=== PATIENT | male | born 1955 | race Caucasian/White ===

== ENCOUNTER 2017-04-19 18:30 | Emergency (ER) | payer MEDICAID, SELFPAY ==
[~2017-04-19] VITALS: Ht 182.9 cm; Wt 102.1 kg
[~2017-04-19 18:30] MED LIST: NKM
[2017-04-19] MEDS ORDERED: ACETAMINOPHEN-1 EAC1 ORAL (19:19)
[2017-04-19] MEDS ORDERED: CORTISPORIN EAR10 ML BOTH EARS (19:19)
[2017-04-19 19:27] VITALS: BP 120/80
--- NOTE | 2017-04-19 20:54 | Emergency Room Report ---
History of Present Illness General Chief Complaint: Earache Source: Patient Present Illness HPI The patient is a 61 old male presenting for ear pain which began 3 days ago. He states that he has pain to both years. Described as an 8/10 dull ache. Does not radiate. Worse with touch. He doesn't need to cleaning out ears with Q-tips. He denies any trauma to the ears. He denies change in hearing. He states that he frequently gets ear infections. He denies any other symptoms Allergies: Coded Allergies: No Known Allergies (Unverified , 04/04/13) Patient History Past Medical History: see triage record Pertinent Family History: none Reviewed Nursing Documentation: PMH: Agreed, PSxH: Agreed Nursing Documentation-PMH Hx Cardiac Problems: No Hx Cancer: No Hx Gastrointestinal Problems: No Hx Neurological Problems: Yes Hx Dizziness: Yes Review of Systems All Other Systems: negative except mentioned in HPI Physical Exam Vital Signs Date Time Temp Pulse Resp B/P (MAP) Pulse Ox O2 Delivery O2 Flow Rate FiO2 04/19/17 18:57 98.1 78 16 120/80 98 Room Air Sp02 EP Interpretation: reviewed, normal General Appearance: no apparent distress, alert, GCS 15, non-toxic Head: normocephalic, atraumatic Eyes: bilateral eye normal inspection, bilateral eye PERRL ENT: hearing grossly normal, normal pharynx, no angioedema, normal voice, uvula midline, other - Bilat EAC erythema with white DC Neck: full range of motion, supple/symm/no masses Respiratory: chest non-tender, lungs clear, normal breath sounds, speaking full sentences Musculoskeletal: back normal, gait/station normal, normal range of motion, non- tender Neurologic: alert, oriented x3, responsive, motor strength/tone normal, sensory intact, speech normal Psychiatric: judgement/insight normal, memory normal, mood/affect normal, no suicidal/homicidal ideation Skin: normal color, no rash, warm/dry, well hydrated Medical Decision Making PA Attestation Dr. Gibson is my supervising physician. Patient management was discussed with my supervising physician Diagnostic Impression: Primary Impression: Otitis externa of both ears Qualified Codes: H60.333 - Swimmer's ear, bilateral ER Course The patient is a 61 old male presenting for ear pain which began 3 days ago. Physical exam: Vitals within normal limits. No apparent distress. HEENT: Bilat ear external auditory canal is erythematous and edematous. White discharge is noted. Tympanic membrane is intact. No bulging. There is no cervical lymphadenopathy. Otherwise exam is unremarkable The patient will be discharged home with a prescription for Cortisporin and pain medication and will Fu with PMD Last Vital Signs Date Time Temp Pulse Resp B/P (MAP) Pulse Ox O2 Delivery O2 Flow Rate FiO2 04/19/17 19:27 98.1 78 16 120/80 98 Room Air Status: improved Disposition: HOME, SELF-CARE Condition: Improved Scripts Acetaminophen With Codeine (T#3) (TYLENOL #3 TAB*) Y Tab 1 TAB ORAL Q6HR Y for For Pain, #10 TAB Prov: FLORIDALMA THACKER 04/19/17 Neomycin/Polymyxin B Sulf/Hc* (CORTISPORIN EAR SOLUTION*) 10 Ml Solution 4 DROP BOTH EARS QID, #10 ML 0 Refills Prov: FLORIDALMA THACKER 04/19/17 Referrals: [facility],REFERRING (PCP) Patient Instructions: Otitis Externa, [id number], Earache Additional Instructions: I discussed my findings with the patient. All questions and concerns have been answered. Treatment and medication compliance have been addressed. I advised the patient that they need to follow up with PMD in 3-5 days. Return to ED if symptoms worsen, new symptoms arise, or if needed for any reason. Patient verbalized understanding of discharge instructions. FLORIDALMA THACKER Apr 19, 2017 20:54
== END 2017-04-19 19:30 | disposition home or self-care (01) ==
LOC: EMR 19:07
DX: H60.93 Unspecified otitis externa, bilateral (principal)
CPT/HCPCS: 99284

== ENCOUNTER 2017-08-30 14:49 | Inpatient (IN) | payer MEDICAID ==
[~2017-08-30] VITALS: Ht 180.3 cm; Wt 124.3 kg
[~2017-08-30 14:49] MED LIST changes: +ACETAMINOPHEN-1 EAC1 ORAL; +CORTISPORIN EAR10 ML BOTH EARS
[2017-08-30] MEDS ORDERED: Ipratropium 0.02% Inh Soln 2.5ml UD HHN ONE (15:15)
[2017-08-30] MEDS: Albuterol ud Inhalation HHN SCH ×3 (15:26→15:41)
--- NOTE | 2017-08-30 15:27 | Emergency Room Report ---
History of Present Illness General Chief Complaint: Dyspnea/Respdistress Source: Patient, Medical Record Present Illness HPI 61yo M complains fatigue for the past few months, sent by the clinic across the street, , for low O2 sat of 90% on room air Patient reports he's been smoking for about 30 years, and hasn't inhaler he uses occasionally, and has been feeling short of breath for the last few months. He denies any fever, hemoptysis, syncope, leg swelling, chest pain. He does report fatigue, general sensation of shortness of breath, cough with yellow sputum. He denies orthopnea, diaphoresis, rectal bleeding, melena, any pain complaints, any other complaints at all. Allergies: Coded Allergies: No Known Allergies (Unverified , 04/04/13) Patient History Past Medical History: see triage record Reviewed Nursing Documentation: PMH: Agreed; PSxH: Agreed Nursing Documentation-PMH Past Medical History: No History, Except For Hx Cardiac Problems: No Hx Cancer: No Hx Gastrointestinal Problems: No Hx Neurological Problems: Yes Hx Dizziness: Yes Review of Systems All Other Systems: negative except mentioned in HPI Physical Exam Vital Signs Date Time Temp Pulse Resp B/P (MAP) Pulse Ox O2 Delivery O2 Flow Rate FiO2 08/30/17 14:49 97.7 80 18 134/84 96 Nasal Cannula 4.0 97.7 Sp02 EP Interpretation: reviewed, abnormal - Hypoxic General Appearance: no apparent distress, alert, non-toxic Head: normocephalic Eyes: bilateral eye normal inspection, bilateral eye PERRL, bilateral eye EOMI ENT: normal ENT inspection, hearing grossly normal, normal pharynx, no angioedema, normal voice, moist mucus membranes Neck: normal inspection, full range of motion, supple, supple/symm/no masses Respiratory: chest non-tender, lungs clear - Poor air exchange, prolonged expiratory phase, but no rales, no rhonchi, no wheezing, speaking full sentences , chest symmetrical, palpation of chest normal Cardiovascular #1: normal peripheral pulses, regular rate, rhythm Cardiovascular #2: 2+ radial (R), 2+ radial (L) Gastrointestinal: normal inspection, non tender, soft, no mass, no guarding, no rebound Rectal: deferred Genitourinary: normal inspection, no CVA tenderness Musculoskeletal: back normal, gait/station normal, normal range of motion, non- tender, no calf tenderness, Amalia's Sign negative Neurologic: alert, responsive, security strategist III-XII nml as tested, motor strength/tone normal, sensory intact, speech normal Psychiatric: judgement/insight normal, memory normal, mood/affect normal, no suicidal/homicidal ideation Skin: normal color, no rash, warm/dry, normal turgor Lymphatic: no adenopathy Medical Decision Making Reaction to Intervention: Improved Diagnostic Impression: Primary Impression: Dyspnea ER Course Patient with likely undiagnosed COPD, taken off of oxygen and resting with O2 sat mid 90s on room air Patient in no extremis, no signs of PE, EKG unchanged from 2012, no chest pain ABG showed compensated respiratory acidosis and mild hypoxia Workup consistent with new onset COPD Will admit for further nebulizers and steroids, which were initiated in the ED EKG Diagnostic Results EKG Time: 15:08 EP Interpretation: t wave abnormality, no ST-T changes Rate: normal Rhythm: NSR ST Segments: no acute changes Other Impression no change when compared to 04/05/2013 ekg timed 8:42:04, had to obtain from medical records because they are not scanned into [employer] ASA given to the pt in ED: Yes Rhythm Strip Diag. Results EP Interpretation: yes Rate: 75 Rhythm: NSR, no PVC's, no ectopy Chest X-Ray Diagnostic Results Chest X-Ray Diagnostic Results : Chest X-Ray Ordered: Yes Indication: Shortness of Breath EP Interpretation: Yes PA Xray: Interpretation reviewed Interpretation: no consolidation, no effusion, no pneumothorax, no acute cardiopulmonary disease Impression: No acute disease - cardiomegaly, otherwise no consolidations/ effusions/PTX/blebs Electronically Signed by: La Nena Fowler MD Last Vital Signs Date Time Temp Pulse Resp B/P (MAP) Pulse Ox O2 Delivery O2 Flow Rate FiO2 08/30/17 14:49 97.7 80 18 134/84 96 Nasal Cannula 4.0 97.7 Status: improved Disposition: ADMITTED INPATIENT Condition: Stable Signed Out To: Dr. Calabrese agreed to admit for further nebs, oxygen, steroids LA NENA FOWLER M.D Aug 30, 2017 15:27
[2017-08-30 15:30] LABS: EOSINOPHILS % (AUTO) 2.8 % (0.0-3.0); HEMATOCRIT 45.8 % (42.0-52.0); HEMOGLOBIN 15.2 G/DL (14.2-18.0); MEAN CORPUSCULAR VOLUME 103 FL (80-99); MONOCYTES % (AUTO) 5.4 % (1.0-10.0); NEUTROPHILS % (AUTO) 55.8 % (45.0-75.0); PLATELET COUNT 300 K/UL (150-450); RED BLOOD COUNT 4.46 M/UL (4.70-6.10); RED CELL DISTRIBUTION WIDTH 15.5 % (11.6-14.8)
[2017-08-30 15:41] LABS: ANION GAP 8 mmol/L (5-15); BLOOD UREA NITROGEN 21 mg/dL (7-18); CALCIUM 9.1 MG/DL (8.5-10.1); CARBON DIOXIDE 30 MMOL/L (21-32); CHLORIDE 98 MMOL/L (98-107); CREATININE 1.6 MG/DL (0.55-1.30); POTASSIUM 4.1 MMOL/L (3.5-5.1); SODIUM 136 MMOL/L (136-145)
[2017-08-30 15:51] LABS: ALANINE AMINOTRANSFERASE 75 U/L (12-78); ALBUMIN 4.2 G/DL (3.4-5.0); ALBUMIN/GLOBULIN RATIO 0.9 (1.0-2.7); ALKALINE PHOSPHATASE 78 U/L (46-116); ASPARTATE AMINO TRANSFERASE 110 U/L (15-37); BILIRUBIN,TOTAL 0.5 MG/DL (0.2-1.0)
[2017-08-30] MEDS ORDERED: Solu-MEDROL 125mg Inj IVP ONE (16:00)
--- NOTE | 2017-08-30 16:28 | Diagnostic Imaging Report ---
Indication: Shortness of breath Technique: One view of the chest Comparison: 04/06/2013 Findings: The patient is rotated to the right. The heart is borderline enlarged. Lungs and pleural spaces are clear. Findings are unchanged allowing for differences in rotation Impression: No acute process. Upper lung cardia megaly
[2017-08-30] MEDS ORDERED: Albuterol ud Inhalation HHN ONE (16:30)
[2017-08-30 16:33] VITALS: BP 125/68
[2017-08-30 18:02] VITALS: BP 148/71
[2017-08-30] MEDS ORDERED: Acetaminophen 500mg (ES) tab ORAL PRN (18:15)
[2017-08-30 18:30] VITALS: BP 129/71
[2017-08-30] MEDS: Albuterol/Ipratropium 3ml neb HHN SCH ×2 (19:00→23:17)
[2017-08-30 20:00] VITALS: BP 141/74
[2017-08-30] MEDS: Levofloxacin 500mg tab ORAL SCH (20:13)
[2017-08-30] MEDS: Heparin 5000 units/ml inj SUBQ SCH (20:15)
[2017-08-30] MEDS: Solu-MEDROL 40mg Inj IVP SCH (22:51)
[2017-08-31] VITALS: BP 159/89
--- NOTE | 2017-08-31 02:30 | Consultation ---
DATE OF CONSULTATION: 08/30/2017 CARDIOLOGY CONSULTATION CONSULTING PHYSICIAN: Ryan Meyer M.D. REQUESTING PHYSICIAN: Tim Calabrese M.D. REASON FOR CONSULTATION: Abnormal EKG in the setting of shortness of breath. HISTORY OF PRESENT ILLNESS: This is a 61-year-old male. He has a longstanding history of COPD and is an active smoker. He was referred to the hospital for evaluation of hypoxia. He has continued to use his inhalers intermittently, which is his baseline level of use. For the last few months and more recently week, has been notable for progressive shortness of breath. He has not had any recent upper respiratory infection. He denies chest pain or leg swelling. His EKG in the emergency revealed sinus rhythm with anterior T-wave inversion. His initial troponin was 0.012. PAST MEDICAL HISTORY: COPD. MEDICATIONS: Prior to admission, reviewed and reconciled. ALLERGIES: None known. FAMILY HISTORY: Noncontributory. REVIEW OF SYSTEMS: A 10-point review of systems performed, all pertinent findings are noted above. PHYSICAL EXAMINATION: GENERAL: Moderately obese, in no acute respiratory distress, was unable to lie flat. VITAL SIGNS: Blood pressure 134/84, heart rate 80, respiratory rate 18, and afebrile. HEENT: Conjunctivae pink. Oropharynx clear. NECK: Supple with obese neck. LUNGS: A few rhonchi and fine expiratory wheezes. CARDIAC: Regular rhythm and rate. Normal S1, S2 with a fourth heart sound. ABDOMEN: Soft. EXTREMITIES: With 1+ dependent edema. LABORATORY DATA: Labs are reviewed. IMPRESSION: 1. Chronic obstructive pulmonary disease with acute exacerbation. 2. Hypoxia. 3. Abnormal EKG. 4. Possible acute myocardial ischemia. 5. Acute bronchitis. PLAN: 1. Empiric antibiotics. 2. Inhaled bronchodilators. 3. Intravenous steroids. 4. Respiratory hygiene. 5. Serial troponin levels. 6. DVT prophylaxis. 7. Venous duplex scan to assess for possible source of pulmonary emboli. 8. Replace electrolytes as needed. 9. Smoking cessation will continued to be offered to the patient who refuses at this time. 10. Oxygen supplementation and monitoring of acid-base parameters is critical during this period as well. Ryan Meyer M.D. DR: Beckie JOB#: [id number] CC:
[2017-08-31] MEDS: Albuterol/Ipratropium 3ml neb HHN SCH ×6 (03:03→23:41)
[2017-08-31 04:00] VITALS: BP 136/89
[2017-08-31] MEDS: Solu-MEDROL 40mg Inj IVP SCH ×3 (05:35→22:56)
[2017-08-31 08:00] VITALS: BP 150/67
[2017-08-31 08:50] LABS: BASOPHILS % (AUTO) 0.4 % (0.0-2.0); EOSINOPHILS % (AUTO) 0.1 % (0.0-3.0); HEMATOCRIT 47.8 % (42.0-52.0); HEMOGLOBIN 15.7 G/DL (14.2-18.0); LYMPHOCYTES % (AUTO) 16.7 % (20.0-45.0); MEAN CORPUSCULAR VOLUME 105 FL (80-99); NEUTROPHILS % (AUTO) 79.9 % (45.0-75.0); PLATELET COUNT 322 K/UL (150-450); RED BLOOD COUNT 4.53 M/UL (4.70-6.10); RED CELL DISTRIBUTION WIDTH 16.1 % (11.6-14.8); WHITE BLOOD COUNT 12.1 K/UL (4.8-10.8)
[2017-08-31 09:20] LABS: ALANINE AMINOTRANSFERASE 87 U/L (12-78); ALBUMIN 4.3 G/DL (3.4-5.0); ALBUMIN/GLOBULIN RATIO 0.8 (1.0-2.7); ALKALINE PHOSPHATASE 88 U/L (46-116); ANION GAP 6 mmol/L (5-15); ASPARTATE AMINO TRANSFERASE 112 U/L (15-37); BILIRUBIN,TOTAL 0.4 MG/DL (0.2-1.0); BLOOD UREA NITROGEN 20 mg/dL (7-18); CALCIUM 9.7 MG/DL (8.5-10.1); CARBON DIOXIDE 34 MMOL/L (21-32); CHLORIDE 98 MMOL/L (98-107); CREATININE 1.6 MG/DL (0.55-1.30); POTASSIUM 4.7 MMOL/L (3.5-5.1); SODIUM 138 MMOL/L (136-145)
[2017-08-31] MEDS: Heparin 5000 units/ml inj SUBQ SCH ×2 (09:29→20:33)
[2017-08-31 10:43] LABS: CHOLESTEROL 336 MG/DL (< 200); HDL CHOLESTEROL 61 MG/DL (40-60); TRIGLYCERIDES 89 MG/DL (30-150)
[2017-08-31 11:56] VITALS: BP 140/78
[2017-08-31 16:00] VITALS: BP 147/85
--- NOTE | 2017-08-31 17:10 | Cardiology Report ---
APPROVED REPORT EKG Measurement Heart [id number] CT 178P59 [id number] Normal sinus rhythm T wave abnormality, consider inferior ischemia T wave abnormality, consider anterolateral ischemia Abnormal ECG
--- NOTE | 2017-08-31 18:15 | History and Physical Report ---
DATE OF ADMISSION: 08/30/2017 CHIEF COMPLAINT: Shortness of breath and COPD exacerbation. HISTORY OF PRESENT ILLNESS: The patient is a 61-year-old male. He has a history of COPD. He was seen by his primary care doctor. He was noted to be significantly short of breath with diffuse wheezing. He was sent to the emergency room. He was diagnosed with COPD exacerbation. He is now admitted for further evaluation and care. PAST MEDICAL HISTORY: As above. PAST SURGICAL HISTORY: None. MEDICATIONS: Current medications include only albuterol inhaler. ALLERGIES: The patient has no known drug allergies. FAMILY HISTORY: Noncontributory. SOCIAL HISTORY: The patient has a 20 to 30-pack year history of smoking. REVIEW OF SYSTEMS: Unremarkable except for cough and shortness of breath. PHYSICAL EXAMINATION: VITAL SIGNS: Temperature 98 degrees, pulse 84, respirations 18, and blood pressure 136/89. GENERAL: The patient is well developed, no apparent distress. HEART: Regular rate and rhythm. LUNGS: Bilateral wheezes and rhonchi. ABDOMEN: Soft, nontender, and nondistended. EXTREMITIES: Without clubbing or cyanosis. LABORATORY AND DIAGNOSTIC DATA: White count 10, hemoglobin 15, and hematocrit 45. Creatinine was 1.6, sodium 136, and potassium was 4. AST was 110. Troponin 0.012. Chest x-ray showed no infiltrates. ASSESSMENT: This is a pleasant male, admitted with chronic obstructive pulmonary disease exacerbation. 1. Chronic obstructive pulmonary disease exacerbation. 2. Mild renal insufficiency. PLAN: Oral antibiotic therapy for bronchitis. Respiratory treatments and intravenous steroids. Pulmonary consultation. Tim Calabrese M.D. DR: SISI JOB#: [id number] CC:
[2017-08-31 20:00] VITALS: BP 118/59
[2017-08-31] MEDS: Levofloxacin 500mg tab ORAL SCH (20:33)
--- NOTE | 2017-08-31 22:00 | Consultation ---
DATE OF CONSULTATION: 08/31/2017 PULMONARY CONSULTATION REASON FOR CONSULTATION: COPD. HISTORY OF PRESENT ILLNESS: The patient is a 61-year-old male with history of COPD. The patient was noted to have increasing shortness of breath and wheezing. The patient was sent to the emergency room and now being admitted for chronic obstructive pulmonary disease exacerbation. The patient's care discussed and reviewed. PAST MEDICAL HISTORY: Notable for the above. MEDICATIONS: Reviewed. ALLERGIES: Reviewed. SOCIAL HISTORY: The patient has also history of smoking. REVIEW OF SYSTEMS: Otherwise negative with exception of cough, chest pain, shortness of breath. PHYSICAL EXAMINATION: GENERAL: A well-developed male, somewhat short of breath, but no acute distress. VITAL SIGNS: Reviewed and appeared to be otherwise stable. The patient is oxygenating at 93% on two liters. NECK: Supple. No accessory muscle use. LUNGS: Scattered wheezes with reduced air entry. CARDIAC: Normal S1 and S2. Regular rate and rhythm. ABDOMEN: Soft and nontender. EXTREMITIES: No edema. LABORATORY AND DIAGNOSTIC DATA: Lab data otherwise reviewed. Chest x-ray, negative. Troponin 0.012. IMPRESSION: 1. Chronic obstructive pulmonary disease with acute exacerbation. Elevated troponin of unclear significance. 2. Mild leukocytosis. 3. Evidence of acute on chronic CO2 retention suggestive of advanced lung disease. RECOMMENDATIONS: 1. Supportive care. 2. Agree with IV steroids. 3. Agree with nebulized therapy. 4. Nicotine patch. 5. Oxygen therapy. 6. Monitor clinically for improvement and proceed with discharge planning. 7. The patient likely would require combination of long acting bronchodilator, inhaled corticosteroids, and long-acting muscarinic agents, as well as Daliresp. stable on discharge. 8. We will discuss further. Marcelo Contreras M.D. DR: Vidya JOB#: [id number] CC:
[2017-09-01] VITALS: BP 136/68
--- NOTE | 2017-09-01 01:45 | Progress Note ---
DATE: 08/31/2017 CARDIOLOGY PROGRESS NOTE SUBJECTIVE: The patient notes some decrease in shortness of breath, but still congested and not at baseline. OBJECTIVE: VITAL SIGNS: Reveal blood pressure of 118/59, heart rate 84, respiratory rate 20, and oxygen saturation of 94% on two liters nasal cannula. LUNGS: Coarse breath sounds. Scattered rhonchi and expiratory wheezes. CARDIAC: Regular rhythm and rate. Normal S1, S2 with no murmur. ABDOMEN: Soft. EXTREMITIES: No edema. LABORATORY AND DIAGNOSTIC DATA: Troponin level #1 is 0.012 number #2 is 0. Chest x-ray revealed no acute process. Total cholesterol is 336. TSH is 63. BUN 20, creatinine 1.6. IMPRESSION: 1. Chronic obstructive pulmonary disease exacerbation. 2. Acute bronchitis. 3. Severe dyslipidemia. 4. Severe hypothyroidism. PLAN: 1. Respiratory therapy. 2. Bronchodilators. 3. Empiric antibiotics. 4. DVT prophylaxis. 5. Hold diuretics. 6. Add thyroid replacement and statin drug. Ryan Meyer M.D. DR: CECE JOB#: [id number] CC:
[2017-09-01] MEDS: Albuterol/Ipratropium 3ml neb HHN SCH ×6 (03:35→23:23)
[2017-09-01 04:00] VITALS: BP 157/68
[2017-09-01] MEDS: Solu-MEDROL 40mg Inj IVP SCH ×3 (05:51→20:42)
[2017-09-01 08:00] VITALS: BP 150/98
--- NOTE | 2017-09-01 08:13 | General Progress Note ---
Assessment/Plan Problem List: (1) COPD (chronic obstructive pulmonary disease) ICD Codes: J44.9 - Chronic obstructive pulmonary disease, unspecified SNOMED: 29088799 (2) COPD exacerbation ICD Codes: J44.1 - Chronic obstructive pulmonary disease with (acute) exacerbation SNOMED: 449076879 (3) Dyspnea ICD Codes: R06.00 - Dyspnea, unspecified SNOMED: 429286541 (4) Supraventricular tachycardia ICD Codes: I47.1 - Supraventricular tachycardia SNOMED: 5161753 (5) Otitis externa of both ears ICD Codes: H60.93 - Unspecified otitis externa, bilateral SNOMED: 0483910 Status: stable, progressing Assessment/Plan wean steroids resp rx atc abx po dvt/stress ulcer prophylaxis smoking cessation encouraged. Subjective ROS Limited/Unobtainable: No Constitutional: Reports: malaise, weakness HEENT: Reports: no symptoms Cardiovascular: Reports: no symptoms Respiratory: Reports: cough, shortness of breath, wheezing Gastrointestinal/Abdominal: Reports: no symptoms Genitourinary: Reports: no symptoms Neurologic/Psychiatric: Reports: no symptoms Endocrine: Reports: no symptoms Hematologic/Lymphatic: Reports: no symptoms Allergies: Coded Allergies: No Known Allergies (Unverified , 04/04/13) All Systems: reviewed and negative except above Subjective decreased wheezing and sob. cards and pulm appreciated Objective Last 24 Hour Vital Signs Date Time Temp Pulse Resp B/P (MAP) Pulse Ox O2 Delivery O2 Flow Rate FiO2 09/01/17 07:46 Nasal Cannula 2.0 28 09/01/17 07:46 95 Nasal Cannula 2.0 28 09/01/17 07:46 78 17 95 Nasal Cannula 2.0 28 09/01/17 04:00 97.0 73 20 157/68 94 Nasal Cannula 2.0 97.0 09/01/17 04:00 91 09/01/17 03:35 Nasal Cannula 2.0 28 09/01/17 03:35 Nasal Cannula 2.0 28 09/01/17 00:00 85 09/01/17 00:00 97.7 69 20 136/68 94 Nasal Cannula 2.0 97.7 08/31/17 23:51 81 20 99 Nasal Cannula 2.0 28 08/31/17 23:41 85 18 95 Nasal Cannula 2.0 28 08/31/17 20:00 88 08/31/17 20:00 97.7 84 20 118/59 94 Nasal Cannula 2.0 97.7 08/31/17 19:29 83 20 98 Nasal Cannula 2.0 28 08/31/17 19:19 80 18 93 Nasal Cannula 2.0 28 08/31/17 19:18 Nasal Cannula 2.0 28 08/31/17 19:18 93 Nasal Cannula 2.0 28 08/31/17 16:30 82 08/31/17 16:00 97.7 99 20 147/85 95 Nasal Cannula 2.0 97.7 08/31/17 15:54 80 20 Nasal Cannula 2.0 28 08/31/17 15:40 76 18 Nasal Cannula 2.0 28 08/31/17 12:00 83 08/31/17 11:58 85 20 Nasal Cannula 2.0 28 08/31/17 11:56 97.7 70 20 140/78 94 Nasal Cannula 2.0 97.7 08/31/17 11:45 82 18 95 Nasal Cannula 2.0 28 Intake and Output 08/31/17 09/01/17 19:00 07:00 Intake Total 600 ml Output Total 600 ml 1000 ml Balance 0 ml -1000 ml Intake Oral 600 ml Output Urine Total 600 ml 1000 ml # Voids 1 3 Height (Feet): 5 Height (Inches): 11.00 Weight (Pounds): 274 General Appearance: WD/WN, alert Neck: supple Cardiovascular: normal rate, regular rhythm Respiratory/Chest: expiratory wheezing Abdomen: normal bowel sounds, non tender, soft, no organomegaly Edema: no edema noted Arm (L), no edema noted Arm (R), no edema noted Leg (L), no edema noted Leg (R), no edema noted Pedal (L), no edema noted Pedal (R), no edema noted Generalized SAMREEN DENG Sep 01, 2017 08:13
[2017-09-01] MEDS: Heparin 5000 units/ml inj SUBQ SCH ×2 (08:16→20:43)
[2017-09-01 12:00] VITALS: BP 151/79
--- NOTE | 2017-09-01 12:36 | Pulmonology Progress Note ---
Assessment/Plan Assessment/Plan IMPRESSION: 1. Chronic obstructive pulmonary disease with acute exacerbation. 2. Mild leukocytosis. 3. Evidence of acute on chronic CO2 retention suggestive of advanced lung disease. PLAN continue same slow taper of steroids respiratory care ICS and LABA LAMA and daliresp with steroid taper on dc Subjective Allergies: Coded Allergies: No Known Allergies (Unverified , 04/04/13) Subjective still with some congestion Objective Last 24 Hour Vital Signs Date Time Temp Pulse Resp B/P (MAP) Pulse Ox O2 Delivery O2 Flow Rate FiO2 09/01/17 12:00 97.0 81 21 151/79 99 Nasal Cannula 2.0 97.0 09/01/17 11:27 82 20 96 Nasal Cannula 2.0 28 09/01/17 11:17 81 18 89 Room Air 21 09/01/17 08:00 97.7 83 22 150/98 96 Nasal Cannula 2.0 97.7 09/01/17 08:00 67 09/01/17 07:56 78 20 97 Nasal Cannula 2.0 28 09/01/17 07:46 Nasal Cannula 2.0 28 09/01/17 07:46 95 Nasal Cannula 2.0 28 09/01/17 07:46 78 17 95 Nasal Cannula 2.0 28 09/01/17 04:00 97.0 73 20 157/68 94 Nasal Cannula 2.0 97.0 09/01/17 04:00 91 09/01/17 03:35 Nasal Cannula 2.0 28 09/01/17 03:35 Nasal Cannula 2.0 28 09/01/17 00:00 85 09/01/17 00:00 97.7 69 20 136/68 94 Nasal Cannula 2.0 97.7 08/31/17 23:51 81 20 99 Nasal Cannula 2.0 28 08/31/17 23:41 85 18 95 Nasal Cannula 2.0 28 08/31/17 20:00 88 08/31/17 20:00 97.7 84 20 118/59 94 Nasal Cannula 2.0 97.7 08/31/17 19:29 83 20 98 Nasal Cannula 2.0 28 08/31/17 19:19 80 18 93 Nasal Cannula 2.0 28 08/31/17 19:18 Nasal Cannula 2.0 28 08/31/17 19:18 93 Nasal Cannula 2.0 28 08/31/17 16:30 82 08/31/17 16:00 97.7 99 20 147/85 95 Nasal Cannula 2.0 97.7 08/31/17 15:54 80 20 Nasal Cannula 2.0 28 08/31/17 15:40 76 18 Nasal Cannula 2.0 28 Intake and Output 08/31/17 09/01/17 19:00 07:00 Intake Total 600 ml Output Total 600 ml 1000 ml Balance 0 ml -1000 ml Intake Oral 600 ml Output Urine Total 600 ml 1000 ml # Voids 1 3 Objective GENERAL: A well-developed male, somewhat short of breath, but no acute distress. NECK: Supple. No accessory muscle use. LUNGS: Scattered wheezes with reduced air entry. some rhonchi CARDIAC: Normal S1 and S2. Regular rate and rhythm. ABDOMEN: Soft and nontender. EXTREMITIES: No edema. Microbiology Date/Time Source Procedure Growth Status 08/31/17 04:45 Sputum Gram Stain Pending Resulted 08/31/17 04:45 Sputum Sputum Culture - Preliminary NORMAL UPPER RESPIRATORY ROSEMARY AT 24 ... Resulted Current Medications Medications (Trade) Dose Ordered Sig/Ryan Route PRN Reason Start Time Stop Time Status Last Admin Dose Admin Acetaminophen (Tylenol) 500 mg Q4H PRN ORAL Mild Pain/Temp > 100.5 08/30/17 18:15 09/29/17 18:14 Albuterol/ Ipratropium (Albuterol/ Ipratropium) 3 ml Q4HRT HHN 08/30/17 19:00 09/04/17 18:59 09/01/17 11:16 Atorvastatin Calcium (Lipitor) 20 mg BEDTIME ORAL 09/01/17 21:00 10/01/17 20:59 Famotidine (Pepcid) 20 mg DAILY ORAL 08/31/17 09:00 09/30/17 08:59 09/01/17 08:15 Heparin Sodium (Porcine) (Heparin 5000 units/ml) 5,000 units EVERY 12 HOURS SUBQ 08/30/17 21:00 09/29/17 20:59 09/01/17 08:16 Levofloxacin (Levaquin) 500 mg Q24H ORAL 08/30/17 20:00 09/06/17 19:59 08/31/17 20:33 Levothyroxine Sodium (Synthroid) 100 mcg DAILY@0630 ORAL 09/01/17 06:30 10/01/17 06:29 09/01/17 05:51 Methylprednisolone Sodium Succinate (Solu-MEDROL) 40 mg EVERY 12 HOURS IVP 09/01/17 09:00 09/29/17 22:59 09/01/17 08:21 Nicotine (Nicoderm) 1 patch Q24H TDERMAL 08/31/17 15:00 09/30/17 14:59 08/31/17 15:59 Ondansetron HCl (Zofran) 4 mg Q6H PRN IVP Nausea & Vomiting 08/30/17 18:15 09/29/17 18:14 Temazepam (Restoril) 30 mg HSPRN PRN ORAL Insomnia 08/31/17 21:15 09/07/17 21:14 08/31/17 22:56 TY [facility] Sep 01, 2017 12:36
[2017-09-01 16:00] VITALS: BP 149/58
[2017-09-01 20:00] VITALS: BP 149/93
[2017-09-01] MEDS: Levofloxacin 500mg tab ORAL SCH (20:41)
[2017-09-01] MEDS: Atorvastatin 20mg tab ORAL SCH (20:41)
[2017-09-02] VITALS: BP 145/60
--- NOTE | 2017-09-02 00:30 | Progress Note ---
DATE: 09/01/2017 CARDIOLOGY PROGRESS NOTE SUBJECTIVE: The patient has less shortness of breath. Steroids are being tapered. No chest pain. Inhaled therapy has been started. OBJECTIVE: VITAL SIGNS: Blood pressure 151/79, pulse 81, respiratory rate 21 and afebrile. LUNGS: Diminished breath sounds. Few wheezes. CARDIAC: Regular rhythm and rate. Normal S1 and S2. ABDOMEN: Soft. EXTREMITIES: No edema. IMPRESSION: 1. COPD exacerbation. 2. Severe hypothyroidism. 3. Severe hyperlipidemia. 4. Labile blood pressure with episodes of hypertension. PLAN: Thyroid replacement and statin drug initiated. Steroid taper. Inhaled bronchodilators. Consider additional antihypertensives if blood pressure trend continues to be elevated. Ryan Meyer M.D. DR: MONTSERRAT JOB#: [id number] CC:
[2017-09-02] MEDS: Albuterol/Ipratropium 3ml neb HHN SCH ×6 (03:33→23:00)
[2017-09-02 04:00] VITALS: BP 156/80
[2017-09-02 08:00] VITALS: BP 150/75
[2017-09-02] MEDS: Solu-MEDROL 40mg Inj IVP SCH (08:12)
[2017-09-02] MEDS: Heparin 5000 units/ml inj SUBQ SCH ×2 (08:13→20:50)
[2017-09-02] MEDS: Breo Ellipta 200/25mcg-14 dose INH SCH (09:26)
[2017-09-02 12:00] VITALS: BP 130/75
--- NOTE | 2017-09-02 12:18 | Pulmonology Progress Note ---
Assessment/Plan Assessment/Plan IMPRESSION: 1. Chronic obstructive pulmonary disease with acute exacerbation. 2. Mild leukocytosis. 3. Evidence of acute on chronic CO2 retention suggestive of advanced lung disease. PLAN continue same respiratory care slow taper of steroids ordered respiratory care ICS and LABA LAMA and daliresp with steroid taper on dc hope to dc in am Subjective Allergies: Coded Allergies: No Known Allergies (Unverified , 04/04/13) Subjective still with some congestion but better Objective Last 24 Hour Vital Signs Date Time Temp Pulse Resp B/P (MAP) Pulse Ox O2 Delivery O2 Flow Rate FiO2 09/02/17 11:08 76 18 98 Nasal Cannula 2.0 28 09/02/17 10:58 80 18 95 Nasal Cannula 2.0 28 09/02/17 09:36 83 16 97 Nasal Cannula 2.0 28 09/02/17 09:36 83 16 97 Nasal Cannula 2.0 28 09/02/17 08:00 84 09/02/17 08:00 97.5 81 20 150/75 97 Nasal Cannula 2.0 97.5 09/02/17 07:52 80 18 98 Nasal Cannula 2.0 28 09/02/17 07:44 Nasal Cannula 2.0 28 09/02/17 07:44 97 Nasal Cannula 2.0 28 09/02/17 07:44 83 18 97 Nasal Cannula 2.0 28 09/02/17 04:00 76 09/02/17 04:00 97.2 69 20 156/80 96 Nasal Cannula 2.0 97.2 09/02/17 03:43 79 18 98 Nasal Cannula 2.0 28 09/02/17 03:33 78 18 95 Nasal Cannula 2.0 28 09/02/17 00:00 92 09/02/17 00:00 97.3 80 20 145/60 97 Nasal Cannula 2.0 97.3 09/01/17 23:23 Nasal Cannula 2.0 28 09/01/17 23:23 Nasal Cannula 2.0 28 09/01/17 20:14 82 18 98 Nasal Cannula 2.0 28 09/01/17 20:04 96 Nasal Cannula 2.0 28 09/01/17 20:04 88 18 96 Nasal Cannula 2.0 28 09/01/17 20:04 Nasal Cannula 2.0 28 09/01/17 20:00 97.2 78 20 149/93 97 Nasal Cannula 2.0 97.2 09/01/17 20:00 86 09/01/17 16:00 97.0 81 22 149/58 97 Nasal Cannula 2.0 97.0 09/01/17 16:00 83 09/01/17 15:26 81 20 97 Nasal Cannula 2.0 28 09/01/17 15:15 82 18 94 Nasal Cannula 2.0 28 Intake and Output 09/01/17 09/02/17 19:00 07:00 Intake Total 860 ml Output Total 1600 ml 1500 ml Balance -740 ml -1500 ml Intake Oral 860 ml Output Urine Total 1600 ml 1500 ml # Voids 5 Objective GENERAL: A well-developed male, somewhat short of breath, but no acute distress. NECK: Supple. No accessory muscle use. LUNGS: Scattered wheezes with reduced air entry. some rhonchi CARDIAC: Normal S1 and S2. Regular rate and rhythm. ABDOMEN: Soft and nontender. EXTREMITIES: No edema. Microbiology Date/Time Source Procedure Growth Status 08/31/17 04:45 Sputum Gram Stain - Final Complete 08/31/17 04:45 Sputum Sputum Culture - Final NORMAL UPPER RESPIRATORY ROSEMARY PRESENT Complete Current Medications Medications (Trade) Dose Ordered Sig/Ryan Route PRN Reason Start Time Stop Time Status Last Admin Dose Admin Acetaminophen (Tylenol) 500 mg Q4H PRN ORAL Mild Pain/Temp > 100.5 08/30/17 18:15 09/29/17 18:14 Albuterol/ Ipratropium (Albuterol/ Ipratropium) 3 ml Q4HRT HHN 08/30/17 19:00 09/04/17 18:59 09/02/17 10:58 Atorvastatin Calcium (Lipitor) 20 mg BEDTIME ORAL 09/01/17 21:00 10/01/17 20:59 09/01/17 20:41 Famotidine (Pepcid) 20 mg DAILY ORAL 08/31/17 09:00 09/30/17 08:59 09/02/17 08:14 Fluticasone/ Vilanterol (Breo Ellipta 200/25) 1 puffs DAILY INH 09/02/17 09:00 10/02/17 08:59 09/02/17 09:26 Heparin Sodium (Porcine) (Heparin 5000 units/ml) 5,000 units EVERY 12 HOURS SUBQ 08/30/17 21:00 09/29/17 20:59 09/02/17 08:13 Levofloxacin (Levaquin) 500 mg Q24H ORAL 08/30/17 20:00 09/06/17 19:59 09/01/17 20:41 Levothyroxine Sodium (Synthroid) 100 mcg DAILY@0630 ORAL 09/01/17 06:30 10/01/17 06:29 09/02/17 06:14 Methylprednisolone Sodium Succinate (Solu-MEDROL) 40 mg EVERY 12 HOURS IVP 09/01/17 09:00 09/29/17 22:59 09/02/17 08:12 Nicotine (Nicoderm) 1 patch Q24H TDERMAL 08/31/17 15:00 09/30/17 14:59 09/01/17 14:20 Ondansetron HCl (Zofran) 4 mg Q6H PRN IVP Nausea & Vomiting 08/30/17 18:15 09/29/17 18:14 Temazepam (Restoril) 30 mg HSPRN PRN ORAL Insomnia 08/31/17 21:15 09/07/17 21:14 08/31/17 22:56 TY COX Sep 02, 2017 12:18
--- NOTE | 2017-09-02 14:26 | General Progress Note ---
Assessment/Plan Problem List: (1) COPD (chronic obstructive pulmonary disease) ICD Codes: J44.9 - Chronic obstructive pulmonary disease, unspecified SNOMED: 42691306 (2) COPD exacerbation ICD Codes: J44.1 - Chronic obstructive pulmonary disease with (acute) exacerbation SNOMED: 483083350 (3) Dyspnea ICD Codes: R06.00 - Dyspnea, unspecified SNOMED: 796977717 (4) Supraventricular tachycardia ICD Codes: I47.1 - Supraventricular tachycardia SNOMED: 3178548 (5) Otitis externa of both ears ICD Codes: H60.93 - Unspecified otitis externa, bilateral SNOMED: 5819501 Status: stable Assessment/Plan wean steroids resp rx atc abx po dvt/stress ulcer prophylaxis smoking cessation encouraged. thyroid replacement statin therapy dc planning tomorrow if stable Subjective ROS Limited/Unobtainable: No Constitutional: Reports: malaise, weakness HEENT: Reports: no symptoms Cardiovascular: Reports: no symptoms Respiratory: Reports: shortness of breath Gastrointestinal/Abdominal: Reports: no symptoms Genitourinary: Reports: no symptoms Neurologic/Psychiatric: Reports: no symptoms Endocrine: Reports: no symptoms Hematologic/Lymphatic: Reports: no symptoms Allergies: Coded Allergies: No Known Allergies (Unverified , 04/04/13) All Systems: reviewed and negative except above Subjective decreased wheezing and sob. cards and pulm appreciated. on thyroid replacement and statin now. IV steroids weaning. Objective Last 24 Hour Vital Signs Date Time Temp Pulse Resp B/P (MAP) Pulse Ox O2 Delivery O2 Flow Rate FiO2 09/02/17 12:00 97.7 83 20 130/75 95 Nasal Cannula 2.0 97.7 09/02/17 12:00 86 09/02/17 11:08 76 18 98 Nasal Cannula 2.0 28 09/02/17 10:58 80 18 95 Nasal Cannula 2.0 28 09/02/17 09:36 83 16 97 Nasal Cannula 2.0 28 09/02/17 09:36 83 16 97 Nasal Cannula 2.0 28 09/02/17 08:00 84 09/02/17 08:00 97.5 81 20 150/75 97 Nasal Cannula 2.0 97.5 09/02/17 07:52 80 18 98 Nasal Cannula 2.0 28 09/02/17 07:44 Nasal Cannula 2.0 28 09/02/17 07:44 97 Nasal Cannula 2.0 28 09/02/17 07:44 83 18 97 Nasal Cannula 2.0 28 09/02/17 04:00 76 09/02/17 04:00 97.2 69 20 156/80 96 Nasal Cannula 2.0 97.2 09/02/17 03:43 79 18 98 Nasal Cannula 2.0 28 09/02/17 03:33 78 18 95 Nasal Cannula 2.0 28 09/02/17 00:00 92 09/02/17 00:00 97.3 80 20 145/60 97 Nasal Cannula 2.0 97.3 09/01/17 23:23 Nasal Cannula 2.0 28 09/01/17 23:23 Nasal Cannula 2.0 28 09/01/17 20:14 82 18 98 Nasal Cannula 2.0 28 09/01/17 20:04 96 Nasal Cannula 2.0 28 09/01/17 20:04 88 18 96 Nasal Cannula 2.0 28 09/01/17 20:04 Nasal Cannula 2.0 28 09/01/17 20:00 97.2 78 20 149/93 97 Nasal Cannula 2.0 97.2 09/01/17 20:00 86 09/01/17 16:00 97.0 81 22 149/58 97 Nasal Cannula 2.0 97.0 09/01/17 16:00 83 09/01/17 15:26 81 20 97 Nasal Cannula 2.0 28 09/01/17 15:15 82 18 94 Nasal Cannula 2.0 28 Intake and Output 09/01/17 09/02/17 19:00 07:00 Intake Total 860 ml Output Total 1600 ml 1500 ml Balance -740 ml -1500 ml Intake Oral 860 ml Output Urine Total 1600 ml 1500 ml # Voids 5 Height (Feet): 5 Height (Inches): 11.00 Weight (Pounds): 274 Objective General Appearance: WD/WN, alert Neck: supple Cardiovascular: normal rate, regular rhythm Respiratory/Chest: expiratory wheezing Abdomen: normal bowel sounds, non tender, soft, no organomegaly Edema: no edema noted Arm (L), no edema noted Arm (R), no edema noted Leg (L), no edema noted Leg (R), no edema noted Pedal (L), no edema noted Pedal (R), no edema noted Generalized SAMREEN DENG Sep 02, 2017 14:26
[2017-09-02 16:00] VITALS: BP 136/75
[2017-09-02 20:00] VITALS: BP 139/79
[2017-09-02] MEDS: Levofloxacin 500mg tab ORAL SCH (20:00)
[2017-09-02] MEDS: Atorvastatin 20mg tab ORAL SCH (20:45)
--- NOTE | 2017-09-02 22:30 | Progress Note ---
DATE: 09/02/2017 CARDIOLOGY PROGRESS NOTE SUBJECTIVE: The patient has less wheezing and shortness of breath. OBJECTIVE: VITAL SIGNS: Blood pressure 130/75, pulse 82, and respirations 20. Afebrile. LUNGS: Coarse breath sounds. Few wheezes. HEART: Regular rhythm and rate. Normal S1, S2. ABDOMEN: Soft. EXTREMITIES: No edema. IMPRESSION: 1. Chronic obstructive pulmonary disease exacerbation. 2. Paroxysmal bronchospasm. 3. Acute bronchitis. 4. Severe hypothyroidism. 5. Severe hyperlipidemia. 6. Chronic kidney disease. PLAN: 1. Steroid taper. 2. Recheck metabolic parameters and renal function. 3. Continue thyroid replacement therapy and statin drugs. Ryan Meyer M.D. DR: CHEMO JOB#: [id number] CC:
[2017-09-03] VITALS: BP 132/81
[2017-09-03] MEDS: Albuterol/Ipratropium 3ml neb HHN SCH ×2 (03:00→08:00)
[2017-09-03 04:00] VITALS: BP 122/69
[2017-09-03 07:55] LABS: HEMATOCRIT 46.1 % (42.0-52.0); HEMOGLOBIN 15.8 G/DL (14.2-18.0); MEAN CORPUSCULAR VOLUME 105 FL (80-99); PLATELET COUNT 279 K/UL (150-450); RED CELL DISTRIBUTION WIDTH 16.2 % (11.6-14.8); WHITE BLOOD COUNT 19.2 K/UL (4.8-10.8)
[2017-09-03 08:00] VITALS: BP 156/88
[2017-09-03 08:25] LABS: ALANINE AMINOTRANSFERASE 172 U/L (12-78); ALBUMIN 3.7 G/DL (3.4-5.0); ALBUMIN/GLOBULIN RATIO 0.8 (1.0-2.7); ALKALINE PHOSPHATASE 91 U/L (46-116); ANION GAP 4 mmol/L (5-15); ASPARTATE AMINO TRANSFERASE 121 U/L (15-37); BILIRUBIN,TOTAL 0.3 MG/DL (0.2-1.0); BLOOD UREA NITROGEN 26 mg/dL (7-18); CALCIUM 9.4 MG/DL (8.5-10.1); CARBON DIOXIDE 35 MMOL/L (21-32); CHLORIDE 98 MMOL/L (98-107); CREATININE 1.3 MG/DL (0.55-1.30); SODIUM 137 MMOL/L (136-145)
[2017-09-03] MEDS: Heparin 5000 units/ml inj SUBQ SCH (08:57)
[2017-09-03] MEDS: Breo Ellipta 200/25mcg-14 dose INH SCH (09:00)
[2017-09-03] MEDS ORDERED: Solu-MEDROL 40mg Inj IVP SCH (09:00)
[2017-09-03] MEDS ORDERED: LIPITOR20 MG ORAL (09:23)
[2017-09-03] MEDS ORDERED: LEVOTHYROXINE100 MCG ORAL (09:23)
[2017-09-03] MEDS ORDERED: BREO ELLIPTA 21 EACH INH (09:23)
--- NOTE | 2017-09-03 10:58 | Pulmonology Progress Note ---
Assessment/Plan Assessment/Plan IMPRESSION: 1. Chronic obstructive pulmonary disease with acute exacerbation. 2. Mild leukocytosis. 3. Evidence of acute on chronic CO2 retention suggestive of advanced lung disease. PLAN continue same respiratory care slow taper of steroids as able respiratory care ICS and LABA LAMA and daliresp with steroid taper on dc hope to dc today Subjective Allergies: Coded Allergies: No Known Allergies (Unverified , 04/04/13) Subjective still with mild congestion but better Objective Last 24 Hour Vital Signs Date Time Temp Pulse Resp B/P (MAP) Pulse Ox O2 Delivery O2 Flow Rate FiO2 09/03/17 10:15 Room Air 21 09/03/17 10:14 Room Air 21 09/03/17 08:08 92 18 98 Nasal Cannula 2.0 28 09/03/17 08:01 Nasal Cannula 2.0 28 09/03/17 08:01 92 Nasal Cannula 2.0 28 09/03/17 08:00 97.7 87 17 156/88 100 Room Air 97.7 09/03/17 08:00 90 22 92 Nasal Cannula 2.0 28 09/03/17 04:10 Nasal Cannula 09/03/17 04:09 Nasal Cannula 09/03/17 04:00 82 09/03/17 04:00 97.7 76 20 122/69 97 Nasal Cannula 2.0 97.7 09/03/17 00:00 96.8 61 22 132/81 95 Nasal Cannula 2.0 96.8 09/03/17 00:00 80 09/02/17 23:06 Nasal Cannula 09/02/17 23:05 Nasal Cannula 09/02/17 21:04 Nasal Cannula 09/02/17 21:03 Nasal Cannula 09/02/17 21:02 96 Nasal Cannula 2.0 28 09/02/17 21:02 Nasal Cannula 2.0 28 09/02/17 20:00 97.2 64 22 139/79 95 Nasal Cannula 2.0 97.2 09/02/17 20:00 81 09/02/17 16:00 75 09/02/17 16:00 97.5 66 21 136/75 95 Nasal Cannula 2.0 97.5 09/02/17 15:41 73 18 98 Nasal Cannula 2.0 28 09/02/17 15:32 76 18 96 Nasal Cannula 2.0 28 09/02/17 12:00 97.7 83 20 130/75 95 Nasal Cannula 2.0 97.7 09/02/17 12:00 86 09/02/17 11:08 76 18 98 Nasal Cannula 2.0 28 09/02/17 10:58 80 18 95 Nasal Cannula 2.0 28 Intake and Output 09/02/17 09/03/17 19:00 07:00 Intake Total 600 ml Output Total 600 ml Balance 0 ml Intake Oral 600 ml Output Urine Total 600 ml # Voids 2 Objective GENERAL: A well-developed male, somewhat short of breath, but no acute distress. NECK: Supple. No accessory muscle use. LUNGS: Scattered wheezes with reduced air entry. some rhonchi CARDIAC: Normal S1 and S2. Regular rate and rhythm. ABDOMEN: Soft and nontender. EXTREMITIES: No edema. Laboratory Tests 09/03/17 06:35: White Blood Count 19.2H, Red Blood Count 4.40L, Hemoglobin 15.8, Hematocrit 46.1 , Mean Corpuscular Volume 105H, Mean Corpuscular Hemoglobin 36.0H, Mean Corpuscular Hemoglobin Concent 34.4, Red Cell Distribution Width 16.2H, Platelet Count 279, Mean Platelet Volume 8.5, Neutrophils (%) (Auto) , Lymphocytes (%) (Auto) , Monocytes (%) (Auto) , Eosinophils (%) (Auto) , Basophils (%) (Auto) , Differential Total Cells Counted 100, Neutrophils % ( Manual) 64, Lymphocytes % (Manual) 28, Monocytes % (Manual) 8, Eosinophils % ( Manual) 0, Basophils % (Manual) 0, Band Neutrophils 0, Platelet Estimate Adequate, Platelet Morphology Normal, Anisocytosis 1+, Macrocytosis 1+, Sodium Level 137, Potassium Level 4.0, Chloride Level 98, Carbon Dioxide Level 35H, Anion Gap 4L, Blood Urea Nitrogen 26H, Creatinine 1.3, Estimat Glomerular Filtration Rate 56.1, Glucose Level 81, Calcium Level 9.4, Magnesium Level 2.2, Total Bilirubin 0.3, Aspartate Amino Transf (AST/SGOT) 121H, Alanine Aminotransferase (ALT/SGPT) 172H, Alkaline Phosphatase 91, Total Protein 8.3H, Albumin 3.7, Globulin 4.6, Albumin/Globulin Ratio 0.8L Current Medications Medications (Trade) Dose Ordered Sig/Ryan Route PRN Reason Start Time Stop Time Status Last Admin Dose Admin Acetaminophen (Tylenol) 500 mg Q4H PRN ORAL Mild Pain/Temp > 100.5 08/30/17 18:15 09/29/17 18:14 Albuterol/ Ipratropium (Albuterol/ Ipratropium) 3 ml Q4HRT HHN 08/30/17 19:00 09/04/17 18:59 09/03/17 08:00 Atorvastatin Calcium (Lipitor) 20 mg BEDTIME ORAL 09/01/17 21:00 10/01/17 20:59 09/02/17 20:45 Famotidine (Pepcid) 20 mg DAILY ORAL 08/31/17 09:00 09/30/17 08:59 09/03/17 08:55 Fluticasone/ Vilanterol (Breo Ellipta 200/25) 1 puffs DAILY INH 09/02/17 09:00 10/02/17 08:59 09/02/17 09:26 Heparin Sodium (Porcine) (Heparin 5000 units/ml) 5,000 units EVERY 12 HOURS SUBQ 08/30/17 21:00 09/29/17 20:59 09/03/17 08:57 Levofloxacin (Levaquin) 500 mg Q24H ORAL 08/30/17 20:00 09/06/17 19:59 09/02/17 20:00 Levothyroxine Sodium (Synthroid) 100 mcg DAILY@0630 ORAL 09/01/17 06:30 10/01/17 06:29 09/03/17 06:27 Methylprednisolone Sodium Succinate (Solu-MEDROL) 40 mg DAILY IVP 09/03/17 09:00 09/29/17 22:59 09/03/17 08:56 Nicotine (Nicoderm) 1 patch Q24H TDERMAL 08/31/17 15:00 09/30/17 14:59 09/02/17 15:05 Ondansetron HCl (Zofran) 4 mg Q6H PRN IVP Nausea & Vomiting 08/30/17 18:15 09/29/17 18:14 Temazepam (Restoril) 30 mg HSPRN PRN ORAL Insomnia 08/31/17 21:15 09/07/17 21:14 08/31/17 22:56 TY COX Sep 03, 2017 10:58
--- NOTE | 2017-09-03 22:15 | Discharge Summary ---
DATE OF ADMISSION: 08/30/2017 DATE OF DISCHARGE: 09/03/2017 ADMISSION DIAGNOSES: 1. Chronic obstructive pulmonary disease exacerbation. 2. Bronchitis. DISCHARGE DIAGNOSES: 1. Chronic obstructive pulmonary disease exacerbation. 2. Bronchitis. HOSPITAL COURSE: The patient is a pleasant 61-year-old male with a history of COPD, presents with complaints of wheezing and shortness of breath consistent with COPD exacerbation. He received intravenous steroids. He had slow improvement. Cardiology and Pulmonary consultations were obtained. The patient improved with conservative therapy with steroids and respiratory treatments. He was started on thyroid replacement therapy as well as lipid treatment. On discharge, he was stable. DISCHARGE MEDICATIONS: Please see discharge medication list for discharge medications. DIET: Cardiac diet. ACTIVITY: Ad-kiki. FOLLOWUP: The patient to follow up in in one to two weeks in the office. Tim Calabrese M.D. DR: SISI JOB#: [id number] CC:
--- NOTE | 2017-09-04 00:45 | Progress Note ---
DATE: 09/03/2017 CARDIOLOGY PROGRESS NOTE SUBJECTIVE: The patient has less congestion and shortness of breath. OBJECTIVE: VITAL SIGNS: Afebrile, oxygen saturation 92% to 98% on 2 liters nasal cannula. LUNGS: Coarse breath sounds. No wheezing. HEART: Regular rhythm and rate. Normal S1 and S2 with a fourth heart sound. ABDOMEN: Soft. EXTREMITIES: No edema. IMPRESSION: 1. Chronic obstructive pulmonary disease exacerbation, recovering. 2. Acute bronchitis, improved. 3. Paroxysmal bronchospasm, improved. 4. Acute on chronic respiratory acidosis. 5. Hyperlipidemia. 6. Hypothyroidism. PLAN: 1. Continue inhaled steroids and bronchodilators. 2. Complete oral antimicrobials. 3. Avoid secondhand smoke. 4. Thyroid replacement. 5. Anti-lipid therapy with statin drugs. 6. Antiplatelet therapy for prophylaxis against cardiovascular events. Ryan Meyer M.D. DR: Amadeo JOB#: [id number] CC:
== END 2017-09-03 11:00 | disposition home or self-care (01) | DRG 140 ==
LOC: EDBD 14:49 → EMR 15:46 → 2E 16:48 → EDBEDREQ 16:54 → 2E 18:10
DX: J44.0 Chronic obstructive pulmonary disease with (acute) lower respiratory infection (principal); I47.1 Supraventricular tachycardia; I12.9 Hypertensive chronic kidney disease with stage 1 through stage 4 chronic kidney disease, or unspecified chronic kidney disease; I51.3 Intracardiac thrombosis, not elsewhere classified; J20.9 Acute bronchitis, unspecified; J44.1 Chronic obstructive pulmonary disease with (acute) exacerbation; F17.200 Nicotine dependence, unspecified, uncomplicated; R09.02 Hypoxemia; E78.5 Hyperlipidemia, unspecified; E03.9 Hypothyroidism, unspecified; H66.93 Otitis media, unspecified, bilateral; N18.9 Chronic kidney disease, unspecified
CPT/HCPCS: 36415; 36600; 71045; 80053; 80061; 82803; 83735; 83880; 84443; 84484; 85007; 85025; 87070; 87205; 93005; 93970; 94640; 94664; 94760; 99285; J7620

== ENCOUNTER 2017-09-28 13:42 | Emergency (ER) | payer MEDICAID ==
[~2017-09-28] VITALS: Ht 154.9 cm; Wt 136.1 kg
[~2017-09-28 13:42] MED LIST changes: +BREO ELLIPTA 21 EACH INH; +LEVOTHYROXINE100 MCG ORAL; +LIPITOR20 MG ORAL
[2017-09-28 13:50] VITALS: BP 108/72
[2017-09-28] MEDS: Adenosine 6mg/2ml Inj IVP ONE ×2 (14:06→14:20)
--- NOTE | 2017-09-28 14:10 | Emergency Room Report ---
History of Present Illness General Chief Complaint: Dyspnea/Respdistress Source: Patient Present Illness HPI 61yo M p/w SOB that started suddenly this morning, it was mild, but lasted all day and was associated with palpitations. He denies chest pain, leg pain, or pain anywhere. He denies fever, chills, vomiting, syncope, hemoptysis. He denies drug use and recently quit smoking 1 month ago. He has been told he has early COPD but is not on any meds. He has had this same problem 6 months ago, treated with meds at [facility]. Allergies: Coded Allergies: No Known Allergies (Unverified , 04/04/13) Patient History Past Medical History: see triage record Reviewed Nursing Documentation: PMH: Agreed; PSxH: Agreed Nursing Documentation-PMH Hx Cardiac Problems: No Hx Cancer: No Hx Gastrointestinal Problems: Yes Hx Neurological Problems: Yes Hx Dizziness: Yes Review of Systems All Other Systems: negative except mentioned in HPI Physical Exam Vital Signs Date Time Temp Pulse Resp B/P (MAP) Pulse Ox O2 Delivery O2 Flow Rate FiO2 09/28/17 13:48 98.0 183 24 87/68 92 Room Air 98.1 Sp02 EP Interpretation: reviewed, abnormal - slightly low O2 sat and tachycardia General Appearance: no apparent distress, alert, non-toxic Head: normocephalic Eyes: bilateral eye normal inspection, bilateral eye PERRL, bilateral eye EOMI ENT: normal ENT inspection, hearing grossly normal, normal pharynx, no angioedema, normal voice, moist mucus membranes Neck: normal inspection, full range of motion, supple, supple/symm/no masses Respiratory: chest non-tender, lungs clear, normal breath sounds, chest symmetrical, palpation of chest normal Cardiovascular #1: tachycardia Cardiovascular #2: 2+ radial (R), 2+ radial (L) Gastrointestinal: normal inspection, non tender, soft, no mass, no guarding, no rebound Rectal: deferred Genitourinary: normal inspection, no CVA tenderness Musculoskeletal: back normal, gait/station normal, normal range of motion, non- tender, no calf tenderness, Amalia's Sign negative Neurologic: alert, responsive, 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 Cardioversion Cardioversion: Consent: Verbal Indication: SVT Response: Sinus Attempts: One Patient Tolerated: Well Complications: None Progress Chemical cardioversion, using 6mg of adenosine, with zoll pads in place in case of arrest, no complications, had immediate chemical cardioversion and resumption of NSR, rate in the 90s on the monitor, patient with complete resolution of SOB and palpitations symptomatology. Medical Decision Making Reaction to Intervention: Improved Diagnostic Impression: Primary Impression: Supraventricular tachycardia ER Course Patient found to have SVT, which was consistent with his clinical presentation He was given adenosine with good effect His chest x-ray and EKG are unremarkable His repeat EKG normalized to sinus rhythm only slightly tachycardic at rate of 95 He had no signs of DVT, no chest pain, and his shortness of breath as well as palpitations sensation resolved immediately after chemical cardioversion He has had a similar episode within the past year which resolved in a very similar fashion with medications at [facility] I have reviewed his lab panel, and although he has leukocytosis of 14 K, I do not suspect infectious etiology, He has a slight elevation in his creatinine, and I will recommend that he obtain follow-up with basic labs to ensure resolution of both his complete blood count and chemistry panel abnormalities, I explained this to him and he understands as well. He'll be discharged, I do not suspect this was triggered by an acute coronary syndrome, a ventricular arrhythmia, or pulmonary embolism He is to follow-up with his primary care doctor within one week, and return to the emergency department for any recurrent palpitations, shortness of breath, syncope, chest pain, any other concerning symptomatology, he understands and agrees to this. EKG Diagnostic Results EKG Time: 13:51 EP Interpretation: SVT, no st-t changes, no TWI Rate: tachycardiac Rhythm: other - svt ST Segments: no acute changes ASA given to the pt in ED: No Rhythm Strip Diag. Results Rhythm Strip Time: 14:09 Rate: 168 Rhythm: no PVC's, no ectopy, other - svt Chest X-Ray Diagnostic Results Chest X-Ray Diagnostic Results : Chest X-Ray Ordered: Yes # of Views/Limited/Complete: 1 View Indication: Shortness of Breath EP Interpretation: Yes Interpretation: no consolidation, no effusion, no pneumothorax, no acute cardiopulmonary disease Impression: No acute disease Electronically Signed by: La Nena Fowler MD Reevaluation Time: 14:25 Last Vital Signs Date Time Temp Pulse Resp B/P (MAP) Pulse Ox O2 Delivery O2 Flow Rate FiO2 09/28/17 13:48 98.0 183 24 87/68 92 Room Air 98.1 Status: improved Reevaluation Impression Repeat EKG at 14:11, NSR rate 95, no ST-T changes, no TWI Disposition: HOME, SELF-CARE Condition: Improved LA NENA FOWLER M.D September 28, 2017 14:10
[2017-09-28 14:17] LABS: BASOPHILS % (AUTO) 1.1 % (0.0-2.0); EOSINOPHILS % (AUTO) 3.2 % (0.0-3.0); HEMOGLOBIN 13.6 G/DL (14.2-18.0); LYMPHOCYTES % (AUTO) 39.1 % (20.0-45.0); MEAN CORPUSCULAR VOLUME 102 FL (80-99); MONOCYTES % (AUTO) 9.4 % (1.0-10.0); NEUTROPHILS % (AUTO) 47.3 % (45.0-75.0); PLATELET COUNT 513 K/UL (150-450); RED BLOOD COUNT 4.11 M/UL (4.70-6.10); RED CELL DISTRIBUTION WIDTH 15.6 % (11.6-14.8); WHITE BLOOD COUNT 14.1 K/UL (4.8-10.8)
[2017-09-28 14:18] VITALS: BP 124/72
[2017-09-28 14:20] LABS: ANION GAP 8 mmol/L (5-15); BLOOD UREA NITROGEN 19 mg/dL (7-18); CALCIUM 9.2 MG/DL (8.5-10.1); CARBON DIOXIDE 31 MMOL/L (21-32); CHLORIDE 102 MMOL/L (98-107); CREATININE 1.5 MG/DL (0.55-1.30); POTASSIUM 4.2 MMOL/L (3.5-5.1); SODIUM 141 MMOL/L (136-145)
[2017-09-28 14:32] LABS: ALANINE AMINOTRANSFERASE 55 U/L (12-78); ALBUMIN 3.2 G/DL (3.4-5.0); ALBUMIN/GLOBULIN RATIO 0.7 (1.0-2.7); ALKALINE PHOSPHATASE 105 U/L (46-116); ASPARTATE AMINO TRANSFERASE 44 U/L (15-37); BILIRUBIN,TOTAL 0.2 MG/DL (0.2-1.0)
--- NOTE | 2017-09-28 14:47 | Diagnostic Imaging Report ---
Indication: Dyspnea Technique: XRAY Chest 1v Comparison: 08/30/2018 Findings: Stable cardiomegaly. There is mild pulmonary vascular congestion. External pacer/defibrillator pad overlie the stomach lower central chest. There is streaky opacity at the left base thought to represent subsegmental atelectasis or scarring. There is no pneumothorax or pleural effusion. No acute osseous abnormality seen. Impression: Cardiomegaly with question of mild pulmonary vascular congestion. Heart size and mediastinal contours are stable compared to the prior exam. Streaky left basilar opacities thought to represent subsegmental atelectasis.
[2017-09-28 14:54] VITALS: BP 131/72
[2017-09-28 15:49] VITALS: BP 133/72
--- NOTE | 2017-09-29 18:14 | Cardiology Report ---
APPROVED REPORT EKG Measurement Heart [id number] CA [id number] [id number] Normal sinus rhythm Nonspecific T wave abnormality Abnormal ECG
== END 2017-09-28 15:49 | disposition home or self-care (01) ==
LOC: EMR 14:13
DX: I47.1 Supraventricular tachycardia (principal)
CPT/HCPCS: 36415; 71045; 80053; 83880; 84484; 85025; 92960; 93005; 96374; 99291; J0153

== ENCOUNTER 2017-11-26 13:32 | Inpatient (IN) | payer MEDICAID ==
[~2017-11-26] VITALS: Ht 180.3 cm; Wt 122.5 kg
[2017-11-26 13:49] VITALS: BP 132/80
[2017-11-26] MEDS ORDERED: cefTRIAXone 1 GM in NS 55 ML IVPB ONE (14:00)
--- NOTE | 2017-11-26 14:05 | Emergency Room Report ---
History of Present Illness General Chief Complaint: Skin Rash/Abscess Source: Patient Present Illness HPI Patient is a 62-year-old male who presented after increased swelling and discomfort to his left leg. Patient gradual onset of symptoms. Patient reported having recently injured the left anterior leg with a [place]. The patient states that he had been having some increased pain to the left leg. He had noticed increased swelling and blistering to the back of the leg. He stated that had previously been itchy but but is not currently itchy. The patient states the left great toe had recently become ulcerated after buying some malfitting shoes.The patient reports having some subjective chills but denies any definite fever. Allergies: Coded Allergies: No Known Allergies (Unverified , 04/04/13) Patient History Past Medical History: see triage record Reviewed Nursing Documentation: PMH: Agreed; PSxH: Agreed Nursing Documentation-PM Past Medical History: No History, Except For Hx Cardiac Problems: No Hx Cancer: No Hx Gastrointestinal Problems: Yes Hx Neurological Problems: Yes Hx Dizziness: Yes Review of Systems All Other Systems: negative except mentioned in HPI Physical Exam Vital Signs Date Time Temp Pulse Resp B/P (MAP) Pulse Ox O2 Delivery O2 Flow Rate FiO2 11/26/17 13:35 98.0 102 22 132/80 92 Room Air 98.1 Sp02 EP Interpretation: reviewed, normal General Appearance: normal inspection, well appearing, no apparent distress, alert, GCS 15 Head: atraumatic ENT: normal ENT inspection, hearing grossly normal, normal voice Neck: normal inspection, full range of motion, supple, no bony tend Respiratory: normal inspection, lungs clear, normal breath sounds, no respiratory distress, no retraction, no wheezing Cardiovascular #1: regular rate, rhythm, no edema Gastrointestinal: normal inspection, normal bowel sounds, non tender, soft, no guarding, no hernia Genitourinary: no CVA tenderness Musculoskeletal: normal inspection, back normal, normal range of motion Neurologic: normal inspection, alert, oriented x3, responsive, sexual assault response coordinator III-XII nml as tested, speech normal Psychiatric: normal inspection, judgement/insight normal, mood/affect normal Skin: normal inspection, normal color, no rash Medical Decision Making Diagnostic Impression: Primary Impression: Cellulitis Additional Impressions: CHF (congestive heart failure) COPD (chronic obstructive pulmonary disease) ER Course Patient presented for skin rash. Differential diagnosis included was not limited to cellulitis, necrotizing fasciitis, contact dermatitis, sporotrichosis among others.Because of complexity of patient's case laboratory testing and imaging studies were ordered.The patient was noted to have multiple areas of ulceration and discoloration. He was noted to have large bullous lesions to the posterior leg.The laboratory testing showed markedly elevated white blood count consistent with infection.The patient was started on IV antibiotics. Dr. Tim Calabrese was contacted for inpatient management due to covering physician. Labs Test 11/26/17 14:15 11/26/17 14:55 White Blood Count 20.5 K/UL (4.8-10.8) Red Blood Count 3.99 M/UL (4.70-6.10) Hemoglobin 13.4 G/DL (14.2-18.0) Hematocrit 40.9 % (42.0-52.0) Mean Corpuscular Volume 102 FL (80-99) Mean Corpuscular Hemoglobin 33.5 PG (27.0-31.0) Mean Corpuscular Hemoglobin Concent 32.7 G/DL (32.0-36.0) Red Cell Distribution Width 15.0 % (11.6-14.8) Platelet Count 259 K/UL (150-450) Mean Platelet Volume 10.0 FL (6.5-10.1) Neutrophils (%) (Auto) % (45.0-75.0) Lymphocytes (%) (Auto) % (20.0-45.0) Monocytes (%) (Auto) % (1.0-10.0) Eosinophils (%) (Auto) % (0.0-3.0) Basophils (%) (Auto) % (0.0-2.0) Differential Total Cells Counted 100 Neutrophils % (Manual) 76 % (45-75) Lymphocytes % (Manual) 18 % (20-45) Monocytes % (Manual) 6 % (1-10) Eosinophils % (Manual) 0 % (0-3) Basophils % (Manual) 0 % (0-2) Band Neutrophils 0 % (0-8) Platelet Estimate Adequate Platelet Morphology Normal Anisocytosis 1+ Macrocytosis 1+ Sodium Level 145 MMOL/L (136-145) Potassium Level 3.9 MMOL/L (3.5-5.1) Chloride Level 102 MMOL/L (98-107) Carbon Dioxide Level 35 MMOL/L (21-32) Anion Gap 8 mmol/L (5-15) Blood Urea Nitrogen 21 mg/dL (7-18) Creatinine 1.4 MG/DL (0.55-1.30) Estimat Glomerular Filtration Rate 51.4 mL/min (>60) Glucose Level 123 MG/DL (74-106) Lactic Acid Level 3.00 mmol/L (0.4-2.0) Calcium Level 9.6 MG/DL (8.5-10.1) Total Bilirubin 0.5 MG/DL (0.2-1.0) Aspartate Amino Transf (AST/SGOT) 173 U/L (15-37) Alanine Aminotransferase (ALT/SGPT) 154 U/L (12-78) Alkaline Phosphatase 88 U/L (46-116) Total Creatine Kinase 47 U/L (26-308) Creatine Kinase MB 1.1 NG/ML (0.0-3.6) Creatine Kinase MB Relative Index 2.3 Troponin I 0.058 ng/mL (0.000-0.056) Pro-B-Type Natriuretic Peptide 2376 pg/mL (0-125) Total Protein 8.2 G/DL (6.4-8.2) Albumin 2.9 G/DL (3.4-5.0) Globulin 5.3 g/dL Albumin/Globulin Ratio 0.5 (1.0-2.7) Urine Color [place] Urine Appearance Slightly cloudy Urine pH 6.0 (4.5-8.0) Urine Specific [place] 1.015 (1.005-1.035) Urine Protein 2+ (NEGATIVE) Urine Glucose (UA) 2+ (NEGATIVE) Urine Ketones Negative (NEGATIVE) Urine Occult Blood 1+ (NEGATIVE) Urine Nitrite Negative (NEGATIVE) Urine Bilirubin 1+ (NEGATIVE) Urine Ictotest Negative Urine Urobilinogen 4 MG/DL (0.0-1.0) Urine Leukocyte Esterase 1+ (NEGATIVE) Urine RBC 0-2 /HPF (0 - 0) Urine WBC 5-10 /HPF (0 - 0) Urine Squamous Epithelial Cells Few /LPF (NONE/OCC) Urine Bacteria Few /HPF (NONE) Urine Granular Casts 0-2 /LPF (NONE) Urine Fine Granular Casts 0-2 /LPF (NONE) EKG Diagnostic Results Rate: tachycardiac - 110 ST Segments: no acute changes Rhythm Strip Diag. Results EP Interpretation: yes Rhythm: NSR, no PVC's Last Vital Signs Date Time Temp Pulse Resp B/P (MAP) Pulse Ox O2 Delivery O2 Flow Rate FiO2 11/26/17 13:49 98.1 80 22 132/80 92 Room Air 98.1 Status: improved Disposition: ADMITTED INPATIENT Condition: Serious Ulises Farah MD Nov 26, 2017 14:05
[2017-11-26 14:35] LABS: HEMATOCRIT 40.9 % (42.0-52.0); HEMOGLOBIN 13.4 G/DL (14.2-18.0); MEAN CORPUSCULAR VOLUME 102 FL (80-99); PLATELET COUNT 259 K/UL (150-450); RED BLOOD COUNT 3.99 M/UL (4.70-6.10); WHITE BLOOD COUNT 20.5 K/UL (4.8-10.8)
[2017-11-26 15:00] LABS: ANION GAP 8 mmol/L (5-15); BLOOD UREA NITROGEN 21 mg/dL (7-18); CALCIUM 9.6 MG/DL (8.5-10.1); CARBON DIOXIDE 35 MMOL/L (21-32); CHLORIDE 102 MMOL/L (98-107); CREATININE 1.4 MG/DL (0.55-1.30); POTASSIUM 3.9 MMOL/L (3.5-5.1); SODIUM 145 MMOL/L (136-145)
[2017-11-26 15:14] LABS: ALANINE AMINOTRANSFERASE 154 U/L (12-78); ALBUMIN 2.9 G/DL (3.4-5.0); ALBUMIN/GLOBULIN RATIO 0.5 (1.0-2.7); ALKALINE PHOSPHATASE 88 U/L (46-116); ASPARTATE AMINO TRANSFERASE 173 U/L (15-37); BILIRUBIN,TOTAL 0.5 MG/DL (0.2-1.0); CKMB 1.1 NG/ML (0.0-3.6); CREATINE KINASE 47 U/L (26-308)
--- NOTE | 2017-11-26 15:19 | Diagnostic Imaging Report ---
EXAM: XR Chest, 1 View CLINICAL HISTORY: Shortness of breath. TECHNIQUE: Frontal view of the chest. COMPARISON: Chest x-ray dated 09/28/17 FINDINGS: Lungs: Increased interstitial markings. Subsegmental atelectasis in bilateral lung bases. No focal consolidation. Pleural space: Unremarkable. No pneumothorax. Heart: The heart is enlarged. Mediastinum: Unremarkable. Bones/joints: Unremarkable. IMPRESSION: 1. Increased interstitial markings. This may be related to mild pulmonary vascular congestion versus interstitial pneumonitis. 2. Subsegmental atelectasis in bilateral lung bases. 3. Cardiomegaly.
[2017-11-26 15:21] LABS: COLOR,URINE AMBER
[2017-11-26 15:22] LABS: APPEARANCE,URINE SLIGHTLY CLOUDY; BILIRUBIN, URINE 1+ (NEGATIVE); GLUCOSE, URINE (UA) 2+ (NEGATIVE); KETONES,URINE NEGATIVE (NEGATIVE); LEUKOCYTE ESTERASE ,URINE 1+ (NEGATIVE); NITRITE,URINE NEGATIVE (NEGATIVE); PROTEIN,URINE 2+ (NEGATIVE); UROBILINOGEN,URINE 4 MG/DL (0.0-1.0)
[2017-11-26] MEDS ORDERED: Vancomycin 1 GM in D5W 275 ML IVPB SCH (15:30)
[2017-11-26 16:00] VITALS: BP 152/82
[2017-11-26 18:00] VITALS: BP 154/84
[2017-11-26 20:00] VITALS: BP 148/99
[2017-11-26] MEDS ORDERED: ALLOPURINOL100 M1 ORAL (20:07)
[2017-11-26] MEDS ORDERED: PREDNISONE10 MG ORAL (20:08)
[2017-11-26] MEDS: Atorvastatin 20mg tab ORAL SCH (20:33)
[2017-11-26] MEDS: HYDROcodone/Acetamin 10/325 tab ORAL PRN (20:35)
[2017-11-26] MEDS: Heparin 5000 units/ml inj SUBQ SCH (20:36)
[2017-11-26] MEDS ORDERED: Zosyn 3.375gm/50ml Premix 50 ML IVPB SCH (22:00)
[2017-11-26] MEDS ORDERED: Zosyn 3.375gm q8h **Extended infusion IVPB SCH ×2 (22:00)
[2017-11-26] MEDS: Zosyn 3.375gm q8h **Extended infusion IVPB SCH ×2 (22:16)
[2017-11-27] VITALS: BP 156/88
[2017-11-27 04:00] VITALS: BP 143/92
[2017-11-27] MEDS: Vancomycin 1.5 GM/D5W 250ML IVPB SCH (04:16)
[2017-11-27] MEDS: Zosyn 3.375gm q8h **Extended infusion IVPB SCH ×6 (06:52→22:06)
[2017-11-27] MEDS ORDERED: VENTOLIN HFA18 GM INH (07:22)
[2017-11-27 08:00] VITALS: BP 162/84
[2017-11-27] MEDS: Allopurinol 100mg Tab ORAL SCH (09:16)
[2017-11-27] MEDS: Albuterol 90mcg Inhaler 8gm INH SCH ×4 (09:16→20:39)
[2017-11-27] MEDS: Heparin 5000 units/ml inj SUBQ SCH ×2 (09:19→20:59)
--- NOTE | 2017-11-27 11:00 | History and Physical Report ---
DATE OF ADMISSION: 11/26/2017 CHIEF COMPLAINT: Left leg cellulitis. HISTORY OF PRESENT ILLNESS: The patient is a pleasant 62-year-old male. He has a history of hypertensive heart disease, congestive heart failure, and hypothyroidism. He presented with complaints of left leg pain and swelling. According to the patient, he cut his leg while doing some yard work approximately three to four days ago and then developed some type of bug bite. The day prior to admission, he had erythema, pain, and warmth to left leg, presented to the emergency room. On evaluation there, he was noted to have cellulitis of the left leg. He had a white count of 20,000 and an elevated lactic acid level of 3. He has been started on broad-spectrum antibiotic therapy and is now admitted for further evaluation and care. PAST MEDICAL HISTORY: As above. PAST SURGICAL HISTORY: None. CURRENT MEDICATIONS: Reconciled and reviewed. ALLERGIES: None. FAMILY HISTORY: None. SOCIAL HISTORY: The patient is a smoker. No alcohol. No drugs. REVIEW OF SYSTEMS: GENERAL: Positive fevers and chills, but no night sweats. HEENT: No headaches or visual changes. CARDIOPULMONARY: No chest pain or shortness of breath. GASTROINTESTINAL: No nausea or vomiting. GENITOURINARY: No urgency or frequency. MUSCULOSKELETAL: Positive left leg pain and swelling. No evidence of seizures. PHYSICAL EXAMINATION: VITAL SIGNS: Temperature 98, pulse 86, respirations 20, and blood pressure 143/92. GENERAL: The patient is well developed, no apparent distress. HEART: Regular rate and rhythm. LUNGS: Clear. ABDOMEN: Soft, nontender, nondistended. EXTREMITIES: The left leg is red, edematous, and swollen. There is an abrasion to the left grey. There is an erythema extending from the grey to the back of the entire calf area. LABORATORY DATA: White count 20. Potassium 3.9 and creatinine 1.4. Lactic acid level was 3. Troponin 0.058. AST is 173 and ALT is 154. ASSESSMENT: This is a pleasant male admitted with complaints of cellulitis. 1. Left leg cellulitis. 2. Sepsis secondary to cellulitis. 3. Hypertension. 4. Hypothyroidism. 5. History of COPD. PLAN: Antibiotics. Follow up cultures. Continue outpatient cardiac/antihypertensive regimen. Check a duplex of the leg. Check hemoglobin A1c. iTm Calabrese M.D. DR: SHANTELL JOB#: [id number] CC:
[2017-11-27] MEDS ORDERED: NS 275ml ONE (11:46)
[2017-11-27] MEDS ORDERED: Tubing IV Secondary IV ONE (11:46)
[2017-11-27 12:00] VITALS: BP 152/87
[2017-11-27 16:00] VITALS: BP 146/64
--- NOTE | 2017-11-27 19:00 | Consultation ---
DATE OF CONSULTATION: 11/27/2017 INFECTIOUS DISEASES CONSULTATION This consult is for coverage of Dr. Frias. CONSULTING PHYSICIAN: Adam Jacobs M.D. PRIMARY ATTENDING PHYSICIAN: Tim Calabrese M.D. REASON FOR CONSULTATION: Sepsis and left leg cellulitis. HISTORY OF PRESENT ILLNESS: The patient is a 62-year-old male admitted last evening complaining of pain in the left lower extremity associated with erythema. The patient problems started couple days ago when he noticed there is some erythema around big toe. Later in 11/23/2017 developed left grey and afterwards developed pain and swelling in the heel and lower leg area. PAST MEDICAL HISTORY: Significant for COPD, hypothyroidism, gout, and obesity. MEDICATIONS: Getting allopurinol, albuterol, levothyroxine, vancomycin, Zosyn, heparin, atorvastatin, [place]. SOCIAL HISTORY: Currently smoker, have history of smoking 20 to 30 pack a year, drinks two half bottle of beers daily, . Lives with girlfriend. Occasionally use weed. REVIEW OF SYSTEMS: No fever. No chills. No change in coughing. No chest pain. No nausea. No vomiting. No diarrhea. On and off urinary problem, pain and erythema in the left leg. PHYSICAL EXAMINATION: VITAL SIGNS: Temperature 97.1, blood pressure 162/84, heart rate was 117 last night. GENERAL: No acute distress. Seems obese, has BMI of 37.7. HEENT: Head and neck, pink conjunctiva. No oral lesion. Use dentures. HEART: Normal rate. LUNGS: Clear. ABDOMEN: Obese, soft and nontender. EXTREMITIES: No edema. Have three areas of erythema in the left lower extremity that are from each other by normal skin. There is an area of erythema near right bit toe. There is erythema in calf and another in grey. LABORATORY DATA: WBC 20.5, hemoglobin 13.5, hematocrit 40.9, platelets 259. Sodium 145, potassium 3.5, chloride 102, bicarb 35, BUN 21, creatinine 1.4. Lactic acid was 3 that came to 1.5. Troponin was elevated. AST 173 and ALT 154. IMPRESSION: 1. Sepsis with lactic acidosis, tachycardia, and leukocytosis. 2. The patient seems to have acute renal failure, chronic kidney disease, cellulitis in lower extremity. 3. Chronic obstructive pulmonary disease. 4. Hypothyroidism. 5. Gout. 6. Active smoker. RECOMMENDATIONS: 1. We will continue vancomycin and Zosyn. 2. We will follow up the cultures. 3. We will ask for foot x-ray to rule out osteomyelitis of the first toe. At the end of my exam, I thank Dr. Calabrese for involving me in the care of this patient. Adam Jacobs M.D. DR: Luz JOB#: [id number] CC:
[2017-11-27 20:00] VITALS: BP 151/80
[2017-11-27] MEDS: Atorvastatin 20mg tab ORAL SCH (22:05)
[2017-11-28] VITALS: BP 147/93
[2017-11-28] MEDS: HYDROcodone/Acetamin 10/325 tab ORAL PRN (01:12)
[2017-11-28] MEDS: Albuterol 90mcg Inhaler 8gm INH SCH ×4 (01:13→12:01)
[2017-11-28 04:00] VITALS: BP 141/84
[2017-11-28] MEDS: Vancomycin 1.5 GM/D5W 250ML IVPB SCH (05:22)
[2017-11-28] MEDS: Zosyn 3.375gm q8h **Extended infusion IVPB SCH ×6 (07:19→14:00)
[2017-11-28 08:00] VITALS: BP 128/72
[2017-11-28] MEDS ORDERED: DOXYCYCLINE HY100 M2 PO (08:10)
[2017-11-28] MEDS: Allopurinol 100mg Tab ORAL SCH (08:39)
[2017-11-28] MEDS: Heparin 5000 units/ml inj SUBQ SCH (08:40)
[2017-11-28 09:12] LABS: ALANINE AMINOTRANSFERASE 155 U/L (12-78); ALBUMIN 2.9 G/DL (3.4-5.0); ALBUMIN/GLOBULIN RATIO 0.8 (1.0-2.7); ALKALINE PHOSPHATASE 84 U/L (46-116); ANION GAP 5 mmol/L (5-15); ASPARTATE AMINO TRANSFERASE 95 U/L (15-37); BILIRUBIN,TOTAL 0.6 MG/DL (0.2-1.0); BLOOD UREA NITROGEN 19 mg/dL (7-18); CALCIUM 8.7 MG/DL (8.5-10.1); CARBON DIOXIDE 29 MMOL/L (21-32); CHLORIDE 102 MMOL/L (98-107); CREATININE 1.3 MG/DL (0.55-1.30); POTASSIUM 4.5 MMOL/L (3.5-5.1); SODIUM 136 MMOL/L (136-145)
[2017-11-28 10:11] LABS: BASOPHILS % (AUTO) 0.7 % (0.0-2.0); EOSINOPHILS % (AUTO) 1.6 % (0.0-3.0); HEMATOCRIT 38.8 % (42.0-52.0); HEMOGLOBIN 12.6 G/DL (14.2-18.0); LYMPHOCYTES % (AUTO) 20.8 % (20.0-45.0); MEAN CORPUSCULAR VOLUME 102 FL (80-99); MONOCYTES % (AUTO) 8.7 % (1.0-10.0); NEUTROPHILS % (AUTO) 68.2 % (45.0-75.0); PLATELET COUNT 286 K/UL (150-450); RED BLOOD COUNT 3.82 M/UL (4.70-6.10); RED CELL DISTRIBUTION WIDTH 14.6 % (11.6-14.8); WHITE BLOOD COUNT 16.4 K/UL (4.8-10.8)
[2017-11-28 12:00] VITALS: BP 151/85
--- NOTE | 2017-11-28 12:44 | Diagnostic Imaging Report ---
Indication: Foot pain Comparison: None Findings: 3 views of the left foot were obtained. There is no soft tissue air identified. No fracture or malalignment identified. Vascular calcifications are present. There is narrowing and spur formation involving the second and third MTP joints. Vascular calcifications are present. IMPRESSION: No plain film evidence for osteomyelitis or acute fracture.
[2017-11-28] MEDS ORDERED: Vancomycin 1gm in D5W 275ml IVPB SCH (16:00)
[2017-11-28] MEDS ORDERED: Vancomycin 1.5 GM/D5W 250ML IVPB SCH (16:00)
--- NOTE | 2017-11-29 00:45 | Discharge Summary ---
DATE OF ADMISSION: 11/26/2017 DATE OF DISCHARGE: 11/28/2017 ADMISSION DIAGNOSES: Cellulitis. DISCHARGE DIAGNOSIS: Cellulitis. HOSPITAL COURSE: The patient is a pleasant male, who presented with complaints of cellulitis. He did have a high white count and elevated lactic acid level. He received intravenous antibiotics. Cellulitis had improved dramatically after just 24 hours of IV antibiotic therapy. The patient requested to be discharged home. He will be switched to oral antibiotics. He will have a follow-up later this week with his primary care doctor. He has been instructed to return for any worsening fevers, chills, erythema, or warmth in the leg. DISCHARGE MEDICATIONS: Please see discharge medication list for discharge medications. DIET: Cardiac diet. ACTIVITY: [place]. Tim Calabrese M.D. DR: ESTELITA JOB#: [id number] CC:
== END 2017-11-28 14:53 | disposition home or self-care (01) | DRG 720 ==
LOC: EMR 14:23 → EDBEDREQSVC 15:51 → EDBEDREQ 17:25 → 2E 17:52
DX: A41.9 Sepsis, unspecified organism (principal); N17.9 Acute kidney failure, unspecified; I50.9 Heart failure, unspecified; I13.0 Hypertensive heart and chronic kidney disease with heart failure and stage 1 through stage 4 chronic kidney disease, or unspecified chronic kidney disease; L03.116 Cellulitis of left lower limb; E03.9 Hypothyroidism, unspecified; J44.9 Chronic obstructive pulmonary disease, unspecified; M10.9 Gout, unspecified; E66.9 Obesity, unspecified; F17.200 Nicotine dependence, unspecified, uncomplicated; N18.9 Chronic kidney disease, unspecified; Z68.37 Body mass index [BMI] 37.0-37.9, adult
CPT/HCPCS: 36415; 71045; 80053; 80202; 81003; 82550; 82553; 83605; 83880; 84484; 85007; 85025; 87040; 87070; 87205; 93005; 94640; 99285

== ENCOUNTER 2018-01-06 01:05 | Inpatient (IN) | payer MEDICAID ==
[2018-01-06] VITALS (7 sets, daily range): BP systolic 129–163; BP diastolic 66–98
[~2018-01-06] VITALS: Ht 180.3 cm; Wt 124.7 kg
[~2018-01-06 01:05] MED LIST changes: +ALLOPURINOL100 M1 ORAL; +DOXYCYCLINE HY100 M2 PO; +PREDNISONE10 MG ORAL; +VENTOLIN HFA18 GM INH
[2018-01-06] MEDS ORDERED: Adenosine 6mg/2ml Inj IVP ONE (01:15)
[2018-01-06 01:32] LABS: BASOPHILS % (AUTO) 1.1 % (0.0-2.0); EOSINOPHILS % (AUTO) 1.4 % (0.0-3.0); HEMATOCRIT 39.7 % (42.0-52.0); LYMPHOCYTES % (AUTO) 24.7 % (20.0-45.0); MEAN CORPUSCULAR VOLUME 100 FL (80-99); MONOCYTES % (AUTO) 8.8 % (1.0-10.0); PLATELET COUNT 302 K/UL (150-450); RED BLOOD COUNT 3.96 M/UL (4.70-6.10); RED CELL DISTRIBUTION WIDTH 14.9 % (11.6-14.8); WHITE BLOOD COUNT 17.2 K/UL (4.8-10.8)
[2018-01-06 01:48] LABS: ANION GAP 8 mmol/L (5-15); BLOOD UREA NITROGEN 21 mg/dL (7-18); CALCIUM 8.6 MG/DL (8.5-10.1); CARBON DIOXIDE 27 MMOL/L (21-32); CHLORIDE 106 MMOL/L (98-107); CREATININE 1.3 MG/DL (0.55-1.30); POTASSIUM 3.9 MMOL/L (3.5-5.1); SODIUM 141 MMOL/L (136-145)
[2018-01-06 02:00] LABS: ALANINE AMINOTRANSFERASE 42 U/L (12-78); ALBUMIN 3.4 G/DL (3.4-5.0); ALBUMIN/GLOBULIN RATIO 0.8 (1.0-2.7); ALKALINE PHOSPHATASE 84 U/L (46-116); ASPARTATE AMINO TRANSFERASE 36 U/L (15-37); BILIRUBIN,TOTAL 0.2 MG/DL (0.2-1.0); CREATINE KINASE 157 U/L (26-308)
--- NOTE | 2018-01-06 04:16 | Emergency Room Report ---
History of Present Illness General Chief Complaint: Chest Pain Source: Patient Present Illness HPI Patient is a 62-year-old male who presented after increased chest discomfort. Patient reported having sudden onset of palpitations. He reports having a recent increased heartbeat for approximately 10 hours. He reports having previous somewhat symptoms in the past. He denies any fever. Patient reportedly had fallen at ice-skating rink and had injured his shoulder. He denies any other locations of pain. Patient associated shortness of breath. Allergies: Coded Allergies: No Known Allergies (Unverified , 04/04/13) Patient History Past Medical History: see triage record, arrhyth Reviewed Nursing Documentation: PMH: Agreed; PSxH: Agreed Nursing Documentation-PMH Hx Cardiac Problems: Yes Hx Hypertension: Yes Hx Asthma: Yes Hx Cancer: No Hx Gastrointestinal Problems: Yes Hx Neurological Problems: No Hx Dizziness: Yes Review of Systems All Other Systems: negative except mentioned in HPI Physical Exam Vital Signs Date Time Temp Pulse Resp B/P (MAP) Pulse Ox O2 Delivery O2 Flow Rate FiO2 01/06/18 01:11 98.0 168 22 130/99 95 Room Air 98.1 01/06/18 01:15 2.0 Sp02 EP Interpretation: reviewed, normal General Appearance: normal inspection, alert, GCS 15, Chronically Ill Head: atraumatic ENT: normal ENT inspection, hearing grossly normal, normal voice Neck: normal inspection, full range of motion, supple, no bony tend Respiratory: normal inspection, lungs clear, normal breath sounds, no respiratory distress, no retraction, no wheezing Cardiovascular #1: no edema, tachycardia Gastrointestinal: normal inspection, normal bowel sounds, non tender, soft, no guarding, no hernia Genitourinary: no CVA tenderness Musculoskeletal: normal inspection, back normal, normal range of motion Neurologic: normal inspection, alert, oriented x3, responsive, ground intelligence officer III-XII nml as tested, motor strength/tone normal, DTRs symmetric, speech normal Psychiatric: normal inspection, judgement/insight normal, mood/affect normal Skin: normal inspection, normal color, no rash Medical Decision Making Diagnostic Impression: Primary Impression: Supraventricular tachycardia Additional Impression: Leukocytosis ER Course Patient presented for palpitations. The differential diagnosis included was not limited to arrhythmia, thyroid storm, sepsis, anemia, myocardial infarction , alcohol withdrawal, stimulant abuse, caffeine overdose among others. Because of complexity of patient's case laboratory testing and imaging studies were ordered. EKG interpreted by me showed supraventricular tachycardia with a rate of 22 165 Patient started on IV adenosine. The patient suddenly converted to sinus rhythm. The patient was noted to have some improvement in his symptoms. The laboratory testing showed normal troponin with a markedly elevated BNP. Chest x -ray one view interpreted by me showed cardiomegaly with without evident infiltrate. The patient is also noted to have elevated white blood count. This may be due to recent trauma. Right shoulder x-ray 3 views interpreted by me showed normal bony alignment with degenerative changes and questionable avulsion versus arthritic change to the right ac joint. Dr. Leonard Carbajal was contacted for inpatient management due to panel physician Labs Test 01/06/18 01:20 White Blood Count 17.2 K/UL (4.8-10.8) Red Blood Count 3.96 M/UL (4.70-6.10) Hemoglobin 13.0 G/DL (14.2-18.0) Hematocrit 39.7 % (42.0-52.0) Mean Corpuscular Volume 100 FL (80-99) Mean Corpuscular Hemoglobin 32.9 PG (27.0-31.0) Mean Corpuscular Hemoglobin Concent 32.8 G/DL (32.0-36.0) Red Cell Distribution Width 14.9 % (11.6-14.8) Platelet Count 302 K/UL (150-450) Mean Platelet Volume 7.6 FL (6.5-10.1) Neutrophils (%) (Auto) 64.0 % (45.0-75.0) Lymphocytes (%) (Auto) 24.7 % (20.0-45.0) Monocytes (%) (Auto) 8.8 % (1.0-10.0) Eosinophils (%) (Auto) 1.4 % (0.0-3.0) Basophils (%) (Auto) 1.1 % (0.0-2.0) Sodium Level 141 MMOL/L (136-145) Potassium Level 3.9 MMOL/L (3.5-5.1) Chloride Level 106 MMOL/L (98-107) Carbon Dioxide Level 27 MMOL/L (21-32) Anion Gap 8 mmol/L (5-15) Blood Urea Nitrogen 21 mg/dL (7-18) Creatinine 1.3 MG/DL (0.55-1.30) Estimat Glomerular Filtration Rate 55.9 mL/min (>60) Glucose Level 158 MG/DL (74-106) Calcium Level 8.6 MG/DL (8.5-10.1) Total Bilirubin 0.2 MG/DL (0.2-1.0) Aspartate Amino Transf (AST/SGOT) 36 U/L (15-37) Alanine Aminotransferase (ALT/SGPT) 42 U/L (12-78) Alkaline Phosphatase 84 U/L (46-116) Total Creatine Kinase 157 U/L (26-308) Creatine Kinase MB 3.0 NG/ML (0.0-3.6) Creatine Kinase MB Relative Index 1.9 Troponin I 0.055 ng/mL (0.000-0.056) Pro-B-Type Natriuretic Peptide 3093 pg/mL (0-125) Total Protein 7.6 G/DL (6.4-8.2) Albumin 3.4 G/DL (3.4-5.0) Globulin 4.2 g/dL Albumin/Globulin Ratio 0.8 (1.0-2.7) EKG Diagnostic Results Rate: tachycardiac - 165 Rhythm: NSR ST Segments: no acute changes Last Vital Signs Date Time Temp Pulse Resp B/P (MAP) Pulse Ox O2 Delivery O2 Flow Rate FiO2 01/06/18 02:16 98.1 96 22 139/66 95 Nasal Cannula 2.0 98.1 Status: unchanged Disposition: ADMITTED INPATIENT Condition: Serious Referrals: [facility],REFERRING (PCP) Ulises Farah MD Jan 06, 2018 04:16
[2018-01-06] MEDS ORDERED: UNOBMED (04:20)
[2018-01-06] MEDS: Levothyroxine 25mcg tab ORAL SCH (06:35)
[2018-01-06] MEDS: Norco 5mg/325mg tab ORAL PRN ×3 (06:41→21:20)
--- NOTE | 2018-01-06 08:59 | Diagnostic Imaging Report ---
Indication: Pain in right shoulder for 3 days Technique: 3 views of the right shoulder Comparison: none Findings: Suggestion of slight widening of the right acromioclavicular joint noted. An ossific density projects superior to the acromioclavicular joint, appears well-corticated. No acute fractures. No dislocations. The joint spaces are preserved Impression: Slight widening of the acromioclavicular joint, also evident on prior chest radiographs. Probably physiologic or sequela of prior trauma. Associated ossific density is likely physiologic as a similar finding is demonstrated on the contralateral side of prior chest radiographs No definite acute abnormality
--- NOTE | 2018-01-06 09:00 | Diagnostic Imaging Report ---
Indication: Chest pain Technique: One view of the chest Comparison: 11/26/2017 Findings: Patient is rotated to the right. The lungs and pleural spaces are clear. Heart size is upper limits of normal. Impression: No acute process
[2018-01-06] MEDS: Aspirin Baby 81mg ORAL SCH (09:21)
[2018-01-06] MEDS ORDERED: Azithromycin 250mg tab ORAL SCH (13:00)
[2018-01-06] MEDS: cefTRIAXone 1 GM in D5W 55 ML IVPB SCH (13:59)
--- NOTE | 2018-01-06 15:31 | Consultation ---
History of Present Illness General Date patient seen: Jan 06, 2018 Time patient seen: 15:20 Chief Complaint: Chest Pain, shortness of breath Reason for Consultation: Shortness of breath Present Illness HPI 62 y/o male w/ hx of COPD, obesity, presented with chest pain and palpitations. Noted SVT cardioverted with adenosine. Noted with leukocytosis. Having difficulty breathing. No sick contacts. Denies fever or chills. Allergies: Coded Allergies: No Known Allergies (Unverified , 04/04/13) Medication History Scheduled Albuterol Sulfate (Ventolin Hfa), 2 PUFFS INH Q4HR, (Reported) Allopurinol* (Allopurinol*), 100 MG ORAL DAILY, (Reported) Atorvastatin Calcium* (Lipitor*), 20 MG ORAL BEDTIME Doxycycline Hyclate (Doxycycline Hyclate), 100 MG PO BID Fluticasone/Vilanterol (Breo Ellipta 200-25 Mcg INH), 1 PUFFS INH DAILY Levothyroxine Sodium* (Levothyroxine Sodium*), 100 MCG ORAL DAILY@0630 Miscellaneous Medications Unable to Obtain Medications (Unable To Obtain Meds), (Reported) Patient History Limited by: medical condition History Provided By: Patient, Medical Record Healthcare decision maker Resuscitation status Full Code Advanced Directive on File Past Medical/Surgical History Past Medical/Surgical History: (1) COPD (chronic obstructive pulmonary disease) Review of Systems Constitutional: Reports: see HPI Eye: Reports: no symptoms ENT: Reports: no symptoms Respiratory: Reports: cough, shortness of breath Cardiovascular: Reports: chest pain, palpitations Gastrointestinal: Reports: no symptoms Genitourinary: Reports: no symptoms Musculoskeletal: Reports: no symptoms Skin: Reports: no symptoms Psychiatric: Reports: no symptoms Neurological: Reports: no symptoms Endocrine: Reports: no symptoms Hematologic/Lymphatic: Reports: no symptoms All Other Systems: negative except mentioned in HPI Physical Exam General Appearance: moderate distress, morbidly obese HEENT: normocephalic, atraumatic, mucous membranes moist Neck: supple Respiratory/Chest: respiratory distress, decreased breath sounds, accessory muscle use, other - Tight air movement with expiratory wheeze Cardiovascular/Chest: normal rate Abdomen: normal bowel sounds, non tender, soft Extremities: trace edema Last 24 Hour Vital Signs Date Time Temp Pulse Resp B/P (MAP) Pulse Ox O2 Delivery O2 Flow Rate FiO2 01/06/18 12:00 95 8/17/18 12:00 97.8 97 20 134/72 (92) 94 97.8 01/06/18 08:00 98.4 98 20 129/86 (100) 94 98.4 01/06/18 08:00 92 01/06/18 05:32 Nasal Cannula 2.0 01/06/18 05:10 97.3 92 22 159/83 (108) 94 97.3 01/06/18 05:02 98.1 94 22 149/92 95 Nasal Cannula 2.0 98.1 01/06/18 04:18 98.1 94 22 149/92 95 Nasal Cannula 2.0 98.1 01/06/18 02:16 98.1 96 22 139/66 95 Nasal Cannula 2.0 98.1 01/06/18 01:26 163 01/06/18 01:15 168 22 Nasal Cannula 2.0 01/06/18 01:11 98.0 168 22 130/99 95 Room Air 98.1 Intake and Output 01/05/18 01/06/18 19:00 07:00 Intake Total 0 ml Output Total 700 ml Balance -700 ml Intake Oral 0 ml Output Urine Total 700 ml Laboratory Tests Test 01/06/18 01:20 01/06/18 07:15 White Blood Count 17.2 K/UL (4.8-10.8) H Red Blood Count 3.96 M/UL (4.70-6.10) L Hemoglobin 13.0 G/DL (14.2-18.0) L Hematocrit 39.7 % (42.0-52.0) L Mean Corpuscular Volume 100 FL (80-99) H Mean Corpuscular Hemoglobin 32.9 PG (27.0-31.0) H Mean Corpuscular Hemoglobin Concent 32.8 G/DL (32.0-36.0) Red Cell Distribution Width 14.9 % (11.6-14.8) H Platelet Count 302 K/UL (150-450) Mean Platelet Volume 7.6 FL (6.5-10.1) Neutrophils (%) (Auto) 64.0 % (45.0-75.0) Lymphocytes (%) (Auto) 24.7 % (20.0-45.0) Monocytes (%) (Auto) 8.8 % (1.0-10.0) Eosinophils (%) (Auto) 1.4 % (0.0-3.0) Basophils (%) (Auto) 1.1 % (0.0-2.0) Sodium Level 141 MMOL/L (136-145) Potassium Level 3.9 MMOL/L (3.5-5.1) Chloride Level 106 MMOL/L (98-107) Carbon Dioxide Level 27 MMOL/L (21-32) Anion Gap 8 mmol/L (5-15) Blood Urea Nitrogen 21 mg/dL (7-18) H Creatinine 1.3 MG/DL (0.55-1.30) Estimat Glomerular Filtration Rate 55.9 mL/min (>60) Glucose Level 158 MG/DL (74-106) H Calcium Level 8.6 MG/DL (8.5-10.1) Total Bilirubin 0.2 MG/DL (0.2-1.0) Aspartate Amino Transf (AST/SGOT) 36 U/L (15-37) Alanine Aminotransferase (ALT/SGPT) 42 U/L (12-78) Alkaline Phosphatase 84 U/L (46-116) Total Creatine Kinase 157 U/L (26-308) Creatine Kinase MB 3.0 NG/ML (0.0-3.6) Creatine Kinase MB Relative Index 1.9 Troponin I 0.055 ng/mL (0.000-0.056) 0.037 ng/mL (0.000-0.056) Pro-B-Type Natriuretic Peptide 3093 pg/mL (0-125) H Total Protein 7.6 G/DL (6.4-8.2) Albumin 3.4 G/DL (3.4-5.0) Globulin 4.2 g/dL Albumin/Globulin Ratio 0.8 (1.0-2.7) L Height (Feet): 5 Height (Inches): 11.00 Weight (Pounds): 275 Medications Current Medications Medications (Trade) Dose Ordered Sig/Ryan Route PRN Reason Start Time Stop Time Status Last Admin Dose Admin Acetaminophen (Tylenol) 650 mg Q4H PRN ORAL Mild Pain/Temp > 100.5 01/06/18 06:00 02/05/18 05:59 Acetaminophen/ Hydrocodone Bitart ([place] 5/325) 1 tab Q4H PRN ORAL Moderate Pain (Pain Scale 4-6) 01/06/18 06:00 01/13/18 05:59 01/06/18 11:14 Aspirin (ASA) 81 mg DAILY ORAL 01/06/18 09:00 02/05/18 08:59 01/06/18 09:21 Atorvastatin Calcium (Lipitor) 10 mg BEDTIME ORAL 01/06/18 21:00 02/05/18 20:59 Azithromycin (Zithromax) 250 mg DAILY ORAL 01/07/18 09:00 01/14/18 08:59 Ceftriaxone Sodium 1 gm/ Dextrose 55 ml @ 110 mls/hr DAILY IVPB 01/06/18 14:00 01/13/18 13:59 01/06/18 13:59 Levothyroxine Sodium (Synthroid) 25 mcg DAILY@0630 ORAL 01/06/18 06:30 02/05/18 06:29 01/06/18 06:35 Methylprednisolone Sodium Succinate (Solu-MEDROL) 60 mg EVERY 12 HOURS IVP 01/07/18 09:00 02/06/18 08:59 UNV Methylprednisolone Sodium Succinate (Solu-MEDROL) 125 mg ONCE ONCE IVP 01/06/18 15:15 01/06/18 15:16 UNV Assessment/Plan Assessment/Plan 62 y/o male w/ COPD, morbid obesity, tobacco use admitted with chest pain and SVT with what appears to be COPD exacerbation and possible pneumonia. Impression: 1. SVT 2. Chest pain 3. COPD w/ acute exacerbation 4. Possible pneumonia 5. Morbid obesity Plan: -monitor HR -2D echo -abx: ceftriaxone/azithro -f/u cultures -start steroids: solumedrol 125 mg x 1, then 60 mg IV q12 -check ABG -nebs q4 with atrovent and xopenex -monitor volumes EMMY CALVERT Jan 06, 2018 15:31
[2018-01-06] MEDS ORDERED: Levalbuterol Inh UD 1.25mg/0.5ml HHN PRN (16:00)
[2018-01-06] MEDS ORDERED: Ipratropium 0.02% Inh Soln 2.5ml UD HHN PRN (16:00)
[2018-01-06] MEDS ORDERED: Solu-MEDROL 125mg Inj IVP SCH (16:30)
--- NOTE | 2018-01-06 19:14 | Consultation ---
History of Present Illness General Date patient seen: Jan 07, 2018 Time patient seen: 19:50 Chief Complaint: Chest Pain Reason for Consultation: Shortness of breath Present Illness HPI 62 year old male came to ER with SOB and CP. HE was found to have SVT and broke with adenosine in ER> Pt HR on arrival 163 (SVT on monitor). @ 0113, 6mg of adenosine given IVP. @ 0114, pt cardioverted He has a hx of COPD, obesity. Troponin negative but BNP elevated. He also complain of right shoulder pain from falling on ice skating rink Allergies: Coded Allergies: No Known Allergies (Unverified , 04/04/13) Medication History Scheduled Albuterol Sulfate (Ventolin Hfa), 2 PUFFS INH Q4HR, (Reported) Allopurinol* (Allopurinol*), 100 MG ORAL DAILY, (Reported) Atorvastatin Calcium* (Lipitor*), 20 MG ORAL BEDTIME Doxycycline Hyclate (Doxycycline Hyclate), 100 MG PO BID Fluticasone/Vilanterol (Breo Ellipta 200-25 Mcg INH), 1 PUFFS INH DAILY Levothyroxine Sodium* (Levothyroxine Sodium*), 100 MCG ORAL DAILY@0630 Miscellaneous Medications Unable to Obtain Medications (Unable To Obtain Meds), (Reported) Patient History Healthcare decision maker Resuscitation status Full Code Advanced Directive on File Review of Systems Constitutional: Reports: no symptoms Eye: Reports: no symptoms ENT: Reports: no symptoms Respiratory: Reports: no symptoms Cardiovascular: Reports: no symptoms Gastrointestinal: Reports: no symptoms Genitourinary: Reports: no symptoms Musculoskeletal: Reports: no symptoms Skin: Reports: no symptoms Psychiatric: Reports: no symptoms Neurological: Reports: no symptoms Endocrine: Reports: no symptoms Hematologic/Lymphatic: Reports: no symptoms Physical Exam General Appearance: no apparent distress, obese Lines, tubes and drains: peripheral HEENT: normocephalic, atraumatic, anicteric, mucous membranes moist, PERRL, EOMI, pharynx normal, supple, no JVD Neck: non-tender, normal alignment, supple Respiratory/Chest: chest wall non-tender, lungs clear, no respiratory distress Cardiovascular/Chest: normal peripheral pulses, normal rate Abdomen: normal bowel sounds, non tender Extremities: normal range of motion 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 Last 24 Hour Vital Signs Date Time Temp Pulse Resp B/P (MAP) Pulse Ox O2 Delivery O2 Flow Rate FiO2 01/06/18 17:31 103 18 99 Nasal Cannula 2.0 28 01/06/18 17:20 28 01/06/18 17:20 101 18 93 Nasal Cannula 2.0 28 01/06/18 12:00 95 01/06/18 12:00 97.8 97 20 134/72 (92) 94 97.8 01/06/18 09:00 Nasal Cannula 2.0 01/06/18 08:00 98.4 98 20 129/86 (100) 94 98.4 01/06/18 08:00 92 01/06/18 05:32 Nasal Cannula 2.0 01/06/18 05:10 97.3 92 22 159/83 (108) 94 97.3 01/06/18 05:02 98.1 94 22 149/92 95 Nasal Cannula 2.0 98.1 01/06/18 04:18 98.1 94 22 149/92 95 Nasal Cannula 2.0 98.1 01/06/18 02:16 98.1 96 22 139/66 95 Nasal Cannula 2.0 98.1 01/06/18 01:26 163 01/06/18 01:15 168 22 Nasal Cannula 2.0 01/06/18 01:11 98.0 168 22 130/99 95 Room Air 98.1 Intake and Output 01/05/18 01/06/18 19:00 07:00 Intake Total 0 ml Output Total 700 ml Balance -700 ml Intake Oral 0 ml Output Urine Total 700 ml Laboratory Tests Test 01/06/18 01:20 01/06/18 07:15 01/06/18 15:23 White Blood Count 17.2 K/UL (4.8-10.8) H Red Blood Count 3.96 M/UL (4.70-6.10) L Hemoglobin 13.0 G/DL (14.2-18.0) L Hematocrit 39.7 % (42.0-52.0) L Mean Corpuscular Volume 100 FL (80-99) H Mean Corpuscular Hemoglobin 32.9 PG (27.0-31.0) H Mean Corpuscular Hemoglobin Concent 32.8 G/DL (32.0-36.0) Red Cell Distribution Width 14.9 % (11.6-14.8) H Platelet Count 302 K/UL (150-450) Mean Platelet Volume 7.6 FL (6.5-10.1) Neutrophils (%) (Auto) 64.0 % (45.0-75.0) Lymphocytes (%) (Auto) 24.7 % (20.0-45.0) Monocytes (%) (Auto) 8.8 % (1.0-10.0) Eosinophils (%) (Auto) 1.4 % (0.0-3.0) Basophils (%) (Auto) 1.1 % (0.0-2.0) Sodium Level 141 MMOL/L (136-145) Potassium Level 3.9 MMOL/L (3.5-5.1) Chloride Level 106 MMOL/L (98-107) Carbon Dioxide Level 27 MMOL/L (21-32) Anion Gap 8 mmol/L (5-15) Blood Urea Nitrogen 21 mg/dL (7-18) H Creatinine 1.3 MG/DL (0.55-1.30) Estimat Glomerular Filtration Rate 55.9 mL/min (>60) Glucose Level 158 MG/DL (74-106) H Calcium Level 8.6 MG/DL (8.5-10.1) Total Bilirubin 0.2 MG/DL (0.2-1.0) Aspartate Amino Transf (AST/SGOT) 36 U/L (15-37) Alanine Aminotransferase (ALT/SGPT) 42 U/L (12-78) Alkaline Phosphatase 84 U/L (46-116) Total Creatine Kinase 157 U/L (26-308) Creatine Kinase MB 3.0 NG/ML (0.0-3.6) Creatine Kinase MB Relative Index 1.9 Troponin I 0.055 ng/mL (0.000-0.056) 0.037 ng/mL (0.000-0.056) Pro-B-Type Natriuretic Peptide 3093 pg/mL (0-125) H Total Protein 7.6 G/DL (6.4-8.2) Albumin 3.4 G/DL (3.4-5.0) Globulin 4.2 g/dL Albumin/Globulin Ratio 0.8 (1.0-2.7) L Arterial Blood pH 7.365 (7.350-7.450) Arterial Blood Partial Pressure CO2 47.8 mmHg (35.0-45.0) H Arterial Blood Partial Pressure O2 64.2 mmHg (75.0-100.0) L Arterial Blood HCO3 26.7 mmol/L (22.0-26.0) H Arterial Blood Oxygen Saturation 91.2 % (92.0-98.0) L Arterial Blood Base Excess 0.8 Gregory Test Positive Height (Feet): 5 Height (Inches): 11.00 Weight (Pounds): 275 Medications Current Medications Medications (Trade) Dose Ordered Sig/Ryan Route PRN Reason Start Time Stop Time Status Last Admin Dose Admin Acetaminophen (Tylenol) 650 mg Q4H PRN ORAL Mild Pain/Temp > 100.5 01/06/18 06:00 02/05/18 05:59 Acetaminophen/ Hydrocodone Bitart ([place] 5/325) 1 tab Q4H PRN ORAL Moderate Pain (Pain Scale 4-6) 01/06/18 06:00 01/13/18 05:59 01/06/18 11:14 Aspirin (ASA) 81 mg DAILY ORAL 01/06/18 09:00 02/05/18 08:59 01/06/18 09:21 Atorvastatin Calcium (Lipitor) 10 mg BEDTIME ORAL 01/06/18 21:00 02/05/18 20:59 Azithromycin (Zithromax) 250 mg DAILY ORAL 01/07/18 09:00 01/14/18 08:59 Ceftriaxone Sodium 1 gm/ Dextrose 55 ml @ 110 mls/hr DAILY IVPB 01/06/18 14:00 01/13/18 13:59 01/06/18 13:59 Ipratropium [place] (Atrovent) 500 mcg Q4H PRN HHN cough/sob/wheezing 01/06/18 16:00 01/11/18 15:59 01/06/18 17:25 Levalbuterol HCl (Xopenex) 0.63 mg Q4H PRN HHN cough/sob/wheezing 01/06/18 16:00 01/11/18 15:59 01/06/18 17:25 Levothyroxine Sodium (Synthroid) 25 mcg DAILY@0630 ORAL 01/06/18 06:30 02/05/18 06:29 01/06/18 06:35 Methylprednisolone Sodium Succinate (Solu-MEDROL) 60 mg EVERY 12 HOURS IVP 01/07/18 09:00 02/06/18 08:59 Assessment/Plan Status: stable Assessment/Plan Assessment 1) JIA 2) SVT 3) Obesity 4) COPD 5) Elevated BNP Plan Trend troponin Echocardiogram Outpatient sleep study for VESTA Steroids for COPD Shoulder x ray Aspirin Atorvastatin Start losartan 50 mg for blood pressures Stress test when respiratory status stable. Ryan Brabosa M.D. Jan 06, 2018 19:14
--- NOTE | 2018-01-06 20:00 | History and Physical Report ---
DATE OF ADMISSION: 01/06/2018 REASON FOR ADMISSION: SVT. HISTORY OF PRESENT ILLNESS: Basically, the patient is morbidly obese. Complains of shortness of breath x1 day. The patient also is status post fall while roller-skating about a week ago and is complaining of right shoulder pain since then. The patient also has mostly nonproductive cough. The patient also has some wheezing and is a smoker and has a history of chronic obstructive pulmonary disease as well. The patient also had some palpitation and is admitted for SVT that improved with adenosine. The patient also has mild azotemia and leukocytosis as well to rule out sepsis as well. The patient denies chest pain and denies nausea, vomiting, or diarrhea. Denies rectal bleeding. PAST MEDICAL HISTORY: Significant for chronic obstructive pulmonary disease, morbid obesity, hyperlipidemia, hypothyroidism, and history of gout. PAST SURGICAL HISTORY: None. MEDICATIONS: Lipitor and Levoxyl. SOCIAL HISTORY: History of smoking and history of drug abuse. No history of alcohol abuse. FAMILY HISTORY: Noncontributory. REVIEW OF SYSTEMS: HEENT: Denies headaches. RESPIRATORY: Reports shortness of day for one day and wheezing for one day and cough for one day. CARDIOVASCULAR: Denies chest pain. Denies orthopnea. GASTROINTESTINAL: Denies nausea, vomiting, or diarrhea. Does have a heartburn. EXTREMITY: Does have right shoulder pain, which is chronic. PUFFER TENDER: Denies change in vision or speech pattern. Feels weak. PHYSICAL EXAMINATION: VITAL SIGNS: Temperature 98.1, pulse is 96, and blood pressure 139/76. HEENT: PERRLA. NECK: Supple. No lymphadenopathy. CHEST: Clear to auscultation. The patient does have mild wheezing. CARDIOVASCULAR: Regular rate and rhythm. No murmurs or extra sounds. GASTROINTESTINAL: Distended. Positive bowel sounds. EXTREMITIES: A 1+ edema. Reflexes are equal on both sides. Moves all four extremities. NEUROLOGIC: Generalized weakness. LABORATORY DATA: WBC of 17.3, hemoglobin 13, and platelets of 302,000. Sodium 141, potassium 3.9, BUN of 21, and creatinine of 0.3. Glucose of 158. ASSESSMENT AND PLAN: 1. Azotemia. 2. Supraventricular tachycardia. 3. Chronic obstructive pulmonary disease. 4. Leukocytosis. PLAN: I have asked Dr. Nguyen, Dr. Alexander, Dr. Martins, Dr. Jacobs, and Dr. Rasheed to see the patient for the management of above-mentioned diagnoses and treatment. Leonard Caballero M.D. DR: JOIE JOB#: [id number] CC:
[2018-01-06] MEDS: HydrALAZINE 10mg Tab ORAL PRN (21:19)
[2018-01-07] VITALS: BP 133/82
--- NOTE | 2018-01-07 00:18 | Consultation ---
History of Present Illness General Date patient seen: Jan 06, 2018 Chief Complaint: Chest Pain Reason for Consultation: Shortness of breath Present Illness HPI 62-year-old male who presented after increased chest discomfort. Patient reported having sudden onset of palpitations.the pt was anxious and slightly confused. Allergies: Coded Allergies: No Known Allergies (Unverified , 04/04/13) Medication History Scheduled Albuterol Sulfate (Ventolin Hfa), 2 PUFFS INH Q4HR, (Reported) Allopurinol* (Allopurinol*), 100 MG ORAL DAILY, (Reported) Atorvastatin Calcium* (Lipitor*), 20 MG ORAL BEDTIME Doxycycline Hyclate (Doxycycline Hyclate), 100 MG PO BID Fluticasone/Vilanterol (Breo Ellipta 200-25 Mcg INH), 1 PUFFS INH DAILY Levothyroxine Sodium* (Levothyroxine Sodium*), 100 MCG ORAL DAILY@0630 Miscellaneous Medications Unable to Obtain Medications (Unable To Obtain Meds), (Reported) Patient History Limited by: medical condition History Provided By: Patient, Medical Record, PMD Healthcare decision maker Resuscitation status Full Code Advanced Directive on File Past Medical/Surgical History Past Medical/Surgical History: (1) COPD exacerbation (2) Otitis externa of both ears (3) Left leg cellulitis (4) Leukocytosis (5) Supraventricular tachycardia (6) COPD (chronic obstructive pulmonary disease) Review of Systems Psychiatric: Reports: prior hx, anxiety, depressed feelings Physical Exam General Appearance: no apparent distress, alert Neurologic: depressed affect Last 24 Hour Vital Signs Date Time Temp Pulse Resp B/P (MAP) Pulse Ox O2 Delivery O2 Flow Rate FiO2 01/06/18 21:19 163/98 01/06/18 21:00 Nasal Cannula 2.0 01/06/18 20:26 108 20 Room Air 21 01/06/18 20:00 98 01/06/18 20:00 99.5 109 20 163/98 (119) 94 99.5 01/06/18 17:31 103 18 99 Nasal Cannula 2.0 28 01/06/18 17:20 28 01/06/18 17:20 101 18 93 Nasal Cannula 2.0 28 01/06/18 16:00 105 01/06/18 16:00 98.7 66 18 140/70 (93) 94 98.7 01/06/18 12:00 95 01/06/18 12:00 97.8 97 20 134/72 (92) 94 97.8 01/06/18 09:00 Nasal Cannula 2.0 01/06/18 08:00 98.4 98 20 129/86 (100) 94 98.4 01/06/18 08:00 92 01/06/18 05:32 Nasal Cannula 2.0 01/06/18 05:10 97.3 92 22 159/83 (108) 94 97.3 01/06/18 05:02 98.1 94 22 149/92 95 Nasal Cannula 2.0 98.1 01/06/18 04:18 98.1 94 22 149/92 95 Nasal Cannula 2.0 98.1 01/06/18 02:16 98.1 96 22 139/66 95 Nasal Cannula 2.0 98.1 01/06/18 01:26 163 01/06/18 01:15 168 22 Nasal Cannula 2.0 01/06/18 01:11 98.0 168 22 130/99 95 Room Air 98.1 Intake and Output 01/06/18 01/07/18 19:00 07:00 Intake Total 240 ml Output Total 800 ml Balance -560 ml Intake Oral 240 ml Output Urine Total 800 ml Laboratory Tests Test 01/06/18 01:20 01/06/18 07:15 01/06/18 15:23 White Blood Count 17.2 K/UL (4.8-10.8) H Red Blood Count 3.96 M/UL (4.70-6.10) L Hemoglobin 13.0 G/DL (14.2-18.0) L Hematocrit 39.7 % (42.0-52.0) L Mean Corpuscular Volume 100 FL (80-99) H Mean Corpuscular Hemoglobin 32.9 PG (27.0-31.0) H Mean Corpuscular Hemoglobin Concent 32.8 G/DL (32.0-36.0) Red Cell Distribution Width 14.9 % (11.6-14.8) H Platelet Count 302 K/UL (150-450) Mean Platelet Volume 7.6 FL (6.5-10.1) Neutrophils (%) (Auto) 64.0 % (45.0-75.0) Lymphocytes (%) (Auto) 24.7 % (20.0-45.0) Monocytes (%) (Auto) 8.8 % (1.0-10.0) Eosinophils (%) (Auto) 1.4 % (0.0-3.0) Basophils (%) (Auto) 1.1 % (0.0-2.0) Sodium Level 141 MMOL/L (136-145) Potassium Level 3.9 MMOL/L (3.5-5.1) Chloride Level 106 MMOL/L (98-107) Carbon Dioxide Level 27 MMOL/L (21-32) Anion Gap 8 mmol/L (5-15) Blood Urea Nitrogen 21 mg/dL (7-18) H Creatinine 1.3 MG/DL (0.55-1.30) Estimat Glomerular Filtration Rate 55.9 mL/min (>60) Glucose Level 158 MG/DL (74-106) H Calcium Level 8.6 MG/DL (8.5-10.1) Total Bilirubin 0.2 MG/DL (0.2-1.0) Aspartate Amino Transf (AST/SGOT) 36 U/L (15-37) Alanine Aminotransferase (ALT/SGPT) 42 U/L (12-78) Alkaline Phosphatase 84 U/L (46-116) Total Creatine Kinase 157 U/L (26-308) Creatine Kinase MB 3.0 NG/ML (0.0-3.6) Creatine Kinase MB Relative Index 1.9 Troponin I 0.055 ng/mL (0.000-0.056) 0.037 ng/mL (0.000-0.056) Pro-B-Type Natriuretic Peptide 3093 pg/mL (0-125) H Total Protein 7.6 G/DL (6.4-8.2) Albumin 3.4 G/DL (3.4-5.0) Globulin 4.2 g/dL Albumin/Globulin Ratio 0.8 (1.0-2.7) L Arterial Blood pH 7.365 (7.350-7.450) Arterial Blood Partial Pressure CO2 47.8 mmHg (35.0-45.0) H Arterial Blood Partial Pressure O2 64.2 mmHg (75.0-100.0) L Arterial Blood HCO3 26.7 mmol/L (22.0-26.0) H Arterial Blood Oxygen Saturation 91.2 % (92.0-98.0) L Arterial Blood Base Excess 0.8 Gregory Test Positive Height (Feet): 5 Height (Inches): 11.00 Weight (Pounds): 275 Medications Current Medications Medications (Trade) Dose Ordered Sig/Ryan Route PRN Reason Start Time Stop Time Status Last Admin Dose Admin Acetaminophen (Tylenol) 650 mg Q4H PRN ORAL Mild Pain/Temp > 100.5 01/06/18 06:00 02/05/18 05:59 Acetaminophen/ Hydrocodone Bitart ([place] 5/325) 1 tab Q4H PRN ORAL Moderate Pain (Pain Scale 4-6) 01/06/18 06:00 01/13/18 05:59 01/06/18 21:20 Aspirin (ASA) 81 mg DAILY ORAL 01/06/18 09:00 02/05/18 08:59 01/06/18 09:21 Atorvastatin Calcium (Lipitor) 10 mg BEDTIME ORAL 01/06/18 21:00 02/05/18 20:59 01/06/18 21:19 Azithromycin (Zithromax) 250 mg DAILY ORAL 01/07/18 09:00 01/14/18 08:59 Ceftriaxone Sodium 1 gm/ Dextrose 55 ml @ 110 mls/hr DAILY IVPB 01/06/18 14:00 01/13/18 13:59 01/06/18 13:59 Hydralazine HCl (Apresoline) 10 mg Q4H PRN ORAL SBP>150 01/06/18 21:15 02/05/18 21:14 01/06/18 21:19 Ipratropium [place] (Atrovent) 500 mcg Q4H PRN HHN cough/sob/wheezing 01/06/18 16:00 01/11/18 15:59 01/06/18 17:25 Levalbuterol HCl (Xopenex) 0.63 mg Q4H PRN HHN cough/sob/wheezing 01/06/18 16:00 01/11/18 15:59 01/06/18 17:25 Levothyroxine Sodium (Synthroid) 25 mcg DAILY@0630 ORAL 01/06/18 06:30 02/05/18 06:29 01/06/18 06:35 Methylprednisolone Sodium Succinate (Solu-MEDROL) 60 mg EVERY 12 HOURS IVP 01/07/18 09:00 02/06/18 08:59 Assessment/Plan Status: stable Assessment/Plan encephalopathy due to [facility] anxiety Mario Kirby MD Jan 07, 2018 00:18
[2018-01-07 04:00] VITALS: BP 172/96
--- NOTE | 2018-01-07 04:45 | Consultation ---
DATE OF CONSULTATION: 01/06/2018 INFECTIOUS DISEASE CONSULTATION CONSULTING PHYSICIAN: Adam Jacobs M.D. PRIMARY ATTENDING PHYSICIAN: Leonard Caballero M.D. REASON FOR CONSULTATION: Leukocytosis and tachycardia. HISTORY OF PRESENT ILLNESS: The patient is a 62-year-old white male admitted today complaining of palpitation for 10 hours. The patient had a leukocytosis of 17,000. He has history of frequent admissions to the hospital with tachycardia and cellulitis. PAST MEDICAL HISTORY: Significant for COPD, asthma, hypothyroidism, gout, and obesity. ALLERGIES: No known drug allergies. MEDICATIONS: Getting atorvastatin, aspirin, levothyroxine, Tylenol, and [place]. SOCIAL HISTORY: , has history of heavy smoking, states that he decreased smoking with one pack a week, has history of heavy drinking, decreased to one bottle a day, previously took 2-1/2 bottles a day. REVIEW OF SYSTEMS: No fever. No chills. There is runny nose, has coughing, palpitation. No chest pain. No nausea. No vomiting. No problem passing urine. PHYSICAL EXAMINATION: GENERAL APPEARANCE: She is obese, in no acute distress. VITAL SIGNS: The patient had a pulse of 168 at the time of admission, now it is 98, temperature 98.4 degrees, and blood pressure 129/86. HEAD AND NECK: No oral lesion. HEART: Normal rate. LUNGS: Few rhonchi with decreased expansion. ABDOMEN: Obese. Soft. EXTREMITY: He has no edema. SKIN: Rash, more in abdominal area. LABORATORY AND DIAGNOSTIC DATA: WBC 17.2, hemoglobin 13, hematocrit 39.7, platelets 302. Sodium 141, potassium 3.9, chloride 106, bicarbonate 27, BUN 21, and creatinine 1.3. Troponin was negative, but BNP was elevated to 3093. Chest x-ray was negative. The patient had a shoulder x-ray of right that shows widening of the acromioclavicular joint. This finding was present on previous x-ray. IMPRESSION: Leukocytosis and tachycardia, may have systemic inflammatory response or SIRS. The patient has COPD with exacerbation. We will try to rule out UTI, has hypothyroidism, gout, obesity, supraventricular tachycardia, alcohol abuse and nicotine dependence. RECOMMENDATION: We will send UA, urine culture. We will empirically start on ceftriaxone and Zithromax. At the end of my exam, I thank Dr. Caballero for involving me in the care of this patient. Adam Jacobs M.D. DR: RY JOB#: [id number] CC: JANE
[2018-01-07] MEDS: Levothyroxine 25mcg tab ORAL SCH (05:32)
[2018-01-07] MEDS: Norco 5mg/325mg tab ORAL PRN ×2 (05:33→20:58)
[2018-01-07] MEDS: HydrALAZINE 10mg Tab ORAL PRN ×2 (05:33→20:58)
[2018-01-07 08:00] VITALS: BP 146/75
[2018-01-07] MEDS: Hyzaar 12.5mg/50mg tab ORAL SCH (09:25)
[2018-01-07] MEDS: Azithromycin 250mg tab ORAL SCH (09:26)
[2018-01-07] MEDS: Solu-MEDROL 40mg Inj IVP SCH ×2 (09:26→20:59)
[2018-01-07] MEDS: Aspirin Baby 81mg ORAL SCH (09:26)
[2018-01-07] MEDS: cefTRIAXone 1 GM in D5W 55 ML IVPB SCH (09:26)
--- NOTE | 2018-01-07 11:13 | Cardiology Progress Note ---
Assessment/Plan Status: stable Assessment/Plan Assessment 1) JIA 2) SVT 3) Obesity 4) COPD 5) Elevated BNP Plan Trend troponin Echocardiogram Outpatient sleep study for VESTA Steroids for COPD Shoulder x ray Aspirin Atorvastatin Losartan 50 mg for blood pressures Stress test when respiratory status stable. Dr. Alexander to resume care tomorrow Subjective Cardiovascular: Reports: no symptoms Respiratory: Reports: no symptoms Gastrointestinal/Abdominal: Reports: no symptoms Genitourinary: Reports: no symptoms Subjective No acute events, vitals stable, WBC elevated, mild SOB CXR clear, remains in NSR Objective Last 24 Hour Vital Signs Date Time Temp Pulse Resp B/P (MAP) Pulse Ox O2 Delivery O2 Flow Rate FiO2 01/07/18 09:25 146/75 01/07/18 08:05 106 20 Room Air 21 01/07/18 05:33 172/96 01/07/18 04:00 82 01/07/18 04:00 97.4 92 18 172/96 (121) 95 97.4 01/07/18 00:00 92 01/07/18 00:00 98.1 92 18 133/82 (99) 92 98.1 01/06/18 21:19 163/98 01/06/18 21:00 Nasal Cannula 2.0 01/06/18 20:26 108 20 Room Air 21 01/06/18 20:00 98 01/06/18 20:00 99.5 109 20 163/98 (119) 94 99.5 01/06/18 17:31 103 18 99 Nasal Cannula 2.0 28 01/06/18 17:20 28 01/06/18 17:20 101 18 93 Nasal Cannula 2.0 28 01/06/18 16:00 105 01/06/18 16:00 98.7 66 18 140/70 (93) 94 98.7 01/06/18 12:00 95 01/06/18 12:00 97.8 97 20 134/72 (92) 94 97.8 General Appearance: no apparent distress, alert EENT: PERRL/EOMI, normal ENT inspection Neck: non-tender, normal alignment, supple, normal inspection, no JVD Rhythm: NSR Cardiovascular: normal peripheral pulses, normal rate, regular rhythm Respiratory/Chest: chest wall non-tender, lungs clear Abdomen: normal bowel sounds, non tender Extremities: normal range of motion, non-tender 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 Jan 07, 2018 11:13
--- NOTE | 2018-01-07 11:18 | Infectious Diseases Prog Note ---
Assessment/Plan Assessment/Plan antibiotics : ceftriaxone, azithromycin A 1. leucocytosis 2. COPD exacerbation 3. SVT P 1. continue ceftriaxone, azithromycin 2. will follow up cultures Subjective ROS Limited/Unobtainable: Yes Allergies: Coded Allergies: No Known Allergies (Unverified , 04/04/13) Objective Vital Signs Last 24 Hour Vital Signs Date Time Temp Pulse Resp B/P (MAP) Pulse Ox O2 Delivery O2 Flow Rate FiO2 01/07/18 09:25 146/75 01/07/18 08:05 106 20 Room Air 21 01/07/18 05:33 172/96 01/07/18 04:00 82 01/07/18 04:00 97.4 92 18 172/96 (121) 95 97.4 01/07/18 00:00 92 01/07/18 00:00 98.1 92 18 133/82 (99) 92 98.1 01/06/18 21:19 163/98 01/06/18 21:00 Nasal Cannula 2.0 01/06/18 20:26 108 20 Room Air 21 01/06/18 20:00 98 01/06/18 20:00 99.5 109 20 163/98 (119) 94 99.5 01/06/18 17:31 103 18 99 Nasal Cannula 2.0 28 01/06/18 17:20 28 01/06/18 17:20 101 18 93 Nasal Cannula 2.0 28 01/06/18 16:00 105 01/06/18 16:00 98.7 66 18 140/70 (93) 94 98.7 01/06/18 12:00 95 01/06/18 12:00 97.8 97 20 134/72 (92) 94 97.8 Height (Feet): 5 Height (Inches): 11.00 Weight (Pounds): 275 Respiratory/Chest: lungs clear Cardiovascular: normal rate, regular rhythm, no gallop/murmur Abdomen: soft, non tender Extremities: no edema Laboratory Tests Test 01/06/18 15:23 Arterial Blood pH 7.365 (7.350-7.450) Arterial Blood Partial Pressure CO2 47.8 mmHg (35.0-45.0) H Arterial Blood Partial Pressure O2 64.2 mmHg (75.0-100.0) L Arterial Blood HCO3 26.7 mmol/L (22.0-26.0) H Arterial Blood Oxygen Saturation 91.2 % (92.0-98.0) L Arterial Blood Base Excess 0.8 Gregory Test Positive Current Medications Medications (Trade) Dose Ordered Sig/Ryan Route PRN Reason Start Time Stop Time Status Last Admin Dose Admin Acetaminophen (Tylenol) 650 mg Q4H PRN ORAL Mild Pain/Temp > 100.5 01/06/18 06:00 02/05/18 05:59 Acetaminophen/ Hydrocodone Bitart ([place] 5/325) 1 tab Q4H PRN ORAL Moderate Pain (Pain Scale 4-6) 01/06/18 06:00 01/13/18 05:59 01/07/18 05:33 Aspirin (ASA) 81 mg DAILY ORAL 01/06/18 09:00 02/05/18 08:59 01/07/18 09:26 Atorvastatin Calcium (Lipitor) 10 mg BEDTIME ORAL 01/06/18 21:00 02/05/18 20:59 01/06/18 21:19 Azithromycin (Zithromax) 250 mg DAILY ORAL 01/07/18 09:00 01/14/18 08:59 01/07/18 09:26 Ceftriaxone Sodium 1 gm/ Dextrose 55 ml @ 110 mls/hr DAILY IVPB 01/06/18 14:00 01/13/18 13:59 01/07/18 09:26 HCTZ/Losartan Potassium (Hyzaar 50-12.5) 1 tab DAILY ORAL 01/07/18 09:00 02/06/18 08:59 01/07/18 09:25 Hydralazine HCl (Apresoline) 10 mg Q4H PRN ORAL SBP>150 01/06/18 21:15 02/05/18 21:14 01/07/18 05:33 Ipratropium [place] (Atrovent) 500 mcg Q4H PRN HHN cough/sob/wheezing 01/06/18 16:00 01/11/18 15:59 01/06/18 17:25 Levalbuterol HCl (Xopenex) 0.63 mg Q4H PRN HHN cough/sob/wheezing 01/06/18 16:00 01/11/18 15:59 01/06/18 17:25 Levothyroxine Sodium (Synthroid) 25 mcg DAILY@0630 ORAL 8/17/18 06:30 02/05/18 06:29 01/07/18 05:32 Methylprednisolone Sodium Succinate (Solu-MEDROL) 60 mg EVERY 12 HOURS IVP 01/07/18 09:00 02/06/18 08:59 01/07/18 09:26 Quetiapine Fumarate (SEROquel) 25 mg EVERY 6 HOURS PRN ORAL For Anxiety 01/07/18 00:30 02/06/18 00:29 AMEENA FAYE Jan 07, 2018 11:18
[2018-01-07 12:00] VITALS: BP 124/78
[2018-01-07 16:00] VITALS: BP 142/68
--- NOTE | 2018-01-07 17:22 | General Progress Note ---
Assessment/Plan Problem List: (1) Leukocytosis ICD Codes: D72.829 - Elevated white blood cell count, unspecified SNOMED: 902586253, 506867753 (2) COPD (chronic obstructive pulmonary disease) ICD Codes: J44.9 - Chronic obstructive pulmonary disease, unspecified SNOMED: 62453427 (3) Supraventricular tachycardia ICD Codes: I47.1 - Supraventricular tachycardia SNOMED: 5892019 Status: progressing Assessment/Plan cough improving not hypoxic reviewed chart and labs leukocytosis improving Subjective ROS Limited/Unobtainable: Yes Allergies: Coded Allergies: No Known Allergies (Unverified , 04/04/13) Objective Last 24 Hour Vital Signs Date Time Temp Pulse Resp B/P (MAP) Pulse Ox O2 Delivery O2 Flow Rate FiO2 01/07/18 12:00 89 01/07/18 12:00 97.2 82 20 124/78 (93) 95 97.2 01/07/18 09:25 146/75 01/07/18 09:00 Nasal Cannula 2.0 01/07/18 08:05 106 20 Room Air 21 01/07/18 08:00 99 01/07/18 08:00 98.2 95 18 146/75 (98) 95 98.2 01/07/18 05:33 172/96 01/07/18 04:00 82 01/07/18 04:00 97.4 92 18 172/96 (121) 95 97.4 01/07/18 00:00 92 01/07/18 00:00 98.1 92 18 133/82 (99) 92 98.1 01/06/18 21:19 163/98 01/06/18 21:00 Nasal Cannula 2.0 01/06/18 20:26 108 20 Room Air 21 01/06/18 20:00 98 01/06/18 20:00 99.5 109 20 163/98 (119) 94 99.5 01/06/18 17:31 103 18 99 Nasal Cannula 2.0 28 Intake and Output 01/06/18 01/07/18 19:00 07:00 Intake Total 240 ml 300 ml Output Total 800 ml 1475 ml Balance -560 ml -1175 ml Intake Oral 240 ml 300 ml Output Urine Total 800 ml 1475 ml Height (Feet): 5 Height (Inches): 11.00 Weight (Pounds): 275 Respiratory/Chest: lungs clear Abdomen: soft Leonard Caballero MD Jan 07, 2018 17:22
--- NOTE | 2018-01-07 18:41 | Pulmonology Progress Note ---
Assessment/Plan Assessment/Plan Impression: 1. SVT 2. Chest pain 3. COPD w/ acute exacerbation 4. Possible pneumonia 5. Morbid obesity Plan: -satble -abx: ceftriaxone/azithro transition to po upon dc -f/u cultures -start steroids: decrasee ti 60 mg upon dc -nebs q4 with atrovent and xopenex MDI upon dc -tobacco cessation -monitor volumes Subjective Constitutional: Reports: no symptoms HEENT: Repors: no symptoms Respiratory: Reports: no symptoms Cardiovascular: Reports: no symptoms Gastrointestinal/Abdominal: Reports: no symptoms Genitourinary: Reports: no symptoms Allergies: Coded Allergies: No Known Allergies (Unverified , 04/04/13) Subjective no events on o2 no pc nv or bleeding tolerating po oob no fever Objective Last 24 Hour Vital Signs Date Time Temp Pulse Resp B/P (MAP) Pulse Ox O2 Delivery O2 Flow Rate FiO2 01/07/18 16:00 97.0 80 20 142/68 (92) 95 97.0 01/07/18 16:00 86 01/07/18 12:00 89 01/07/18 12:00 97.2 82 20 124/78 (93) 95 97.2 01/07/18 09:25 146/75 01/07/18 09:00 Nasal Cannula 2.0 01/07/18 08:05 106 20 Room Air 21 01/07/18 08:00 99 01/07/18 08:00 98.2 95 18 146/75 (98) 95 98.2 01/07/18 05:33 172/96 01/07/18 04:00 82 01/07/18 04:00 97.4 92 18 172/96 (121) 95 97.4 01/07/18 00:00 92 01/07/18 00:00 98.1 92 18 133/82 (99) 92 98.1 01/06/18 21:19 163/98 01/06/18 21:00 Nasal Cannula 2.0 01/06/18 20:26 108 20 Room Air 21 01/06/18 20:00 98 01/06/18 20:00 99.5 109 20 163/98 (119) 94 99.5 Intake and Output 01/06/18 01/07/18 19:00 07:00 Intake Total 240 ml 300 ml Output Total 800 ml 1475 ml Balance -560 ml -1175 ml Intake Oral 240 ml 300 ml Output Urine Total 800 ml 1475 ml General Appearance: WD/WN Respiratory/Chest: chest wall non-tender, lungs clear, normal breath sounds Cardiovascular: normal rate, regularly irregular Abdomen: normal bowel sounds, soft, non tender, no organomegaly, non distended Extremities: no cyanosis Skin: no lesions, no ulcers Neurologic/Psychiatric: no motor/sensory deficits, abnormal gait, oriented x 3 Current Medications Medications (Trade) Dose Ordered Sig/Ryan Route PRN Reason Start Time Stop Time Status Last Admin Dose Admin Acetaminophen (Tylenol) 650 mg Q4H PRN ORAL Mild Pain/Temp > 100.5 01/06/18 06:00 02/05/18 05:59 Acetaminophen/ Hydrocodone Bitart ([place] 5/325) 1 tab Q4H PRN ORAL Moderate Pain (Pain Scale 4-6) 01/06/18 06:00 01/13/18 05:59 01/07/18 05:33 Aspirin (ASA) 81 mg DAILY ORAL 01/06/18 09:00 02/05/18 08:59 01/07/18 09:26 Atorvastatin Calcium (Lipitor) 10 mg BEDTIME ORAL 01/06/18 21:00 02/05/18 20:59 01/06/18 21:19 Azithromycin (Zithromax) 250 mg DAILY ORAL 01/07/18 09:00 01/14/18 08:59 01/07/18 09:26 Ceftriaxone Sodium 1 gm/ Dextrose 55 ml @ 110 mls/hr DAILY IVPB 01/06/18 14:00 01/13/18 13:59 01/07/18 09:26 HCTZ/Losartan Potassium (Hyzaar 50-12.5) 1 tab DAILY ORAL 01/07/18 09:00 02/06/18 08:59 01/07/18 09:25 Hydralazine HCl (Apresoline) 10 mg Q4H PRN ORAL SBP>150 01/06/18 21:15 02/05/18 21:14 01/07/18 05:33 Ipratropium [place] (Atrovent) 500 mcg Q4H PRN HHN cough/sob/wheezing 01/06/18 16:00 01/11/18 15:59 01/06/18 17:25 Levalbuterol HCl (Xopenex) 0.63 mg Q4H PRN HHN cough/sob/wheezing 01/06/18 16:00 01/11/18 15:59 01/06/18 17:25 Levothyroxine Sodium (Synthroid) 25 mcg DAILY@0630 ORAL 01/06/18 06:30 02/05/18 06:29 01/07/18 05:32 Methylprednisolone Sodium Succinate (Solu-MEDROL) 60 mg EVERY 12 HOURS IVP 01/07/18 09:00 02/06/18 08:59 01/07/18 09:26 Quetiapine Fumarate (SEROquel) 25 mg EVERY 6 HOURS PRN ORAL For Anxiety 01/07/18 00:30 02/06/18 00:29 Molly Ding DO Jan 07, 2018 18:41
[2018-01-07 20:00] VITALS: BP 152/78
[2018-01-08] VITALS: BP 154/76
[2018-01-08 04:00] VITALS: BP 150/94
[2018-01-08] MEDS: HydrALAZINE 10mg Tab ORAL PRN ×2 (05:49→20:39)
[2018-01-08] MEDS: Levothyroxine 25mcg tab ORAL SCH (05:49)
--- NOTE | 2018-01-08 07:08 | Pulmonology Progress Note ---
Assessment/Plan Assessment/Plan Impression: 1. SVT 2. Chest pain 3. COPD w/ acute exacerbation 4. Possible pneumonia 5. Morbid obesity Plan: -stable -abx: ceftriaxone/azithro transition to po upon dc -f/u cultures -start steroids: decrasee ti 60 mg upon dc -nebs q4 with atrovent and xopenex MDI upon dc -tobacco cessation -monitor volumes dc planning Subjective Constitutional: Reports: no symptoms HEENT: Repors: no symptoms Respiratory: Reports: no symptoms Cardiovascular: Reports: no symptoms Gastrointestinal/Abdominal: Reports: no symptoms Genitourinary: Reports: no symptoms Allergies: Coded Allergies: No Known Allergies (Unverified , 04/04/13) Subjective better ttoday no events off o2 no pc nv or bleeding tolerating po oob no fever Objective Last 24 Hour Vital Signs Date Time Temp Pulse Resp B/P (MAP) Pulse Ox O2 Delivery O2 Flow Rate FiO2 01/08/18 05:49 150/94 01/08/18 04:00 80 01/08/18 04:00 97.7 92 20 150/94 (112) 94 97.7 01/08/18 00:00 89 01/08/18 00:00 98.3 88 20 154/76 (102) 95 98.3 01/07/18 21:00 Nasal Cannula 2.0 01/07/18 20:58 152/78 01/07/18 20:00 104 01/07/18 20:00 97.7 104 20 152/78 (102) 96 97.7 01/07/18 16:00 97.0 80 20 142/68 (92) 95 97.0 01/07/18 16:00 86 01/07/18 12:00 89 01/07/18 12:00 97.2 82 20 124/78 (93) 95 97.2 01/07/18 09:25 146/75 01/07/18 09:00 Nasal Cannula 2.0 01/07/18 08:05 106 20 Room Air 21 01/07/18 08:00 99 01/07/18 08:00 98.2 95 18 146/75 (98) 95 98.2 Intake and Output 01/07/18 01/08/18 19:00 07:00 Intake Total 1090 ml 600 ml Output Total 1850 ml Balance -760 ml 600 ml Intake Oral 1090 ml 600 ml Output Urine Total 1850 ml # Voids 5 General Appearance: WD/WN Respiratory/Chest: lungs clear, rhonchi - scant Cardiovascular: normal rate, regular rhythm Abdomen: soft, non tender, no organomegaly Extremities: no cyanosis 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, no motor/sensory deficits, alert, oriented x 3 Current Medications Medications (Trade) Dose Ordered Sig/Ryan Route PRN Reason Start Time Stop Time Status Last Admin Dose Admin Acetaminophen (Tylenol) 650 mg Q4H PRN ORAL Mild Pain/Temp > 100.5 01/06/18 06:00 02/05/18 05:59 Acetaminophen/ Hydrocodone Bitart ([place] 5/325) 1 tab Q4H PRN ORAL Moderate Pain (Pain Scale 4-6) 01/06/18 06:00 01/13/18 05:59 01/07/18 20:58 Aspirin (ASA) 81 mg DAILY ORAL 01/06/18 09:00 02/05/18 08:59 01/07/18 09:26 Atorvastatin Calcium (Lipitor) 10 mg BEDTIME ORAL 01/06/18 21:00 02/05/18 20:59 01/07/18 20:58 Azithromycin (Zithromax) 250 mg DAILY ORAL 01/07/18 09:00 01/14/18 08:59 01/07/18 09:26 Ceftriaxone Sodium 1 gm/ Dextrose 55 ml @ 110 mls/hr DAILY IVPB 01/06/18 14:00 01/13/18 13:59 01/07/18 09:26 HCTZ/Losartan Potassium (Hyzaar 50-12.5) 1 tab DAILY ORAL 01/07/18 09:00 02/06/18 08:59 01/07/18 09:25 Hydralazine HCl (Apresoline) 10 mg Q4H PRN ORAL SBP>150 01/06/18 21:15 02/05/18 21:14 01/08/18 05:49 Ipratropium [place] (Atrovent) 500 mcg Q4H PRN HHN cough/sob/wheezing 01/06/18 16:00 01/11/18 15:59 01/06/18 17:25 Levalbuterol HCl (Xopenex) 0.63 mg Q4H PRN HHN cough/sob/wheezing 01/06/18 16:00 01/11/18 15:59 01/06/18 17:25 Levothyroxine Sodium (Synthroid) 25 mcg DAILY@0630 ORAL 01/06/18 06:30 02/05/18 06:29 01/08/18 05:49 Methylprednisolone Sodium Succinate (Solu-MEDROL) 60 mg EVERY 12 HOURS IVP 01/07/18 09:00 02/06/18 08:59 01/07/18 20:59 Quetiapine Fumarate (SEROquel) 25 mg EVERY 6 HOURS PRN ORAL For Anxiety 01/07/18 00:30 02/06/18 00:29 Molly Ding DO Jan 08, 2018 07:07
[2018-01-08 08:00] VITALS: BP 153/76
[2018-01-08] MEDS: cefTRIAXone 1 GM in D5W 55 ML IVPB SCH (08:40)
[2018-01-08] MEDS: Aspirin Baby 81mg ORAL SCH (08:40)
[2018-01-08] MEDS: Azithromycin 250mg tab ORAL SCH (08:41)
[2018-01-08] MEDS: Solu-MEDROL 40mg Inj IVP SCH ×2 (08:41→20:39)
[2018-01-08] MEDS: Hyzaar 12.5mg/50mg tab ORAL SCH (08:41)
[2018-01-08] MEDS ORDERED: Tubing IV Secondary IV ONE (09:50)
[2018-01-08] MEDS ORDERED: NS 275ml ONE (09:50)
[2018-01-08] MEDS ORDERED: D5 1/2NS 1000ml IV ONE (09:50)
--- NOTE | 2018-01-08 10:22 | Infectious Diseases Prog Note ---
Assessment/Plan Assessment/Plan A 1. leucocytosis 2. COPD exacerbation 3. SVT 4. Obesity P 1. continue ceftriaxone, azithromycin 2. will follow up cultures, CBC Subjective ROS Limited/Unobtainable: No Constitutional: Reports: no symptoms Respiratory: Reports: productive cough Cardiovascular: Reports: no symptoms Gastrointestinal/Abdominal: Reports: no symptoms Musculoskeletal: Reports: pain, other - shoulder Allergies: Coded Allergies: No Known Allergies (Unverified , 04/04/13) Objective Vital Signs Last 24 Hour Vital Signs Date Time Temp Pulse Resp B/P (MAP) Pulse Ox O2 Delivery O2 Flow Rate FiO2 01/08/18 09:00 Nasal Cannula 2.0 01/08/18 08:41 153/76 01/08/18 08:00 97.7 93 20 153/76 (101) 94 97.7 01/08/18 08:00 76 01/08/18 05:49 150/94 01/08/18 04:00 80 01/08/18 04:00 97.7 92 20 150/94 (112) 94 97.7 01/08/18 00:00 89 01/08/18 00:00 98.3 88 20 154/76 (102) 95 98.3 01/07/18 21:00 Nasal Cannula 2.0 01/07/18 20:58 152/78 01/07/18 20:00 104 01/07/18 20:00 97.7 104 20 152/78 (102) 96 97.7 01/07/18 16:00 97.0 80 20 142/68 (92) 95 97.0 01/07/18 16:00 86 01/07/18 12:00 89 01/07/18 12:00 97.2 82 20 124/78 (93) 95 97.2 Height (Feet): 5 Height (Inches): 11.00 Weight (Pounds): 275 General Appearance: no acute distress, other - obese Respiratory/Chest: lungs clear Cardiovascular: normal rate Abdomen: soft, non tender, other - obese Extremities: no edema Neurologic/Psychiatric: alert, oriented x 3, responsive Current Medications Medications (Trade) Dose Ordered Sig/Ryan Route PRN Reason Start Time Stop Time Status Last Admin Dose Admin Acetaminophen (Tylenol) 650 mg Q4H PRN ORAL Mild Pain/Temp > 100.5 01/06/18 06:00 02/05/18 05:59 Acetaminophen/ Hydrocodone Bitart ([place] 5/325) 1 tab Q4H PRN ORAL Moderate Pain (Pain Scale 4-6) 01/06/18 06:00 01/13/18 05:59 01/07/18 20:58 Aspirin (ASA) 81 mg DAILY ORAL 01/06/18 09:00 02/05/18 08:59 01/08/18 08:40 Atorvastatin Calcium (Lipitor) 10 mg BEDTIME ORAL 01/06/18 21:00 02/05/18 20:59 01/07/18 20:58 Azithromycin (Zithromax) 250 mg DAILY ORAL 01/07/18 09:00 01/14/18 08:59 01/08/18 08:41 Ceftriaxone Sodium 1 gm/ Dextrose 55 ml @ 110 mls/hr DAILY IVPB 01/06/18 14:00 01/13/18 13:59 01/08/18 08:40 HCTZ/Losartan Potassium (Hyzaar 50-12.5) 1 tab DAILY ORAL 01/07/18 09:00 02/06/18 08:59 01/08/18 08:41 Hydralazine HCl (Apresoline) 10 mg Q4H PRN ORAL SBP>150 01/06/18 21:15 02/05/18 21:14 01/08/18 05:49 Ipratropium [place] (Atrovent) 500 mcg Q4H PRN HHN cough/sob/wheezing 01/06/18 16:00 01/11/18 15:59 01/06/18 17:25 Levalbuterol HCl (Xopenex) 0.63 mg Q4H PRN HHN cough/sob/wheezing 01/06/18 16:00 01/11/18 15:59 01/06/18 17:25 Levothyroxine Sodium (Synthroid) 25 mcg DAILY@0630 ORAL 01/06/18 06:30 02/05/18 06:29 01/08/18 05:49 Methylprednisolone Sodium Succinate (Solu-MEDROL) 60 mg EVERY 12 HOURS IVP 01/07/18 09:00 02/06/18 08:59 01/08/18 08:41 Quetiapine Fumarate (SEROquel) 25 mg EVERY 6 HOURS PRN ORAL For Anxiety 8/18/18 00:30 02/06/18 00:29 Adam Jacobs MD Jan 08, 2018 10:22
[2018-01-08 12:00] VITALS: BP 146/83
--- NOTE | 2018-01-08 14:28 | Cardiac Electrophysiology PN ---
Assessment/Plan Assessment/Plan 1. SVT; Likely AVNRT Benefits from EP study and ablation if insurance approves Off antiarrhythmics for now. Echo Nl EF 2. JIA 3) Obesity 4) COPD 5) Elevated BNP Subjective Subjective No further SVT. In SR. Objective Last 24 Hour Vital Signs Date Time Temp Pulse Resp B/P (MAP) Pulse Ox O2 Delivery O2 Flow Rate FiO2 01/08/18 09:00 Nasal Cannula 2.0 01/08/18 08:41 153/76 01/08/18 08:00 97.7 93 20 153/76 (101) 94 97.7 01/08/18 08:00 76 01/08/18 05:49 150/94 01/08/18 04:00 80 01/08/18 04:00 97.7 92 20 150/94 (112) 94 97.7 01/08/18 00:00 89 01/08/18 00:00 98.3 88 20 154/76 (102) 95 98.3 01/07/18 21:00 Nasal Cannula 2.0 01/07/18 20:58 152/78 01/07/18 20:00 104 01/07/18 20:00 97.7 104 20 152/78 (102) 96 97.7 01/07/18 16:00 97.0 80 20 142/68 (92) 95 97.0 01/07/18 16:00 86 Intake and Output 01/07/18 01/08/18 19:00 07:00 Intake Total 1090 ml 600 ml Output Total 1850 ml Balance -760 ml 600 ml Intake Oral 1090 ml 600 ml Output Urine Total 1850 ml # Voids 5 Microbiology Date/Time Source Procedure Growth Status 01/06/18 23:00 Urine,Clean Catch Urine Culture - Preliminary NO GROWTH AFTER 24 HOURS Resulted Objective EENT: PERRL/EOMI, normal ENT inspection Neck: non-tender, normal alignment, supple, normal inspection, no JVD Rhythm: NSR Cardiovascular: normal peripheral pulses, normal rate, regular rhythm Respiratory/Chest: chest wall non-tender, lungs clear Abdomen: normal bowel sounds, non tender Extremities: normal range of motion, non-tender 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
--- NOTE | 2018-01-08 14:46 | General Progress Note ---
Assessment/Plan Problem List: (1) Leukocytosis ICD Codes: D72.829 - Elevated white blood cell count, unspecified SNOMED: 427714108, 211689859 (2) COPD (chronic obstructive pulmonary disease) ICD Codes: J44.9 - Chronic obstructive pulmonary disease, unspecified SNOMED: 46756320 (3) Supraventricular tachycardia ICD Codes: I47.1 - Supraventricular tachycardia SNOMED: 1324451 Status: progressing Assessment/Plan svt resolved afebrile chronic shoulder pain reviewed chart and labs Subjective ROS Limited/Unobtainable: Yes Constitutional: Reports: no symptoms Allergies: Coded Allergies: No Known Allergies (Unverified , 04/04/13) Subjective shoulder pain Objective Last 24 Hour Vital Signs Date Time Temp Pulse Resp B/P (MAP) Pulse Ox O2 Delivery O2 Flow Rate FiO2 01/08/18 09:00 Nasal Cannula 2.0 01/08/18 08:41 153/76 01/08/18 08:00 97.7 93 20 153/76 (101) 94 97.7 01/08/18 08:00 76 01/08/18 05:49 150/94 01/08/18 04:00 80 01/08/18 04:00 97.7 92 20 150/94 (112) 94 97.7 01/08/18 00:00 89 01/08/18 00:00 98.3 88 20 154/76 (102) 95 98.3 01/07/18 21:00 Nasal Cannula 2.0 01/07/18 20:58 152/78 01/07/18 20:00 104 01/07/18 20:00 97.7 104 20 152/78 (102) 96 97.7 01/07/18 16:00 97.0 80 20 142/68 (92) 95 97.0 01/07/18 16:00 86 Intake and Output 01/07/18 01/08/18 19:00 07:00 Intake Total 1090 ml 600 ml Output Total 1850 ml Balance -760 ml 600 ml Intake Oral 1090 ml 600 ml Output Urine Total 1850 ml # Voids 5 Height (Feet): 5 Height (Inches): 11.00 Weight (Pounds): 275 Respiratory/Chest: lungs clear Abdomen: soft Leonard Caballero MD Jan 08, 2018 14:46
[2018-01-08 16:00] VITALS: BP 147/70
[2018-01-08 20:00] VITALS: BP 171/79
[2018-01-08] MEDS: Norco 5mg/325mg tab ORAL PRN (20:40)
[2018-01-09] VITALS: BP 159/76
[2018-01-09 04:00] VITALS: BP 163/66
[2018-01-09] MEDS: HydrALAZINE 10mg Tab ORAL PRN (05:38)
[2018-01-09] MEDS: Levothyroxine 25mcg tab ORAL SCH (05:40)
[2018-01-09] MEDS: Norco 5mg/325mg tab ORAL PRN (05:45)
[2018-01-09 08:11] VITALS: BP 138/85
[2018-01-09] MEDS: Solu-MEDROL 40mg Inj IVP SCH (08:15)
[2018-01-09] MEDS: cefTRIAXone 1 GM in D5W 55 ML IVPB SCH (08:15)
[2018-01-09] MEDS: Hyzaar 12.5mg/50mg tab ORAL SCH (08:16)
[2018-01-09] MEDS: Aspirin Baby 81mg ORAL SCH (08:16)
[2018-01-09] MEDS: Azithromycin 250mg tab ORAL SCH (08:16)
--- NOTE | 2018-01-09 09:06 | Pulmonology Progress Note ---
Assessment/Plan Assessment/Plan 62 y/o male w/ COPD, morbid obesity, tobacco use admitted with chest pain and SVT with what appears to be COPD exacerbation and possible pneumonia. Impression: 1. SVT 2. Chest pain 3. COPD w/ acute exacerbation 4. Possible pneumonia 5. Morbid obesity Plan: -monitor HR -abx: ceftriaxone/azithro, transition to PO soon -f/u cultures -solumedrol to 60 mg IV qday -nebs q4 with atrovent and xopenex -monitor volumes Subjective Interval Events: Breathing feels improved. No chest pain. Minimal coughing. Constitutional: Reports: no symptoms HEENT: Repors: no symptoms Respiratory: Reports: shortness of breath, wheezing Cardiovascular: Reports: no symptoms Gastrointestinal/Abdominal: Reports: no symptoms Genitourinary: Reports: no symptoms Neurologic: Reports: no symptoms Allergies: Coded Allergies: No Known Allergies (Unverified , 04/04/13) Subjective Some shortness of breath but overall better Objective Last 24 Hour Vital Signs Date Time Temp Pulse Resp B/P (MAP) Pulse Ox O2 Delivery O2 Flow Rate FiO2 01/09/18 08:16 138/85 01/09/18 08:11 97.5 80 20 138/85 (102) 93 97.5 01/09/18 05:38 163/66 01/09/18 04:00 77 01/09/18 04:00 97.9 84 20 163/66 (98) 94 97.9 01/09/18 00:00 98.0 88 20 159/76 (103) 94 98.0 01/09/18 00:00 75 01/08/18 21:00 Nasal Cannula 2.0 01/08/18 20:39 171/79 01/08/18 20:00 96 01/08/18 20:00 97.3 102 20 171/79 (109) 92 97.3 01/08/18 16:00 84 01/08/18 16:00 98.3 99 20 147/70 (95) 94 98.3 01/08/18 12:00 87 01/08/18 12:00 97.2 103 20 146/83 (104) 94 97.2 Intake and Output 01/08/18 01/09/18 19:00 07:00 Intake Total 1080 ml 220 ml Output Total 1550 ml 650 ml Balance -470 ml -430 ml Intake Oral 1080 ml 220 ml Output Urine Total 1550 ml 650 ml General Appearance: WD/WN, no acute distress HEENT: normocephalic, atraumatic, anicteric Respiratory/Chest: other - Improved air movement with trace expiratory wheeze Cardiovascular: normal rate, regular rhythm Abdomen: normal bowel sounds, soft, non tender Extremities: no edema 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 Microbiology Date/Time Source Procedure Growth Status 01/06/18 23:00 Urine,Clean Catch Urine Culture - Final NO GROWTH AFTER 48 HOURS Complete Current Medications Medications (Trade) Dose Ordered Sig/Ryan Route PRN Reason Start Time Stop Time Status Last Admin Dose Admin Acetaminophen (Tylenol) 650 mg Q4H PRN ORAL Mild Pain/Temp > 100.5 01/06/18 06:00 02/05/18 05:59 Acetaminophen/ Hydrocodone Bitart ([place] 5/325) 1 tab Q4H PRN ORAL Moderate Pain (Pain Scale 4-6) 01/06/18 06:00 01/13/18 05:59 01/09/18 05:45 Aspirin (ASA) 81 mg DAILY ORAL 01/06/18 09:00 02/05/18 08:59 01/09/18 08:16 Atorvastatin Calcium (Lipitor) 10 mg BEDTIME ORAL 01/06/18 21:00 02/05/18 20:59 01/08/18 20:39 Azithromycin (Zithromax) 250 mg DAILY ORAL 01/07/18 09:00 01/14/18 08:59 01/09/18 08:16 Ceftriaxone Sodium 1 gm/ Dextrose 55 ml @ 110 mls/hr DAILY IVPB 01/06/18 14:00 01/13/18 13:59 01/09/18 08:15 HCTZ/Losartan Potassium (Hyzaar 50-12.5) 1 tab DAILY ORAL 01/07/18 09:00 02/06/18 08:59 01/09/18 08:16 Hydralazine HCl (Apresoline) 10 mg Q4H PRN ORAL SBP>150 01/06/18 21:15 02/05/18 21:14 01/09/18 05:38 Ipratropium [place] (Atrovent) 500 mcg Q4H PRN HHN cough/sob/wheezing 01/06/18 16:00 01/11/18 15:59 01/06/18 17:25 Levalbuterol HCl (Xopenex) 0.63 mg Q4H PRN HHN cough/sob/wheezing 01/06/18 16:00 01/11/18 15:59 01/06/18 17:25 Levothyroxine Sodium (Synthroid) 25 mcg DAILY@0630 ORAL 01/06/18 06:30 02/05/18 06:29 01/09/18 05:40 Methylprednisolone Sodium Succinate (Solu-MEDROL) 60 mg DAILY IVP 01/10/18 09:00 02/09/18 08:59 UNV Quetiapine Fumarate (SEROquel) 25 mg EVERY 6 HOURS PRN ORAL For Anxiety 01/07/18 00:30 02/06/18 00:29 EMMY CALVERT Jan 09, 2018 09:06
--- NOTE | 2018-01-09 09:58 | Infectious Diseases Prog Note ---
Assessment/Plan Assessment/Plan A 1. leucocytosis 2. COPD exacerbation 3. SVT 4. Obesity P 1. continue ceftriaxone, azithromycin 2. will follow up cultures, CBC Subjective ROS Limited/Unobtainable: Yes Allergies: Coded Allergies: No Known Allergies (Unverified , 04/04/13) Objective Vital Signs Last 24 Hour Vital Signs Date Time Temp Pulse Resp B/P (MAP) Pulse Ox O2 Delivery O2 Flow Rate FiO2 01/09/18 09:30 Nasal Cannula 2.0 01/09/18 08:16 138/85 01/09/18 08:11 97.5 80 20 138/85 (102) 93 97.5 01/09/18 05:38 163/66 01/09/18 04:00 77 01/09/18 04:00 97.9 84 20 163/66 (98) 94 97.9 01/09/18 00:00 98.0 88 20 159/76 (103) 94 98.0 01/09/18 00:00 75 01/08/18 21:00 Nasal Cannula 2.0 01/08/18 20:39 171/79 01/08/18 20:00 96 01/08/18 20:00 97.3 102 20 171/79 (109) 92 97.3 01/08/18 16:00 84 01/08/18 16:00 98.3 99 20 147/70 (95) 94 98.3 01/08/18 12:00 87 01/08/18 12:00 97.2 103 20 146/83 (104) 94 97.2 Height (Feet): 5 Height (Inches): 11.00 Weight (Pounds): 275 General Appearance: no acute distress HEENT: mucous membranes moist Respiratory/Chest: lungs clear Cardiovascular: normal rate Abdomen: soft, non tender Extremities: no edema Neurologic/Psychiatric: other - sleeping Microbiology Date/Time Source Procedure Growth Status 01/06/18 23:00 Urine,Clean Catch Urine Culture - Final NO GROWTH AFTER 48 HOURS Complete Current Medications Medications (Trade) Dose Ordered Sig/Ryan Route PRN Reason Start Time Stop Time Status Last Admin Dose Admin Acetaminophen (Tylenol) 650 mg Q4H PRN ORAL Mild Pain/Temp > 100.5 01/06/18 06:00 02/05/18 05:59 Acetaminophen/ Hydrocodone Bitart ([place] 5/325) 1 tab Q4H PRN ORAL Moderate Pain (Pain Scale 4-6) 01/06/18 06:00 01/13/18 05:59 01/09/18 05:45 Aspirin (ASA) 81 mg DAILY ORAL 01/06/18 09:00 02/05/18 08:59 01/09/18 08:16 Atorvastatin Calcium (Lipitor) 10 mg BEDTIME ORAL 01/06/18 21:00 02/05/18 20:59 01/08/18 20:39 Azithromycin (Zithromax) 250 mg DAILY ORAL 01/07/18 09:00 01/14/18 08:59 01/09/18 08:16 Ceftriaxone Sodium 1 gm/ Dextrose 55 ml @ 110 mls/hr DAILY IVPB 01/06/18 14:00 01/13/18 13:59 01/09/18 08:15 HCTZ/Losartan Potassium (Hyzaar 50-12.5) 1 tab DAILY ORAL 01/07/18 09:00 02/06/18 08:59 01/09/18 08:16 Hydralazine HCl (Apresoline) 10 mg Q4H PRN ORAL SBP>150 01/06/18 21:15 02/05/18 21:14 01/09/18 05:38 Ipratropium [place] (Atrovent) 500 mcg Q4H PRN HHN cough/sob/wheezing 01/06/18 16:00 01/11/18 15:59 01/06/18 17:25 Levalbuterol HCl (Xopenex) 0.63 mg Q4H PRN HHN cough/sob/wheezing 01/06/18 16:00 01/11/18 15:59 01/06/18 17:25 Levothyroxine Sodium (Synthroid) 25 mcg DAILY@0630 ORAL 01/06/18 06:30 02/05/18 06:29 01/09/18 05:40 Methylprednisolone Sodium Succinate (Solu-MEDROL) 60 mg DAILY IVP 01/10/18 09:00 02/09/18 08:59 Quetiapine Fumarate (SEROquel) 25 mg EVERY 6 HOURS PRN ORAL For Anxiety 01/07/18 00:30 02/06/18 00:29 Adam Jacobs MD Jan 09, 2018 09:58
[2018-01-09 10:17] LABS: HEMATOCRIT 42.8 % (42.0-52.0); HEMOGLOBIN 14.5 G/DL (14.2-18.0); MEAN CORPUSCULAR VOLUME 101 FL (80-99); PLATELET COUNT 371 K/UL (150-450); RED BLOOD COUNT 4.25 M/UL (4.70-6.10); RED CELL DISTRIBUTION WIDTH 15.2 % (11.6-14.8)
[2018-01-09 10:33] LABS: WHITE BLOOD COUNT 24.1 K/UL (4.8-10.8)
--- NOTE | 2018-01-09 11:27 | General Progress Note ---
Assessment/Plan Assessment/Plan encephalopathy due to [facility] [place] seroquel Subjective Date patient seen: Jan 09, 2018 Neurologic/Psychiatric: Reports: anxiety, depressed, emotional problems Allergies: Coded Allergies: No Known Allergies (Unverified , 04/04/13) Objective Last 24 Hour Vital Signs Date Time Temp Pulse Resp B/P (MAP) Pulse Ox O2 Delivery O2 Flow Rate FiO2 01/09/18 09:30 Nasal Cannula 2.0 01/09/18 08:16 138/85 01/09/18 08:11 97.5 80 20 138/85 (102) 93 97.5 01/09/18 05:38 163/66 01/09/18 04:00 77 01/09/18 04:00 97.9 84 20 163/66 (98) 94 97.9 01/09/18 00:00 98.0 88 20 159/76 (103) 94 98.0 01/09/18 00:00 75 01/08/18 21:00 Nasal Cannula 2.0 01/08/18 20:39 171/79 01/08/18 20:00 96 01/08/18 20:00 97.3 102 20 171/79 (109) 92 97.3 01/08/18 16:00 84 01/08/18 16:00 98.3 99 20 147/70 (95) 94 98.3 01/08/18 12:00 87 01/08/18 12:00 97.2 103 20 146/83 (104) 94 97.2 Intake and Output 01/08/18 01/09/18 19:00 07:00 Intake Total 1080 ml 220 ml Output Total 1550 ml 650 ml Balance -470 ml -430 ml Intake Oral 1080 ml 220 ml Output Urine Total 1550 ml 650 ml Laboratory Tests 01/09/18 09:25: White Blood Count 24.1*H, Red Blood Count 4.25L, Hemoglobin 14.5, Hematocrit 42.8, Mean Corpuscular Volume 101H, Mean Corpuscular Hemoglobin 34.2H, Mean Corpuscular Hemoglobin Concent 34.0, Red Cell Distribution Width 15.2H, Platelet Count 371, Mean Platelet Volume 8.0, Neutrophils (%) (Auto) , Lymphocytes (%) (Auto) , Monocytes (%) (Auto) , Eosinophils (%) (Auto) , Basophils (%) (Auto) , Neutrophils % (Manual) [Pending], Lymphocytes % (Manual) [Pending], Platelet Estimate [Pending], Platelet Morphology [Pending] Height (Feet): 5 Height (Inches): 11.00 Weight (Pounds): 275 General Appearance: no apparent distress, alert Mario Nguyen MD Jan 09, 2018 11:27
--- NOTE | 2018-01-09 11:45 | Cardiac Electrophysiology PN ---
Assessment/Plan Assessment/Plan 1. Recurrent SVT; Likely AVNRT awaiting transfer to [facility] for EP study and ablation if insurance approves Off antiarrhythmics for now. Echo Nl EF 2. JIA 3) Obesity 4) COPD 5) Elevated BNP DW RN and Dr Caballero Subjective Subjective Had SVT again last night, Awaiting transfer to [facility] if insurance approves. Objective Last 24 Hour Vital Signs Date Time Temp Pulse Resp B/P (MAP) Pulse Ox O2 Delivery O2 Flow Rate FiO2 01/09/18 09:30 Nasal Cannula 2.0 01/09/18 08:16 138/85 01/09/18 08:11 97.5 80 20 138/85 (102) 93 97.5 01/09/18 05:38 163/66 01/09/18 04:00 77 01/09/18 04:00 97.9 84 20 163/66 (98) 94 97.9 01/09/18 00:00 98.0 88 20 159/76 (103) 94 98.0 01/09/18 00:00 75 01/08/18 21:00 Nasal Cannula 2.0 01/08/18 20:39 171/79 01/08/18 20:00 96 01/08/18 20:00 97.3 102 20 171/79 (109) 92 97.3 01/08/18 16:00 84 01/08/18 16:00 98.3 99 20 147/70 (95) 94 98.3 01/08/18 12:00 87 01/08/18 12:00 97.2 103 20 146/83 (104) 94 97.2 Intake and Output 01/08/18 01/09/18 19:00 07:00 Intake Total 1080 ml 220 ml Output Total 1550 ml 650 ml Balance -470 ml -430 ml Intake Oral 1080 ml 220 ml Output Urine Total 1550 ml 650 ml Laboratory Tests Test 01/09/18 09:25 White Blood Count 24.1 K/UL (4.8-10.8) *H Red Blood Count 4.25 M/UL (4.70-6.10) L Hemoglobin 14.5 G/DL (14.2-18.0) Hematocrit 42.8 % (42.0-52.0) Mean Corpuscular Volume 101 FL (80-99) H Mean Corpuscular Hemoglobin 34.2 PG (27.0-31.0) H Mean Corpuscular Hemoglobin Concent 34.0 G/DL (32.0-36.0) Red Cell Distribution Width 15.2 % (11.6-14.8) H Platelet Count 371 K/UL (150-450) Mean Platelet Volume 8.0 FL (6.5-10.1) Neutrophils (%) (Auto) % (45.0-75.0) Lymphocytes (%) (Auto) % (20.0-45.0) Monocytes (%) (Auto) % (1.0-10.0) Eosinophils (%) (Auto) % (0.0-3.0) Basophils (%) (Auto) % (0.0-2.0) Differential Total Cells Counted 100 Neutrophils % (Manual) 83 % (45-75) H Lymphocytes % (Manual) 9 % (20-45) L Monocytes % (Manual) 8 % (1-10) Eosinophils % (Manual) 0 % (0-3) Basophils % (Manual) 0 % (0-2) Band Neutrophils 0 % (0-8) Platelet Estimate Adequate Platelet Morphology Normal Anisocytosis 1+ Macrocytosis 1+ Microbiology Date/Time Source Procedure Growth Status 01/06/18 23:00 Urine,Clean Catch Urine Culture - Final NO GROWTH AFTER 48 HOURS Complete Objective EENT: PERRL/EOMI, normal ENT inspection Neck: non-tender, normal alignment, supple, normal inspection, no JVD Rhythm: NSR Cardiovascular: normal peripheral pulses, normal rate, regular rhythm Respiratory/Chest: chest wall non-tender, lungs clear Abdomen: normal bowel sounds, non tender Extremities: normal range of motion, non-tender Neurologic: toxicologist II-XII grossly normal Erich Alexander MD Jan 09, 2018 11:45
[2018-01-09 12:00] VITALS: BP 144/86
[2018-01-09 14:19] LABS: HEMATOCRIT 45.7 % (42.0-52.0); HEMOGLOBIN 15.3 G/DL (14.2-18.0); MEAN CORPUSCULAR VOLUME 102 FL (80-99); PLATELET COUNT 377 K/UL (150-450); RED CELL DISTRIBUTION WIDTH 15.4 % (11.6-14.8)
[2018-01-09 14:21] LABS: WHITE BLOOD COUNT 22.3 K/UL (4.8-10.8)
[2018-01-09 14:39] LABS: ANION GAP 6 mmol/L (5-15); BLOOD UREA NITROGEN 27 mg/dL (7-18); CALCIUM 9.7 MG/DL (8.5-10.1); CARBON DIOXIDE 35 MMOL/L (21-32); CHLORIDE 101 MMOL/L (98-107); CREATININE 1.2 MG/DL (0.55-1.30); POTASSIUM 4.6 MMOL/L (3.5-5.1); SODIUM 142 MMOL/L (136-145)
[2018-01-09 14:43] LABS: ALANINE AMINOTRANSFERASE 101 U/L (12-78); ALBUMIN 3.4 G/DL (3.4-5.0); ALBUMIN/GLOBULIN RATIO 0.9 (1.0-2.7); ALKALINE PHOSPHATASE 82 U/L (46-116); ASPARTATE AMINO TRANSFERASE 94 U/L (15-37); BILIRUBIN,TOTAL 0.3 MG/DL (0.2-1.0); PHOSPHORUS 4.8 MG/DL (2.5-4.9)
[2018-01-09 16:00] VITALS: BP 140/69
[2018-01-10] MEDS ORDERED: Solu-MEDROL 125mg Inj IVP SCH (09:00)
--- NOTE | 2018-01-10 14:36 | Discharge Summary ---
Discharge Summary Discharge Summary _ DATE OF ADMISSION: 01/06/2018 DATE OF DISCHARGE: 01/09/2018. Patient signed AGAINST MEDICAL ADVICE REASON FOR ADMISSION: 63 years old male with past medical history significant for COPD , hypertension , hypothyroidism, presented with the chest discomfort. Patient reported sudden onset of palpitations. Initially he experienced the episode about 10 hours ago, while in the bed, and since that had recurrent episodes. Patient also reported previous symptoms in the past. No fever ,no chills. Patient reported mild shortness of breath. Patient reported status post fall on the ice skating ring with injury to his right shoulder. Upon evaluation patient was afebrile ,heart rate -168 respiratory rate- 22, blood pressure was stable ,pulse oximetry on 2 L of oxygen via nasal cannula was 95%. EKG revealed supraventricular tachycardia. Troponin was negative . CK stable , pro BNP 3043 . BUN 21 creatinine 1.3. l Leukocytosis with WBC 17.2, hemoglobin and hematocrit stable. Chest x-ray revealed no acute cardiopulmonary pathology. Patient admitted with diagnoses of supraventricular tachycardia, leukocytosis, COPD, azotemia. CONSULTANTS: ethernet network architect Dr. Alexander pulmonary Dr. Rasheed ID specialist Dr. Barrera psychiatrist [facility] COURSE: Patient admitted to telemetry floor. Serial troponin 2 were negative. EKG showed recurrent supraventricular tachycardia, no acute ischemic changes. Patient was ruled out for acute [place]. Echocardiogram revealed grossly preserved ejection fraction. Patient was on antiplatelet therapy with aspirin and statin. Blood pressure was managed with angiotensin receptor magan and beta magan. Construction Director recommended stress test when stable cardiovascularly. Construction Director suggested that recurrent SVT was likely atrioventricular grant reentry tachycardia and recommended transfer to another hospital for EP study and possible ablation after insurance authorization. Fairing Worker closely followed. Patient started on the IV steroids, which were gradually tapered. Patient started on empiric antibiotics. Supplemental oxygen titrated to keep pulse oximetry above 92%. Pulmonary toilet provided with Xopenex and Atrovent. Initial ABG with mild hypercapnia , no acidosis. Patient counseled on tobacco cessation. Patient declined nicotine patch. BiPAP was ordered at night and as needed. Patient was recommended outpatient sleep study. Infectious disease specialist closely followed. Urine culture was negative. Patient was on empiric antibiotic for possible pneumonia/COPD exacerbation. Leukocytosis persisted. No fever. TSH was pending . Psychiatrist closely followed. Psychiatrist diagnosed patient with encephalopathy secondary to general medical condition and anxiety disorder. Psychiatrist provided reality orientation and supportive therapy. Psychiatric medication regimen was initiated. Supportive care provided. Pain management addressed. Bowel regimen instituted. Renal parameters and electrolytes were closely monitored. Electrolytes were corrected as needed. Nephrotoxics were avoided. Prior to signing AMA, creatinine down to normal. While waiting for transfer to another hospital for EP study with ablation, patient decided to sign AMA. The risks and consequences of signing AGAINST MEDICAL ADVICE were discussed with patient in detail. Patient verbalized understanding, nevertheless signed AMA form and left. Heart rate was stable for last 24 hours. 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 I was not involved in the patient's management. Billie Tompkins NP Jan 10, 2018 14:36
--- NOTE | 2018-01-11 11:11 | Cardiology Report ---
APPROVED REPORT EXAM: Two-dimensional and M-mode echocardiogram with Doppler and color Doppler. INDICATION SHORTNESS OF BREATH M-Mode DIMENSIONS IVSd2.3 (0.7-1.1cm) LVDd4.4 (3.5-5.6cm) PWd2.0 (0.7-1.1cm) IVSs2.1 cm LVDs3.2 (2.5-4.0cm) PWs2.5 cm Normal left ventricular chamber size, systolic function and wall motion to extent visualized. Left ventricular ejection fraction estimated to be grossly normal . No evidence of left ventricular hypertrophy by 2-D. No evidence of pericardial effusion. All other cardiac chamber sizes are within normal limits. Focal aortic valve sclerosis with adequate cusp excursion. Thickened mitral valve leaflets with normal excursion. Mitral annulus and aortic root calcification. Pulmonic valve not well visualized. Normal tricuspid valve structure. IVC at size 2.0 cm with physiological collapse . A color flow and spectral Doppler study was performed and revealed: No aortic regurgitation. Trace mitral regurgitation. Normal left ventricular diastolic function . Trace tricuspid regurgitation. Tricuspid systolic velocities suggests peak right ventricular systolic pressure of 18mmHg. No Pulmonic regurgitation present.
--- NOTE | 2018-01-13 00:54 | Cardiology Report ---
APPROVED REPORT EKG Measurement Heart [id number] Sinus rhythm with premature atrial complexes T wave abnormality, consider lateral ischemia Abnormal ECG
== END 2018-01-09 19:05 | disposition left against medical advice (07) | DRG 201 ==
LOC: EMR 01:20 → EDBEDREQ 02:22 → 2E 03:09 → EDBEDREQ 03:46 → 2E 04:40
DX: I47.1 Supraventricular tachycardia (principal); G93.40 Encephalopathy, unspecified; J18.9 Pneumonia, unspecified organism; N17.9 Acute kidney failure, unspecified; J44.1 Chronic obstructive pulmonary disease with (acute) exacerbation; G47.33 Obstructive sleep apnea (adult) (pediatric); I10 Essential (primary) hypertension; E66.01 Morbid (severe) obesity due to excess calories; F41.9 Anxiety disorder, unspecified; M25.511 Pain in right shoulder; W00.0XXA Fall on same level due to ice and snow, initial encounter; Y93.21 Activity, ice skating; Y92.330 Ice skating rink (indoor) (outdoor) as the place of occurrence of the external cause; E03.9 Hypothyroidism, unspecified
CPT/HCPCS: 36415; 36600; 71045; 80053; 82550; 82553; 82803; 82962; 83735; 83880; 84100; 84484; 84550; 85007; 85025; 86140; 87086; 93005; 93306; 94640; 94664; 96374; 99285

== ENCOUNTER 2018-05-22 12:48 | Inpatient (IN) | payer MEDICAID ==
[~2018-05-22] VITALS: Ht 175.3 cm; Wt 131.7 kg
[2018-05-22] MEDS: Albuterol 90mcg Inhaler 8gm INH SCH (11:28)
[~2018-05-22 12:48] MED LIST changes: +UNOBMED
[2018-05-22] MEDS ORDERED: Morphine Sulfate 4mg/ml Inj (IV/IM USE ONLY) IM ONE (13:30)
--- NOTE | 2018-05-22 14:18 | Emergency Room Report ---
History of Present Illness General Chief Complaint: Multiple Trauma/Fall Source: Patient (Kala Prather) Present Illness HPI 62-year-old male presents to the emergency department complaining of 10 out of 10 in severity localized pain to the right lateral chest as well as the right shoulder status post mechanical fall outside on the ground while he was playing with his grandson. Patient denies midline neck or back pain he denies hitting his head or having a loss of consciousness. Patient reports pain with taking deep breaths and any type of movement. Patient states that his rib cage reports hurts more than his right shoulder. Patient has previous injuries to these locations. Denies numbness tingling or loss of sensation or gross motor movements of the extremities, incontinence of bowel or bladder. Denies CP, Palpitations, LOC, AMS, dizziness, Changes in Vision, weakness or a sudden severe headache. (Kala Prather) Allergies: Coded Allergies: No Known Allergies (Unverified , 04/04/13) Patient History Past Medical History: see triage record Past Surgical History: none Pertinent Family History: none Reviewed Nursing Documentation: PMH: Agreed; PSxH: Agreed (Kala Prather) Nursing Documentation-PMH Hx Hypertension: Yes Hx Asthma: Yes Hx Cancer: No Hx Gastrointestinal Problems: Yes Hx Dizziness: Yes (Kala Prather) Review of Systems All Other Systems: negative except mentioned in HPI (Kala Prather) Physical Exam Vital Signs Date Time Temp Pulse Resp B/P (MAP) Pulse Ox O2 Delivery O2 Flow Rate FiO2 05/22/18 12:47 98.1 76 16 171/ 97 Room Air Sp02 EP Interpretation: reviewed, normal General Appearance: alert, GCS 15, non-toxic, moderate distress Head: normocephalic, atraumatic Eyes: bilateral eye normal inspection, bilateral eye PERRL ENT: hearing grossly normal, normal voice Neck: full range of motion, no bony tend Respiratory: lungs clear, normal breath sounds, speaking full sentences, other - Chest is tender to mild palpation along the upper right lateral rib cage, no obvious flail chest. Normal lung sounds. Cardiovascular #1: regular rate, rhythm, no edema Cardiovascular #2: 2+ radial (R) Musculoskeletal: back normal, gait/station normal, normal range of motion, non- tender, tender - TTP to the anterior and caudal portion of the right shoulder, pain with attempts to ROM test. no obvious step-off or deformity, NVI. Neurologic: alert, oriented x3, responsive, motor strength/tone normal, sensory intact, speech normal, grossly normal Psychiatric: judgement/insight normal Skin: normal color, no rash, warm/dry, well hydrated Lymphatic: no adenopathy (Kala Prather) Medical Decision Making PA Attestation Dr. Quiñonez is my supervising Physician whom patient management has been discussed with. (Kala Prather) Medicare Attestation Patient seen and evaluated by myself as well I do agree with the workup and examinations patient remains in intractable pain and requires further inpatient care and consultation (Leonard Quiñonez DO) Diagnostic Impression: Primary Impression: Multiple fractures of ribs Qualified Codes: S22.41XA - Multiple fractures of ribs, right side, initial encounter for closed fracture ER Course 62-year-old male presents to the emergency department complaining of 10 out of 10 in severity localized pain to the right lateral chest as well as the right shoulder status post mechanical fall outside on the ground while he was playing with his grandson. Patient denies midline neck or back pain he denies hitting his head or having a loss of consciousness. Patient reports pain with taking deep breaths and any type of movement. Patient states that his rib cage reports hurts more than his right shoulder. Patient has previous injuries to these locations. Denies numbness tingling or loss of sensation or gross motor movements of the extremities, incontinence of bowel or bladder. Denies CP, Palpitations, LOC, AMS, dizziness, Changes in Vision, weakness or a sudden severe headache. Ddx considered but are not limited to Fracture, dislocation, contusion, Sprain/ Strain/Spasm, Rib cage contusion/ rib fx, pneumothorax just to name a few. Vital signs: are WNL, pt. is afebrile H&PE are most consistent with musculoskeletal injury will perform imaging to r/ o fractures/dislocations. ORDERS: - X-ray Right Shoulder 3 views: AC Separation. - CT Chest no contrast: "Right rib fractures to ribs 5, 6, and 7 . "Per official radiology report- Please see report for specific details. -Labs: WBC of 15.6 otherwise unremarkable. -UDS: positive for opiates ED INTERVENTIONS: - Morphine 4mg IM - Morphine IV DISPOSITION: at this time pt. will be admitted to Dr. Caballero for multiple rib fractures. Dr. Caballero agreed to admit the pt. and to continue pt. care management. Labs Test 05/22/18 15:55 05/22/18 17:00 White Blood Count 15.6 K/UL (4.8-10.8) Red Blood Count 4.44 M/UL (4.70-6.10) Hemoglobin 14.9 G/DL (14.2-18.0) Hematocrit 46.4 % (42.0-52.0) Mean Corpuscular Volume 105 FL (80-99) Mean Corpuscular Hemoglobin 33.6 PG (27.0-31.0) Mean Corpuscular Hemoglobin Concent 32.1 G/DL (32.0-36.0) Red Cell Distribution Width 13.2 % (11.6-14.8) Platelet Count 219 K/UL (150-450) Mean Platelet Volume 7.5 FL (6.5-10.1) Neutrophils (%) (Auto) 73.1 % (45.0-75.0) Lymphocytes (%) (Auto) 17.7 % (20.0-45.0) Monocytes (%) (Auto) 7.0 % (1.0-10.0) Eosinophils (%) (Auto) 0.7 % (0.0-3.0) Basophils (%) (Auto) 1.5 % (0.0-2.0) Sodium Level 137 MMOL/L (136-145) Potassium Level 5.3 MMOL/L (3.5-5.1) Chloride Level 101 MMOL/L (98-107) Carbon Dioxide Level 27 MMOL/L (21-32) Anion Gap 9 mmol/L (5-15) Blood Urea Nitrogen 17 mg/dL (7-18) Creatinine 1.1 MG/DL (0.55-1.30) Estimat Glomerular Filtration Rate > 60 mL/min (>60) Glucose Level 101 MG/DL (74-106) Calcium Level 9.4 MG/DL (8.5-10.1) Urine Color Yellow Urine Appearance Clear Urine pH 5 (4.5-8.0) Urine Specific [place] 1.025 (1.005-1.035) Urine Protein 1+ (NEGATIVE) Urine Glucose (UA) Negative (NEGATIVE) Urine Ketones Negative (NEGATIVE) Urine Blood Negative (NEGATIVE) Urine Nitrite Negative (NEGATIVE) Urine Bilirubin Negative (NEGATIVE) Urine Urobilinogen Normal MG/DL (0.0-1.0) Urine Leukocyte Esterase Negative (NEGATIVE) Urine RBC 0-2 /HPF (0 - 0) Urine WBC 0-2 /HPF (0 - 0) Urine Squamous Epithelial Cells Occasional /LPF Urine Bacteria Few /HPF (NONE) Urine Mucus Few /LPF (NONE/OCC) Urine Opiates Screen Positive (NEGATIVE) Urine Barbiturates Screen Negative (NEGATIVE) Phencyclidine (PCP) Screen Negative (NEGATIVE) Urine Amphetamines Screen Negative (NEGATIVE) Urine Benzodiazepines Screen Negative (NEGATIVE) Urine Cocaine Screen Negative (NEGATIVE) Urine Marijuana (THC) Screen Negative (NEGATIVE) (Kala Prather) EKG Diagnostic Results EP Interpretation: Dr. Quiñonez Rate: normal - 74 bpm Rhythm: NSR ST Segments: no acute changes ASA given to the pt in ED: No PA Scribe Text This Interpretation was scribed by ORLANDO Prather. (Kala Prather) Other X-Ray Diagnostic Results Other X-Ray Diagnostic Results : X-Ray ordered: Right Shoulder # of Views/Limited Vs Complete: 3 View Indication: Pain EP Interpretation: Yes PA Xray: Interpretation reviewed, by supervising MD, and agrees with findings. Interpretation: no dislocation, no soft tissue swelling, no fractures, other - AC separation noted Impression: Other - abnormal: AC separation Electronically Signed by: Kala Prather PA-C (Kala Prather) CT/MRI/US Diagnostic Results CT/MRI/US Diagnostic Results : Imaging Test Ordered: CT chest No Contrast Impression "Right rib fractures to ribs 5, 6, and 7 . "Per official radiology report- Please see report for specific details. (Kala Prather) Last Vital Signs Date Time Temp Pulse Resp B/P (MAP) Pulse Ox O2 Delivery O2 Flow Rate FiO2 05/22/18 12:47 98.1 76 16 171/ 97 Room Air (Kala Prather) Disposition: ADMITTED INPATIENT Condition: Serious Referrals: [facility],REFERRING (PCP) Kala Prather May 22, 2018 14:18 Leonard Quiñonez DO May 22, 2018 17:13
[2018-05-22 14:25] VITALS: BP 167/89
--- NOTE | 2018-05-22 14:34 | NUR ---
ED Nurse Note:pt. was BIBA from home for right upper ribs pain, s/p ground level fall today, pain meds given x-rays are done
--- NOTE | 2018-05-22 14:53 | Diagnostic Imaging Report ---
Clinical Indication: Flank and chest pain x30 minutes, status post trip and fall Technique: Spiral acquisitions obtained through the chest. No IV contrast utilized, per referring physician request. Multiplanar reconstructions generated. Total dose length product 1163.66 mGycm. CTDIvol(s) 26.76 mGy. Dose reduction achieved using automated exposure control Comparison: none Findings: There are nondisplaced fractures of the right fifth, sixth, and seventh ribs. No left rib fractures are evident. No other acute bony trauma is noted No pneumothorax is demonstrated. There are minimal posterior dependent atelectatic changes of the lungs noted. The lungs and pleural spaces are otherwise clear. No masses, effusions, infiltrates, or nodules. The heart size is normal. No pericardial effusion. There is a prominent node within the anterior pericardial fat. No mediastinal or hilar mass or adenopathy demonstrated. The included portion of the thyroid is unremarkable. No axillary or chest wall mass or adenopathy demonstrated. The included upper abdominal anatomy demonstrates enlarged peripancreatic lymph nodes, with a node or conglomerate of nodes measuring up to 5 x 1.5 cm diameter. Borderline dilated fluid-filled small bowel is seen in the left upper quadrant. Impression: Positive for fractures of the right fifth sixth and seventh ribs. No evidence of underlying pneumothorax or pulmonary contusion Dependent atelectatic changes. No acute pulmonary process otherwise Borderline dilated fluid-filled left upper quadrant small bowel loops, significance uncertain. Correlate with clinical findings Peripancreatic lymphadenopathy The CT scanner at [facility] is accredited by the [employer] and the scans are performed using protocols designed to limit radiation exposure to as low as reasonably achievable to attain images of sufficient resolution adequate for diagnostic evaluation.
--- NOTE | 2018-05-22 15:24 | Diagnostic Imaging Report ---
Indication: Right shoulder pain Technique: 3 views of the right shoulder Comparison: 01/06/2018 Findings: Well-corticated ossific density projects in or adjacent to the acromioclavicular joint. There is mild widening of the acromioclavicular joint, but chest radiograph of 01/06/2018 indicates that this is symmetrical and presumably baseline for this patient. The joint spaces are otherwise preserved. No acute fractures or dislocations. No significant interim change Impression: No acute process
[2018-05-22] MEDS ORDERED: Morphine Sulfate 10mg/ml Inj IVP ONE (15:30)
--- NOTE | 2018-05-22 15:43 | NUR ---
ED Nurse Note:pt. was transfered to monitor bed and placed on court recording monitor, he is still c/o right ribs pain
--- NOTE | 2018-05-22 15:58 | NUR ---
ED Nurse Note: Blood drawn and sent to lab.
[2018-05-22 16:17] LABS: BASOPHILS % (AUTO) 1.5 % (0.0-2.0); EOSINOPHILS % (AUTO) 0.7 % (0.0-3.0); HEMATOCRIT 46.4 % (42.0-52.0); HEMOGLOBIN 14.9 G/DL (14.2-18.0); LYMPHOCYTES % (AUTO) 17.7 % (20.0-45.0); MEAN CORPUSCULAR VOLUME 105 FL (80-99); NEUTROPHILS % (AUTO) 73.1 % (45.0-75.0); PLATELET COUNT 219 K/UL (150-450); RED BLOOD COUNT 4.44 M/UL (4.70-6.10); RED CELL DISTRIBUTION WIDTH 13.2 % (11.6-14.8); WHITE BLOOD COUNT 15.6 K/UL (4.8-10.8)
[2018-05-22 16:35] LABS: ANION GAP 9 mmol/L (5-15); BLOOD UREA NITROGEN 17 mg/dL (7-18); CALCIUM 9.4 MG/DL (8.5-10.1); CARBON DIOXIDE 27 MMOL/L (21-32); CHLORIDE 101 MMOL/L (98-107); CREATININE 1.1 MG/DL (0.55-1.30); POTASSIUM 5.3 MMOL/L (3.5-5.1); SODIUM 137 MMOL/L (136-145)
[2018-05-22 16:43] VITALS: BP 167/82
--- NOTE | 2018-05-22 17:01 | NUR ---
ED Nurse Note: Report given to Kay RN at ext [phone]. Pt to transfered to Tele per protocol.
[2018-05-22] MEDS ORDERED: HYDROmorphone 1mg/ml Carpuject IVP ONE (17:15)
[2018-05-22 17:31] LABS: APPEARANCE,URINE CLEAR; BILIRUBIN, URINE NEGATIVE (NEGATIVE); GLUCOSE, URINE (UA) NEGATIVE (NEGATIVE); KETONES,URINE NEGATIVE (NEGATIVE); LEUKOCYTE ESTERASE ,URINE NEGATIVE (NEGATIVE); NITRITE,URINE NEGATIVE (NEGATIVE); PH,URINE 5 (4.5-8.0); PROTEIN,URINE 1+ (NEGATIVE); UROBILINOGEN,URINE NORMAL MG/DL (0.0-1.0)
[2018-05-22 17:40] LABS: COLOR,URINE YELLOW
[2018-05-22 17:52] VITALS: BP 162/67
[2018-05-22 18:00] VITALS: BP 142/91
--- NOTE | 2018-05-22 18:00 | NUR ---
NURSE NOTES: I received the patient from the ER. Patient alert and oriented x4. Patient oriented to the room and the use of the call light. Bed in the lowest position and call light within reach. Patient connected to NC.
--- NOTE | 2018-05-22 19:20 | NUR ---
NURSE NOTES: Received pt. and report from JASEN Villanueva. Observe pt. resting in bed. t rail turner is placed, IV intact, asymptomatic, and patent. Bed is in the lowest position and locked. Call light within reach. No acute distress noted at this time. No admission orders yet. Will contact Dr. Caballero for admission orders.
--- NOTE | 2018-05-22 19:29 | NUR ---
HAND-OFF: Report given to JASEN Childress.
--- NOTE | 2018-05-22 19:45 | NUR ---
NURSE NOTES: Contacted Dr. Caballero for admission order. Awaiting call back.
--- NOTE | 2018-05-22 19:51 | NUR ---
NURSE NOTES: Received orders from ORLANDO Han. Will note and carry out.
[2018-05-22 20:00] VITALS: BP 169/93
--- NOTE | 2018-05-22 20:24 | NUR ---
NURSE NOTES: Received admission orders from Dr. Caballero. Will note and carry out.
[2018-05-22] MEDS: Atorvastatin 20mg tab ORAL SCH (21:24)
[2018-05-22] MEDS: HYDROmorphone 1mg/ml Carpuject IVP PRN (22:35)
[2018-05-23] VITALS: BP 161/96
[2018-05-23] MEDS: Albuterol 90mcg Inhaler 8gm INH SCH ×6 (01:18→19:56)
[2018-05-23] MEDS: HYDROmorphone 1mg/ml Carpuject IVP PRN ×4 (03:57→21:52)
[2018-05-23 04:00] VITALS: BP 147/95
--- NOTE | 2018-05-23 07:21 | NUR ---
HAND-OFF: Report given to JASEN Bob. Plan of care endorsed.
--- NOTE | 2018-05-23 07:28 | NUR ---
NURSE NOTES: Informed Dr. Caballero regarding potassium of 5.3. Dr. Caballero ordered AM labs and to inform Dr. Martins with new potassium result. Endorsed to [place] nurse.
--- NOTE | 2018-05-23 07:31 | NUR ---
NURSE NOTES: Received patient in bed awake on semi strauss position on stable condition with no SOB or distress noted. On tele monitor, A/O X 4 verbally responsive and able to make needs known. IV intact and patent. Keep patient clean and comfortable in bed, call light within patient reach, will continue to monitor accordingly.
[2018-05-23 08:00] VITALS: BP 152/79
[2018-05-23] MEDS: Allopurinol 100mg Tab ORAL SCH (08:34)
[2018-05-23] MEDS: Breo Ellipta 200/25mcg-14 dose INH SCH (09:39)
[2018-05-23 10:28] LABS: BASOPHILS % (AUTO) 1.1 % (0.0-2.0); EOSINOPHILS % (AUTO) 0.7 % (0.0-3.0); HEMOGLOBIN 14.5 G/DL (14.2-18.0); LYMPHOCYTES % (AUTO) 20.6 % (20.0-45.0); MEAN CORPUSCULAR VOLUME 105 FL (80-99); MONOCYTES % (AUTO) 12.4 % (1.0-10.0); NEUTROPHILS % (AUTO) 65.2 % (45.0-75.0); PLATELET COUNT 311 K/UL (150-450); RED BLOOD COUNT 4.31 M/UL (4.70-6.10); RED CELL DISTRIBUTION WIDTH 13.1 % (11.6-14.8); WHITE BLOOD COUNT 13.5 K/UL (4.8-10.8)
[2018-05-23 10:55] LABS: ALANINE AMINOTRANSFERASE 77 U/L (12-78); ALBUMIN 3.8 G/DL (3.4-5.0); ALBUMIN/GLOBULIN RATIO 0.9 (1.0-2.7); ALKALINE PHOSPHATASE 73 U/L (46-116); ANION GAP 8 mmol/L (5-15); ASPARTATE AMINO TRANSFERASE 57 U/L (15-37); BILIRUBIN,TOTAL 0.5 MG/DL (0.2-1.0); BLOOD UREA NITROGEN 16 mg/dL (7-18); CALCIUM 9.3 MG/DL (8.5-10.1); CARBON DIOXIDE 30 MMOL/L (21-32); CHLORIDE 99 MMOL/L (98-107); POTASSIUM 4.5 MMOL/L (3.5-5.1); SODIUM 137 MMOL/L (136-145)
--- NOTE | 2018-05-23 11:38 | Consultation ---
History of Present Illness General Date patient seen: May 23, 2018 Chief Complaint: Present Illness Allergies: Coded Allergies: No Known Allergies (Unverified , 04/04/13) Medication History Scheduled Albuterol Sulfate (Ventolin Hfa), 2 PUFFS INH Q4HR, (Reported) Allopurinol* (Allopurinol*), 100 MG ORAL DAILY, (Reported) Atorvastatin Calcium* (Lipitor*), 20 MG ORAL BEDTIME Doxycycline Hyclate (Doxycycline Hyclate), 100 MG PO BID Fluticasone/Vilanterol (Breo Ellipta 200-25 Mcg INH), 1 PUFFS INH DAILY Levothyroxine Sodium* (Levothyroxine Sodium*), 100 MCG ORAL DAILY@0630 Miscellaneous Medications Unable to Obtain Medications (Unable To Obtain Meds), (Reported) Patient History Healthcare decision maker Resuscitation status Full Code Advanced Directive on File Physical Exam Last 24 Hour Vital Signs Date Time Temp Pulse Resp B/P (MAP) Pulse Ox O2 Delivery O2 Flow Rate FiO2 05/23/18 10:08 90 05/23/18 09:39 78 20 99 Room Air 21 05/23/18 09:39 78 20 99 Room Air 21 05/23/18 09:00 Nasal Cannula 2.0 05/23/18 08:00 97.9 94 18 152/79 (103) 95 05/23/18 04:29 Room Air 21 05/23/18 04:29 Room Air 21 05/23/18 04:00 85 05/23/18 04:00 98.2 85 19 147/95 (112) 95 05/23/18 01:18 Room Air 21 05/23/18 01:18 Room Air 21 05/23/18 00:00 98.2 94 19 161/96 (117) 93 05/23/18 00:00 95 05/22/18 20:37 Nasal Cannula 2.0 05/22/18 20:00 86 05/22/18 20:00 97.8 91 19 169/93 (118) 97 05/22/18 18:00 97.0 91 20 142/91 (108) 94 05/22/18 17:52 98.1 05/22/18 17:52 98.1 84 16 162/67 98 Room Air 05/22/18 17:52 98.1 84 16 162/67 98 Room Air 05/22/18 16:43 98.1 81 16 167/82 99 Room Air 05/22/18 16:24 98.1 05/22/18 14:49 98.1 05/22/18 14:25 98.1 78 16 167/89 97 Room Air 05/22/18 14:25 76 16 Room Air 05/22/18 12:47 98.1 76 16 171/ 97 Room Air Intake and Output 05/22/18 05/23/18 18:59 06:59 Output Total 400 ml Balance -400 ml Output Urine Total 400 ml # Voids 2 Laboratory Tests Test 05/22/18 15:55 05/22/18 17:00 05/23/18 10:05 White Blood Count 15.6 K/UL (4.8-10.8) H 13.5 K/UL (4.8-10.8) H Red Blood Count 4.44 M/UL (4.70-6.10) L 4.31 M/UL (4.70-6.10) L Hemoglobin 14.9 G/DL (14.2-18.0) 14.5 G/DL (14.2-18.0) Hematocrit 46.4 % (42.0-52.0) 45.0 % (42.0-52.0) Mean Corpuscular Volume 105 FL (80-99) H 105 FL (80-99) H Mean Corpuscular Hemoglobin 33.6 PG (27.0-31.0) H 33.6 PG (27.0-31.0) H Mean Corpuscular Hemoglobin Concent 32.1 G/DL (32.0-36.0) 32.1 G/DL (32.0-36.0) Red Cell Distribution Width 13.2 % (11.6-14.8) 13.1 % (11.6-14.8) Platelet Count 219 K/UL (150-450) 311 K/UL (150-450) Mean Platelet Volume 7.5 FL (6.5-10.1) 7.6 FL (6.5-10.1) Neutrophils (%) (Auto) 73.1 % (45.0-75.0) 65.2 % (45.0-75.0) Lymphocytes (%) (Auto) 17.7 % (20.0-45.0) L 20.6 % (20.0-45.0) Monocytes (%) (Auto) 7.0 % (1.0-10.0) 12.4 % (1.0-10.0) H Eosinophils (%) (Auto) 0.7 % (0.0-3.0) 0.7 % (0.0-3.0) Basophils (%) (Auto) 1.5 % (0.0-2.0) 1.1 % (0.0-2.0) Sodium Level 137 MMOL/L (136-145) 137 MMOL/L (136-145) Potassium Level 5.3 MMOL/L (3.5-5.1) H 4.5 MMOL/L (3.5-5.1) Chloride Level 101 MMOL/L (98-107) 99 MMOL/L (98-107) Carbon Dioxide Level 27 MMOL/L (21-32) 30 MMOL/L (21-32) Anion Gap 9 mmol/L (5-15) 8 mmol/L (5-15) Blood Urea Nitrogen 17 mg/dL (7-18) 16 mg/dL (7-18) Creatinine 1.1 MG/DL (0.55-1.30) 1.0 MG/DL (0.55-1.30) Estimat Glomerular Filtration Rate > 60 mL/min (>60) > 60 mL/min (>60) Glucose Level 101 MG/DL (74-106) 118 MG/DL (74-106) H Calcium Level 9.4 MG/DL (8.5-10.1) 9.3 MG/DL (8.5-10.1) Urine Color Yellow Urine Appearance Clear Urine pH 5 (4.5-8.0) Urine Specific [place] 1.025 (1.005-1.035) Urine Protein 1+ (NEGATIVE) H Urine Glucose (UA) Negative (NEGATIVE) Urine Ketones Negative (NEGATIVE) Urine Blood Negative (NEGATIVE) Urine Nitrite Negative (NEGATIVE) Urine Bilirubin Negative (NEGATIVE) Urine Urobilinogen Normal MG/DL (0.0-1.0) Urine Leukocyte Esterase Negative (NEGATIVE) Urine RBC 0-2 /HPF (0 - 0) H Urine WBC 0-2 /HPF (0 - 0) Urine Squamous Epithelial Cells Occasional /LPF Urine Bacteria Few /HPF (NONE) Urine Mucus Few /LPF (NONE/OCC) H Urine Opiates Screen Positive (NEGATIVE) H Urine Barbiturates Screen Negative (NEGATIVE) Phencyclidine (PCP) Screen Negative (NEGATIVE) Urine Amphetamines Screen Negative (NEGATIVE) Urine Benzodiazepines Screen Negative (NEGATIVE) Urine Cocaine Screen Negative (NEGATIVE) Urine Marijuana (THC) Screen Negative (NEGATIVE) Total Bilirubin 0.5 MG/DL (0.2-1.0) Aspartate Amino Transf (AST/SGOT) 57 U/L (15-37) H Alanine Aminotransferase (ALT/SGPT) 77 U/L (12-78) Alkaline Phosphatase 73 U/L (46-116) Total Protein 8.2 G/DL (6.4-8.2) Albumin 3.8 G/DL (3.4-5.0) Globulin 4.4 g/dL Albumin/Globulin Ratio 0.9 (1.0-2.7) L Height (Feet): 5 Height (Inches): 9.00 Weight (Pounds): 213 Medications Current Medications Medications (Trade) Dose Ordered Sig/Ryan Route PRN Reason Start Time Stop Time Status Last Admin Dose Admin Acetaminophen/ Hydrocodone Bitart ([place] 10/325) 1 tab Q4H PRN ORAL moderate pain 05/22/18 19:45 05/29/18 19:44 Albuterol Sulfate (Proventil MDI) 1 puff Q4HR INH 05/22/18 21:00 06/21/18 20:59 05/23/18 09:39 Allopurinol (Zyloprim) 100 mg DAILY ORAL 05/23/18 09:00 06/22/18 08:59 05/23/18 08:34 Atorvastatin Calcium (Lipitor) 20 mg BEDTIME ORAL 05/22/18 21:00 06/21/18 20:59 05/22/18 21:24 Fluticasone/ Vilanterol (Breo Ellipta 200/25) 1 puffs DAILY INH 05/23/18 09:00 06/22/18 08:59 05/23/18 09:39 Hydromorphone HCl (Dilaudid) 1 mg Q4H PRN IVP severe pain 05/22/18 19:45 05/29/18 19:44 05/23/18 10:25 Levothyroxine Sodium (Synthroid) 100 mcg DAILY@0630 ORAL 05/23/18 06:30 06/22/18 06:29 05/23/18 06:04 Lidocaine (Lidoderm 5% PATCH) 1 patch DAILY TDERMAL 05/23/18 09:00 06/22/18 08:59 05/23/18 08:35 Ondansetron HCl (Zofran) 4 mg Q6H PRN IVP Nausea & Vomiting 05/23/18 00:45 06/22/18 00:44 05/23/18 10:21 Assessment/Plan Assessment/Plan (1) Right chest wall pain (2) Fractures of the right fifth, sixth and seventh ribs seen dictated Scot Han May 23, 2018 11:38
[2018-05-23 12:00] VITALS: BP 146/67
--- NOTE | 2018-05-23 12:45 | Consultation ---
History of Present Illness General Date patient seen: May 23, 2018 Chief Complaint: Multiple Trauma/Fall Present Illness HPI 62-year-old male s/p fall presented with 10/10 right lateral chest wall and right shoulder pain. States that he was walking, lost his footing and had a fall outside on the ground while he was playing with his grandson. Denies LOC. Severe pain on impact. Patient reports pain with taking deep breaths and any type of movement. Denies numbness tingling or loss of sensation or gross motor movements of the extremities, incontinence of bowel or bladder. Denies CP, Palpitations, LOC, AMS, dizziness, Changes in Vision, weakness or a sudden severe headache. In ED noted to have CXR with rib fx. admitted for care and management. surgery called to evaluate for trauma and assist with management. Allergies: Coded Allergies: No Known Allergies (Unverified , 04/04/13) Medication History Scheduled Albuterol Sulfate (Ventolin Hfa), 2 PUFFS INH Q4HR, (Reported) Allopurinol* (Allopurinol*), 100 MG ORAL DAILY, (Reported) Atorvastatin Calcium* (Lipitor*), 20 MG ORAL BEDTIME Doxycycline Hyclate (Doxycycline Hyclate), 100 MG PO BID Fluticasone/Vilanterol (Breo Ellipta 200-25 Mcg INH), 1 PUFFS INH DAILY Levothyroxine Sodium* (Levothyroxine Sodium*), 100 MCG ORAL DAILY@0630 Miscellaneous Medications Unable to Obtain Medications (Unable To Obtain Meds), (Reported) Patient History History Provided By: Patient, Medical Record, PMD Healthcare decision maker Resuscitation status Full Code Advanced Directive on File Past Medical/Surgical History Past Medical/Surgical History: (1) COPD (chronic obstructive pulmonary disease) (2) COPD exacerbation (3) Left leg cellulitis (4) Otitis externa of both ears (5) Supraventricular tachycardia (6) Multiple fractures of ribs Review of Systems All Other Systems: negative except mentioned in HPI Physical Exam General Appearance: no apparent distress, alert Lines, tubes and drains: peripheral HEENT: mucous membranes moist Neck: supple Respiratory/Chest: normal breath sounds, decreased breath sounds, other - tender on right with palpation; decreased range of motion on right from pain Cardiovascular/Chest: regular rhythm Abdomen: soft, no organomegaly, no mass Extremities: normal inspection Skin Exam: warm/dry Neurologic: alert, responsive Last 24 Hour Vital Signs Date Time Temp Pulse Resp B/P (MAP) Pulse Ox O2 Delivery O2 Flow Rate FiO2 05/23/18 10:55 97.9 05/23/18 10:08 90 05/23/18 09:39 78 20 99 Room Air 21 05/23/18 09:39 78 20 99 Room Air 21 05/23/18 09:00 Nasal Cannula 2.0 05/23/18 08:00 97.9 94 18 152/79 (103) 95 05/23/18 04:29 Room Air 21 05/23/18 04:29 Room Air 21 05/23/18 04:00 85 05/23/18 04:00 98.2 85 19 147/95 (112) 95 05/23/18 01:18 Room Air 05/23/18 01:18 Room Air 21 05/23/18 00:00 98.2 94 19 161/96 (117) 93 05/23/18 00:00 95 05/22/18 20:37 Nasal Cannula 2.0 05/22/18 20:00 86 05/22/18 20:00 97.8 91 19 169/93 (118) 97 05/22/18 18:00 97.0 91 20 142/91 (108) 94 05/22/18 17:52 98.1 05/22/18 17:52 98.1 84 16 162/67 98 Room Air 05/22/18 17:52 98.1 84 16 162/67 98 Room Air 05/22/18 16:43 98.1 81 16 167/82 99 Room Air 05/22/18 16:24 98.1 05/22/18 14:49 98.1 05/22/18 14:25 98.1 78 16 167/89 97 Room Air 05/22/18 14:25 76 16 Room Air 05/22/18 12:47 98.1 76 16 171/ 97 Room Air Intake and Output 05/22/18 05/23/18 18:59 06:59 Output Total 400 ml Balance -400 ml Output Urine Total 400 ml # Voids 2 Laboratory Tests Test 05/22/18 15:55 05/22/18 17:00 05/23/18 10:05 White Blood Count 15.6 K/UL (4.8-10.8) H 13.5 K/UL (4.8-10.8) H Red Blood Count 4.44 M/UL (4.70-6.10) L 4.31 M/UL (4.70-6.10) L Hemoglobin 14.9 G/DL (14.2-18.0) 14.5 G/DL (14.2-18.0) Hematocrit 46.4 % (42.0-52.0) 45.0 % (42.0-52.0) Mean Corpuscular Volume 105 FL (80-99) H 105 FL (80-99) H Mean Corpuscular Hemoglobin 33.6 PG (27.0-31.0) H 33.6 PG (27.0-31.0) H Mean Corpuscular Hemoglobin Concent 32.1 G/DL (32.0-36.0) 32.1 G/DL (32.0-36.0) Red Cell Distribution Width 13.2 % (11.6-14.8) 13.1 % (11.6-14.8) Platelet Count 219 K/UL (150-450) 311 K/UL (150-450) Mean Platelet Volume 7.5 FL (6.5-10.1) 7.6 FL (6.5-10.1) Neutrophils (%) (Auto) 73.1 % (45.0-75.0) 65.2 % (45.0-75.0) Lymphocytes (%) (Auto) 17.7 % (20.0-45.0) L 20.6 % (20.0-45.0) Monocytes (%) (Auto) 7.0 % (1.0-10.0) 12.4 % (1.0-10.0) H Eosinophils (%) (Auto) 0.7 % (0.0-3.0) 0.7 % (0.0-3.0) Basophils (%) (Auto) 1.5 % (0.0-2.0) 1.1 % (0.0-2.0) Sodium Level 137 MMOL/L (136-145) 137 MMOL/L (136-145) Potassium Level 5.3 MMOL/L (3.5-5.1) H 4.5 MMOL/L (3.5-5.1) Chloride Level 101 MMOL/L (98-107) 99 MMOL/L (98-107) Carbon Dioxide Level 27 MMOL/L (21-32) 30 MMOL/L (21-32) Anion Gap 9 mmol/L (5-15) 8 mmol/L (5-15) Blood Urea Nitrogen 17 mg/dL (7-18) 16 mg/dL (7-18) Creatinine 1.1 MG/DL (0.55-1.30) 1.0 MG/DL (0.55-1.30) Estimat Glomerular Filtration Rate > 60 mL/min (>60) > 60 mL/min (>60) Glucose Level 101 MG/DL (74-106) 118 MG/DL (74-106) H Calcium Level 9.4 MG/DL (8.5-10.1) 9.3 MG/DL (8.5-10.1) Urine Color Yellow Urine Appearance Clear Urine pH 5 (4.5-8.0) Urine Specific [place] 1.025 (1.005-1.035) Urine Protein 1+ (NEGATIVE) H Urine Glucose (UA) Negative (NEGATIVE) Urine Ketones Negative (NEGATIVE) Urine Blood Negative (NEGATIVE) Urine Nitrite Negative (NEGATIVE) Urine Bilirubin Negative (NEGATIVE) Urine Urobilinogen Normal MG/DL (0.0-1.0) Urine Leukocyte Esterase Negative (NEGATIVE) Urine RBC 0-2 /HPF (0 - 0) H Urine WBC 0-2 /HPF (0 - 0) Urine Squamous Epithelial Cells Occasional /LPF Urine Bacteria Few /HPF (NONE) Urine Mucus Few /LPF (NONE/OCC) H Urine Opiates Screen Positive (NEGATIVE) H Urine Barbiturates Screen Negative (NEGATIVE) Phencyclidine (PCP) Screen Negative (NEGATIVE) Urine Amphetamines Screen Negative (NEGATIVE) Urine Benzodiazepines Screen Negative (NEGATIVE) Urine Cocaine Screen Negative (NEGATIVE) Urine Marijuana (THC) Screen Negative (NEGATIVE) Total Bilirubin 0.5 MG/DL (0.2-1.0) Aspartate Amino Transf (AST/SGOT) 57 U/L (15-37) H Alanine Aminotransferase (ALT/SGPT) 77 U/L (12-78) Alkaline Phosphatase 73 U/L (46-116) Total Protein 8.2 G/DL (6.4-8.2) Albumin 3.8 G/DL (3.4-5.0) Globulin 4.4 g/dL Albumin/Globulin Ratio 0.9 (1.0-2.7) L Height (Feet): 5 Height (Inches): 9.00 Weight (Pounds): 213 Medications Current Medications Medications (Trade) Dose Ordered Sig/Ryan Route PRN Reason Start Time Stop Time Status Last Admin Dose Admin Acetaminophen/ Hydrocodone Bitart ([place] 10/325) 1 tab Q4H PRN ORAL moderate pain 05/22/18 19:45 05/29/18 19:44 Albuterol Sulfate (Proventil MDI) 1 puff Q4HR INH 05/22/18 21:00 06/21/18 20:59 05/23/18 09:39 Allopurinol (Zyloprim) 100 mg DAILY ORAL 05/23/18 09:00 06/22/18 08:59 05/23/18 08:34 Atorvastatin Calcium (Lipitor) 20 mg BEDTIME ORAL 05/22/18 21:00 06/21/18 20:59 05/22/18 21:24 Fluticasone/ Vilanterol (Breo Ellipta 200/25) 1 puffs DAILY INH 05/23/18 09:00 06/22/18 08:59 05/23/18 09:39 Hydromorphone HCl (Dilaudid) 1 mg Q4H PRN IVP severe pain 05/22/18 19:45 05/29/18 19:44 05/23/18 10:25 Levothyroxine Sodium (Synthroid) 100 mcg DAILY@0630 ORAL 05/23/18 06:30 06/22/18 06:29 05/23/18 06:04 Lidocaine (Lidoderm 5% PATCH) 1 patch DAILY TDERMAL 05/23/18 09:00 06/22/18 08:59 05/23/18 08:35 Ondansetron HCl (Zofran) 4 mg Q6H PRN IVP Nausea & Vomiting 05/23/18 00:45 06/22/18 00:44 05/23/18 10:21 Assessment/Plan Problem List: (1) Multiple fractures of ribs Assessment & Plan: s/p fall with multiple rib fx respiratory stable for now labs noted cxr noted -needs aggressive pulmonary toilet -needs good pain control appreciate pain management input -okay for diet -activity as tolerated -am CXR thank you . will follow with recs ICD Codes: S22.49XA - Multiple fractures of ribs, unspecified side, initial encounter for closed fracture SNOMED: 7755350 Qualifiers: Qualified Codes: S22.41XA - Multiple fractures of ribs, right side, initial encounter for closed fracture Juan Antonio Abbott May 23, 2018 12:45
[2018-05-23 16:00] VITALS: BP 139/86
--- NOTE | 2018-05-23 19:25 | NUR ---
HAND-OFF: Report given to Abelardo RN.
--- NOTE | 2018-05-23 19:30 | NUR ---
NURSE NOTES: Received report from Zak Ospina RN. Patient in bed AAO x4 with HOB elevated at semi fowlers,
--- NOTE | 2018-05-23 19:31 | NUR ---
NURSE NOTES: Cont. No complaints of acute pain at this time, kept clean, dry and comfortable in bed. Patient able to verbalize needs and wants appropriately with no difficulty. Safety precaution in place; siderails up x3, call light within reach, bed in lowest position, brakes and alarm on at all times. IV line intact and patent. Placed on continuos cardiac monitoring per protocol, no S/S of distress at this time. Needs and wants anticipated and attended, will continue plan of care and monitor for any changes noted.
[2018-05-23 20:00] VITALS: BP 141/73
--- NOTE | 2018-05-23 20:30 | Consultation ---
DATE OF CONSULTATION: 05/23/2018 PAIN MANAGEMENT CONSULTATION CONSULTING PHYSICIAN: Pattie Larson M.D. REFERRING PHYSICIAN: Leonard Caballero M.D. PHYSICIAN BUILDING COORDINATOR: Kartik Winn CHIEF COMPLAINT: Right sided chest wall pain. HISTORY OF PRESENT ILLNESS: This is a 62-year-old male, who is being seen on the telemetry floor of [facility] for initial pain management consultation. The patient reports that he has been having right chest wall-sided pain for the past day. It is sharp, stabbing, and constant pain, increased with breathing and reduced with medication, found to have fallen on his lawn fracturing his 5th, 6th, and 7th rib on the right chest wall causing significant pain with inspiration. He was started on Dilaudid 1 mg IV every four hours as needed for pain, which has helped with his pain as well as lidocaine patch. We were consulted so that the patient would have adequate pain control while here in the hospital. PAST MEDICAL HISTORY: High cholesterol, hypertension, asthma, obesity, gout, hyperthyroidism, and anxiety. SOCIAL HISTORY: He is a drinker of alcohol. ALLERGIES: No known drug allergies. MEDICATIONS: Albuterol, allopurinol, Lipitor, doxycycline, with levothyroxine. REVIEW OF SYSTEMS: Denies rash, fever, chills, sweating, dizziness, drowsiness, blurred vision, sore throat, or change in weight. No shortness of breath or chest pain. No nausea, vomiting, diarrhea, or blood in the stool or urine. No bowel or bladder incontinence. No dysuria. He is complaining of chest wall pain. PHYSICAL EXAMINATION: GENERAL: Alert, awake, and oriented x3. VITAL SIGNS: Blood pressure 150/79, heart rate 95, oxygen saturation 97%, respiratory rate 18, and temperature 97.9 degrees Fahrenheit. HEENT: PERRLA. NECK: Range of motion is full in all directions. No tenderness to paracervical muscles. No adenopathy. LUNGS: Decreased breath sounds bilaterally. HEART: S1 and S2 regular. ABDOMEN: Obese. BACK: Range of motion is decreased in flexion and extension. EXTREMITIES: Upper and lower extremity motion is decreased due to the patient's condition. No cyanosis. No clubbing. Sensory is reduced. No adenopathy. ASSESSMENT AND PLAN: This is a 62-year-old male with right-sided chest wall pain, fractures of the 5th, 6th, and 7th ribs. The patient will be continued on Dilaudid, [place], and Lidoderm patch. The patient was discussed with Dr. Larson and concurred. We will follow the patient. Thank you very much for the courtesy of this consultation. Pattie Larson M.D. [place] Winn DR: ANETTE JOB#: [id number] CC: JANE
[2018-05-23] MEDS: Atorvastatin 20mg tab ORAL SCH (21:01)
[2018-05-24] VITALS: BP 138/74
[2018-05-24] MEDS: Albuterol 90mcg Inhaler 8gm INH SCH ×7 (00:13→23:49)
--- NOTE | 2018-05-24 00:36 | NUR ---
NURSE NOTES: Called MD Federico. regarding patients complaints of SOB. HOB elevated at semifowlers, ON 2L NC and given scheduled inhalation medications. Left message, awaiting call back
--- NOTE | 2018-05-24 00:45 | History and Physical Report ---
DATE OF ADMISSION: 05/22/2018 REASON FOR ADMISSION: Multiple rib fractures, status post fall, sustained multiple rib fractures. He was admitted for pain control, initially 10/10 in severity in the chest wall. The patient denies nausea, vomiting, diarrhea. No fever, chills, or night sweats. Denies cough. . The patient denies any weakness. Denies paresthesia as well. PAST MEDICAL HISTORY: Significant for hypertension, asthma, GERD, history of dizziness, hypothyroidism, hyperlipidemia, history of gout. PAST SURGICAL HISTORY: None basically. ALLERGIES: No known allergies. MEDICATIONS: Albuterol, allopurinol, Lipitor, Levoxyl. FAMILY HISTORY: Noncontributory. SOCIAL HISTORY: No history of smoking, there is alcohol or illicit drugs. REVIEW OF SYSTEMS: HEENT: Denies headaches. RESPIRATORY: Denies shortness of breath. Denies cough. CARDIOVASCULAR: Reports chest wall pain made worse by deep inspiration and also mild right shoulder pain. GASTROINTESTINAL: Denies nausea, vomiting, diarrhea. Does have heartburn. EXTREMITIES: Denies any pain in the lower extremities. CENTRAL NERVOUS SYSTEM: Denies change in vision or speech pattern. Denies syncopal episode. PHYSICAL EXAMINATION: VITAL SIGNS: Temperature 97.9, pulse is 101, blood pressure not recorded. HEENT: PERRLA. NECK: Supple. No lymphadenopathy. CHEST: Clear to auscultation CARDIOVASCULAR: Regular rate and rhythm. No murmurs or extra sounds. GASTROINTESTINAL: Soft, nontender, nondistended. EXTREMITIES: No edema. Reflexes are equal on both sides. Moves all four extremities. NEUROLOGIC: Sensory intact to light touch. Reflexes are equal on both sides. LABORATORY DATA: WBC of 15.6, hemoglobin 14.9, and platelets of 219. Sodium 137, potassium 5.3, BUN of 17, creatinine 1.1. ASSESSMENT AND PLAN: Multiple rib fractures status post fall, admitted for pain control. I have asked Dr. Larson and Dr. Martins see the patient for the hyperkalemia as well as for pain control. Dr. Abbott was also consulted by the ER doctor for rib fractures as well. Leonard Caballero M.D. DR: Ashley JOB#: [id number] CC:
--- NOTE | 2018-05-24 00:52 | NUR ---
NURSE NOTES: Received call back from MD Federico. New orders received and carried out
[2018-05-24] MEDS ORDERED: Albuterol/Ipratropium 3ml neb HHN PRN (01:00)
[2018-05-24] MEDS: HYDROmorphone 1mg/ml Carpuject IVP PRN ×4 (03:25→20:21)
--- NOTE | 2018-05-24 03:30 | NUR ---
NURSE NOTES: Patient in bed asleep with no distress noted. Continue plan of care
[2018-05-24 04:00] VITALS: BP 129/64
[2018-05-24] MEDS: Breo Ellipta 200/25mcg-14 dose INH SCH (07:38)
--- NOTE | 2018-05-24 07:50 | NUR ---
NURSE NOTES: Report received from JASEN Zhou. Patient awake. AOx4. IN 2L NC, denies any SOB. Complains of pain on the right side. Reminder given to Patient to use the call light and get help before getting off bed. IV patent. Bed on lowest position, brakes engaged, side rails upx2. Call light at easy reach.
--- NOTE | 2018-05-24 07:52 | NUR ---
HAND-OFF: Report given to Mabel Jimenez RN. Patient in stable condition, endorsed plan of care.
[2018-05-24 08:00] VITALS: BP 131/69
[2018-05-24] MEDS: Allopurinol 100mg Tab ORAL SCH (08:14)
[2018-05-24 09:15] LABS: EOSINOPHILS % (AUTO) 0.2 % (0.0-3.0); HEMATOCRIT 42.6 % (42.0-52.0); LYMPHOCYTES % (AUTO) 30.9 % (20.0-45.0); MEAN CORPUSCULAR VOLUME 105 FL (80-99); MONOCYTES % (AUTO) 10.3 % (1.0-10.0); NEUTROPHILS % (AUTO) 57.6 % (45.0-75.0); PLATELET COUNT 274 K/UL (150-450); RED BLOOD COUNT 4.05 M/UL (4.70-6.10); RED CELL DISTRIBUTION WIDTH 13.2 % (11.6-14.8)
[2018-05-24 09:25] LABS: ANION GAP 9 mmol/L (5-15); BLOOD UREA NITROGEN 17 mg/dL (7-18); CALCIUM 9.3 MG/DL (8.5-10.1); CARBON DIOXIDE 31 MMOL/L (21-32); CHLORIDE 96 MMOL/L (98-107); CREATININE 1.1 MG/DL (0.55-1.30); POTASSIUM 4.5 MMOL/L (3.5-5.1); SODIUM 136 MMOL/L (136-145)
--- NOTE | 2018-05-24 10:16 | General Surgery Progress Note ---
General Surgery-Progress Note Subjective Additional Comments pain better controlled. no n/v/f/c. tolerating diet. on supplemental O2. pending CXR. leukocytosis Objective Last 24 Hour Vital Signs Date Time Temp Pulse Resp B/P (MAP) Pulse Ox O2 Delivery O2 Flow Rate FiO2 05/24/18 07:38 88 20 Nasal Cannula 3.0 32 05/24/18 07:25 102 24 94 Nasal Cannula 3.0 32 05/24/18 07:25 98 22 95 Nasal Cannula 3.0 32 05/24/18 04:00 107 05/24/18 04:00 98.4 98 18 129/64 (85) 96 05/24/18 03:33 103 24 93 Nasal Cannula 3.0 32 05/24/18 03:29 108 24 94 Nasal Cannula 3.0 32 05/24/18 00:15 101 24 93 Nasal Cannula 3.0 32 05/24/18 00:11 110 24 93 Nasal Cannula 3.0 32 05/24/18 00:00 97.3 71 18 138/74 (95) 99 05/24/18 00:00 120 05/23/18 21:00 Nasal Cannula 2.0 05/23/18 20:00 98.8 102 14 141/73 (95) 95 05/23/18 20:00 108 05/23/18 19:57 103 24 95 Nasal Cannula 3.0 32 05/23/18 19:54 103 24 95 Nasal Cannula 3.0 32 05/23/18 19:50 104 20 Nasal Cannula 3.0 32 05/23/18 18:23 97.9 05/23/18 17:18 101 20 95 Nasal Cannula 3.0 32 05/23/18 17:17 101 22 95 Nasal Cannula 3.0 32 05/23/18 16:00 97.9 98 20 139/86 (103) 94 05/23/18 16:00 104 05/23/18 14:34 95 20 94 Nasal Cannula 3.0 32 05/23/18 14:30 94 22 94 Nasal Cannula 3.0 32 05/23/18 12:00 98.2 96 20 146/67 (93) 99 05/23/18 12:00 101 I&O Intake and Output 05/23/18 05/24/18 19:00 07:00 Intake Total 830 ml 200 ml Output Total 650 ml 2100 ml Balance 180 ml -1900 ml Intake Oral 830 ml 200 ml Output Urine Total 650 ml 2100 ml Drains: none Cardiovascular: RSR Respiratory: clear Abdomen: soft, flat, non-tender, present bowel sounds Extremities: no tenderness, no cyanosis Laboratory Tests Test 05/24/18 07:50 White Blood Count 15.0 K/UL (4.8-10.8) H Red Blood Count 4.05 M/UL (4.70-6.10) L Hemoglobin 14.0 G/DL (14.2-18.0) L Hematocrit 42.6 % (42.0-52.0) Mean Corpuscular Volume 105 FL (80-99) H Mean Corpuscular Hemoglobin 34.6 PG (27.0-31.0) H Mean Corpuscular Hemoglobin Concent 32.9 G/DL (32.0-36.0) Red Cell Distribution Width 13.2 % (11.6-14.8) Platelet Count 274 K/UL (150-450) Mean Platelet Volume 7.9 FL (6.5-10.1) Neutrophils (%) (Auto) 57.6 % (45.0-75.0) Lymphocytes (%) (Auto) 30.9 % (20.0-45.0) Monocytes (%) (Auto) 10.3 % (1.0-10.0) H Eosinophils (%) (Auto) 0.2 % (0.0-3.0) Basophils (%) (Auto) 1.0 % (0.0-2.0) Sodium Level 136 MMOL/L (136-145) Potassium Level 4.5 MMOL/L (3.5-5.1) Chloride Level 96 MMOL/L (98-107) L Carbon Dioxide Level 31 MMOL/L (21-32) Anion Gap 9 mmol/L (5-15) Blood Urea Nitrogen 17 mg/dL (7-18) Creatinine 1.1 MG/DL (0.55-1.30) Estimat Glomerular Filtration Rate > 60 mL/min (>60) Glucose Level 132 MG/DL (74-106) H Calcium Level 9.3 MG/DL (8.5-10.1) Plan Problems: (1) Multiple fractures of ribs Assessment & Plan: s/p fall with multiple rib fx respiratory stable for now labs noted cxr noted Pending this mornings CXR leukocytosis -needs aggressive pulmonary toilet -needs good pain control appreciate pain management input -okay for diet -activity as tolerated thank you . will follow with Juan Antonio Valencia May 24, 2018 10:16
[2018-05-24 12:00] VITALS: BP 142/86
--- NOTE | 2018-05-24 13:27 | NUR ---
INSURANCE ALL CLINICALS HAVE BEEN FAXED TO: [facility] NCM: ROYCE P- [phone] F- [phone].. (.FAX REVIEW ONLY) & UNRULY PANIAGUA# [id number] NCM: ANAYA Terrazas P- [phone] F- [phone] (FX REVIEW/CLINICAL) Addendum: 05/24/18 at 1641 by RONALD BARBOSA CM REF#[id number]
--- NOTE | 2018-05-24 13:49 | NUR ---
RADIOLOGY DEPT CHEST X-RAY TAKEN BUT EQUIPMENT MALFUNCTIONED AND NOT ABLE TO SEND IMAGES. I.T. ARE WORKING ON PROBLEM AND MAY BE ABLE TO SAVE IMAGES (IF NOT CORRUPTED).DALJTI
[2018-05-24 16:00] VITALS: BP 140/79
--- NOTE | 2018-05-24 17:16 | General Progress Note ---
Assessment/Plan Problem List: (1) COPD (chronic obstructive pulmonary disease) ICD Codes: J44.9 - Chronic obstructive pulmonary disease, unspecified SNOMED: 02871808 (2) Multiple fractures of ribs ICD Codes: S22.49XA - Multiple fractures of ribs, unspecified side, initial encounter for closed fracture SNOMED: [id number] Qualifiers: Qualified Codes: S22.41XA - Multiple fractures of ribs, right side, initial encounter for closed fracture Status: progressing Assessment/Plan distended abdomin copd rib fracture consulted gi and pulmonary in pain Subjective ROS Limited/Unobtainable: Yes Allergies: Coded Allergies: No Known Allergies (Unverified , 04/04/13) Objective Last 24 Hour Vital Signs Date Time Temp Pulse Resp B/P (MAP) Pulse Ox O2 Delivery O2 Flow Rate FiO2 05/24/18 16:00 88 05/24/18 16:00 98.1 92 20 140/79 (99) 95 05/24/18 15:28 Nasal Cannula 4.0 36 05/24/18 15:28 Nasal Cannula 4.0 36 05/24/18 12:00 98.2 88 20 142/86 (104) 96 05/24/18 12:00 90 05/24/18 10:56 97 20 94 Nasal Cannula 4.0 36 05/24/18 10:56 99 22 96 Nasal Cannula 4.0 36 05/24/18 09:00 Nasal Cannula 2.0 05/24/18 08:00 93 05/24/18 08:00 98.0 96 18 131/69 (89) 94 05/24/18 07:38 88 20 Nasal Cannula 3.0 32 05/24/18 07:25 102 24 94 Nasal Cannula 3.0 32 05/24/18 07:25 98 22 95 Nasal Cannula 3.0 32 05/24/18 04:00 107 05/24/18 04:00 98.4 98 18 129/64 (85) 96 05/24/18 03:33 103 24 93 Nasal Cannula 3.0 32 05/24/18 03:29 108 24 94 Nasal Cannula 3.0 32 05/24/18 00:15 101 24 93 Nasal Cannula 3.0 32 05/24/18 00:11 110 24 93 Nasal Cannula 3.0 32 05/24/18 00:00 97.3 71 18 138/74 (95) 99 05/24/18 00:00 120 05/23/18 21:00 Nasal Cannula 2.0 05/23/18 20:00 98.8 102 14 141/73 (95) 95 05/23/18 20:00 108 05/23/18 19:57 103 24 95 Nasal Cannula 3.0 32 05/23/18 19:54 103 24 95 Nasal Cannula 3.0 32 05/23/18 19:50 104 20 Nasal Cannula 3.0 32 05/23/18 18:23 97.9 05/23/18 17:18 101 20 95 Nasal Cannula 3.0 32 05/23/18 17:17 101 22 95 Nasal Cannula 3.0 32 Intake and Output 05/23/18 05/24/18 18:59 06:59 Intake Total 830 ml 200 ml Output Total 650 ml 2100 ml Balance 180 ml -1900 ml Intake Oral 830 ml 200 ml Output Urine Total 650 ml 2100 ml Laboratory Tests 05/24/18 07:50: White Blood Count 15.0H, Red Blood Count 4.05L, Hemoglobin 14.0L, Hematocrit 42.6, Mean Corpuscular Volume 105H, Mean Corpuscular Hemoglobin 34.6H, Mean Corpuscular Hemoglobin Concent 32.9, Red Cell Distribution Width 13.2, Platelet Count 274, Mean Platelet Volume 7.9, Neutrophils (%) (Auto) 57.6, Lymphocytes (% ) (Auto) 30.9, Monocytes (%) (Auto) 10.3H, Eosinophils (%) (Auto) 0.2, Basophils (%) (Auto) 1.0, Sodium Level 136, Potassium Level 4.5, Chloride Level 96L, Carbon Dioxide Level 31, Anion Gap 9, Blood Urea Nitrogen 17, Creatinine 1.1, Estimat Glomerular Filtration Rate > 60, Glucose Level 132H, Calcium Level 9.3 Height (Feet): 5 Height (Inches): 9.00 Weight (Pounds): 213 Neck: supple Cardiovascular: normal rate Respiratory/Chest: lungs clear Leonard Caballero MD May 24, 2018 17:16
--- NOTE | 2018-05-24 19:30 | NUR ---
NURSE NOTES: Received report from Mabel Jimenez RN. Patient in bed AAO x4 with HOB elevated at semi fowlers, on NC at 2-3L and is saturating at 95-97% and in no respiratory distress noted at this time. Patient able to verbalize needs and wants appropriately with no difficulty. Safety precaution in place; side rails x2 up, call light within reach, bed in lowest position, brakes and alarm on at all times. No complaints of acute pain at this time, kept comfortable in bed. Cardiac monitoring in place per protocol. Needs and wants anticipated and attended, will continue plan of care and monitor for any changes in condition noted
--- NOTE | 2018-05-24 19:41 | General Progress Note ---
Assessment/Plan Assessment/Plan GI Consult Abdomen very distended, with recent N/V Will check stat CT Keep NPO Thank you Abran Black MD Subjective Allergies: Coded Allergies: No Known Allergies (Unverified , 04/04/13) Objective Last 24 Hour Vital Signs Date Time Temp Pulse Resp B/P (MAP) Pulse Ox O2 Delivery O2 Flow Rate FiO2 05/24/18 16:00 88 05/24/18 16:00 98.1 92 20 140/79 (99) 95 05/24/18 15:28 Nasal Cannula 4.0 36 05/24/18 15:28 Nasal Cannula 4.0 36 05/24/18 12:00 98.2 88 20 142/86 (104) 96 05/24/18 12:00 90 05/24/18 10:56 97 20 94 Nasal Cannula 4.0 36 05/24/18 10:56 99 22 96 Nasal Cannula 4.0 36 05/24/18 09:00 Nasal Cannula 2.0 05/24/18 08:00 93 05/24/18 08:00 98.0 96 18 131/69 (89) 94 05/24/18 07:38 88 20 Nasal Cannula 3.0 32 05/24/18 07:25 102 24 94 Nasal Cannula 3.0 32 05/24/18 07:25 98 22 95 Nasal Cannula 3.0 32 05/24/18 04:00 107 05/24/18 04:00 98.4 98 18 129/64 (85) 96 05/24/18 03:33 103 24 93 Nasal Cannula 3.0 32 05/24/18 03:29 108 24 94 Nasal Cannula 3.0 32 05/24/18 00:15 101 24 93 Nasal Cannula 3.0 32 05/24/18 00:11 110 24 93 Nasal Cannula 3.0 32 05/24/18 00:00 97.3 71 18 138/74 (95) 99 05/24/18 00:00 120 05/23/18 21:00 Nasal Cannula 2.0 05/23/18 20:00 98.8 102 14 141/73 (95) 95 05/23/18 20:00 108 05/23/18 19:57 103 24 95 Nasal Cannula 3.0 32 05/23/18 19:54 103 24 95 Nasal Cannula 3.0 32 05/23/18 19:50 104 20 Nasal Cannula 3.0 32 Intake and Output 05/23/18 05/24/18 19:00 07:00 Intake Total 830 ml 200 ml Output Total 650 ml 2100 ml Balance 180 ml -1900 ml Intake Oral 830 ml 200 ml Output Urine Total 650 ml 2100 ml Laboratory Tests 05/24/18 07:50: White Blood Count 15.0H, Red Blood Count 4.05L, Hemoglobin 14.0L, Hematocrit 42.6, Mean Corpuscular Volume 105H, Mean Corpuscular Hemoglobin 34.6H, Mean Corpuscular Hemoglobin Concent 32.9, Red Cell Distribution Width 13.2, Platelet Count 274, Mean Platelet Volume 7.9, Neutrophils (%) (Auto) 57.6, Lymphocytes (% ) (Auto) 30.9, Monocytes (%) (Auto) 10.3H, Eosinophils (%) (Auto) 0.2, Basophils (%) (Auto) 1.0, Sodium Level 136, Potassium Level 4.5, Chloride Level 96L, Carbon Dioxide Level 31, Anion Gap 9, Blood Urea Nitrogen 17, Creatinine 1.1, Estimat Glomerular Filtration Rate > 60, Glucose Level 132H, Calcium Level 9.3 Height (Feet): 5 Height (Inches): 9.00 Weight (Pounds): 213 Giorgi Black MD May 24, 2018 19:41
[2018-05-24 20:00] VITALS: BP 152/73
--- NOTE | 2018-05-24 20:05 | NUR ---
HAND-OFF: Report given to JASEN Zhou. Patient in stable condition.
--- NOTE | 2018-05-24 20:30 | Consultation ---
DATE OF CONSULTATION: 05/24/2018 GASTROENTEROLOGY CONSULTATION CONSULTING PHYSICIAN: Giorgi Black M.D. REFERRING PHYSICIAN: Leonard Caballero M.D. CHIEF COMPLAINT: I was asked to see this patient by Dr. Leonard Caballero for evaluation of abdominal distention. HISTORY OF PRESENT ILLNESS: The patient is a 62-year-old white man, who about three days ago sustained some rib fractures. He came to the emergency room and eventually was admitted with intractable chest pain from the rib fractures. The patient just tripped over something and did not lose consciousness. He also complains of about two months history of abdominal distention and states the distention is getting worse. He states he has been vomiting for a few days. The patient's bowel movements, however, are daily. He has had no history of endoscopy or colonoscopy in the past and has had no abdominal surgeries. PAST MEDICAL HISTORY: History of asthma, gastroesophageal reflux disease, hypothyroidism, hyperlipidemia, and history of gout. PAST SURGICAL HISTORY: None. ALLERGIES: None. MEDICATIONS: Albuterol, allopurinol, Lipitor and Levoxyl. FAMILY HISTORY: Noncontributory. SOCIAL HISTORY: The patient was a previous half pack a day smoker for about 30 years, but stopped it about four months ago. He drinks very rarely. He lives with a significant other female and has four children, two boys and two girls and a grandchild. REVIEW OF SYSTEMS: Otherwise negative. PHYSICAL EXAMINATION: GENERAL: Pleasant white man with obviously distended stomach, seen in his room in no distress. HEENT: Normocephalic and atraumatic. Sclerae anicteric. Oropharynx clear. NECK: Supple. CHEST: Clear to auscultation. CARDIOVASCULAR: Revealed regular rate. ABDOMEN: Markedly distended and markedly tympanitic. It was difficult to assess the abdomen otherwise given the size of the distention. EXTREMITIES: Revealed no edema. NEUROLOGIC: Nonfocal. LABORATORY DATA: Noted. IMAGING STUDIES: Reviewed. ASSESSMENT: This patient has a massive distention of his abdomen of unclear etiology. The patient states this is new and is also making him vomit, therefore possibility of bowel obstruction or other pathology should be considered. He has had a history of bowel movements daily. CT scan will be done tonight of his abdomen to evaluate bowel pattern. In the meantime, I will make him NPO and will start intravenous fluids. A decision on workup will then depend on the CT scan findings. RECOMMENDATIONS: Per above discussion and per orders written in the chart. Thank you for asking me to participate in the care of this patient. Giorgi Black M.D. DR: GURINDER JOB#: [id number] CC:
[2018-05-24] MEDS: Pantoprazole Inj IVP SCH (21:15)
[2018-05-24] MEDS: Atorvastatin 20mg tab ORAL SCH (21:15)
[2018-05-24] MEDS: D5 1/2NS 1,000 ML IV SCH (21:15)
[2018-05-25] VITALS: BP 146/70
[2018-05-25] MEDS: HYDROmorphone 1mg/ml Carpuject IVP PRN ×4 (01:01→14:52)
--- NOTE | 2018-05-25 01:30 | NUR ---
NURSE NOTES: Received report from Abelardo AGGARWAL. Pt resting in bed comfortably with no s/s of distress or discomfort. Bed in low and locked position, call light within reach, bedside table within reach. continue to monitor.
[2018-05-25] MEDS: D5 1/2NS 1,000 ML IV SCH ×3 (03:56→19:45)
[2018-05-25 04:00] VITALS: BP 147/72
[2018-05-25] MEDS: Albuterol 90mcg Inhaler 8gm INH SCH ×5 (04:16→23:21)
--- NOTE | 2018-05-25 07:35 | NUR ---
NURSE NOTES: Report received from JASEN Altamirano. Patient awake. Patient on 2LNC. Denies any SOB. Complaining of pain and discomfort on the bed. Noticed patient has wet bed and gown, changed with RN, Patient went back on bed. Pain med had been given at 5 by Night nurse, explained to Patient, Como can be given for brake through, Patient insisted Como won't work for him.
[2018-05-25 07:43] LABS: BASOPHILS % (AUTO) 0.8 % (0.0-2.0); EOSINOPHILS % (AUTO) 1.4 % (0.0-3.0); HEMATOCRIT 41.5 % (42.0-52.0); HEMOGLOBIN 13.5 G/DL (14.2-18.0); LYMPHOCYTES % (AUTO) 22.9 % (20.0-45.0); MEAN CORPUSCULAR VOLUME 104 FL (80-99); MONOCYTES % (AUTO) 14.6 % (1.0-10.0); NEUTROPHILS % (AUTO) 60.2 % (45.0-75.0); PLATELET COUNT 274 K/UL (150-450); RED BLOOD COUNT 3.98 M/UL (4.70-6.10); RED CELL DISTRIBUTION WIDTH 13.1 % (11.6-14.8); WHITE BLOOD COUNT 13.9 K/UL (4.8-10.8)
--- NOTE | 2018-05-25 07:45 | NUR ---
HAND-OFF: Report given to demetri AGGARWAL. Endorsed plan of care.
[2018-05-25 07:52] LABS: ALANINE AMINOTRANSFERASE 44 U/L (12-78); ALBUMIN 3.4 G/DL (3.4-5.0); ALBUMIN/GLOBULIN RATIO 0.8 (1.0-2.7); ALKALINE PHOSPHATASE 64 U/L (46-116); ANION GAP 5 mmol/L (5-15); ASPARTATE AMINO TRANSFERASE 41 U/L (15-37); BILIRUBIN,TOTAL 0.7 MG/DL (0.2-1.0); BLOOD UREA NITROGEN 13 mg/dL (7-18); CALCIUM 9.3 MG/DL (8.5-10.1); CARBON DIOXIDE 32 MMOL/L (21-32); CHLORIDE 97 MMOL/L (98-107); POTASSIUM 4.3 MMOL/L (3.5-5.1); SODIUM 134 MMOL/L (136-145)
[2018-05-25 08:00] VITALS: BP 148/75
--- NOTE | 2018-05-25 08:34 | NUR ---
NURSE NOTES: Left a message to Dr. Caballero regarding patient's WBC level. Waiting for a call back.
--- NOTE | 2018-05-25 09:13 | Consultation ---
History of Present Illness General Date patient seen: May 25, 2018 Chief Complaint: Multiple Trauma/Fall Present Illness Allergies: Coded Allergies: No Known Allergies (Unverified , 04/04/13) Medication History Scheduled Albuterol Sulfate (Ventolin Hfa), 2 PUFFS INH Q4HR, (Reported) Allopurinol* (Allopurinol*), 100 MG ORAL DAILY, (Reported) Atorvastatin Calcium* (Lipitor*), 20 MG ORAL BEDTIME Doxycycline Hyclate (Doxycycline Hyclate), 100 MG PO BID Fluticasone/Vilanterol (Breo Ellipta 200-25 Mcg INH), 1 PUFFS INH DAILY Levothyroxine Sodium* (Levothyroxine Sodium*), 100 MCG ORAL DAILY@0630 Miscellaneous Medications Unable to Obtain Medications (Unable To Obtain Meds), (Reported) Patient History Healthcare decision maker Resuscitation status Full Code Advanced Directive on File Physical Exam Last 24 Hour Vital Signs Date Time Temp Pulse Resp B/P (MAP) Pulse Ox O2 Delivery O2 Flow Rate FiO2 05/25/18 08:00 98.7 89 20 148/75 (99) 97 05/25/18 07:30 Nasal Cannula 5.0 40 05/25/18 07:30 Nasal Cannula 5.0 40 05/25/18 05:20 99.0 05/25/18 04:17 91 16 97 Nasal Cannula 5.0 40 05/25/18 04:16 91 16 97 Nasal Cannula 5.0 40 05/25/18 04:00 99.0 92 20 147/72 (97) 94 05/25/18 04:00 92 05/25/18 00:00 99.1 98 20 146/70 (95) 94 05/25/18 00:00 94 05/24/18 23:52 105 16 93 Nasal Cannula 5.0 40 05/24/18 23:50 99 16 92 Nasal Cannula 5.0 40 05/24/18 21:00 Nasal Cannula 2.0 05/24/18 20:11 92 16 95 Nasal Cannula 5.0 40 05/24/18 20:09 94 16 94 Nasal Cannula 5.0 40 05/24/18 20:00 98.2 93 20 152/73 (99) 96 05/24/18 20:00 91 05/24/18 16:00 88 05/24/18 16:00 98.1 92 20 140/79 (99) 95 05/24/18 15:28 Nasal Cannula 4.0 36 05/24/18 15:28 Nasal Cannula 4.0 36 05/24/18 12:00 98.2 88 20 142/86 (104) 96 05/24/18 12:00 90 05/24/18 10:56 97 20 94 Nasal Cannula 4.0 36 05/24/18 10:56 99 22 96 Nasal Cannula 4.0 36 Intake and Output 05/24/18 05/25/18 19:00 07:00 Intake Total 360 ml Output Total 1400 ml 900 ml Balance -1040 ml -900 ml Intake Oral 360 ml Output Urine Total 1400 ml 900 ml # Voids 3 Laboratory Tests Test 05/25/18 06:50 White Blood Count 13.9 K/UL (4.8-10.8) H Red Blood Count 3.98 M/UL (4.70-6.10) L Hemoglobin 13.5 G/DL (14.2-18.0) L Hematocrit 41.5 % (42.0-52.0) L Mean Corpuscular Volume 104 FL (80-99) H Mean Corpuscular Hemoglobin 33.9 PG (27.0-31.0) H Mean Corpuscular Hemoglobin Concent 32.5 G/DL (32.0-36.0) Red Cell Distribution Width 13.1 % (11.6-14.8) Platelet Count 274 K/UL (150-450) Mean Platelet Volume 7.0 FL (6.5-10.1) Neutrophils (%) (Auto) 60.2 % (45.0-75.0) Lymphocytes (%) (Auto) 22.9 % (20.0-45.0) Monocytes (%) (Auto) 14.6 % (1.0-10.0) H Eosinophils (%) (Auto) 1.4 % (0.0-3.0) Basophils (%) (Auto) 0.8 % (0.0-2.0) Erythrocyte Sedimentation Rate Pending Sodium Level 134 MMOL/L (136-145) L Potassium Level 4.3 MMOL/L (3.5-5.1) Chloride Level 97 MMOL/L (98-107) L Carbon Dioxide Level 32 MMOL/L (21-32) Anion Gap 5 mmol/L (5-15) Blood Urea Nitrogen 13 mg/dL (7-18) Creatinine 1.0 MG/DL (0.55-1.30) Estimat Glomerular Filtration Rate > 60 mL/min (>60) Glucose Level 108 MG/DL (74-106) H Calcium Level 9.3 MG/DL (8.5-10.1) Total Bilirubin 0.7 MG/DL (0.2-1.0) Aspartate Amino Transf (AST/SGOT) 41 U/L (15-37) H Alanine Aminotransferase (ALT/SGPT) 44 U/L (12-78) Alkaline Phosphatase 64 U/L (46-116) C-Reactive Protein, Quantitative 5.6 mg/dL (0.00-0.90) H Total Protein 7.6 G/DL (6.4-8.2) Albumin 3.4 G/DL (3.4-5.0) Globulin 4.2 g/dL Albumin/Globulin Ratio 0.8 (1.0-2.7) L Height (Feet): 5 Height (Inches): 9.00 Weight (Pounds): 213 Medications Current Medications Medications (Trade) Dose Ordered Sig/Ryan Route PRN Reason Start Time Stop Time Status Last Admin Dose Admin Acetaminophen/ Hydrocodone Bitart ([place] 10/325) 1 tab Q4H PRN ORAL moderate pain 05/22/18 19:45 05/29/18 19:44 Albuterol Sulfate (Proventil MDI) 1 puff Q4HRT INH 05/25/18 11:00 06/21/18 10:59 Albuterol/ Ipratropium (Albuterol/ Ipratropium) 3 ml Q4H PRN HHN Shortness of Breath 05/24/18 01:00 05/29/18 00:59 Allopurinol (Zyloprim) 100 mg DAILY ORAL 05/23/18 09:00 06/22/18 08:59 05/24/18 08:14 Atorvastatin Calcium (Lipitor) 20 mg BEDTIME ORAL 05/22/18 21:00 06/21/18 20:59 05/24/18 21:15 Barium Sulfate (Readi-Cat 2) 450 ml NOW PRN ORAL Radiology Procedure 05/24/18 19:45 05/26/18 19:37 Dextrose/Sodium Chloride 1,000 ml @ 125 mls/hr Q8H IV 05/24/18 19:45 06/23/18 19:44 05/25/18 03:56 Fluticasone/ Vilanterol (Breo Ellipta 200/25) 1 puffs DAILY INH 05/23/18 09:00 06/22/18 08:59 05/24/18 07:38 Hydromorphone HCl (Dilaudid) 1 mg Q4H PRN IVP severe pain 05/22/18 19:45 05/29/18 19:44 05/25/18 04:50 Levothyroxine Sodium (Synthroid) 100 mcg DAILY@0630 ORAL 05/23/18 06:30 06/22/18 06:29 05/25/18 06:35 Lidocaine (Lidoderm 5% PATCH) 1 patch DAILY TDERMAL 05/23/18 09:00 06/22/18 08:59 05/24/18 08:14 Ondansetron HCl (Zofran) 4 mg Q6H PRN IVP Nausea & Vomiting 05/23/18 00:45 06/22/18 00:44 05/23/18 10:21 Pantoprazole (Protonix) 40 mg DAILY IVP 05/24/18 19:45 06/23/18 19:44 05/24/18 21:15 Assessment/Plan Status Narrative Hematology Consultation Date patient seen: May 25, 2018 GENNY MD: Leonard Caballero Chief Complaint: Multiple Trauma/Fall RFC: Leukocytosis, macrocytosis and peripancreatic adenopathy HPI 62-year-old male s/p fall presented with 10/10 right lateral chest wall and right shoulder pain. States that he was walking, lost his footing and had a fall outside on the ground while he was playing with his grandson. Denies LOC. Severe pain on impact. Patient reports pain with taking deep breaths and any type of movement. Denies numbness tingling or loss of sensation or gross motor movements of the extremities, incontinence of bowel or bladder. Denies CP, Palpitations, LOC, AMS, dizziness, Changes in Vision, weakness or a sudden severe headache. In ED noted to have CXR with rib fx. admitted for care and management, noted on ct to have peripancreatic adeopathy and heme was consulted. Allergies: No Known Allergies (Unverified , 04/04/13) Meds Albuterol Sulfate (Ventolin Hfa), 2 PUFFS INH Q4HR, (Reported) Allopurinol* (Allopurinol*), 100 MG ORAL DAILY, (Reported) Atorvastatin Calcium* (Lipitor*), 20 MG ORAL BEDTIME Doxycycline Hyclate (Doxycycline Hyclate), 100 MG PO BID Fluticasone/Vilanterol (Breo Ellipta 200-25 Mcg INH), 1 PUFFS INH DAILY Levothyroxine Sodium* (Levothyroxine Sodium*), 100 MCG ORAL DAILY@0630 Miscellaneous Medications Unable to Obtain Medications (Unable To Obtain Meds), (Reported) History Provided By: Patient, Medical Record, PMD Healthcare decision maker Resuscitation status Full Code Advanced Directive on File Past Medical/Surgical History Past Medical/Surgical History: (1) COPD (chronic obstructive pulmonary disease) (2) COPD exacerbation (3) Left leg cellulitis (4) Otitis externa of both ears (5) Supraventricular tachycardia (6) Multiple fractures of ribs Review of Systems All Other Systems: negative except mentioned in HPI Physical Exam General Appearance: alert Lines, tubes and drains: peripheral HEENT: mmm Neck: supple Respiratory/Chest: normal breath sounds, decreased breath sounds, other - tender on right with palpation Cardiovascular/Chest: regular rhythm Abdomen: soft, no organomegaly, no mass Extremities: normal inspection Skin Exam: warm/dry Neurologic: alert, responsive Laboratory Tests Test 05/25/18 06:50 White Blood Count 13.9 K/UL (4.8-10.8) H Red Blood Count 3.98 M/UL (4.70-6.10) L Hemoglobin 13.5 G/DL (14.2-18.0) L Hematocrit 41.5 % (42.0-52.0) L Mean Corpuscular Volume 104 FL (80-99) H Mean Corpuscular Hemoglobin 33.9 PG (27.0-31.0) H Mean Corpuscular Hemoglobin Concent 32.5 G/DL (32.0-36.0) Red Cell Distribution Width 13.1 % (11.6-14.8) Platelet Count 274 K/UL (150-450) Mean Platelet Volume 7.0 FL (6.5-10.1) Neutrophils (%) (Auto) 60.2 % (45.0-75.0) Lymphocytes (%) (Auto) 22.9 % (20.0-45.0) Monocytes (%) (Auto) 14.6 % (1.0-10.0) H Eosinophils (%) (Auto) 1.4 % (0.0-3.0) Basophils (%) (Auto) 0.8 % (0.0-2.0) Erythrocyte Sedimentation Rate Pending Sodium Level 134 MMOL/L (136-145) L Potassium Level 4.3 MMOL/L (3.5-5.1) Chloride Level 97 MMOL/L (98-107) L Carbon Dioxide Level 32 MMOL/L (21-32) Anion Gap 5 mmol/L (5-15) Blood Urea Nitrogen 13 mg/dL (7-18) Creatinine 1.0 MG/DL (0.55-1.30) Estimat Glomerular Filtration Rate > 60 mL/min (>60) Glucose Level 108 MG/DL (74-106) H Calcium Level 9.3 MG/DL (8.5-10.1) Total Bilirubin 0.7 MG/DL (0.2-1.0) Aspartate Amino Transf (AST/SGOT) 41 U/L (15-37) H Alanine Aminotransferase (ALT/SGPT) 44 U/L (12-78) Alkaline Phosphatase 64 U/L (46-116) C-Reactive Protein, Quantitative 5.6 mg/dL (0.00-0.90) H Total Protein 7.6 G/DL (6.4-8.2) Albumin 3.4 G/DL (3.4-5.0) Globulin 4.2 g/dL Albumin/Globulin Ratio 0.8 (1.0-2.7) L Current Medications Medications (Trade) Dose Ordered Sig/Ryan Route PRN Reason Start Time Stop Time Status Last Admin Dose Admin Acetaminophen/ Hydrocodone Bitart ([place] 10/325) 1 tab Q4H PRN ORAL moderate pain 05/22/18 19:45 05/29/18 19:44 Albuterol Sulfate (Proventil MDI) 1 puff Q4HRT INH 05/25/18 11:00 06/21/18 10:59 Albuterol/ Ipratropium (Albuterol/ Ipratropium) 3 ml Q4H PRN HHN Shortness of Breath 05/24/18 01:00 05/29/18 00:59 Allopurinol (Zyloprim) 100 mg DAILY ORAL 05/23/18 09:00 06/22/18 08:59 05/24/18 08:14 Atorvastatin Calcium (Lipitor) 20 mg BEDTIME ORAL 05/22/18 21:00 06/21/18 20:59 05/24/18 21:15 Barium Sulfate (Readi-Cat 2) 450 ml NOW PRN ORAL Radiology Procedure 05/24/18 19:45 05/26/18 19:37 Dextrose/Sodium Chloride 1,000 ml @ 125 mls/hr Q8H IV 05/24/18 19:45 06/23/18 19:44 05/25/18 03:56 Fluticasone/ Vilanterol (Breo Ellipta 200/25) 1 puffs DAILY INH 05/23/18 09:00 06/22/18 08:59 05/24/18 07:38 Hydromorphone HCl (Dilaudid) 1 mg Q4H PRN IVP severe pain 05/22/18 19:45 05/29/18 19:44 05/25/18 04:50 Levothyroxine Sodium (Synthroid) 100 mcg DAILY@0630 ORAL 05/23/18 06:30 06/22/18 06:29 05/25/18 06:35 Lidocaine (Lidoderm 5% PATCH) 1 patch DAILY TDERMAL 05/23/18 09:00 06/22/18 08:59 05/24/18 08:14 Ondansetron HCl (Zofran) 4 mg Q6H PRN IVP Nausea & Vomiting 05/23/18 00:45 06/22/18 00:44 05/23/18 10:21 Pantoprazole (Protonix) 40 mg DAILY IVP 05/24/18 19:45 06/23/18 19:44 05/24/18 21:15 Last 24 Hour Vital Signs Date Time Temp Pulse Resp B/P (MAP) Pulse Ox O2 Delivery O2 Flow Rate FiO2 05/25/18 08:00 98.7 89 20 148/75 (99) 97 05/25/18 07:30 Nasal Cannula 5.0 40 05/25/18 07:30 Nasal Cannula 5.0 40 05/25/18 05:20 99.0 05/25/18 04:17 91 16 97 Nasal Cannula 5.0 40 05/25/18 04:16 91 16 97 Nasal Cannula 5.0 40 05/25/18 04:00 99.0 92 20 147/72 (97) 94 05/25/18 04:00 92 05/25/18 00:00 99.1 98 20 146/70 (95) 94 05/25/18 00:00 94 05/24/18 23:52 105 16 93 Nasal Cannula 5.0 40 05/24/18 23:50 99 16 92 Nasal Cannula 5.0 40 05/24/18 21:00 Nasal Cannula 2.0 05/24/18 20:11 92 16 95 Nasal Cannula 5.0 40 05/24/18 20:09 94 16 94 Nasal Cannula 5.0 40 05/24/18 20:00 98.2 93 20 152/73 (99) 96 05/24/18 20:00 91 05/24/18 16:00 88 05/24/18 16:00 98.1 92 20 140/79 (99) 95 05/24/18 15:28 Nasal Cannula 4.0 36 05/24/18 15:28 Nasal Cannula 4.0 36 05/24/18 12:00 98.2 88 20 142/86 (104) 96 05/24/18 12:00 90 05/24/18 10:56 97 20 94 Nasal Cannula 4.0 36 05/24/18 10:56 99 22 96 Nasal Cannula 4.0 36 Assessment and Recs: # Adenopathy -- with enlarged peripancreatic lymph nodes, with a node or conglomerate of nodes measuring up to 5 x 1.5 cm diameter. --> imaging has been reviewed --> tumor markers have been ordered as well --> if tumor markers normal, consider reimage in [address] abd/pelvis with iv contrast --> ct a/p for bowel pattern gas eval ordered on this admision # Leukocytosis -- general level 10-15k, potentially reactive process related --> smear has been ordered and pending --> no fevers or chills at this time, monitor --> trend as needed # Multiple fractures of ribs --> pain management --> surg recs appreciated # Nausea/vomiting -- eval with gi service as required --> ct a/p pending Greatly appreciate consultation! Brian Escalera MD May 25, 2018 09:13
[2018-05-25] MEDS: Pantoprazole Inj IVP SCH (09:18)
[2018-05-25] MEDS: Allopurinol 100mg Tab ORAL SCH (09:18)
--- NOTE | 2018-05-25 09:23 | Diagnostic Imaging Report ---
Indication: Abdominal pain Technique: Continuous helical transaxial imaging of the abdomen and pelvis was obtained from the lung bases to the pubic symphysis. No intravenous contrast was administered. Coronal 2-D reformats were also obtained. Automatic Exposure Control was utilized. Total Dose length Product (DLP): 1232.[address] Dose Index Volume (CTDIvol): 19.28 mGy Comparison: none Findings: There is posterior basilar consolidation and atelectasis right worse than left. Pneumonia is not excluded. Correlate clinically. The heart is enlarged. Mural calcium noted within the aorta. There is fusiform dilatation of the distal abdominal aorta measuring up to 2.8 cm. Appendix is normal. There is no free fluid or free air. There is no evidence of bowel obstruction. There are probable gallstones versus sludge. No nephrolithiasis or hydronephrosis seen. Diverticula demonstrated in the colon. Bilateral inguinal hernias containing fat noted. There are degenerative changes of the lumbar spine. IMPRESSION: Posterior basal atelectasis versus pneumonia right worse than left. Correlate clinically Gallbladder sludge versus stones Normal appendix Small fusiform aneurysm of the lower abdominal aorta measuring 2.8 cm. Diverticulosis of the colon. No definite diverticulitis Bilateral inguinal hernias containing fat. Degenerative changes of the spine. The CT scanner at [facility] is accredited by the [employer] and the scans are performed using dose optimization techniques as appropriate to a performed exam including Automatic Exposure control.
[2018-05-25] MEDS: Lactulose 20gm/30ml UDC ORAL PRN (10:18)
--- NOTE | 2018-05-25 10:56 | General Progress Note ---
Assessment/Plan Assessment/Plan Assessment - Central obesity - no significant abd pathology per CT Recommendations - laxative trial - clears / advance Subjective Allergies: Coded Allergies: No Known Allergies (Unverified , 04/04/13) Subjective above noted had CT - discussed with radiology - no ascites/SBO/Impaction no N/V Objective Last 24 Hour Vital Signs Date Time Temp Pulse Resp B/P (MAP) Pulse Ox O2 Delivery O2 Flow Rate FiO2 05/25/18 08:00 98.7 89 20 148/75 (99) 97 05/25/18 07:30 Nasal Cannula 5.0 40 05/25/18 07:30 Nasal Cannula 5.0 40 05/25/18 05:20 99.0 05/25/18 04:17 91 16 97 Nasal Cannula 5.0 40 05/25/18 04:16 91 16 97 Nasal Cannula 5.0 40 05/25/18 04:00 99.0 92 20 147/72 (97) 94 05/25/18 04:00 92 05/25/18 00:00 99.1 98 20 146/70 (95) 94 05/25/18 00:00 94 05/24/18 23:52 105 16 93 Nasal Cannula 5.0 40 05/24/18 23:50 99 16 92 Nasal Cannula 5.0 40 05/24/18 21:00 Nasal Cannula 2.0 05/24/18 20:11 92 16 95 Nasal Cannula 5.0 40 05/24/18 20:09 94 16 94 Nasal Cannula 5.0 40 05/24/18 20:00 98.2 93 20 152/73 (99) 96 05/24/18 20:00 91 05/24/18 16:00 88 05/24/18 16:00 98.1 92 20 140/79 (99) 95 05/24/18 15:28 Nasal Cannula 4.0 36 05/24/18 15:28 Nasal Cannula 4.0 36 05/24/18 12:00 98.2 88 20 142/86 (104) 96 05/24/18 12:00 90 05/24/18 10:56 97 20 94 Nasal Cannula 4.0 36 05/24/18 10:56 99 22 96 Nasal Cannula 4.0 36 Intake and Output 05/24/18 05/25/18 19:00 07:00 Intake Total 360 ml Output Total 1400 ml 900 ml Balance -1040 ml -900 ml Intake Oral 360 ml Output Urine Total 1400 ml 900 ml # Voids 3 Laboratory Tests 05/25/18 06:50: White Blood Count 13.9H, Red Blood Count 3.98L, Hemoglobin 13.5L, Hematocrit 41.5L, Mean Corpuscular Volume 104H, Mean Corpuscular Hemoglobin 33.9H, Mean Corpuscular Hemoglobin Concent 32.5, Red Cell Distribution Width 13.1, Platelet Count 274, Mean Platelet Volume 7.0, Neutrophils (%) (Auto) 60.2, Lymphocytes (% ) (Auto) 22.9, Monocytes (%) (Auto) 14.6H, Eosinophils (%) (Auto) 1.4, Basophils (%) (Auto) 0.8, Erythrocyte Sedimentation Rate 39H, Sodium Level 134L , Potassium Level 4.3, Chloride Level 97L, Carbon Dioxide Level 32, Anion Gap 5 , Blood Urea Nitrogen 13, Creatinine 1.0, Estimat Glomerular Filtration Rate > 60, Glucose Level 108H, Calcium Level 9.3, Total Bilirubin 0.7, Aspartate Amino Transf (AST/SGOT) 41H, Alanine Aminotransferase (ALT/SGPT) 44, Alkaline Phosphatase 64, C-Reactive Protein, Quantitative 5.6H, Total Protein 7.6, Total Protein (PEP) [Pending], Albumin 3.4, Albumin (PEP) [Pending], Globulin 4.2, Globulin (PEP) [Pending], Albumin/Globulin Ratio [Pending], Ohyao-[id number] [ Pending], Tjnio-6-Opkwuaqit [Pending], Beta Globulins [Pending], Beta Gamma Globulin [Pending], PEP Abnormal Protein Bands [Pending], Protein Electrophoresis Interpret [Pending], Carcinoembryonic Antigen [Pending], CA 19- 9 Antigen [Pending] Height (Feet): 5 Height (Inches): 9.00 Weight (Pounds): 213 Objective WD obese WM NCAT supple CTA RRR abd distended, tympanitic no edema Giorgi Black MD May 25, 2018 10:56
[2018-05-25] MEDS ORDERED: Magnesium Citrate Liq Btl ORAL SCH (11:15)
[2018-05-25 12:00] VITALS: BP 137/82
[2018-05-25] MEDS: Breo Ellipta 200/25mcg-14 dose INH SCH (12:05)
--- NOTE | 2018-05-25 13:09 | NUR ---
CASE MANAGEMENT:REVIEW 62 YR OLD MALE BIBA FROM HOME CC: TRIP AND FALL. FLANK PAIN SI: MULTIPLE RIB FRACTURE 98.0 76 16 167/89 97% ON RA WBC+15.6 K+5.3 IS: IV MORPHINE X2 IV DILAUDID X1 CT CHEST XRAY SHOULDER : TO TELEMETRY IS: IV DILAUDID Q4HRS PRN INTERQUAL CRITERIA MET 05/24/18 SI: MULTIPLE RIB FRACTURES 98.4 107 24 129/64 94% ON 3L/NC WBC+15.0 IS: IVF@125/HR IV PROTONIX QD LIDOCIANE PATCH QD BREO INH QD SYNTHROID PO QD IV DILAUDID Q4HRS PRN : TELEMETRY PLAN: PAIN MGMT 05/25/18 SI: MULTIPLE RIB FRACTURES 99.0 92 20 147/72 95% ON 5L/NC WBC+13.9 IS: START IV ROCEPHIN QD IVF@125/HR IV PROTONIX QD LIDOCIANE PATCH QD BREO INH QD SYNTHROID PO QD IV DILAUDID Q4HRS PRN : TELEMETRY PLAN: PAIN MGMT IV ANTIBIOTICS
--- NOTE | 2018-05-25 13:22 | General Surgery Progress Note ---
General Surgery-Progress Note Subjective Additional Comments no acute events. pain improving. tolerating diet Objective Last 24 Hour Vital Signs Date Time Temp Pulse Resp B/P (MAP) Pulse Ox O2 Delivery O2 Flow Rate FiO2 05/25/18 08:00 93 05/25/18 08:00 98.7 89 20 148/75 (99) 97 05/25/18 07:30 Nasal Cannula 5.0 40 05/25/18 07:30 Nasal Cannula 5.0 40 05/25/18 05:20 99.0 05/25/18 04:17 91 16 97 Nasal Cannula 5.0 40 05/25/18 04:16 91 16 97 Nasal Cannula 5.0 40 05/25/18 04:00 99.0 92 20 147/72 (97) 94 05/25/18 04:00 92 05/25/18 00:00 99.1 98 20 146/70 (95) 94 05/25/18 00:00 94 05/24/18 23:52 105 16 93 Nasal Cannula 5.0 40 05/24/18 23:50 99 16 92 Nasal Cannula 5.0 40 05/24/18 21:00 Nasal Cannula 2.0 05/24/18 20:11 92 16 95 Nasal Cannula 5.0 40 05/24/18 20:09 94 16 94 Nasal Cannula 5.0 40 05/24/18 20:00 98.2 93 20 152/73 (99) 96 05/24/18 20:00 91 05/24/18 16:00 88 05/24/18 16:00 98.1 92 20 140/79 (99) 95 05/24/18 15:28 Nasal Cannula 4.0 36 05/24/18 15:28 Nasal Cannula 4.0 36 I&O Intake and Output 05/24/18 05/25/18 19:00 07:00 Intake Total 360 ml Output Total 1400 ml 900 ml Balance -1040 ml -900 ml Intake Oral 360 ml Output Urine Total 1400 ml 900 ml # Voids 3 Drains: none Cardiovascular: RSR Respiratory: clear Abdomen: soft, flat, non-tender, present bowel sounds Extremities: no tenderness, no cyanosis Laboratory Tests Test 05/25/18 06:50 White Blood Count 13.9 K/UL (4.8-10.8) H Red Blood Count 3.98 M/UL (4.70-6.10) L Hemoglobin 13.5 G/DL (14.2-18.0) L Hematocrit 41.5 % (42.0-52.0) L Mean Corpuscular Volume 104 FL (80-99) H Mean Corpuscular Hemoglobin 33.9 PG (27.0-31.0) H Mean Corpuscular Hemoglobin Concent 32.5 G/DL (32.0-36.0) Red Cell Distribution Width 13.1 % (11.6-14.8) Platelet Count 274 K/UL (150-450) Mean Platelet Volume 7.0 FL (6.5-10.1) Neutrophils (%) (Auto) 60.2 % (45.0-75.0) Lymphocytes (%) (Auto) 22.9 % (20.0-45.0) Monocytes (%) (Auto) 14.6 % (1.0-10.0) H Eosinophils (%) (Auto) 1.4 % (0.0-3.0) Basophils (%) (Auto) 0.8 % (0.0-2.0) Erythrocyte Sedimentation Rate 39 MM/HR (0-20) H Sodium Level 134 MMOL/L (136-145) L Potassium Level 4.3 MMOL/L (3.5-5.1) Chloride Level 97 MMOL/L (98-107) L Carbon Dioxide Level 32 MMOL/L (21-32) Anion Gap 5 mmol/L (5-15) Blood Urea Nitrogen 13 mg/dL (7-18) Creatinine 1.0 MG/DL (0.55-1.30) Estimat Glomerular Filtration Rate > 60 mL/min (>60) Glucose Level 108 MG/DL (74-106) H Calcium Level 9.3 MG/DL (8.5-10.1) Total Bilirubin 0.7 MG/DL (0.2-1.0) Aspartate Amino Transf (AST/SGOT) 41 U/L (15-37) H Alanine Aminotransferase (ALT/SGPT) 44 U/L (12-78) Alkaline Phosphatase 64 U/L (46-116) C-Reactive Protein, Quantitative 5.6 mg/dL (0.00-0.90) H Total Protein 7.6 G/DL (6.4-8.2) Total Protein (PEP) Pending Albumin 3.4 G/DL (3.4-5.0) Albumin (PEP) Pending Globulin 4.2 g/dL Globulin (PEP) Pending Albumin/Globulin Ratio Pending [id number] Pending [id number] Pending Beta Globulins Pending Beta Gamma Globulin Pending PEP Abnormal Protein Bands Pending Protein Electrophoresis Interpret Pending Carcinoembryonic Antigen Pending CA 19-9 Antigen Pending Plan Problems: (1) Multiple fractures of ribs Assessment & Plan: s/p fall with multiple rib fx respiratory stable for now labs noted cxr noted leukocytosis trending down pain better controlled. -needs aggressive pulmonary toilet -pain control appreciate pain management input -okay for diet -activity as tolerated thank you . will follow with Juan Antonio Valencia May 25, 2018 13:22
--- NOTE | 2018-05-25 13:54 | NUR ---
REHAB MED PT NOTE CONSULT HUGO JORDAN COMPLETED, PATIENT WILL BENEFIT FROM SKILLED PT DURING STAY FOR RETURN TO [facility]. RECOMMEND HOME PT AT [place]. PLAN OF CARE INITIATED. FRANK SU PT DPT Addendum: 05/25/18 at 1355 by FRANK SU PT Amended: Links added.
[2018-05-25] MEDS ORDERED: Albuterol/Ipratropium 3ml neb HHN PRN (14:30)
[2018-05-25] MEDS: cefTRIAXone 1 GM in D5W 55 ML IVPB SCH (14:39)
--- NOTE | 2018-05-25 15:06 | Consultation ---
Consult Note Assessment/Plan DICT [id number] Wade Rasheed MD May 25, 2018 15:06
[2018-05-25 16:00] VITALS: BP 145/76
--- NOTE | 2018-05-25 17:03 | NUR ---
INSURANCE ALL CLINICALS HAVE BEEN FAXED TO: [facility] NCM: ROYCE P- [phone] [id number] F- [phone].. (.FAX REVIEW ONLY) & [facility]# [id number] NCM: ANAYA Terrazas P- [phone] F- [phone] (FX REVIEW/CLINICAL)
--- NOTE | 2018-05-25 19:10 | NUR ---
HAND-OFF: Report given to JASEN Zhou. Patient in stable condition.
--- NOTE | 2018-05-25 19:12 | NUR ---
NURSE NOTES: Received report from Mabel Jimenez RN. Patient in bed AAO x4 with HOB elevated at semifowlers, no complaints of acute pain at this time. Able to verbalize with no difficulty, no S/S of respiratory distress and SP02 at 94-96% in R/A. Safety precaution in place; siderails x3 up, call light within reach, bed in lowest position, brakes and alarm on at all times. Kept clean, dry, and comfortable in bed at all times. Needs and wants anticipated and attended, will continue plan of care and monitor for any changes noted
[2018-05-25 20:00] VITALS: BP 159/83
--- NOTE | 2018-05-25 20:00 | NUR ---
NURSE NOTES: 24hr Urine collection in place, will continue plan of care and monitor for any changes noted
[2018-05-25] MEDS: Atorvastatin 20mg tab ORAL SCH (20:43)
[2018-05-25] MEDS: Heparin 5000 units/ml inj SUBQ SCH (20:59)
[2018-05-26] VITALS (7 sets, daily range): BP systolic 121–137; BP diastolic 69–84
[2018-05-26] MEDS: HYDROmorphone 1mg/ml Carpuject IVP PRN ×5 (00:28→16:03)
--- NOTE | 2018-05-26 00:42 | Consultation ---
DATE OF CONSULTATION: 05/25/2018 INFECTIOUS DISEASES CONSULTATION CONSULTING PHYSICIAN: Adam Jacobs M.D. PRIMARY ATTENDING PHYSICIAN: Leonard Caballero M.D. REASON FOR CONSULTATION: Leukocytosis. HISTORY OF PRESENT ILLNESS: The patient is a 62-year-old white male admitted on 05/22/2018 after a fall. The patient denies any pass out. He was found to have multiple rib fracture in the right side including 5, 6, and 7. The patient has leukocytosis since admission and has coughing that is productive. PAST MEDICAL HISTORY: Significant for COPD, hypertension, hypothyroidism, gout, obesity. The patient has a history of supraventricular tachycardia, last visit in December of 2017. ALLERGIES: No known drug allergies. MEDICATIONS: Getting magnesium citrate, albuterol, lactulose, Protonix, , levothyroxine, Zofran, atorvastatin, hydromorphone, [place]. SOCIAL HISTORY: , has history of heavy smoking, quit 3 months ago. He has history of heavy alcohol abuse. REVIEW OF SYSTEMS: Denies any fever, have productive cough. No significant shortness of breath. No left-sided chest pain. Chest pain is in the right side. No nausea. No vomiting. He has constipation. No problem passing urine. PHYSICAL EXAMINATION: VITAL SIGNS: Temperature 98.7, pulse 89, blood pressure 148/75. GENERAL APPEARANCE: No acute distress. Obese. HEAD AND NECK: [place] conjunctiva. No oral lesion. HEART: Regular. LUNGS: Clear. ABDOMEN: Obese, soft, and nontender. EXTREMITIES: Has no edema. NEUROLOGIC: Awake, alert, oriented x3. LABORATORY AND DIAGNOSTIC DATA: WBC 13.9, hemoglobin 13.5, hematocrit 41.5, platelets 274. Sodium 134, potassium 4.3, chloride 97, bicarb 32, BUN 13, and creatinine 1, glucose 108. Urine toxicology was positive for opiates. The patient had abdomen and pelvis CT showed posterior basilar atelectasis versus pneumonia worse on the right more than left, diverticulosis, degenerative changes of the spine, bilateral inguinal hernia. IMPRESSION: Leukocytosis likely secondary to the rib fracture, cannot rule out pneumonia. The patient also have atelectasis in lung bases, has COPD, hypertension, hypothyroidism. RECOMMENDATION: We will start on ceftriaxone. we will change to p.o. antibiotic for a few days. At the end of my exam, I thank Dr. Caballero for involving me in the care of this patient. Adam Jacobs M.D. DR: Luz JOB#: [id number] CC: JANE
--- NOTE | 2018-05-26 00:42 | Consultation ---
DATE OF CONSULTATION: PULMONARY CONSULTATION CONSULTING PHYSICIAN: Wade Rasheed M.D. REFERRING PHYSICIAN: Leonard Caballero M.D. REASON FOR CONSULTATION: COPD, rib fractures, and hypoxemia. HISTORY OF PRESENT ILLNESS: The patient is an obese 62-year-old male with COPD, who was playing football with his grandson when he tripped and fell and sustained multiple rib fractures. He is complaining of right-sided chest pain and shortness of breath. No cough. No wheezing. No hemoptysis. No fevers, chills, or other complaints. He is afebrile. Vital signs have been stable and he has been requiring between 2 to 5 L of oxygen. He has not been using an incentive spirometer. He has been seen by Surgery and GI. He also had constipation and he had a CT of the abdomen and pelvis. With respect to his COPD, the patient is controlled on Breo as an outpatient and p.r.n. Ventolin is unclear if he has had a formal pulmonary evaluation. PAST MEDICAL HISTORY: 1. COPD. 2. Hypothyroidism. 3. Gout. 4. GERD. 5. SVT in the past. 6. Hypertension. 7. Hyperlipidemia. ALLERGIES: No known drug allergies. MEDICATIONS: Prior to admission, medications reviewed. Current medications reviewed. SOCIAL HISTORY: Former smoker, none current. No drug or alcohol use. FAMILY HISTORY: Noncontributory. REVIEW OF SYSTEMS: Negative other than history of present illness. PHYSICAL EXAMINATION: VITAL SIGNS: Temperature is 98.7, pulse 89, blood pressure 148/75, respiratory rate 20, and saturating 97% on 2 L. GENERAL: He is an obese male, in no acute distress. Awake, alert, and oriented x3. HEENT: Normocephalic and atraumatic. Oropharynx is clear with moist mucous membranes. NECK: Supple without lymphadenopathy or JVD. CHEST: Coarse decreased at the bases and right-sided chest wall tenderness. HEART: Regular rate and rhythm. ABDOMEN: Soft and nondistended. EXTREMITIES: No cyanosis, clubbing, or edema. ANCILLARY DATA: White count 13.9, hemoglobin 13.5, and platelet count 274,000. Sodium 134, potassium 4.3, chloride 97, bicarbonate 32, BUN 13, creatinine 1, glucose 108, and calcium 9.3. Total bilirubin 0.7, AST 41, ALT 44, and alkaline phosphatase 64. CRP 5.6. Total protein 7.6. Albumin 3.4. Positive opiate screen. UA, 1+ protein, 0 to 2 reds, and few mucus. Cultures pending. IMAGING DATA: On 05/22/2018, shoulder and chest x-ray, no acute process. On 05/22/2018, CT of the chest, rib fractures, right 5, 6 and 7. No underlying parenchymal process. Some atelectasis at the bases. Normal heart. No effusion. Prominent anterior pericardial node. No mediastinal hilar lymphadenopathy. Included upper abdominal anatomy demonstrated enlarged peripancreatic lymph nodes with a conglomerate up to 5 cm, dilated loops of bowel. On 05/24/2018, CT of abdomen and pelvis, posterior basilar atelectasis, gallbladder sludge versus , normal appendix, small fusiform aneurysm of the lower abdominal aorta 2.8 cm, diverticulosis, and bilateral inguinal hernias. ASSESSMENT: The patient is a 62-year-old male former smoker with a history of obesity, chronic obstructive pulmonary disease, gout, hypothyroidism, hypertension, and hyperlipidemia, presenting with hypoxemia in the setting of recent fall and rib fractures with bibasilar dependent atelectasis. PROBLEM LIST: 1. Right fifth, sixth and seventh fractures. 2. Mechanical fall. 3. COPD without evidence of exacerbation. 4. Atelectasis. 5. Hypoxemia secondary to combination of above. 6. Constipation. 7. Peripancreatic lymphadenopathy noted on CT of the chest. 8. Hypertension, hyperlipidemia, hypothyroidism, and gout. 9. Obesity, with possible underlying VESTA. TREATMENT PLAN: 1. Optimize pulmonary hygiene/mobilize as tolerated. 2. Titrate FiO2 to keep saturations greater than 90%. 3. P.r.n. bronchodilators. 4. Continue Breo. 5. Incentive spirometer. 6. Pain control/supportive care. 7. Bowel regimen. 8. Follow up Oncology recommendations regarding workup of peripancreatic lymph node, it seems plan is for outpatient imaging. 9. DVT prophylaxis, heparin subcutaneous. 10. Follow up an ABG to assess baseline gas exchange. 11. Follow tumor markers as ordered by Oncology. Dr. Caballero, thank you for allowing me to assist in the care of your patient. If I may be of any assistance in the future, please do not hesitate to ask. Wade Rasheed M.D. DR: LIZZETH JOB#: [id number] CC:
[2018-05-26] MEDS: D5 1/2NS 1,000 ML IV SCH ×3 (01:30→21:00)
--- NOTE | 2018-05-26 02:33 | NUR ---
NURSE NOTES: Patient in bed asleep with no S/S of distress noted. Will continue to monitor
[2018-05-26] MEDS: Albuterol 90mcg Inhaler 8gm INH SCH ×6 (02:35→23:46)
--- NOTE | 2018-05-26 07:00 | NUR ---
NURSE NOTES: [address], 600ml obtained on [id number] shift. Will endorse plan of care
--- NOTE | 2018-05-26 07:25 | NUR ---
HAND-OFF: Report given to Mabel Jimenez RN. Patient in stable condition, endorsed plan of care.
--- NOTE | 2018-05-26 07:25 | NUR ---
NURSE NOTES: Report received from JASEN Zhou. Patient awake. In 2L NC, denies SOB. "When is my pain medication due?..." Time for next pain medication updated on white board. IV running D51/2NS @125. Bed on lowest position, brakes engaged, side rails upx2. Call light within easy reach
[2018-05-26] MEDS: Breo Ellipta 200/25mcg-14 dose INH SCH (09:35)
[2018-05-26] MEDS: Allopurinol 100mg Tab ORAL SCH (09:56)
[2018-05-26] MEDS: cefTRIAXone 1 GM in D5W 55 ML IVPB SCH (09:57)
[2018-05-26] MEDS: Heparin 5000 units/ml inj SUBQ SCH ×2 (09:58→20:57)
[2018-05-26] MEDS: Pantoprazole Inj IVP SCH (10:02)
[2018-05-26] MEDS: Lactulose 20gm/30ml UDC ORAL PRN (10:58)
--- NOTE | 2018-05-26 13:49 | Infectious Diseases Prog Note ---
Assessment/Plan Assessment/Plan A; Leukocytosis Atelectasis/ ? pneumonia Multiple rib fracture Morbid obesity COPD HPN P: continue Rocephin F/U CBC Subjective ROS Limited/Unobtainable: No Constitutional: Reports: no symptoms Respiratory: Reports: no symptoms Cardiovascular: Reports: no symptoms Gastrointestinal/Abdominal: Reports: no symptoms Musculoskeletal: Reports: pain, other - in right leg Allergies: Coded Allergies: No Known Allergies (Unverified , 04/04/13) Objective Vital Signs Last 24 Hour Vital Signs Date Time Temp Pulse Resp B/P (MAP) Pulse Ox O2 Delivery O2 Flow Rate FiO2 05/26/18 10:28 98.1 05/26/18 09:33 80 22 93 Nasal Cannula 3.0 32 05/26/18 09:33 88 22 94 Nasal Cannula 4.0 36 05/26/18 08:00 91 05/26/18 08:00 98.1 83 20 134/83 (100) 95 05/26/18 04:00 86 05/26/18 04:00 98.5 87 20 130/70 (90) 91 05/26/18 02:35 Nasal Cannula 4.0 36 05/26/18 02:35 Nasal Cannula 4.0 36 05/26/18 00:00 89 05/26/18 00:00 98.3 88 18 132/71 (91) 94 05/25/18 23:21 88 22 94 Nasal Cannula 4.0 36 05/25/18 23:21 88 22 94 Nasal Cannula 4.0 36 05/25/18 21:00 Nasal Cannula 2.0 05/25/18 21:00 Nasal Cannula 2.0 05/25/18 20:36 92 20 94 Nasal Cannula 4.0 36 05/25/18 20:36 93 20 94 Nasal Cannula 4.0 36 05/25/18 20:00 90 05/25/18 20:00 98.6 91 18 159/83 (108) 96 05/25/18 16:00 91 05/25/18 16:00 98.9 91 20 145/76 (99) 94 05/25/18 15:39 92 19 95 Nasal Cannula 5.0 40 05/25/18 15:39 92 19 95 Nasal Cannula 5.0 40 05/25/18 15:22 98.9 Height (Feet): 5 Height (Inches): 9.00 Weight (Pounds): 290 General Appearance: other - obese Respiratory/Chest: lungs clear Cardiovascular: normal rate Abdomen: soft, non tender Extremities: no edema Neurologic/Psychiatric: oriented x 3, responsive Laboratory Tests Test 05/25/18 15:15 Arterial Blood pH 7.303 (7.350-7.450) Arterial Blood Partial Pressure CO2 69.8 mmHg (35.0-45.0) *H Arterial Blood Partial Pressure O2 83.0 mmHg (75.0-100.0) Arterial Blood HCO3 33.8 mmol/L (22.0-26.0) H Arterial Blood Oxygen Saturation 95.3 % (95-100) Arterial Blood Base Excess 5.0 (-2-2) H Gregory Test Positive Current Medications Medications (Trade) Dose Ordered Sig/Ryan Route PRN Reason Start Time Stop Time Status Last Admin Dose Admin Acetaminophen/ Hydrocodone Bitart ([place] 10/325) 1 tab Q4H PRN ORAL moderate pain 05/22/18 19:45 05/29/18 19:44 Albuterol Sulfate (Proventil MDI) 1 puff Q4HRT INH 05/25/18 11:00 06/21/18 10:59 05/26/18 09:35 Albuterol/ Ipratropium (Albuterol/ Ipratropium) 3 ml Q4H PRN HHN Shortness of Breath 05/24/18 01:00 05/29/18 00:59 Albuterol/ Ipratropium (Albuterol/ Ipratropium) 3 ml Q4H PRN HHN Shortness of Breath 05/25/18 14:30 05/30/18 14:29 Allopurinol (Zyloprim) 100 mg DAILY ORAL 05/23/18 09:00 06/22/18 08:59 05/26/18 09:56 Atorvastatin Calcium (Lipitor) 20 mg BEDTIME ORAL 05/22/18 21:00 06/21/18 20:59 05/25/18 20:43 Barium Sulfate (Readi-Cat 2) 450 ml NOW PRN ORAL Radiology Procedure 05/24/18 19:45 05/26/18 19:37 Ceftriaxone Sodium 1 gm/ Dextrose 55 ml @ 110 mls/hr DAILY IVPB 05/25/18 14:00 06/01/18 13:59 05/26/18 09:57 Dextrose/Sodium Chloride 1,000 ml @ 125 mls/hr Q8H IV 05/24/18 19:45 06/23/18 19:44 05/26/18 01:30 Fluticasone/ Vilanterol (Breo Ellipta 200/25) 1 puffs DAILY INH 05/23/18 09:00 06/22/18 08:59 05/26/18 09:35 Gabapentin (Neurontin) 300 mg THREE TIMES A DAY ORAL 05/26/18 10:30 06/25/18 10:29 05/26/18 11:00 Heparin Sodium (Porcine) (Heparin 5000 units/ml) 5,000 units EVERY 12 HOURS SUBQ 05/25/18 21:00 06/24/18 20:59 05/26/18 09:58 Hydromorphone HCl (Dilaudid) 1 mg Q4H PRN IVP severe pain 05/26/18 01:30 05/29/18 19:44 05/26/18 09:58 Lactulose (Cephulac) 30 gm Q4H PRN ORAL Constipation 05/25/18 10:00 06/24/18 09:59 05/26/18 10:58 Levothyroxine Sodium (Synthroid) 100 mcg DAILY@0630 ORAL 05/23/18 06:30 06/22/18 06:29 05/26/18 05:54 Lidocaine (Lidoderm 5% PATCH) 1 patch DAILY TDERMAL 05/23/18 09:00 06/22/18 08:59 05/26/18 09:57 Ondansetron HCl (Zofran) 4 mg Q6H PRN IVP Nausea & Vomiting 05/23/18 00:45 06/22/18 00:44 05/23/18 10:21 Pantoprazole (Protonix) 40 mg DAILY IVP 05/24/18 19:45 06/23/18 19:44 05/26/18 10:02 Adam Jacobs MD May 26, 2018 13:49
--- NOTE | 2018-05-26 16:26 | General Surgery Progress Note ---
General Surgery-Progress Note Subjective Symptoms: improved, tolerating diet, passing flatus, BM Additional Comments abdomen distended. pain improving. no n/v/f/c. Objective Last 24 Hour Vital Signs Date Time Temp Pulse Resp B/P (MAP) Pulse Ox O2 Delivery O2 Flow Rate FiO2 05/26/18 15:06 88 22 95 Nasal Cannula 4.0 36 05/26/18 15:06 88 22 95 Nasal Cannula 4.0 36 05/26/18 12:00 98.0 90 20 121/71 (88) 95 05/26/18 12:00 86 05/26/18 10:28 98.1 05/26/18 09:33 80 22 93 Nasal Cannula 3.0 32 05/26/18 09:33 88 22 94 Nasal Cannula 4.0 36 05/26/18 09:00 Nasal Cannula 2.0 05/26/18 08:00 91 05/26/18 08:00 98.1 83 20 134/83 (100) 95 05/26/18 04:00 86 05/26/18 04:00 98.5 87 20 130/70 (90) 91 05/26/18 02:35 Nasal Cannula 4.0 36 05/26/18 02:35 Nasal Cannula 4.0 36 05/26/18 00:00 89 05/26/18 00:00 98.3 88 18 132/71 (91) 94 05/25/18 23:21 88 22 94 Nasal Cannula 4.0 36 05/25/18 23:21 88 22 94 Nasal Cannula 4.0 36 05/25/18 21:00 Nasal Cannula 2.0 05/25/18 21:00 Nasal Cannula 2.0 05/25/18 20:36 92 20 94 Nasal Cannula 4.0 36 05/25/18 20:36 93 20 94 Nasal Cannula 4.0 36 05/25/18 20:00 90 05/25/18 20:00 98.6 91 18 159/83 (108) 96 I&O Intake and Output 05/25/18 05/26/18 19:00 07:00 Output Total 700 ml 200 ml Balance -700 ml -200 ml Output Urine Total 700 ml 200 ml Drains: none Cardiovascular: RSR Respiratory: clear Abdomen: soft, distended, non-tender, present bowel sounds Extremities: no cyanosis Plan Problems: (1) Multiple fractures of ribs Assessment & Plan: s/p fall with multiple rib fx respiratory stable for now labs noted cxr noted leukocytosis trending down pain better controlled. ileus -needs aggressive pulmonary toilet -pain control appreciate pain management input -okay for diet -bowel regimen -activity as tolerated thank you . will follow with Juan Antonio Valencia May 26, 2018 16:25
--- NOTE | 2018-05-26 18:06 | Pulmonology Progress Note ---
Assessment/Plan Problems: (1) Multiple fractures of ribs (2) COPD (chronic obstructive pulmonary disease) Assessment/Plan ASSESSMENT: The patient is a 62-year-old male former smoker with a history of obesity, chronic obstructive pulmonary disease, gout, hypothyroidism, hypertension, and hyperlipidemia, presenting with hypoxemia in the setting of recent fall and rib fractures with bibasilar dependent atelectasis. PROBLEM LIST: 1. Right fifth, sixth and seventh fractures. 2. Mechanical fall. 3. COPD without evidence of exacerbation. 4. Atelectasis. 5. Acute on chronic hypercapnic respiratory failure 6. Hypoxemia secondary to combination of above. 7. Constipation. 8. Peripancreatic lymphadenopathy noted on CT of the chest. 9. Hypertension, hyperlipidemia, hypothyroidism, and gout. 10. Obesity, with possible underlying VESTA. TREATMENT PLAN: 1. Optimize pulmonary hygiene/mobilize as tolerated. 2. Titrate FiO2 to keep saturations greater than 90%. 3. P.r.n. bronchodilators. 4. Continue Breo. 5. Incentive spirometer. 6. Pain control/supportive care. 7. Bowel regimen. 8. Follow up Oncology recommendations regarding workup of peripancreatic lymph node, it seems the plan is for outpatient imaging. 9. DVT prophylaxis, heparin subcutaneous. 10. BiPAP 12/5 qHS and PRN 11. Follow tumor markers as ordered by Oncology. Subjective Allergies: Coded Allergies: No Known Allergies (Unverified , 04/04/13) Subjective AFVSS O2 needs stable pain better less SOB no FC using IS Objective Last 24 Hour Vital Signs Date Time Temp Pulse Resp B/P (MAP) Pulse Ox O2 Delivery O2 Flow Rate FiO2 05/26/18 16:00 98.2 100 20 128/76 (93) 95 05/26/18 16:00 100 05/26/18 15:06 88 22 95 Nasal Cannula 4.0 36 05/26/18 15:06 88 22 95 Nasal Cannula 4.0 36 05/26/18 12:00 98.0 90 20 121/71 (88) 95 05/26/18 12:00 86 05/26/18 10:28 98.1 05/26/18 09:33 80 22 93 Nasal Cannula 3.0 32 05/26/18 09:33 88 22 94 Nasal Cannula 4.0 36 05/26/18 09:00 Nasal Cannula 2.0 05/26/18 08:00 91 1/4/19 08:00 98.1 83 20 134/83 (100) 95 05/26/18 04:00 86 05/26/18 04:00 98.5 87 20 130/70 (90) 91 05/26/18 02:35 Nasal Cannula 4.0 36 05/26/18 02:35 Nasal Cannula 4.0 36 05/26/18 00:00 89 05/26/18 00:00 98.3 88 18 132/71 (91) 94 05/25/18 23:21 88 22 94 Nasal Cannula 4.0 36 05/25/18 23:21 88 22 94 Nasal Cannula 4.0 36 05/25/18 21:00 Nasal Cannula 2.0 05/25/18 21:00 Nasal Cannula 2.0 05/25/18 20:36 92 20 94 Nasal Cannula 4.0 36 05/25/18 20:36 93 20 94 Nasal Cannula 4.0 36 05/25/18 20:00 90 05/25/18 20:00 98.6 91 18 159/83 (108) 96 Intake and Output 05/25/18 05/26/18 18:59 06:59 Output Total 700 ml 200 ml Balance -700 ml -200 ml Output Urine Total 700 ml 200 ml General Appearance: WD/WN, no acute distress HEENT: normocephalic, atraumatic, anicteric, mucous membranes moist Respiratory/Chest: chest wall non-tender, lungs clear, normal breath sounds, no respiratory distress, no accessory muscle use Cardiovascular: normal peripheral pulses, normal rate, regular rhythm Abdomen: normal bowel sounds, soft, non tender, no organomegaly, non distended , no mass Extremities: no cyanosis, no clubbing, no edema Laboratory Tests 05/26/18 14:00: Urine Total Volume 24 Hours [Pending], Urine Creatinine 24 Hour [Pending], Urine Total Protein Timed [Pending], Urine Protein/Creatinine Ratio [Pending], Urine Albumin (%) [Pending], Urine Pftcd-4-Epycgqxod (%) [Pending], Urine Alpha- 2-Globulins (%) [Pending], Urine Beta-Globulin (%) [Pending], Urine Gamma Globulin (%) [Pending], Urine Protein Electrophoresis Intrp [Pending] Current Medications Medications (Trade) Dose Ordered Sig/Ryan Route PRN Reason Start Time Stop Time Status Last Admin Dose Admin Acetaminophen/ Hydrocodone Bitart ([place] 10/325) 1 tab Q4H PRN ORAL moderate pain 05/22/18 19:45 05/29/18 19:44 Albuterol Sulfate (Proventil MDI) 1 puff Q4HRT INH 05/25/18 11:00 06/21/18 10:59 05/26/18 15:05 Albuterol/ Ipratropium (Albuterol/ Ipratropium) 3 ml Q4H PRN HHN Shortness of Breath 05/24/18 01:00 05/29/18 00:59 Albuterol/ Ipratropium (Albuterol/ Ipratropium) 3 ml Q4H PRN HHN Shortness of Breath 05/25/18 14:30 05/30/18 14:29 Allopurinol (Zyloprim) 100 mg DAILY ORAL 05/23/18 09:00 06/22/18 08:59 05/26/18 09:56 Atorvastatin Calcium (Lipitor) 20 mg BEDTIME ORAL 05/22/18 21:00 06/21/18 20:59 05/25/18 20:43 Barium Sulfate (Readi-Cat 2) 450 ml NOW PRN ORAL Radiology Procedure 05/24/18 19:45 05/26/18 19:37 Ceftriaxone Sodium 1 gm/ Dextrose 55 ml @ 110 mls/hr DAILY IVPB 05/25/18 14:00 06/01/18 13:59 05/26/18 09:57 Dextrose/Sodium Chloride 1,000 ml @ 125 mls/hr Q8H IV 05/24/18 19:45 06/23/18 19:44 05/26/18 16:07 Fluticasone/ Vilanterol (Breo Ellipta 200/25) 1 puffs DAILY INH 05/23/18 09:00 06/22/18 08:59 05/26/18 09:35 Gabapentin (Neurontin) 300 mg THREE TIMES A DAY ORAL 05/26/18 10:30 06/25/18 10:29 05/26/18 15:59 Heparin Sodium (Porcine) (Heparin 5000 units/ml) 5,000 units EVERY 12 HOURS SUBQ 05/25/18 21:00 06/24/18 20:59 05/26/18 09:58 Hydromorphone HCl (Dilaudid) 1 mg Q4H PRN IVP severe pain 05/26/18 01:30 05/29/18 19:44 05/26/18 16:03 Lactulose (Cephulac) 30 gm Q4H PRN ORAL Constipation 05/25/18 10:00 06/24/18 09:59 05/26/18 10:58 Levothyroxine Sodium (Synthroid) 100 mcg DAILY@0630 ORAL 05/23/18 06:30 06/22/18 06:29 05/26/18 05:54 Lidocaine (Lidoderm 5% PATCH) 1 patch DAILY TDERMAL 05/23/18 09:00 06/22/18 08:59 05/26/18 09:57 Ondansetron HCl (Zofran) 4 mg Q6H PRN IVP Nausea & Vomiting 05/23/18 00:45 06/22/18 00:44 05/23/18 10:21 Pantoprazole (Protonix) 40 mg DAILY IVP 05/24/18 19:45 06/23/18 19:44 05/26/18 10:02 Wade Rasheed MD May 26, 2018 18:06
--- NOTE | 2018-05-26 19:08 | General Progress Note ---
Assessment/Plan Assessment/Plan Assessment - Central obesity - likely component of constipation - no significant abd pathology per CT Recommendations - laxative trial - advance diet - OOB Subjective Allergies: Coded Allergies: No Known Allergies (Unverified , 04/04/13) Subjective above noted small BM no says abdomen perhaps has always been like this no N/V Objective Last 24 Hour Vital Signs Date Time Temp Pulse Resp B/P (MAP) Pulse Ox O2 Delivery O2 Flow Rate FiO2 05/26/18 16:00 98.2 100 20 128/76 (93) 95 05/26/18 16:00 100 05/26/18 15:06 88 22 95 Nasal Cannula 4.0 36 05/26/18 15:06 88 22 95 Nasal Cannula 4.0 36 05/26/18 12:00 98.0 90 20 121/71 (88) 95 05/26/18 12:00 86 05/26/18 10:28 98.1 05/26/18 09:33 80 22 93 Nasal Cannula 3.0 32 05/26/18 09:33 88 22 94 Nasal Cannula 4.0 36 05/26/18 09:00 Nasal Cannula 2.0 05/26/18 08:00 91 05/26/18 08:00 98.1 83 20 134/83 (100) 95 05/26/18 04:00 86 05/26/18 04:00 98.5 87 20 130/70 (90) 91 05/26/18 02:35 Nasal Cannula 4.0 36 05/26/18 02:35 Nasal Cannula 4.0 36 05/26/18 00:00 89 05/26/18 00:00 98.3 88 18 132/71 (91) 94 05/25/18 23:21 88 22 94 Nasal Cannula 4.0 36 05/25/18 23:21 88 22 94 Nasal Cannula 4.0 36 05/25/18 21:00 Nasal Cannula 2.0 05/25/18 21:00 Nasal Cannula 2.0 05/25/18 20:36 92 20 94 Nasal Cannula 4.0 36 05/25/18 20:36 93 20 94 Nasal Cannula 4.0 36 05/25/18 20:00 90 05/25/18 20:00 98.6 91 18 159/83 (108) 96 Intake and Output 05/25/18 05/26/18 19:00 07:00 Output Total 700 ml 200 ml Balance -700 ml -200 ml Output Urine Total 700 ml 200 ml Laboratory Tests 05/26/18 14:00: Urine Total Volume 24 Hours [Pending], Urine Creatinine 24 Hour [Pending], Urine Total Protein Timed [Pending], Urine Protein/Creatinine Ratio [Pending], Urine Albumin (%) [Pending], Urine Sgkze-9-Gfikkhcfr (%) [Pending], Urine Alpha- 2-Globulins (%) [Pending], Urine Beta-Globulin (%) [Pending], Urine Gamma Globulin (%) [Pending], Urine Protein Electrophoresis Intrp [Pending] Height (Feet): 5 Height (Inches): 9.00 Weight (Pounds): 290 Objective WD obese WM NCAT supple CTA RRR abd distended, tympanitic no edema Giorgi Black MD May 26, 2018 19:08
--- NOTE | 2018-05-26 19:35 | NUR ---
NURSE NOTES: Received patient from JASEN Jordan. Patient on bed on his right side. Denies pain at this time. Sleepy and noted fatigue. Arousable to voice. Urinal at bedside. IV site on right forearm 22G running NS at 125cc/hr. Bed brakes engaged. Call light within reach. On NC at 2L. No SOB.
--- NOTE | 2018-05-26 19:45 | NUR ---
HAND-OFF: Report given to JASEN Arreola. Plan of care endorsed.
[2018-05-26] MEDS: Miralax 17gm pkt ORAL SCH (20:57)
[2018-05-26] MEDS: Atorvastatin 20mg tab ORAL SCH (20:57)
[2018-05-26] MEDS: HYDROcodone/Acetamin 10/325 tab ORAL PRN (21:10)
--- NOTE | 2018-05-26 22:29 | General Progress Note ---
Assessment/Plan Problem List: (1) COPD (chronic obstructive pulmonary disease) ICD Codes: J44.9 - Chronic obstructive pulmonary disease, unspecified SNOMED: 51452646 (2) Multiple fractures of ribs ICD Codes: S22.49XA - Multiple fractures of ribs, unspecified side, initial encounter for closed fracture SNOMED: 9184165 Qualifiers: Qualified Codes: S22.41XA - Multiple fractures of ribs, right side, initial encounter for closed fracture Status: progressing Assessment/Plan distended abdomin copd rib fracture no wheezing r/o infection not hypoxic nebs ordered for sob Subjective ROS Limited/Unobtainable: Yes Allergies: Coded Allergies: No Known Allergies (Unverified , 04/04/13) Objective Last 24 Hour Vital Signs Date Time Temp Pulse Resp B/P (MAP) Pulse Ox O2 Delivery O2 Flow Rate FiO2 05/26/18 21:20 92 20 93 Nasal Cannula 4.0 36 05/26/18 21:18 92 20 94 Nasal Cannula 4.0 36 05/26/18 21:00 Nasal Cannula 2.0 05/26/18 20:41 96 05/26/18 20:00 99.6 96 18 133/69 (90) 99 05/26/18 16:00 98.2 100 20 128/76 (93) 95 05/26/18 16:00 100 05/26/18 15:06 88 22 95 Nasal Cannula 4.0 36 05/26/18 15:06 88 22 95 Nasal Cannula 4.0 36 05/26/18 12:00 98.0 90 20 121/71 (88) 95 05/26/18 12:00 86 05/26/18 10:28 98.1 05/26/18 09:33 80 22 93 Nasal Cannula 3.0 32 05/26/18 09:33 88 22 94 Nasal Cannula 4.0 36 05/26/18 09:00 Nasal Cannula 2.0 05/26/18 08:00 91 05/26/18 08:00 98.1 83 20 134/83 (100) 95 05/26/18 04:00 86 05/26/18 04:00 98.5 87 20 130/70 (90) 91 05/26/18 02:35 Nasal Cannula 4.0 36 05/26/18 02:35 Nasal Cannula 4.0 36 05/26/18 00:00 89 05/26/18 00:00 98.3 88 18 132/71 (91) 94 05/25/18 23:21 88 22 94 Nasal Cannula 4.0 36 05/25/18 23:21 88 22 94 Nasal Cannula 4.0 36 Intake and Output 05/25/18 05/26/18 18:59 06:59 Output Total 700 ml 200 ml Balance -700 ml -200 ml Output Urine Total 700 ml 200 ml Laboratory Tests 05/26/18 14:00: Urine Total Volume 24 Hours [Pending], Urine Creatinine 24 Hour [Pending], Urine Total Protein Timed [Pending], Urine Protein/Creatinine Ratio [Pending], Urine Albumin (%) [Pending], Urine Jmgpa-7-Ykvhpufbm (%) [Pending], Urine Alpha- 2-Globulins (%) [Pending], Urine Beta-Globulin (%) [Pending], Urine Gamma Globulin (%) [Pending], Urine Protein Electrophoresis Intrp [Pending] Height (Feet): 5 Height (Inches): 9.00 Weight (Pounds): 290 Cardiovascular: normal rate Respiratory/Chest: lungs clear Abdomen: tender Leonard Caballero MD May 26, 2018 22:29
--- NOTE | 2018-05-26 23:05 | NUR ---
NURSE NOTES: , Diamante, called at this time regarding patient's condition. Notified patient and made aware that is asking for information and is not on his contact list prior to admission. Patient agreed to give information to his . .
--- NOTE | 2018-05-27 01:17 | General Progress Note ---
Assessment/Plan Assessment/Plan Assessment and Recs: # Adenopathy -- with enlarged peripancreatic lymph nodes, with a node or conglomerate of nodes measuring up to 5 x 1.5 cm diameter. --> imaging has been reviewed --> tumor markers have been ordered as well --> if tumor markers normal, consider reimage in [address] abd/pelvis with iv contrast --> ct a/p for bowel pattern gas eval ordered on this admision # Leukocytosis -- general level 10-15k, potentially reactive process related --> smear has been ordered and pending --> no fevers or chills at this time, monitor --> trend as needed # Multiple fractures of ribs --> pain management --> surg recs appreciated # Nausea/vomiting -- eval with gi service as required --> ct a/p pending Greatly appreciate consultation! Subjective Constitutional: Denies: no symptoms, chills, diaphoresis, fever, malaise, weakness, other HEENT: Denies: no symptoms, eye pain, blurred vision, tearing, double vision, ear pain, ear discharge, nose pain, nose congestion, throat pain, throat swelling, mouth pain, mouth swelling, other Cardiovascular: Denies: no symptoms, chest pain, edema, irregular heart rate, lightheadedness, palpitations, syncope, other Respiratory: Denies: no symptoms, cough, orthopnea, shortness of breath, SOB with excertion, SOB at rest, sputum, stridor, wheezing, other Gastrointestinal/Abdominal: Denies: no symptoms, abdomen distended, abdominal pain, black stools, tarry stools, blood in stool, constipated, diarrhea, difficulty swallowing, nausea, poor appetite, poor fluid intake, rectal bleeding , vomiting, other Genitourinary: Denies: no symptoms, burning, discharge, frequency, flank pain, hematuria, incontinence, pain, urgency, other Neurologic/Psychiatric: Denies: no symptoms, anxiety, depressed, emotional problems, headache, numbness, paresthesia, pre-existing deficit, seizure, tingling, tremors, weakness, other Endocrine: Denies: no symptoms, excessive sweating, flushing, intolerance to cold, intolerance to heat, increased hunger, increased thirst, increased urine, unexplained weight gain, unexplained weight loss, other Hematologic/Lymphatic: Denies: no symptoms, anemia, easy bleeding, easy bruising, other Allergies: Coded Allergies: No Known Allergies (Unverified , 04/04/13) Subjective 05/26/18: Patient is resting in bed. Sleepy, fatigue, cbc reviewed. wbc 13.9 today Objective Last 24 Hour Vital Signs Date Time Temp Pulse Resp B/P (MAP) Pulse Ox O2 Delivery O2 Flow Rate FiO2 05/27/18 00:34 86 17 94 Facial 36 05/26/18 23:53 98.7 84 18 137/84 (101) 93 05/26/18 23:46 88 20 93 Nasal Cannula 4.0 36 05/26/18 23:44 84 20 93 Nasal Cannula 4.0 36 05/26/18 21:20 92 20 93 Nasal Cannula 4.0 36 05/26/18 21:18 92 20 94 Nasal Cannula 4.0 36 05/26/18 21:00 Nasal Cannula 2.0 05/26/18 20:41 96 05/26/18 20:00 99.6 96 18 133/69 (90) 99 05/26/18 16:00 98.2 100 20 128/76 (93) 95 05/26/18 16:00 100 05/26/18 15:06 88 22 95 Nasal Cannula 4.0 36 05/26/18 15:06 88 22 95 Nasal Cannula 4.0 36 05/26/18 12:00 98.0 90 20 121/71 (88) 95 05/26/18 12:00 86 05/26/18 10:28 98.1 05/26/18 09:33 80 22 93 Nasal Cannula 3.0 32 05/26/18 09:33 88 22 94 Nasal Cannula 4.0 36 05/26/18 09:00 Nasal Cannula 2.0 05/26/18 08:00 91 05/26/18 08:00 98.1 83 20 134/83 (100) 95 05/26/18 04:00 86 05/26/18 04:00 98.5 87 20 130/70 (90) 91 05/26/18 02:35 Nasal Cannula 4.0 36 05/26/18 02:35 Nasal Cannula 4.0 36 Intake and Output 05/26/18 05/27/18 18:59 06:59 Intake Total 600 ml Output Total 800 ml Balance -200 ml Intake Oral 600 ml Output Urine Total 800 ml # Bowel Movements 1 Laboratory Tests 05/26/18 14:00: Urine Total Volume 24 Hours [Pending], Urine Creatinine 24 Hour [Pending], Urine Total Protein Timed [Pending], Urine Protein/Creatinine Ratio [Pending], Urine Albumin (%) [Pending], Urine Weamu-0-Uizuaptyf (%) [Pending], Urine Alpha- 2-Globulins (%) [Pending], Urine Beta-Globulin (%) [Pending], Urine Gamma Globulin (%) [Pending], Urine Protein Electrophoresis Intrp [Pending] Height (Feet): 5 Height (Inches): 9.00 Weight (Pounds): 290 Objective General Appearance: alert Lines, tubes and drains: peripheral HEENT: mmm Neck: supple Respiratory/Chest: normal breath sounds, decreased breath sounds, other - tender on right with palpation Cardiovascular/Chest: regular rhythm Abdomen: soft, no organomegaly, no mass Extremities: normal inspection Skin Exam: warm/dry Neurologic: alert, responsive Brian Escalera MD May 27, 2018 01:16
--- NOTE | 2018-05-27 02:00 | NUR ---
NURSE NOTES: Bipap was on for 1 hour and patient requested to have it removed. Explained risk and benefits but refused at this time. Ronal, RT, made aware and took it off of the patient.
[2018-05-27] MEDS: Albuterol 90mcg Inhaler 8gm INH SCH ×6 (03:00→23:38)
[2018-05-27] MEDS: D5 1/2NS 1,000 ML IV SCH ×3 (03:44→19:53)
[2018-05-27 04:00] VITALS: BP 151/72
[2018-05-27] MEDS: HYDROmorphone 1mg/ml Carpuject IVP PRN ×3 (04:15→20:35)
--- NOTE | 2018-05-27 06:01 | NUR ---
NURSE NOTES: RN explained to patient regarding bipap use. At this time, patient verbalizes understanding and will try again tonight. Will let AM nurse know.
--- NOTE | 2018-05-27 07:21 | NUR ---
NURSE NOTES: RECEIVED PATIENT FROM Zak CHARLTON RN. PATIENT IS LYING IN BED, ASLEEP. HOOKED TO [employer]CTION[employer]IST. ON 2L NC. NO SIGNS OF CARDIO OR RESPI DISTRESS OF THE MOMENT. ABLE TO USE THE URINAL. IV ON R FA G22 WITH IVF RUNNING D5 1/2 NS AT 125CC/HR. BED AT LOWEST POSITION. SIDE RAILS UP. CALL LIGHT WITHIN REACH. WILL CONTINUE TO MONITOR.
--- NOTE | 2018-05-27 07:30 | NUR ---
HAND-OFF: Report given to JASEN Atkins.
[2018-05-27 07:47] LABS: BASOPHILS % (AUTO) 1.2 % (0.0-2.0); EOSINOPHILS % (AUTO) 4.4 % (0.0-3.0); HEMATOCRIT 40.3 % (42.0-52.0); HEMOGLOBIN 13.3 G/DL (14.2-18.0); MEAN CORPUSCULAR VOLUME 104 FL (80-99); MONOCYTES % (AUTO) 11.6 % (1.0-10.0); NEUTROPHILS % (AUTO) 50.8 % (45.0-75.0); PLATELET COUNT 300 K/UL (150-450); RED BLOOD COUNT 3.87 M/UL (4.70-6.10); WHITE BLOOD COUNT 10.8 K/UL (4.8-10.8)
[2018-05-27 08:00] VITALS: BP 162/90
[2018-05-27] MEDS: cefTRIAXone 1 GM in D5W 55 ML IVPB SCH (08:02)
[2018-05-27] MEDS: Pantoprazole Inj IVP SCH (08:02)
[2018-05-27] MEDS: Allopurinol 100mg Tab ORAL SCH (08:03)
[2018-05-27] MEDS: HYDROcodone/Acetamin 10/325 tab ORAL PRN (08:05)
[2018-05-27] MEDS: Heparin 5000 units/ml inj SUBQ SCH ×2 (08:06→20:35)
[2018-05-27 08:22] LABS: ALANINE AMINOTRANSFERASE 48 U/L (12-78); ALBUMIN/GLOBULIN RATIO 0.8 (1.0-2.7); ALKALINE PHOSPHATASE 58 U/L (46-116); AMYLASE 41 U/L (25-115); ANION GAP 4 mmol/L (5-15); ASPARTATE AMINO TRANSFERASE 36 U/L (15-37); BILIRUBIN,TOTAL 0.4 MG/DL (0.2-1.0); BLOOD UREA NITROGEN 10 mg/dL (7-18); CALCIUM 8.9 MG/DL (8.5-10.1); CARBON DIOXIDE 36 MMOL/L (21-32); CHLORIDE 99 MMOL/L (98-107); SODIUM 139 MMOL/L (136-145)
[2018-05-27] MEDS: Breo Ellipta 200/25mcg-14 dose INH SCH (10:13)
--- NOTE | 2018-05-27 10:51 | General Surgery Progress Note ---
General Surgery-Progress Note Subjective Additional Comments still with pain but improving. no n/v/f/c. leukocytosis resolved Objective Last 24 Hour Vital Signs Date Time Temp Pulse Resp B/P (MAP) Pulse Ox O2 Delivery O2 Flow Rate FiO2 05/27/18 09:00 Nasal Cannula 2.0 05/27/18 08:03 87 20 94 Nasal Cannula 4.0 36 05/27/18 08:03 87 20 94 Nasal Cannula 4.0 36 05/27/18 08:00 90 05/27/18 08:00 97.8 85 19 162/90 (114) 95 05/27/18 04:00 98.6 81 18 151/72 (98) 95 05/27/18 03:43 80 05/27/18 03:14 Nasal Cannula 4.0 36 05/27/18 03:13 Nasal Cannula 4.0 36 05/27/18 00:34 86 17 94 Facial 36 05/26/18 23:53 98.7 84 18 137/84 (101) 93 05/26/18 23:46 88 20 93 Nasal Cannula 4.0 36 05/26/18 23:44 84 20 93 Nasal Cannula 4.0 36 05/26/18 23:30 82 05/26/18 21:20 92 20 93 Nasal Cannula 4.0 36 05/26/18 21:18 92 20 94 Nasal Cannula 4.0 36 05/26/18 21:00 Nasal Cannula 2.0 05/26/18 20:41 96 05/26/18 20:00 99.6 96 18 133/69 (90) 99 05/26/18 16:00 98.2 100 20 128/76 (93) 95 05/26/18 16:00 100 05/26/18 15:06 88 22 95 Nasal Cannula 4.0 36 05/26/18 15:06 88 22 95 Nasal Cannula 4.0 36 05/26/18 12:00 98.0 90 20 121/71 (88) 95 05/26/18 12:00 86 I&O Intake and Output 05/26/18 05/27/18 19:00 07:00 Intake Total 600 ml 240 ml Output Total 800 ml 575 ml Balance -200 ml -335 ml Intake Oral 600 ml 240 ml Output Urine Total 800 ml 575 ml # Bowel Movements 1 Drains: none Cardiovascular: RSR Respiratory: clear Abdomen: soft, non-tender, present bowel sounds Extremities: no tenderness, no cyanosis Laboratory Tests Test 05/26/18 14:00 05/27/18 06:04 Urine Total Volume 24 Hours Pending Urine Creatinine 24 Hour Pending Urine Total Protein Timed Pending Urine Protein/Creatinine Ratio Pending Urine Albumin (%) Pending Urine Hgsln-4-Hvptefwvc (%) Pending Urine Hmosc-9-Tldjxmvmd (%) Pending Urine Beta-Globulin (%) Pending Urine Gamma Globulin (%) Pending Urine Protein Electrophoresis Intrp Pending White Blood Count 10.8 K/UL (4.8-10.8) Red Blood Count 3.87 M/UL (4.70-6.10) L Hemoglobin 13.3 G/DL (14.2-18.0) L Hematocrit 40.3 % (42.0-52.0) L Mean Corpuscular Volume 104 FL (80-99) H Mean Corpuscular Hemoglobin 34.3 PG (27.0-31.0) H Mean Corpuscular Hemoglobin Concent 33.0 G/DL (32.0-36.0) Red Cell Distribution Width 13.0 % (11.6-14.8) Platelet Count 300 K/UL (150-450) Mean Platelet Volume 7.0 FL (6.5-10.1) Neutrophils (%) (Auto) 50.8 % (45.0-75.0) Lymphocytes (%) (Auto) 32.0 % (20.0-45.0) Monocytes (%) (Auto) 11.6 % (1.0-10.0) H Eosinophils (%) (Auto) 4.4 % (0.0-3.0) H Basophils (%) (Auto) 1.2 % (0.0-2.0) Erythrocyte Sedimentation Rate 58 MM/HR (0-20) H Sodium Level 139 MMOL/L (136-145) Potassium Level 4.0 MMOL/L (3.5-5.1) Chloride Level 99 MMOL/L (98-107) Carbon Dioxide Level 36 MMOL/L (21-32) H Anion Gap 4 mmol/L (5-15) L Blood Urea Nitrogen 10 mg/dL (7-18) Creatinine 1.0 MG/DL (0.55-1.30) Estimat Glomerular Filtration Rate > 60 mL/min (>60) Glucose Level 106 MG/DL (74-106) Calcium Level 8.9 MG/DL (8.5-10.1) Total Bilirubin 0.4 MG/DL (0.2-1.0) Aspartate Amino Transf (AST/SGOT) 36 U/L (15-37) Alanine Aminotransferase (ALT/SGPT) 48 U/L (12-78) Alkaline Phosphatase 58 U/L (46-116) C-Reactive Protein, Quantitative 5.0 mg/dL (0.00-0.90) H Total Protein 7.0 G/DL (6.4-8.2) Albumin 3.0 G/DL (3.4-5.0) L Globulin 4.0 g/dL Albumin/Globulin Ratio 0.8 (1.0-2.7) L Amylase Level 41 U/L (25-115) Lipase 195 U/L (73-393) Plan Problems: (1) Multiple fractures of ribs Assessment & Plan: s/p fall with multiple rib fx respiratory stable for now labs noted cxr noted leukocytosis resolved pain better controlled. -needs aggressive pulmonary toilet -pain control appreciate pain management input -okay for diet -bowel regimen -activity as tolerated -d/c planning -incentive spirometry thank you . will follow with Juan Antonio Valencia May 27, 2018 10:51
--- NOTE | 2018-05-27 11:01 | General Progress Note ---
Assessment/Plan Assessment/Plan Assessment - Central obesity - likely component of constipation - no significant abd pathology per CT Recommendations - laxative trial - advance diet - OOB Subjective ROS Limited/Unobtainable: Yes Allergies: Coded Allergies: No Known Allergies (Unverified , 04/04/13) Objective Last 24 Hour Vital Signs Date Time Temp Pulse Resp B/P (MAP) Pulse Ox O2 Delivery O2 Flow Rate FiO2 05/27/18 09:00 Nasal Cannula 2.0 05/27/18 08:03 87 20 94 Nasal Cannula 4.0 36 05/27/18 08:03 87 20 94 Nasal Cannula 4.0 36 05/27/18 08:00 90 05/27/18 08:00 97.8 85 19 162/90 (114) 95 05/27/18 04:00 98.6 81 18 151/72 (98) 95 05/27/18 03:43 80 05/27/18 03:14 Nasal Cannula 4.0 36 05/27/18 03:13 Nasal Cannula 4.0 36 05/27/18 00:34 86 17 94 Facial 36 05/26/18 23:53 98.7 84 18 137/84 (101) 93 05/26/18 23:46 88 20 93 Nasal Cannula 4.0 36 05/26/18 23:44 84 20 93 Nasal Cannula 4.0 36 05/26/18 23:30 82 05/26/18 21:20 92 20 93 Nasal Cannula 4.0 36 05/26/18 21:18 92 20 94 Nasal Cannula 4.0 36 05/26/18 21:00 Nasal Cannula 2.0 05/26/18 20:41 96 05/26/18 20:00 99.6 96 18 133/69 (90) 99 05/26/18 16:00 98.2 100 20 128/76 (93) 95 05/26/18 16:00 100 05/26/18 15:06 88 22 95 Nasal Cannula 4.0 36 05/26/18 15:06 88 22 95 Nasal Cannula 4.0 36 05/26/18 12:00 98.0 90 20 121/71 (88) 95 05/26/18 12:00 86 Intake and Output 05/26/18 05/27/18 19:00 07:00 Intake Total 600 ml 240 ml Output Total 800 ml 575 ml Balance -200 ml -335 ml Intake Oral 600 ml 240 ml Output Urine Total 800 ml 575 ml # Bowel Movements 1 Laboratory Tests 05/26/18 14:00: Urine Total Volume 24 Hours [Pending], Urine Creatinine 24 Hour [Pending], Urine Total Protein Timed [Pending], Urine Protein/Creatinine Ratio [Pending], Urine Albumin (%) [Pending], Urine Mzpti-3-Hcmveqsuz (%) [Pending], Urine Alpha- 2-Globulins (%) [Pending], Urine Beta-Globulin (%) [Pending], Urine Gamma Globulin (%) [Pending], Urine Protein Electrophoresis Intrp [Pending] 05/27/18 06:04: White Blood Count 10.8, Red Blood Count 3.87L, Hemoglobin 13.3L, Hematocrit 40.3L, Mean Corpuscular Volume 104H, Mean Corpuscular Hemoglobin 34.3H, Mean Corpuscular Hemoglobin Concent 33.0, Red Cell Distribution Width 13.0, Platelet Count 300, Mean Platelet Volume 7.0, Neutrophils (%) (Auto) 50.8, Lymphocytes (% ) (Auto) 32.0, Monocytes (%) (Auto) 11.6H, Eosinophils (%) (Auto) 4.4H, Basophils (%) (Auto) 1.2, Erythrocyte Sedimentation Rate 58H, Sodium Level 139, Potassium Level 4.0, Chloride Level 99, Carbon Dioxide Level 36H, Anion Gap 4L, Blood Urea Nitrogen 10, Creatinine 1.0, Estimat Glomerular Filtration Rate > 60 , Glucose Level 106, Calcium Level 8.9, Total Bilirubin 0.4, Aspartate Amino Transf (AST/SGOT) 36, Alanine Aminotransferase (ALT/SGPT) 48, Alkaline Phosphatase 58, C-Reactive Protein, Quantitative 5.0H, Total Protein 7.0, Albumin 3.0L, Globulin 4.0, Albumin/Globulin Ratio 0.8L, Amylase Level 41, Lipase 195 Height (Feet): 5 Height (Inches): 9.00 Weight (Pounds): 290 General Appearance: alert EENT: normal ENT inspection Neck: supple Cardiovascular: normal rate Respiratory/Chest: decreased breath sounds Abdomen: normal bowel sounds, non tender, soft Inder Collins MD May 27, 2018 11:01
--- NOTE | 2018-05-27 11:22 | Pulmonology Progress Note ---
Assessment/Plan Problems: (1) Multiple fractures of ribs (2) COPD (chronic obstructive pulmonary disease) Assessment/Plan ASSESSMENT: The patient is a 62-year-old male former smoker with a history of obesity, chronic obstructive pulmonary disease, gout, hypothyroidism, hypertension, and hyperlipidemia, presenting with hypoxemia in the setting of recent fall and rib fractures with bibasilar dependent atelectasis. PROBLEM LIST: 1. Right fifth, sixth and seventh fractures. 2. Mechanical fall. 3. COPD without evidence of exacerbation. 4. Atelectasis. 5. Acute on chronic hypercapnic respiratory failure 6. Hypoxemia secondary to combination of above. 7. Constipation. 8. Peripancreatic lymphadenopathy noted on CT of the chest. 9. Hypertension, hyperlipidemia, hypothyroidism, and gout. 10. Obesity, with possible underlying VESTA. TREATMENT PLAN: 1. Optimize pulmonary hygiene/mobilize as tolerated. 2. Titrate FiO2 to keep saturations greater than 90%. 3. P.r.n. bronchodilators. 4. Continue Breo. 5. Incentive spirometer. 6. Pain control/supportive care. 7. Bowel regimen. 8. Follow up Oncology recommendations regarding workup of peripancreatic lymph node, it seems the plan is for outpatient imaging. 9. DVT prophylaxis, heparin subcutaneous. 10. BiPAP 12/5 qHS and PRN - ENCOURAGE COMPLIANCE 11. Needs formal PFT and PSG as an outpatient 12. Follow tumor markers as ordered by Oncology. Subjective Allergies: Coded Allergies: No Known Allergies (Unverified , 04/04/13) Subjective AFVSS O2 needs stable pain better refused IS less SOB no FC using IS Objective Last 24 Hour Vital Signs Date Time Temp Pulse Resp B/P (MAP) Pulse Ox O2 Delivery O2 Flow Rate FiO2 05/27/18 09:00 Nasal Cannula 2.0 05/27/18 08:03 87 20 94 Nasal Cannula 4.0 36 05/27/18 08:03 87 20 94 Nasal Cannula 4.0 36 05/27/18 08:00 90 05/27/18 08:00 97.8 85 19 162/90 (114) 95 05/27/18 04:00 98.6 81 18 151/72 (98) 95 05/27/18 03:43 80 05/27/18 03:14 Nasal Cannula 4.0 36 05/27/18 03:13 Nasal Cannula 4.0 36 05/27/18 00:34 86 17 94 Facial 36 05/26/18 23:53 98.7 84 18 137/84 (101) 93 05/26/18 23:46 88 20 93 Nasal Cannula 4.0 36 05/26/18 23:44 84 20 93 Nasal Cannula 4.0 36 05/26/18 23:30 82 05/26/18 21:20 92 20 93 Nasal Cannula 4.0 36 05/26/18 21:18 92 20 94 Nasal Cannula 4.0 36 05/26/18 21:00 Nasal Cannula 2.0 05/26/18 20:41 96 05/26/18 20:00 99.6 96 18 133/69 (90) 99 05/26/18 16:00 98.2 100 20 128/76 (93) 95 05/26/18 16:00 100 05/26/18 15:06 88 22 95 Nasal Cannula 4.0 36 05/26/18 15:06 88 22 95 Nasal Cannula 4.0 36 05/26/18 12:00 98.0 90 20 121/71 (88) 95 05/26/18 12:00 86 Intake and Output 05/26/18 05/27/18 19:00 07:00 Intake Total 600 ml 240 ml Output Total 800 ml 575 ml Balance -200 ml -335 ml Intake Oral 600 ml 240 ml Output Urine Total 800 ml 575 ml # Bowel Movements 1 General Appearance: other - obese male HEENT: normocephalic, atraumatic, anicteric, mucous membranes moist Respiratory/Chest: chest wall non-tender, lungs clear, normal breath sounds, no respiratory distress Cardiovascular: normal peripheral pulses, normal rate, regular rhythm Abdomen: normal bowel sounds, soft, non tender, no organomegaly, non distended , no mass Extremities: no cyanosis, no clubbing, other - 1+ ALLISON Laboratory Tests 05/26/18 14:00: Urine Total Volume 24 Hours [Pending], Urine Creatinine 24 Hour [Pending], Urine Total Protein Timed [Pending], Urine Protein/Creatinine Ratio [Pending], Urine Albumin (%) [Pending], Urine Odifu-3-Incujvwhx (%) [Pending], Urine Alpha- 2-Globulins (%) [Pending], Urine Beta-Globulin (%) [Pending], Urine Gamma Globulin (%) [Pending], Urine Protein Electrophoresis Intrp [Pending] 05/27/18 06:04: White Blood Count 10.8, Red Blood Count 3.87L, Hemoglobin 13.3L, Hematocrit 40.3L, Mean Corpuscular Volume 104H, Mean Corpuscular Hemoglobin 34.3H, Mean Corpuscular Hemoglobin Concent 33.0, Red Cell Distribution Width 13.0, Platelet Count 300, Mean Platelet Volume 7.0, Neutrophils (%) (Auto) 50.8, Lymphocytes (% ) (Auto) 32.0, Monocytes (%) (Auto) 11.6H, Eosinophils (%) (Auto) 4.4H, Basophils (%) (Auto) 1.2, Erythrocyte Sedimentation Rate 58H, Sodium Level 139, Potassium Level 4.0, Chloride Level 99, Carbon Dioxide Level 36H, Anion Gap 4L, Blood Urea Nitrogen 10, Creatinine 1.0, Estimat Glomerular Filtration Rate > 60 , Glucose Level 106, Calcium Level 8.9, Total Bilirubin 0.4, Aspartate Amino Transf (AST/SGOT) 36, Alanine Aminotransferase (ALT/SGPT) 48, Alkaline Phosphatase 58, C-Reactive Protein, Quantitative 5.0H, Total Protein 7.0, Albumin 3.0L, Globulin 4.0, Albumin/Globulin Ratio 0.8L, Amylase Level 41, Lipase 195 Current Medications Medications (Trade) Dose Ordered Sig/Ryan Route PRN Reason Start Time Stop Time Status Last Admin Dose Admin Acetaminophen/ Hydrocodone Bitart ([place] 10/325) 1 tab Q4H PRN ORAL moderate pain 05/22/18 19:45 05/29/18 19:44 05/27/18 08:05 Albuterol Sulfate (Proventil MDI) 1 puff Q4HRT INH 05/25/18 11:00 06/21/18 10:59 05/27/18 08:02 Albuterol/ Ipratropium (Albuterol/ Ipratropium) 3 ml Q4H PRN HHN Shortness of Breath 05/24/18 01:00 05/29/18 00:59 Albuterol/ Ipratropium (Albuterol/ Ipratropium) 3 ml Q4H PRN HHN Shortness of Breath 05/25/18 14:30 05/30/18 14:29 Allopurinol (Zyloprim) 100 mg DAILY ORAL 05/23/18 09:00 06/22/18 08:59 05/27/18 08:03 Atorvastatin Calcium (Lipitor) 20 mg BEDTIME ORAL 05/22/18 21:00 06/21/18 20:59 05/26/18 20:57 Ceftriaxone Sodium 1 gm/ Dextrose 55 ml @ 110 mls/hr DAILY IVPB 05/25/18 14:00 06/01/18 13:59 05/27/18 08:02 Dextrose/Sodium Chloride 1,000 ml @ 125 mls/hr Q8H IV 05/24/18 19:45 06/23/18 19:44 05/27/18 03:44 Fluticasone/ Vilanterol (Breo Ellipta 200/25) 1 puffs DAILY INH 05/23/18 09:00 06/22/18 08:59 05/27/18 10:13 Gabapentin (Neurontin) 300 mg THREE TIMES A DAY ORAL 05/26/18 10:30 06/25/18 10:29 05/27/18 08:03 Heparin Sodium (Porcine) (Heparin 5000 units/ml) 5,000 units EVERY 12 HOURS SUBQ 05/25/18 21:00 06/24/18 20:59 05/27/18 08:06 Hydromorphone HCl (Dilaudid) 1 mg Q4H PRN IVP severe pain 05/26/18 01:30 05/29/18 19:44 05/27/18 09:58 Lactulose (Cephulac) 30 gm Q4H PRN ORAL Constipation 05/25/18 10:00 06/24/18 09:59 05/26/18 10:58 Levothyroxine Sodium (Synthroid) 100 mcg DAILY@0630 ORAL 05/23/18 06:30 06/22/18 06:29 05/27/18 06:06 Lidocaine (Lidoderm 5% PATCH) 1 patch DAILY TDERMAL 05/23/18 09:00 06/22/18 08:59 05/27/18 08:06 Ondansetron HCl (Zofran) 4 mg Q6H PRN IVP Nausea & Vomiting 05/23/18 00:45 06/22/18 00:44 05/23/18 10:21 Pantoprazole (Protonix) 40 mg DAILY IVP 05/24/18 19:45 06/23/18 19:44 05/27/18 08:02 Polyethylene Glycol (Miralax) 17 gm BEDTIME ORAL 05/26/18 21:00 06/25/18 20:59 05/26/18 20:57 Wade Rasheed MD May 27, 2018 11:22
--- NOTE | 2018-05-27 11:26 | Infectious Diseases Prog Note ---
Assessment/Plan Assessment/Plan antibiotics : ceftriaxone A 1. pneumonia 2. COPD 3. right 5th and 7th rib fracture 4. hypertension 5. leucocytosis resolved P 1. continue ceftriaxone 2. will follow up cultures Subjective Constitutional: Denies: fever, chills Respiratory: Reports: shortness of breath, dry cough Gastrointestinal/Abdominal: Denies: nausea, vomiting, diarrhea Musculoskeletal: Denies: pain Allergies: Coded Allergies: No Known Allergies (Unverified , 04/04/13) Objective Vital Signs Last 24 Hour Vital Signs Date Time Temp Pulse Resp B/P (MAP) Pulse Ox O2 Delivery O2 Flow Rate FiO2 05/27/18 09:00 Nasal Cannula 2.0 05/27/18 08:03 87 20 94 Nasal Cannula 4.0 36 05/27/18 08:03 87 20 94 Nasal Cannula 4.0 36 05/27/18 08:00 90 05/27/18 08:00 97.8 85 19 162/90 (114) 95 05/27/18 04:00 98.6 81 18 151/72 (98) 95 05/27/18 03:43 80 05/27/18 03:14 Nasal Cannula 4.0 36 05/27/18 03:13 Nasal Cannula 4.0 36 05/27/18 00:34 86 17 94 Facial 36 05/26/18 23:53 98.7 84 18 137/84 (101) 93 05/26/18 23:46 88 20 93 Nasal Cannula 4.0 36 05/26/18 23:44 84 20 93 Nasal Cannula 4.0 36 05/26/18 23:30 82 05/26/18 21:20 92 20 93 Nasal Cannula 4.0 36 05/26/18 21:18 92 20 94 Nasal Cannula 4.0 36 05/26/18 21:00 Nasal Cannula 2.0 05/26/18 20:41 96 05/26/18 20:00 99.6 96 18 133/69 (90) 99 05/26/18 16:00 98.2 100 20 128/76 (93) 95 05/26/18 16:00 100 05/26/18 15:06 88 22 95 Nasal Cannula 4.0 36 05/26/18 15:06 88 22 95 Nasal Cannula 4.0 36 05/26/18 12:00 98.0 90 20 121/71 (88) 95 05/26/18 12:00 86 Height (Feet): 5 Height (Inches): 9.00 Weight (Pounds): 290 Respiratory/Chest: lungs clear Cardiovascular: normal rate, regular rhythm, no gallop/murmur Abdomen: soft, non tender Extremities: no edema Laboratory Tests Test 05/26/18 14:00 05/27/18 06:04 Urine Total Volume 24 Hours Pending Urine Creatinine 24 Hour Pending Urine Total Protein Timed Pending Urine Protein/Creatinine Ratio Pending Urine Albumin (%) Pending Urine Gqixp-7-Bkvnqqazd (%) Pending Urine Myiks-6-Tnsqdsfuo (%) Pending Urine Beta-Globulin (%) Pending Urine Gamma Globulin (%) Pending Urine Protein Electrophoresis Intrp Pending White Blood Count 10.8 K/UL (4.8-10.8) Red Blood Count 3.87 M/UL (4.70-6.10) L Hemoglobin 13.3 G/DL (14.2-18.0) L Hematocrit 40.3 % (42.0-52.0) L Mean Corpuscular Volume 104 FL (80-99) H Mean Corpuscular Hemoglobin 34.3 PG (27.0-31.0) H Mean Corpuscular Hemoglobin Concent 33.0 G/DL (32.0-36.0) Red Cell Distribution Width 13.0 % (11.6-14.8) Platelet Count 300 K/UL (150-450) Mean Platelet Volume 7.0 FL (6.5-10.1) Neutrophils (%) (Auto) 50.8 % (45.0-75.0) Lymphocytes (%) (Auto) 32.0 % (20.0-45.0) Monocytes (%) (Auto) 11.6 % (1.0-10.0) H Eosinophils (%) (Auto) 4.4 % (0.0-3.0) H Basophils (%) (Auto) 1.2 % (0.0-2.0) Erythrocyte Sedimentation Rate 58 MM/HR (0-20) H Sodium Level 139 MMOL/L (136-145) Potassium Level 4.0 MMOL/L (3.5-5.1) Chloride Level 99 MMOL/L (98-107) Carbon Dioxide Level 36 MMOL/L (21-32) H Anion Gap 4 mmol/L (5-15) L Blood Urea Nitrogen 10 mg/dL (7-18) Creatinine 1.0 MG/DL (0.55-1.30) Estimat Glomerular Filtration Rate > 60 mL/min (>60) Glucose Level 106 MG/DL (74-106) Calcium Level 8.9 MG/DL (8.5-10.1) Total Bilirubin 0.4 MG/DL (0.2-1.0) Aspartate Amino Transf (AST/SGOT) 36 U/L (15-37) Alanine Aminotransferase (ALT/SGPT) 48 U/L (12-78) Alkaline Phosphatase 58 U/L (46-116) C-Reactive Protein, Quantitative 5.0 mg/dL (0.00-0.90) H Total Protein 7.0 G/DL (6.4-8.2) Albumin 3.0 G/DL (3.4-5.0) L Globulin 4.0 g/dL Albumin/Globulin Ratio 0.8 (1.0-2.7) L Amylase Level 41 U/L (25-115) Lipase 195 U/L (73-393) Current Medications Medications (Trade) Dose Ordered Sig/Ryan Route PRN Reason Start Time Stop Time Status Last Admin Dose Admin Acetaminophen/ Hydrocodone Bitart ([place] 10/325) 1 tab Q4H PRN ORAL moderate pain 05/22/18 19:45 05/29/18 19:44 05/27/18 08:05 Albuterol Sulfate (Proventil MDI) 1 puff Q4HRT INH 05/25/18 11:00 06/21/18 10:59 05/27/18 08:02 Albuterol/ Ipratropium (Albuterol/ Ipratropium) 3 ml Q4H PRN HHN Shortness of Breath 05/24/18 01:00 05/29/18 00:59 Albuterol/ Ipratropium (Albuterol/ Ipratropium) 3 ml Q4H PRN HHN Shortness of Breath 05/25/18 14:30 05/30/18 14:29 Allopurinol (Zyloprim) 100 mg DAILY ORAL 05/23/18 09:00 06/22/18 08:59 05/27/18 08:03 Atorvastatin Calcium (Lipitor) 20 mg BEDTIME ORAL 05/22/18 21:00 06/21/18 20:59 05/26/18 20:57 Ceftriaxone Sodium 1 gm/ Dextrose 55 ml @ 110 mls/hr DAILY IVPB 05/25/18 14:00 06/01/18 13:59 05/27/18 08:02 Dextrose/Sodium Chloride 1,000 ml @ 125 mls/hr Q8H IV 05/24/18 19:45 06/23/18 19:44 05/27/18 03:44 Fluticasone/ Vilanterol (Breo Ellipta 200/25) 1 puffs DAILY INH 05/23/18 09:00 06/22/18 08:59 05/27/18 10:13 Gabapentin (Neurontin) 300 mg THREE TIMES A DAY ORAL 05/26/18 10:30 06/25/18 10:29 05/27/18 08:03 Heparin Sodium (Porcine) (Heparin 5000 units/ml) 5,000 units EVERY 12 HOURS SUBQ 05/25/18 21:00 06/24/18 20:59 05/27/18 08:06 Hydromorphone HCl (Dilaudid) 1 mg Q4H PRN IVP severe pain 05/26/18 01:30 05/29/18 19:44 05/27/18 09:58 Lactulose (Cephulac) 30 gm Q4H PRN ORAL Constipation 05/25/18 10:00 06/24/18 09:59 05/26/18 10:58 Levothyroxine Sodium (Synthroid) 100 mcg DAILY@0630 ORAL 05/23/18 06:30 06/22/18 06:29 05/27/18 06:06 Lidocaine (Lidoderm 5% PATCH) 1 patch DAILY TDERMAL 05/23/18 09:00 06/22/18 08:59 05/27/18 08:06 Ondansetron HCl (Zofran) 4 mg Q6H PRN IVP Nausea & Vomiting 05/23/18 00:45 06/22/18 00:44 05/23/18 10:21 Pantoprazole (Protonix) 40 mg DAILY IVP 05/24/18 19:45 06/23/18 19:44 05/27/18 08:02 Polyethylene Glycol (Miralax) 17 gm BEDTIME ORAL 05/26/18 21:00 06/25/18 20:59 05/26/18 20:57 Mor Frias MD May 27, 2018 11:26
[2018-05-27 12:00] VITALS: BP 153/69
--- NOTE | 2018-05-27 14:44 | NUR ---
NURSE NOTES: MD MADE AWARE OF HR. DUE MEDS GIVEN FOR PAIN. NO SIGNS OF DISTRESS. WILL CONTINUE TO MONITOR.
--- NOTE | 2018-05-27 14:48 | NUR ---
NURSE NOTES: HR CONVERTED BACK TO SINUS. MADE AWARE. WILL CONTINUE TO MONITOR.
--- NOTE | 2018-05-27 15:01 | NUR ---
NURSE NOTES: DR HARDIN CALLED AND NEW ORDERS GIVEN. NO SIGNS OF DISTRESS. WILL CONTINUE TO MONITOR.
--- NOTE | 2018-05-27 15:52 | Diagnostic Imaging Report ---
EXAM: XR Chest, 1 View CLINICAL HISTORY: F/U TECHNIQUE: Frontal view of the chest. COMPARISON: CT chest dated 05/22/18 FINDINGS: Lungs: Mild perihilar pulmonary edema versus pulmonary vascular congestion. Subsegmental atelectasis versus infiltrate at the periphery of the right lung base. Pleural space: Small right pleural effusion. Heart: Heart appears enlarged, however this may be related to magnification from portable AP film technique. Mediastinum: Unremarkable. Bones/joints: Unremarkable. Tubes, lines and devices: EKG leads overlie the thorax. IMPRESSION: 1. Mild perihilar pulmonary edema versus pulmonary vascular congestion. 2. Subsegmental atelectasis versus infiltrate at the periphery of the right lung base. 3. Small right pleural effusion. 4. Heart appears enlarged, however this may be related to magnification from portable AP film technique.
--- NOTE | 2018-05-27 15:52 | Diagnostic Imaging Report ---
EXAM: XR Abdomen, 2 Views CLINICAL HISTORY: ABD DIST TECHNIQUE: Frontal views of the abdomen/pelvis. COMPARISON: CT abdomen and pelvis dated 05/24/18 FINDINGS: Intraperitoneal space: No evidence of intraperitoneal free air. Gastrointestinal tract: Mild nonspecific gaseous distention of large and small bowel loops. No evidence of pneumatosis intestinalis. Bowel gas obscures the renal shadows. Bones/joints: Unremarkable. IMPRESSION: Mild nonspecific gaseous distention of large and small bowel loops.
[2018-05-27 16:00] VITALS: BP 135/71
--- NOTE | 2018-05-27 19:13 | NUR ---
HAND-OFF: Report given to Zak Rudolph RN.
--- NOTE | 2018-05-27 19:20 | NUR ---
NURSE NOTES: Patient received from JASEN Atkins. Patient on bed, no signs of SOB. Denies pain at this time. On O2 via NC at 2L. Bipap QHS or PRN. Will encourage patient to have it to use it longer. IV site intact and patent. No signs of distress at this time.
[2018-05-27 20:00] VITALS: BP 127/65
[2018-05-27] MEDS: Atorvastatin 20mg tab ORAL SCH (20:34)
[2018-05-27] MEDS: Miralax 17gm pkt ORAL SCH (20:34)
--- NOTE | 2018-05-27 21:31 | General Progress Note ---
Assessment/Plan Assessment/Plan Assessment and Recs: # Adenopathy -- with enlarged peripancreatic lymph nodes, with a node or conglomerate of nodes measuring up to 5 x 1.5 cm diameter. --> imaging has been reviewed --> tumor markers have been ordered as well --> if tumor markers normal, consider reimage in [address] abd/pelvis with iv contrast --> ct a/p for bowel pattern gas eval ordered on this admision # Leukocytosis -- general level 10-15k, potentially reactive process related --->15.6-->13.5-->15-->13.9-->10.8 --> smear has been ordered and pending --> no fevers or chills at this time, monitor --> trend as needed # Multiple fractures of ribs --> pain management --> surg recs appreciated # Nausea/vomiting -- eval with gi service as required --> ct a/p pending Greatly appreciate consultation! Subjective Constitutional: Denies: no symptoms, chills, diaphoresis, fever, malaise, weakness, other HEENT: Denies: no symptoms, eye pain, blurred vision, tearing, double vision, ear pain, ear discharge, nose pain, nose congestion, throat pain, throat swelling, mouth pain, mouth swelling, other Cardiovascular: Denies: no symptoms, chest pain, edema, irregular heart rate, lightheadedness, palpitations, syncope, other Respiratory: Denies: no symptoms, cough, orthopnea, shortness of breath, SOB with excertion, SOB at rest, sputum, stridor, wheezing, other Gastrointestinal/Abdominal: Denies: no symptoms, abdomen distended, abdominal pain, black stools, tarry stools, blood in stool, constipated, diarrhea, difficulty swallowing, nausea, poor appetite, poor fluid intake, rectal bleeding , vomiting, other Genitourinary: Denies: no symptoms, burning, discharge, frequency, flank pain, hematuria, incontinence, pain, urgency, other Neurologic/Psychiatric: Denies: no symptoms, anxiety, depressed, emotional problems, headache, numbness, paresthesia, pre-existing deficit, seizure, tingling, tremors, weakness, other Endocrine: Denies: no symptoms, excessive sweating, flushing, intolerance to cold, intolerance to heat, increased hunger, increased thirst, increased urine, unexplained weight gain, unexplained weight loss, other Hematologic/Lymphatic: Denies: no symptoms, anemia, easy bleeding, easy bruising, other Allergies: Coded Allergies: No Known Allergies (Unverified , 04/04/13) Subjective 05/26/18: Patient is resting in bed. Sleepy, fatigue, cbc reviewed. wbc 13.9 today 05/27: Pt is seen in the room, still has pain but improving. leukocytosis resolved , wbc 10.8 today Objective Last 24 Hour Vital Signs Date Time Temp Pulse Resp B/P (MAP) Pulse Ox O2 Delivery O2 Flow Rate FiO2 05/27/18 21:00 Nasal Cannula 2.0 05/27/18 20:00 99.2 87 20 127/65 (85) 94 05/27/18 19:45 88 05/27/18 19:36 85 18 94 05/27/18 19:31 85 18 94 Nasal Cannula 4.0 36 05/27/18 19:31 85 18 94 Nasal Cannula 4.0 36 05/27/18 17:27 87 20 96 05/27/18 16:48 98.1 05/27/18 16:00 95 05/27/18 16:00 99.1 90 20 135/71 (92) 95 05/27/18 15:19 91 18 95 Nasal Cannula 4.0 36 05/27/18 15:19 91 18 95 Nasal Cannula 4.0 36 05/27/18 13:27 89 18 96 05/27/18 12:00 75 05/27/18 12:00 98.2 75 22 153/69 (97) 94 05/27/18 11:30 89 20 95 Nasal Cannula 4.0 36 05/27/18 11:30 89 20 95 Nasal Cannula 4.0 36 05/27/18 09:00 Nasal Cannula 2.0 05/27/18 08:03 87 20 94 Nasal Cannula 4.0 36 05/27/18 08:03 87 20 94 Nasal Cannula 4.0 36 05/27/18 08:00 90 05/27/18 08:00 97.8 85 19 162/90 (114) 95 05/27/18 04:00 98.6 81 18 151/72 (98) 95 05/27/18 03:43 80 05/27/18 03:14 Nasal Cannula 4.0 36 05/27/18 03:13 Nasal Cannula 4.0 36 05/27/18 00:34 86 17 94 Facial 36 05/26/18 23:53 98.7 84 18 137/84 (101) 93 05/26/18 23:46 88 20 93 Nasal Cannula 4.0 36 05/26/18 23:44 84 20 93 Nasal Cannula 4.0 36 05/26/18 23:30 82 Intake and Output 05/26/18 05/27/18 18:59 06:59 Intake Total 600 ml 240 ml Output Total 800 ml 575 ml Balance -200 ml -335 ml Intake Oral 600 ml 240 ml Output Urine Total 800 ml 575 ml # Bowel Movements 1 Laboratory Tests 05/27/18 06:04: White Blood Count 10.8, Red Blood Count 3.87L, Hemoglobin 13.3L, Hematocrit 40.3L, Mean Corpuscular Volume 104H, Mean Corpuscular Hemoglobin 34.3H, Mean Corpuscular Hemoglobin Concent 33.0, Red Cell Distribution Width 13.0, Platelet Count 300, Mean Platelet Volume 7.0, Neutrophils (%) (Auto) 50.8, Lymphocytes (% ) (Auto) 32.0, Monocytes (%) (Auto) 11.6H, Eosinophils (%) (Auto) 4.4H, Basophils (%) (Auto) 1.2, Erythrocyte Sedimentation Rate 58H, Sodium Level 139, Potassium Level 4.0, Chloride Level 99, Carbon Dioxide Level 36H, Anion Gap 4L, Blood Urea Nitrogen 10, Creatinine 1.0, Estimat Glomerular Filtration Rate > 60 , Glucose Level 106, Calcium Level 8.9, Total Bilirubin 0.4, Aspartate Amino Transf (AST/SGOT) 36, Alanine Aminotransferase (ALT/SGPT) 48, Alkaline Phosphatase 58, C-Reactive Protein, Quantitative 5.0H, Total Protein 7.0, Albumin 3.0L, Globulin 4.0, Albumin/Globulin Ratio 0.8L, Amylase Level 41, Lipase 195 05/27/18 15:05: Troponin I 0.055 Height (Feet): 5 Height (Inches): 9.00 Weight (Pounds): 290 Objective General Appearance: alert Lines, tubes and drains: peripheral HEENT: mmm Neck: supple Respiratory/Chest: normal breath sounds, decreased breath sounds, other - tender on right with palpation Cardiovascular/Chest: regular rhythm Abdomen: soft, no organomegaly, no mass Extremities: normal inspection Skin Exam: warm/dry Neurologic: alert, responsive Brian Escalera MD May 27, 2018 21:31
--- NOTE | 2018-05-27 23:12 | General Progress Note ---
Assessment/Plan Problem List: (1) COPD (chronic obstructive pulmonary disease) ICD Codes: J44.9 - Chronic obstructive pulmonary disease, unspecified SNOMED: 82285143 (2) Multiple fractures of ribs ICD Codes: S22.49XA - Multiple fractures of ribs, unspecified side, initial encounter for closed fracture SNOMED: 8413764 Qualifiers: Qualified Codes: S22.41XA - Multiple fractures of ribs, right side, initial encounter for closed fracture Status: progressing Assessment/Plan distended abdomin copd rib fracture sob nsvt.dr boyer is made aware.asymptomatic Subjective ROS Limited/Unobtainable: Yes Allergies: Coded Allergies: No Known Allergies (Unverified , 04/04/13) Objective Last 24 Hour Vital Signs Date Time Temp Pulse Resp B/P (MAP) Pulse Ox O2 Delivery O2 Flow Rate FiO2 05/27/18 21:00 Nasal Cannula 2.0 05/27/18 20:00 99.2 87 20 127/65 (85) 94 05/27/18 19:45 88 05/27/18 19:36 85 18 94 05/27/18 19:31 85 18 94 Nasal Cannula 4.0 36 05/27/18 19:31 85 18 94 Nasal Cannula 4.0 36 05/27/18 17:27 87 20 96 05/27/18 16:48 98.1 05/27/18 16:00 95 05/27/18 16:00 99.1 90 20 135/71 (92) 95 05/27/18 15:19 91 18 95 Nasal Cannula 4.0 36 05/27/18 15:19 91 18 95 Nasal Cannula 4.0 36 05/27/18 13:27 89 18 96 05/27/18 12:00 75 05/27/18 12:00 98.2 75 22 153/69 (97) 94 05/27/18 11:30 89 20 95 Nasal Cannula 4.0 36 05/27/18 11:30 89 20 95 Nasal Cannula 4.0 36 05/27/18 09:00 Nasal Cannula 2.0 05/27/18 08:03 87 20 94 Nasal Cannula 4.0 36 05/27/18 08:03 87 20 94 Nasal Cannula 4.0 36 05/27/18 08:00 90 05/27/18 08:00 97.8 85 19 162/90 (114) 95 05/27/18 04:00 98.6 81 18 151/72 (98) 95 05/27/18 03:43 80 05/27/18 03:14 Nasal Cannula 4.0 36 05/27/18 03:13 Nasal Cannula 4.0 36 05/27/18 00:34 86 17 94 Facial 36 05/26/18 23:53 98.7 84 18 137/84 (101) 93 05/26/18 23:46 88 20 93 Nasal Cannula 4.0 36 05/26/18 23:44 84 20 93 Nasal Cannula 4.0 36 05/26/18 23:30 82 Intake and Output 05/26/18 05/27/18 18:59 06:59 Intake Total 600 ml 240 ml Output Total 800 ml 575 ml Balance -200 ml -335 ml Intake Oral 600 ml 240 ml Output Urine Total 800 ml 575 ml # Bowel Movements 1 Laboratory Tests 05/27/18 06:04: White Blood Count 10.8, Red Blood Count 3.87L, Hemoglobin 13.3L, Hematocrit 40.3L, Mean Corpuscular Volume 104H, Mean Corpuscular Hemoglobin 34.3H, Mean Corpuscular Hemoglobin Concent 33.0, Red Cell Distribution Width 13.0, Platelet Count 300, Mean Platelet Volume 7.0, Neutrophils (%) (Auto) 50.8, Lymphocytes (% ) (Auto) 32.0, Monocytes (%) (Auto) 11.6H, Eosinophils (%) (Auto) 4.4H, Basophils (%) (Auto) 1.2, Erythrocyte Sedimentation Rate 58H, Sodium Level 139, Potassium Level 4.0, Chloride Level 99, Carbon Dioxide Level 36H, Anion Gap 4L, Blood Urea Nitrogen 10, Creatinine 1.0, Estimat Glomerular Filtration Rate > 60 , Glucose Level 106, Calcium Level 8.9, Total Bilirubin 0.4, Aspartate Amino Transf (AST/SGOT) 36, Alanine Aminotransferase (ALT/SGPT) 48, Alkaline Phosphatase 58, C-Reactive Protein, Quantitative 5.0H, Total Protein 7.0, Albumin 3.0L, Globulin 4.0, Albumin/Globulin Ratio 0.8L, Amylase Level 41, Lipase 195 05/27/18 15:05: Troponin I 0.055 Height (Feet): 5 Height (Inches): 9.00 Weight (Pounds): 290 Cardiovascular: normal rate Respiratory/Chest: lungs clear Abdomen: soft Leonard Caballero MD May 27, 2018 23:12
[2018-05-28] VITALS: BP 130/58
[2018-05-28] MEDS: HYDROmorphone 1mg/ml Carpuject IVP PRN ×3 (01:04→10:58)
--- NOTE | 2018-05-28 02:30 | NUR ---
NURSE NOTES: Patient was put on bipap and only used for an hour. Patient verbalizes "I do not want them on." RT made aware.
[2018-05-28] MEDS: Albuterol 90mcg Inhaler 8gm INH SCH ×6 (03:20→22:35)
[2018-05-28] MEDS: D5 1/2NS 1,000 ML IV SCH ×3 (03:45→20:08)
[2018-05-28 04:00] VITALS: BP 136/65
--- NOTE | 2018-05-28 06:51 | General Progress Note ---
Assessment/Plan Assessment/Plan Assessment - Central obesity - likely component of constipation - no significant abd pathology per CT Recommendations - laxative trial - on diet - OOB Subjective ROS Limited/Unobtainable: Yes Allergies: Coded Allergies: No Known Allergies (Unverified , 04/04/13) Objective Last 24 Hour Vital Signs Date Time Temp Pulse Resp B/P (MAP) Pulse Ox O2 Delivery O2 Flow Rate FiO2 05/28/18 04:00 98.0 75 20 136/65 (88) 94 05/28/18 03:53 77 05/28/18 03:21 74 15 95 Facial 36 05/28/18 03:20 74 18 95 Nasal Cannula 4.0 36 05/28/18 03:20 74 18 95 Bi-pap 36 05/28/18 00:01 84 05/28/18 00:00 98.3 82 20 130/58 (82) 94 05/27/18 23:38 82 18 93 Nasal Cannula 4.0 36 05/27/18 23:38 82 18 93 Nasal Cannula 4.0 36 05/27/18 23:38 82 18 93 05/27/18 21:00 Nasal Cannula 2.0 05/27/18 20:00 99.2 87 20 127/65 (85) 94 05/27/18 19:45 88 05/27/18 19:36 85 18 94 05/27/18 19:31 85 18 94 Nasal Cannula 4.0 36 05/27/18 19:31 85 18 94 Nasal Cannula 4.0 36 05/27/18 17:27 87 20 96 05/27/18 16:48 98.1 05/27/18 16:00 95 05/27/18 16:00 99.1 90 20 135/71 (92) 95 05/27/18 15:19 91 18 95 Nasal Cannula 4.0 36 05/27/18 15:19 91 18 95 Nasal Cannula 4.0 36 05/27/18 13:27 89 18 96 05/27/18 12:00 75 05/27/18 12:00 98.2 75 22 153/69 (97) 94 05/27/18 11:30 89 20 95 Nasal Cannula 4.0 36 05/27/18 11:30 89 20 95 Nasal Cannula 4.0 36 05/27/18 09:00 Nasal Cannula 2.0 05/27/18 08:03 87 20 94 Nasal Cannula 4.0 36 05/27/18 08:03 87 20 94 Nasal Cannula 4.0 36 05/27/18 08:00 90 05/27/18 08:00 97.8 85 19 162/90 (114) 95 Intake and Output 05/27/18 05/28/18 19:00 07:00 Intake Total 2276.25 ml 375 ml Output Total 1250 ml 300 ml Balance 1026.25 ml 75 ml Intake Oral 760 ml IV Total 1516.25 ml 375 ml Output Urine Total 1250 ml 300 ml # Voids 1 Laboratory Tests 05/27/18 15:05: Troponin I 0.055 Height (Feet): 5 Height (Inches): 9.00 Weight (Pounds): 290 General Appearance: no apparent distress EENT: normal ENT inspection Neck: supple Cardiovascular: normal rate Respiratory/Chest: decreased breath sounds Abdomen: normal bowel sounds, non tender, soft Extremities: non-tender Inder Collins MD May 28, 2018 06:51
--- NOTE | 2018-05-28 07:27 | NUR ---
HAND-OFF: Report given to Fermin Sabillon RN. Endorsed plan of care.
--- NOTE | 2018-05-28 07:54 | NUR ---
NURSE NOTES: Pt in bed in low position, laying on his right side, Pt Ox4, calm and cooperative, call light at bedside, HOB in fowlers position, bed alarm on, IV running fluids with no swelling or edema present, pt turns himself, pt makes needs known, pt eating breakfast at bedside, pt on 2L NC, night nurse reported that the pt had an episode of 13min of SVT but no EKG was done, will need to get EKG if it happens again, pt denies pain, no s/s of distress or sob noted.
[2018-05-28 08:00] VITALS: BP 118/58
--- NOTE | 2018-05-28 08:03 | NUR ---
CASE MANAGEMENT:REVIEW 05/26/18 SI: MULTIPLE RIB FRACTURES ABDOMINAL DISTENTION (ILEUS) 99.6 96 18 133/69 99% ON 4L/NC IS: NEURONTIN PO TID IV DILAUDID Q4HRS PRN HEPARIN SQ Q12 IV ROCEPHIN Q24 IVF@125/HR IV PROTONIX QD ALBUTEROL HHN Q4HRS RTC BREO INH QD : TELEMETRY STATUS 05/27/18 SI: MULTIPLE RIB FRACTURES ABDOMINAL DISTENTION (ILEUS) 99.1 90 20 135/71 95% ON 4L/NC IS: NEURONTIN PO TID IV DILAUDID Q4HRS PRN HEPARIN SQ Q12 IV ROCEPHIN Q24 IVF@125/HR IV PROTONIX QD ALBUTEROL HHN Q4HRS RTC BREO INH QD : TELEMETRY STATUS PLAN: CHEST XRAY XRAY ABDOMEN 05/28/18 SI: MULTIPLE RIB FRACTURES ABDOMINAL DISTENTION (ILEUS) 98.0 75 20 136/65 95% ON 4L/NC IS: NEURONTIN PO TID IV DILAUDID Q4HRS PRN HEPARIN SQ Q12 IV ROCEPHIN Q24 IVF@125/HR IV PROTONIX QD ALBUTEROL HHN Q4HRS RTC BREO INH QD : TELEMETRY STATUS DCP: PATIENT IS FROM HOME Addendum: 05/28/18 at 0812 by BARBARA KNOWLES, PHYSICAL THERAPY INSTRUCTOR PHYSICAL THERAPY INSTRUCTOR ADDENDUM PLAN: TROPONIN LEVEL 2DECHO BIPAP QHS AND PRN
--- NOTE | 2018-05-28 08:13 | NUR ---
INSURANCE FAXED TO: [facility]: [place] P- [phone] F- [phone].. (.FAX REVIEW ONLY)
[2018-05-28] MEDS: cefTRIAXone 1 GM in D5W 55 ML IVPB SCH (08:54)
[2018-05-28] MEDS: Heparin 5000 units/ml inj SUBQ SCH ×2 (08:55→20:12)
[2018-05-28] MEDS: Allopurinol 100mg Tab ORAL SCH (08:55)
[2018-05-28] MEDS: Pantoprazole Inj IVP SCH (09:22)
[2018-05-28] MEDS: Breo Ellipta 200/25mcg-14 dose INH SCH (10:09)
[2018-05-28] MEDS ORDERED: D5 1/2NS 1000ml IV ONE (11:07)
--- NOTE | 2018-05-28 11:35 | Infectious Diseases Prog Note ---
Assessment/Plan Assessment/Plan A; Leukocytosis resolved Atelectasis/ pneumonia Multiple rib fracture Morbid obesity COPD HPN VESTA P: continue Rocephin Subjective ROS Limited/Unobtainable: No Constitutional: Reports: no symptoms Respiratory: Reports: productive cough, other - right ribs pain, on BIPAP at night Gastrointestinal/Abdominal: Reports: no symptoms Genitourinary: Reports: no symptoms Allergies: Coded Allergies: No Known Allergies (Unverified , 04/04/13) Objective Vital Signs Last 24 Hour Vital Signs Date Time Temp Pulse Resp B/P (MAP) Pulse Ox O2 Delivery O2 Flow Rate FiO2 05/28/18 10:09 76 18 95 Nasal Cannula 4.0 36 05/28/18 10:09 76 18 95 Nasal Cannula 4.0 36 05/28/18 08:10 Nasal Cannula 2.0 05/28/18 08:00 98.0 81 20 118/58 (78) 93 05/28/18 07:59 78 05/28/18 07:46 74 18 95 Nasal Cannula 4.0 36 05/28/18 07:46 78 18 95 Nasal Cannula 4.0 36 05/28/18 04:00 98.0 75 20 136/65 (88) 94 05/28/18 03:53 77 05/28/18 03:21 74 15 95 Facial 36 05/28/18 03:20 74 18 95 Nasal Cannula 4.0 36 05/28/18 03:20 74 18 95 Bi-pap 36 05/28/18 00:01 84 05/28/18 00:00 98.3 82 20 130/58 (82) 94 05/27/18 23:38 82 18 93 Nasal Cannula 4.0 36 05/27/18 23:38 82 18 93 Nasal Cannula 4.0 36 05/27/18 23:38 82 18 93 05/27/18 21:00 Nasal Cannula 2.0 05/27/18 20:00 99.2 87 20 127/65 (85) 94 05/27/18 19:45 88 05/27/18 19:36 85 18 94 05/27/18 19:31 85 18 94 Nasal Cannula 4.0 36 05/27/18 19:31 85 18 94 Nasal Cannula 4.0 36 05/27/18 17:27 87 20 96 05/27/18 16:48 98.1 05/27/18 16:00 95 1/5/19 16:00 99.1 90 20 135/71 (92) 95 05/27/18 15:19 91 18 95 Nasal Cannula 4.0 36 05/27/18 15:19 91 18 95 Nasal Cannula 4.0 36 05/27/18 13:27 89 18 96 05/27/18 12:00 75 05/27/18 12:00 98.2 75 22 153/69 (97) 94 Height (Feet): 5 Height (Inches): 9.00 Weight (Pounds): 290 General Appearance: no acute distress HEENT: mucous membranes moist Respiratory/Chest: lungs clear Cardiovascular: normal rate Abdomen: soft, non tender Extremities: no edema Neurologic/Psychiatric: alert, oriented x 3, responsive Laboratory Tests Test 05/27/18 15:05 Troponin I 0.055 ng/mL (0.000-0.056) Current Medications Medications (Trade) Dose Ordered Sig/Ryan Route PRN Reason Start Time Stop Time Status Last Admin Dose Admin Acetaminophen/ Hydrocodone Bitart ([place] 10/325) 1 tab Q4H PRN ORAL moderate pain 05/22/18 19:45 05/29/18 19:44 05/27/18 08:05 Albuterol Sulfate (Proventil MDI) 1 puff Q4HRT INH 05/25/18 11:00 06/21/18 10:59 05/28/18 10:09 Albuterol/ Ipratropium (Albuterol/ Ipratropium) 3 ml Q4H PRN HHN Shortness of Breath 05/24/18 01:00 05/29/18 00:59 Albuterol/ Ipratropium (Albuterol/ Ipratropium) 3 ml Q4H PRN HHN Shortness of Breath 05/25/18 14:30 05/30/18 14:29 Allopurinol (Zyloprim) 100 mg DAILY ORAL 05/23/18 09:00 06/22/18 08:59 05/28/18 08:55 Atorvastatin Calcium (Lipitor) 20 mg BEDTIME ORAL 05/22/18 21:00 06/21/18 20:59 05/27/18 20:34 Ceftriaxone Sodium 1 gm/ Dextrose 55 ml @ 110 mls/hr DAILY IVPB 05/25/18 14:00 06/01/18 13:59 05/28/18 08:54 Dextrose/Sodium Chloride 1,000 ml @ 125 mls/hr Q8H IV 05/24/18 19:45 06/23/18 19:44 05/28/18 05:50 Fluticasone/ Vilanterol (Breo Ellipta 200/25) 1 puffs DAILY INH 05/23/18 09:00 06/22/18 08:59 05/28/18 10:09 Gabapentin (Neurontin) 300 mg THREE TIMES A DAY ORAL 05/26/18 10:30 06/25/18 10:29 05/28/18 08:54 Heparin Sodium (Porcine) (Heparin 5000 units/ml) 5,000 units EVERY 12 HOURS SUBQ 05/25/18 21:00 06/24/18 20:59 05/28/18 08:55 Hydromorphone HCl (Dilaudid) 1 mg Q4H PRN IVP severe pain 05/26/18 01:30 05/29/18 19:44 05/28/18 10:58 Lactulose (Cephulac) 30 gm Q4H PRN ORAL Constipation 05/25/18 10:00 06/24/18 09:59 05/26/18 10:58 Levothyroxine Sodium (Synthroid) 100 mcg DAILY@0630 ORAL 05/23/18 06:30 06/22/18 06:29 05/28/18 05:47 Lidocaine (Lidoderm 5% PATCH) 1 patch DAILY TDERMAL 05/23/18 09:00 06/22/18 08:59 05/28/18 08:54 Ondansetron HCl (Zofran) 4 mg Q6H PRN IVP Nausea & Vomiting 05/23/18 00:45 06/22/18 00:44 05/23/18 10:21 Pantoprazole (Protonix) 40 mg DAILY ORAL 05/29/18 09:00 06/28/18 08:59 Polyethylene Glycol (Miralax) 17 gm BEDTIME ORAL 05/26/18 21:00 06/25/18 20:59 05/27/18 20:34 Adam Jacobs MD May 28, 2018 11:35
[2018-05-28 11:50] VITALS: BP 132/62
--- NOTE | 2018-05-28 11:59 | General Progress Note ---
Assessment/Plan Assessment/Plan (1) Right chest wall pain (2) Fractures of the right fifth, sixth and seventh ribs We will discontinue Dilaudid and [place] Start Percocet 10/325mg PO 1 tab Q4H PRN severe pain. Continue Neurontin and Lidoderm patch. D/w Dr. Larson and he concurred. Subjective Date patient seen: May 28, 2018 Time patient seen: 10:45 - am Allergies: Coded Allergies: No Known Allergies (Unverified , 04/04/13) Subjective REVIEW OF SYSTEMS: Denies rash, fever, chills, sweating, dizziness, drowsiness, blurred vision, sore throat, or change in weight. No shortness of breath or chest pain. No nausea, vomiting, diarrhea, or blood in the stool or urine. No bowel or bladder incontinence. No dysuria. He is complaining of chest wall pain. SUBJECTIVE: Patient is in bed with continued pain in his chest wall due to rib fractures. I d/w him about changing the Dilaudid and [place] to Percocet and he understands. He has used 5 doses of Dilaudid and 1 dose of [place]. Objective Last 24 Hour Vital Signs Date Time Temp Pulse Resp B/P (MAP) Pulse Ox O2 Delivery O2 Flow Rate FiO2 05/28/18 11:28 98.0 05/28/18 10:09 76 18 95 Nasal Cannula 4.0 36 05/28/18 10:09 76 18 95 Nasal Cannula 4.0 36 05/28/18 08:10 Nasal Cannula 2.0 05/28/18 08:00 98.0 81 20 118/58 (78) 93 05/28/18 07:59 78 05/28/18 07:46 74 18 95 Nasal Cannula 4.0 36 05/28/18 07:46 78 18 95 Nasal Cannula 4.0 36 05/28/18 04:00 98.0 75 20 136/65 (88) 94 05/28/18 03:53 77 05/28/18 03:21 74 15 95 Facial 36 05/28/18 03:20 74 18 95 Nasal Cannula 4.0 36 05/28/18 03:20 74 18 95 Bi-pap 36 05/28/18 00:01 84 05/28/18 00:00 98.3 82 20 130/58 (82) 94 05/27/18 23:38 82 18 93 Nasal Cannula 4.0 36 05/27/18 23:38 82 18 93 Nasal Cannula 4.0 36 05/27/18 23:38 82 18 93 05/27/18 21:00 Nasal Cannula 2.0 05/27/18 20:00 99.2 87 20 127/65 (85) 94 05/27/18 19:45 88 05/27/18 19:36 85 18 94 05/27/18 19:31 85 18 94 Nasal Cannula 4.0 36 05/27/18 19:31 85 18 94 Nasal Cannula 4.0 36 05/27/18 17:27 87 20 96 05/27/18 16:48 98.1 05/27/18 16:00 95 05/27/18 16:00 99.1 90 20 135/71 (92) 95 05/27/18 15:19 91 18 95 Nasal Cannula 4.0 36 05/27/18 15:19 91 18 95 Nasal Cannula 4.0 36 05/27/18 13:27 89 18 96 05/27/18 12:00 75 05/27/18 12:00 98.2 75 22 153/69 (97) 94 Intake and Output 05/27/18 05/28/18 19:00 07:00 Intake Total 2276.25 ml 375 ml Output Total 1250 ml 300 ml Balance 1026.25 ml 75 ml Intake Oral 760 ml IV Total 1516.25 ml 375 ml Output Urine Total 1250 ml 300 ml # Voids 1 Laboratory Tests 05/27/18 15:05: Troponin I 0.055 Height (Feet): 5 Height (Inches): 9.00 Weight (Pounds): 290 Objective GENERAL: Alert, awake, and oriented x3. LUNGS: Decreased breath sounds bilaterally. HEART: S1 and S2 regular. ABDOMEN: Obese. EXTREMITIES: No cyanosis. No clubbing. NEURO: No changes. Scot Han May 28, 2018 11:59
[2018-05-28] MEDS: Lactulose 20gm/30ml UDC ORAL PRN (12:05)
--- NOTE | 2018-05-28 12:16 | Pulmonology Progress Note ---
Assessment/Plan Problems: (1) Multiple fractures of ribs (2) COPD (chronic obstructive pulmonary disease) Assessment/Plan ASSESSMENT: The patient is a 62-year-old male former smoker with a history of obesity, chronic obstructive pulmonary disease, gout, hypothyroidism, hypertension, and hyperlipidemia, presenting with hypoxemia in the setting of recent fall and rib fractures with bibasilar dependent atelectasis. PROBLEM LIST: 1. Right fifth, sixth and seventh fractures. 2. Mechanical fall. 3. COPD without evidence of exacerbation. 4. Atelectasis. 5. Acute on chronic hypercapnic respiratory failure 6. Hypoxemia secondary to combination of above. 7. Constipation. 8. Peripancreatic lymphadenopathy noted on CT of the chest. 9. Hypertension, hyperlipidemia, hypothyroidism, and gout. 10. Obesity, with possible underlying VESTA. TREATMENT PLAN: 1. Optimize pulmonary hygiene/mobilize as tolerated. 2. Titrate FiO2 to keep saturations greater than 90%. 3. P.r.n. bronchodilators. 4. Continue Breo. 5. Incentive spirometer. 6. Pain control/supportive care. 7. Bowel regimen. 8. Follow up Oncology recommendations regarding workup of peripancreatic lymph node, it seems the plan is for outpatient imaging. 9. DVT prophylaxis, heparin subcutaneous. 10. BiPAP 12/5 qHS and PRN - ENCOURAGE COMPLIANCE 11. Needs formal PFT and PSG as an outpatient 12. Follow tumor markers as ordered by Oncology. Subjective Allergies: Coded Allergies: No Known Allergies (Unverified , 04/04/13) Subjective AFVSS O2 needs stable pain better refused BiPAP using IS less SOB no FC Objective Last 24 Hour Vital Signs Date Time Temp Pulse Resp B/P (MAP) Pulse Ox O2 Delivery O2 Flow Rate FiO2 05/28/18 11:50 97.7 77 15 132/62 (85) 94 05/28/18 11:28 98.0 05/28/18 10:09 76 18 95 Nasal Cannula 4.0 36 05/28/18 10:09 76 18 95 Nasal Cannula 4.0 36 05/28/18 08:10 Nasal Cannula 2.0 05/28/18 08:00 98.0 81 20 118/58 (78) 93 05/28/18 07:59 78 05/28/18 07:46 74 18 95 Nasal Cannula 4.0 36 05/28/18 07:46 78 18 95 Nasal Cannula 4.0 36 05/28/18 04:00 98.0 75 20 136/65 (88) 94 05/28/18 03:53 77 05/28/18 03:21 74 15 95 Facial 36 05/28/18 03:20 74 18 95 Nasal Cannula 4.0 36 05/28/18 03:20 74 18 95 Bi-pap 36 05/28/18 00:01 84 05/28/18 00:00 98.3 82 20 130/58 (82) 94 05/27/18 23:38 82 18 93 Nasal Cannula 4.0 36 05/27/18 23:38 82 18 93 Nasal Cannula 4.0 36 05/27/18 23:38 82 18 93 05/27/18 21:00 Nasal Cannula 2.0 05/27/18 20:00 99.2 87 20 127/65 (85) 94 05/27/18 19:45 88 05/27/18 19:36 85 18 94 05/27/18 19:31 85 18 94 Nasal Cannula 4.0 36 05/27/18 19:31 85 18 94 Nasal Cannula 4.0 36 05/27/18 17:27 87 20 96 05/27/18 16:48 98.1 05/27/18 16:00 95 05/27/18 16:00 99.1 90 20 135/71 (92) 95 05/27/18 15:19 91 18 95 Nasal Cannula 4.0 36 05/27/18 15:19 91 18 95 Nasal Cannula 4.0 36 05/27/18 13:27 89 18 96 Intake and Output 05/27/18 05/28/18 19:00 07:00 Intake Total 2276.25 ml 375 ml Output Total 1250 ml 300 ml Balance 1026.25 ml 75 ml Intake Oral 760 ml IV Total 1516.25 ml 375 ml Output Urine Total 1250 ml 300 ml # Voids 1 General Appearance: no acute distress, other - morbidly obese HEENT: normocephalic, atraumatic, anicteric, mucous membranes moist, other - MP 4 Respiratory/Chest: chest wall non-tender, lungs clear, normal breath sounds, no respiratory distress, no accessory muscle use Cardiovascular: normal peripheral pulses, normal rate, regular rhythm Abdomen: normal bowel sounds, soft, non tender, no organomegaly, non distended , no mass Extremities: no cyanosis, no clubbing, no edema Laboratory Tests 05/27/18 15:05: Troponin I 0.055 Current Medications Medications (Trade) Dose Ordered Sig/Ryan Route PRN Reason Start Time Stop Time Status Last Admin Dose Admin Albuterol Sulfate (Proventil MDI) 1 puff Q4HRT INH 05/25/18 11:00 06/21/18 10:59 05/28/18 10:09 Albuterol/ Ipratropium (Albuterol/ Ipratropium) 3 ml Q4H PRN HHN Shortness of Breath 05/24/18 01:00 05/29/18 00:59 Albuterol/ Ipratropium (Albuterol/ Ipratropium) 3 ml Q4H PRN HHN Shortness of Breath 05/25/18 14:30 05/30/18 14:29 Allopurinol (Zyloprim) 100 mg DAILY ORAL 05/23/18 09:00 06/22/18 08:59 05/28/18 08:55 Atorvastatin Calcium (Lipitor) 20 mg BEDTIME ORAL 05/22/18 21:00 06/21/18 20:59 05/27/18 20:34 Ceftriaxone Sodium 1 gm/ Dextrose 55 ml @ 110 mls/hr DAILY IVPB 05/25/18 14:00 06/01/18 13:59 05/28/18 08:54 Dextrose/Sodium Chloride 1,000 ml @ 125 mls/hr Q8H IV 05/24/18 19:45 06/23/18 19:44 05/28/18 05:50 Fluticasone/ Vilanterol (Breo Ellipta 200/25) 1 puffs DAILY INH 05/23/18 09:00 06/22/18 08:59 05/28/18 10:09 Gabapentin (Neurontin) 300 mg THREE TIMES A DAY ORAL 05/26/18 10:30 06/25/18 10:29 05/28/18 12:05 Heparin Sodium (Porcine) (Heparin 5000 units/ml) 5,000 units EVERY 12 HOURS SUBQ 05/25/18 21:00 06/24/18 20:59 05/28/18 08:55 Lactulose (Cephulac) 30 gm Q4H PRN ORAL Constipation 05/25/18 10:00 06/24/18 09:59 05/28/18 12:05 Levothyroxine Sodium (Synthroid) 100 mcg DAILY@0630 ORAL 05/23/18 06:30 06/22/18 06:29 05/28/18 05:47 Lidocaine (Lidoderm 5% PATCH) 1 patch DAILY TDERMAL 05/23/18 09:00 06/22/18 08:59 05/28/18 08:54 Ondansetron HCl (Zofran) 4 mg Q6H PRN IVP Nausea & Vomiting 05/23/18 00:45 06/22/18 00:44 05/23/18 10:21 Oxycodone/ Acetaminophen (Percocet 10/325) 1 tab Q4H PRN ORAL severe pain 05/28/18 12:00 06/04/18 11:59 Pantoprazole (Protonix) 40 mg DAILY ORAL 05/29/18 09:00 06/28/18 08:59 Polyethylene Glycol (Miralax) 17 gm BEDTIME ORAL 05/26/18 21:00 06/25/18 20:59 05/27/18 20:34 Wade Rasheed MD May 28, 2018 12:16
--- NOTE | 2018-05-28 15:11 | General Progress Note ---
Assessment/Plan Problem List: (1) COPD (chronic obstructive pulmonary disease) ICD Codes: J44.9 - Chronic obstructive pulmonary disease, unspecified SNOMED: 80728404 (2) Multiple fractures of ribs ICD Codes: S22.49XA - Multiple fractures of ribs, unspecified side, initial encounter for closed fracture SNOMED: 5794383 Qualifiers: Qualified Codes: S22.41XA - Multiple fractures of ribs, right side, initial encounter for closed fracture Status: progressing Assessment/Plan distended abdomin copd rib fracture sob nsvt no wheezing afebrile r/o constipation Subjective ROS Limited/Unobtainable: Yes Allergies: Coded Allergies: No Known Allergies (Unverified , 04/04/13) Objective Last 24 Hour Vital Signs Date Time Temp Pulse Resp B/P (MAP) Pulse Ox O2 Delivery O2 Flow Rate FiO2 05/28/18 11:50 97.7 77 15 132/62 (85) 94 05/28/18 11:44 75 05/28/18 11:28 98.0 05/28/18 10:09 76 18 95 Nasal Cannula 4.0 36 05/28/18 10:09 76 18 95 Nasal Cannula 4.0 36 05/28/18 08:10 Nasal Cannula 2.0 05/28/18 08:00 98.0 81 20 118/58 (78) 93 05/28/18 07:59 78 05/28/18 07:46 74 18 95 Nasal Cannula 4.0 36 05/28/18 07:46 78 18 95 Nasal Cannula 4.0 36 05/28/18 04:00 98.0 75 20 136/65 (88) 94 05/28/18 03:53 77 05/28/18 03:21 74 15 95 Facial 36 05/28/18 03:20 74 18 95 Nasal Cannula 4.0 36 05/28/18 03:20 74 18 95 Bi-pap 36 05/28/18 00:01 84 05/28/18 00:00 98.3 82 20 130/58 (82) 94 05/27/18 23:38 82 18 93 Nasal Cannula 4.0 36 05/27/18 23:38 82 18 93 Nasal Cannula 4.0 36 05/27/18 23:38 82 18 93 05/27/18 21:00 Nasal Cannula 2.0 05/27/18 20:00 99.2 87 20 127/65 (85) 94 05/27/18 19:45 88 05/27/18 19:36 85 18 94 05/27/18 19:31 85 18 94 Nasal Cannula 4.0 36 05/27/18 19:31 85 18 94 Nasal Cannula 4.0 36 05/27/18 17:27 87 20 96 05/27/18 16:48 98.1 05/27/18 16:00 95 05/27/18 16:00 99.1 90 20 135/71 (92) 95 05/27/18 15:19 91 18 95 Nasal Cannula 4.0 36 05/27/18 15:19 91 18 95 Nasal Cannula 4.0 36 Intake and Output 05/27/18 05/28/18 19:00 07:00 Intake Total 2276.25 ml 375 ml Output Total 1250 ml 300 ml Balance 1026.25 ml 75 ml Intake Oral 760 ml IV Total 1516.25 ml 375 ml Output Urine Total 1250 ml 300 ml # Voids 1 Height (Feet): 5 Height (Inches): 9.00 Weight (Pounds): 290 Neck: supple Cardiovascular: normal rate Respiratory/Chest: lungs clear Abdomen: soft Leonard Caballero MD May 28, 2018 15:11
--- NOTE | 2018-05-28 15:52 | Cardiac Electrophysiology PN ---
Subjective Subjective [id number] Objective Last 24 Hour Vital Signs Date Time Temp Pulse Resp B/P (MAP) Pulse Ox O2 Delivery O2 Flow Rate FiO2 05/28/18 14:38 74 18 95 Nasal Cannula 4.0 36 05/28/18 14:38 74 18 95 Nasal Cannula 4.0 36 05/28/18 11:50 97.7 77 15 132/62 (85) 94 05/28/18 11:44 75 05/28/18 11:28 98.0 05/28/18 10:09 76 18 95 Nasal Cannula 4.0 36 05/28/18 10:09 76 18 95 Nasal Cannula 4.0 36 05/28/18 08:10 Nasal Cannula 2.0 05/28/18 08:00 98.0 81 20 118/58 (78) 93 05/28/18 07:59 78 05/28/18 07:46 74 18 95 Nasal Cannula 4.0 36 05/28/18 07:46 78 18 95 Nasal Cannula 4.0 36 05/28/18 04:00 98.0 75 20 136/65 (88) 94 05/28/18 03:53 77 05/28/18 03:21 74 15 95 Facial 36 05/28/18 03:20 74 18 95 Nasal Cannula 4.0 36 05/28/18 03:20 74 18 95 Bi-pap 36 05/28/18 00:01 84 05/28/18 00:00 98.3 82 20 130/58 (82) 94 05/27/18 23:38 82 18 93 Nasal Cannula 4.0 36 05/27/18 23:38 82 18 93 Nasal Cannula 4.0 36 05/27/18 23:38 82 18 93 05/27/18 21:00 Nasal Cannula 2.0 05/27/18 20:00 99.2 87 20 127/65 (85) 94 05/27/18 19:45 88 05/27/18 19:36 85 18 94 05/27/18 19:31 85 18 94 Nasal Cannula 4.0 36 05/27/18 19:31 85 18 94 Nasal Cannula 4.0 36 05/27/18 17:27 87 20 96 05/27/18 16:48 98.1 05/27/18 16:00 95 05/27/18 16:00 99.1 90 20 135/71 (92) 95 Intake and Output 05/27/18 05/28/18 19:00 07:00 Intake Total 2276.25 ml 375 ml Output Total 1250 ml 300 ml Balance 1026.25 ml 75 ml Intake Oral 760 ml IV Total 1516.25 ml 375 ml Output Urine Total 1250 ml 300 ml # Voids 1 Erich Alexander MD May 28, 2018 15:52
[2018-05-28 16:00] VITALS: BP 143/73
[2018-05-28] MEDS ORDERED: Lexiscan 0.4mg/5ml syringe IV PRN (16:00)
--- NOTE | 2018-05-28 17:50 | NUR ---
NURSE NOTES: Stress test scheduled for tomorrow 05/29/2017
--- NOTE | 2018-05-28 19:11 | NUR ---
HAND-OFF: Report given to Britt Ma.
--- NOTE | 2018-05-28 19:18 | NUR ---
NURSE NOTES: Received report from JASEN Christensen. Patient is awake sitting on the edge of the bed; resting comfortably. No signs of acute distress noted; complains of pain. On 3L nasal cannula. AOx4; able to make needs known. Checked IV site, lines, and IV rate; patent and running. No erythema, bleeding, or infiltration noted. BiPAP at bedside for use as needed. Bed at lowest position, brakes on, siderails up x3. Call light within reach. Will continue to monitor.
--- NOTE | 2018-05-28 19:21 | General Surgery Progress Note ---
General Surgery-Progress Note Subjective Symptoms: improved, pain same, tolerating diet, passing flatus Additional Comments no acute events. comfortable. still with pain but stable. >2000 on incentive spirometry Objective Last 24 Hour Vital Signs Date Time Temp Pulse Resp B/P (MAP) Pulse Ox O2 Delivery O2 Flow Rate FiO2 05/28/18 16:06 97.5 05/28/18 16:00 97.5 83 23 143/73 (96) 95 05/28/18 15:37 91 05/28/18 14:38 74 18 95 Nasal Cannula 4.0 36 05/28/18 14:38 74 18 95 Nasal Cannula 4.0 36 05/28/18 11:50 97.7 77 15 132/62 (85) 94 05/28/18 11:44 75 05/28/18 11:28 98.0 05/28/18 10:09 76 18 95 Nasal Cannula 4.0 36 05/28/18 10:09 76 18 95 Nasal Cannula 4.0 36 05/28/18 08:10 Nasal Cannula 2.0 05/28/18 08:00 98.0 81 20 118/58 (78) 93 05/28/18 07:59 78 05/28/18 07:46 74 18 95 Nasal Cannula 4.0 36 05/28/18 07:46 78 18 95 Nasal Cannula 4.0 36 05/28/18 04:00 98.0 75 20 136/65 (88) 94 05/28/18 03:53 77 05/28/18 03:21 74 15 95 Facial 36 05/28/18 03:20 74 18 95 Nasal Cannula 4.0 36 05/28/18 03:20 74 18 95 Bi-pap 36 05/28/18 00:01 84 05/28/18 00:00 98.3 82 20 130/58 (82) 94 05/27/18 23:38 82 18 93 Nasal Cannula 4.0 36 05/27/18 23:38 82 18 93 Nasal Cannula 4.0 36 05/27/18 23:38 82 18 93 05/27/18 21:00 Nasal Cannula 2.0 05/27/18 20:00 99.2 87 20 127/65 (85) 94 05/27/18 19:45 88 05/27/18 19:36 85 18 94 05/27/18 19:31 85 18 94 Nasal Cannula 4.0 36 05/27/18 19:31 85 18 94 Nasal Cannula 4.0 36 I&O Intake and Output 05/27/18 05/28/18 19:00 07:00 Intake Total 2276.25 ml 375 ml Output Total 1250 ml 300 ml Balance 1026.25 ml 75 ml Intake Oral 760 ml IV Total 1516.25 ml 375 ml Output Urine Total 1250 ml 300 ml # Voids 1 Drains: none Cardiovascular: RSR Respiratory: clear Abdomen: soft, distended, present bowel sounds Extremities: no tenderness, no cyanosis Plan Problems: (1) Multiple fractures of ribs Assessment & Plan: s/p fall with multiple rib fx respiratory stable for now labs noted cxr noted leukocytosis resolved pain better controlled. -needs aggressive pulmonary toilet -pain control appreciate pain management input -okay for diet -bowel regimen -activity as tolerated -d/c planning -incentive spirometry thank you . will follow with Juan Antonio Valencia May 28, 2018 19:21
[2018-05-28 20:00] VITALS: BP 107/51
--- NOTE | 2018-05-28 20:00 | Consultation ---
DATE OF CONSULTATION: 05/28/2018 CARDIOLOGY CONSULTATION CONSULTING PHYSICIAN: Erich Alexander M.D. REFERRING PHYSICIAN: Leonard Caballero M.D. REASON FOR CONSULTATION: SVT. HISTORY OF PRESENT ILLNESS: The patient is a 62-year-old gentleman with COPD and obesity, was playing football with his grandson. He tripped and fell, sustained multiple rib fractures. The patient complains of chest pain and shortness of breath. The patient had CT of the abdomen and pelvis for constipation also. While the patient was on telemetry, had episode of sustained supraventricular tachycardia, rate of 170 beats per minute, which lasted for 15 minutes. This had sudden onset of subtle termination with small P-wave in delta and QRS complex suggestive of atrioventricular geln reentrant tachycardia. The patient is self-terminated. The patient also has history of palpitation in the past for which he was evaluated at [facility], awaiting authorization for office visit for ablation. At the time of my evaluation, the patient denies any chest pain, palpitation, or shortness of breath. REVIEW OF SYSTEMS: Review of systems was negative other than what was mentioned in the history of present illness. PAST MEDICAL HISTORY: 1. Hypertension. 2. Hyperlipidemia. 3. SVT. 4. Gastroesophageal reflux disease. 5. Hypothyroidism. 6. COPD. ALLERGIES: He has no known drug allergies. SOCIAL HISTORY: He is a former smoker. Does not smoke or drink alcohol currently. PHYSICAL EXAMINATION: VITAL SIGNS: Blood pressure is 132/62, pulse 74, respirations 18, and he is afebrile. HEAD AND NECK: Showed no JVD. LUNGS: Clear. CARDIOVASCULAR: Shows regular S1 and S2 with no gallop or murmur. ABDOMEN: Soft. EXTREMITIES: No pitting edema. LABORATORY AND DIAGNOSTIC DATA: EKG shows sinus rhythm with T-wave inversions suggestive of lateral ischemia. Labs shows hemoglobin 13.7, hematocrit of 40, and platelet count of 300. Sodium was 139, potassium 4.0, BUN of 10, creatinine of 1. Troponin is negative. Urine toxicology is positive for opiates. ASSESSMENT AND PLAN: 1. Recurrent supraventricular tachycardia. I will start the patient on Cardizem CD 240 milligram daily. The patient will need elective surgery and ablation that can be done as an outpatient at [facility] if he gets insurance approval . 2. Abnormal EKG with lateral ischemia. We will completely rule out NH protocol. Get an echocardiogram and schedule the patient for nuclear stress test. The patient's preliminary echocardiogram shows EF of 55% to 60% with no pericardial effusion. Thank you very much, Dr. Caballero, for allowing me to participate in the care of this patient. Please do not hesitate to contact me for any questions regarding my evaluation. Erich Alexander M.D. DR: Lynn JOB#: [id number] CC:
[2018-05-28] MEDS: Miralax 17gm pkt ORAL SCH (20:08)
[2018-05-28] MEDS: Atorvastatin 20mg tab ORAL SCH (20:09)
--- NOTE | 2018-05-28 22:11 | General Progress Note ---
Assessment/Plan Assessment/Plan Assessment and Recs: # Adenopathy -- with enlarged peripancreatic lymph nodes, with a node or conglomerate of nodes measuring up to 5 x 1.5 cm diameter. --> imaging has been reviewed --> tumor markers have been ordered as well --> if tumor markers normal, consider reimage in [address] abd/pelvis with iv contrast --> ct a/p for bowel pattern gas eval ordered on this admision # Leukocytosis -- general level 10-15k, potentially reactive process related --->15.6-->13.5-->15-->13.9-->10.8 --> smear has been ordered and pending --> no fevers or chills at this time, monitor --> trend as needed # Multiple fractures of ribs --> pain management --> surg recs appreciated # Nausea/vomiting -- eval with gi service as required --> ct a/p pending Greatly appreciate consultation! Subjective Constitutional: Denies: no symptoms, chills, diaphoresis, fever, malaise, weakness, other HEENT: Denies: no symptoms, eye pain, blurred vision, tearing, double vision, ear pain, ear discharge, nose pain, nose congestion, throat pain, throat swelling, mouth pain, mouth swelling, other Cardiovascular: Denies: no symptoms, chest pain, edema, irregular heart rate, lightheadedness, palpitations, syncope, other Respiratory: Denies: no symptoms, cough, orthopnea, shortness of breath, SOB with excertion, SOB at rest, sputum, stridor, wheezing, other Gastrointestinal/Abdominal: Denies: no symptoms, abdomen distended, abdominal pain, black stools, tarry stools, blood in stool, constipated, diarrhea, difficulty swallowing, nausea, poor appetite, poor fluid intake, rectal bleeding , vomiting, other Genitourinary: Denies: no symptoms, burning, discharge, frequency, flank pain, hematuria, incontinence, pain, urgency, other Neurologic/Psychiatric: Denies: no symptoms, anxiety, depressed, emotional problems, headache, numbness, paresthesia, pre-existing deficit, seizure, tingling, tremors, weakness, other Endocrine: Denies: no symptoms, excessive sweating, flushing, intolerance to cold, intolerance to heat, increased hunger, increased thirst, increased urine, unexplained weight gain, unexplained weight loss, other Hematologic/Lymphatic: Denies: no symptoms, anemia, easy bleeding, easy bruising, other Allergies: Coded Allergies: No Known Allergies (Unverified , 04/04/13) Subjective 05/26/18: Patient is resting in bed. Sleepy, fatigue, cbc reviewed. wbc 13.9 today 05/27: Pt is seen in the room, still has pain but improving. leukocytosis resolved , wbc 10.8 today 05/28/18: pt is seen in the room a,wake, sitting on the edge of the bed; resting comfortably. On 3L nasal cannula. BiPAP at bedside . Objective Last 24 Hour Vital Signs Date Time Temp Pulse Resp B/P (MAP) Pulse Ox O2 Delivery O2 Flow Rate FiO2 05/28/18 19:24 69 18 93 Nasal Cannula 4.0 36 05/28/18 19:21 69 18 93 Nasal Cannula 4.0 36 05/28/18 16:06 97.5 05/28/18 16:00 97.5 83 23 143/73 (96) 95 05/28/18 15:37 91 05/28/18 14:38 74 18 95 Nasal Cannula 4.0 36 05/28/18 14:38 74 18 95 Nasal Cannula 4.0 36 05/28/18 11:50 97.7 77 15 132/62 (85) 94 05/28/18 11:44 75 05/28/18 11:28 98.0 05/28/18 10:09 76 18 95 Nasal Cannula 4.0 36 05/28/18 10:09 76 18 95 Nasal Cannula 4.0 36 05/28/18 08:10 Nasal Cannula 2.0 05/28/18 08:00 98.0 81 20 118/58 (78) 93 05/28/18 07:59 78 05/28/18 07:46 74 18 95 Nasal Cannula 4.0 36 05/28/18 07:46 78 18 95 Nasal Cannula 4.0 36 05/28/18 04:00 98.0 75 20 136/65 (88) 94 05/28/18 03:53 77 05/28/18 03:21 74 15 95 Facial 36 05/28/18 03:20 74 18 95 Nasal Cannula 4.0 36 05/28/18 03:20 74 18 95 Bi-pap 36 05/28/18 00:01 84 05/28/18 00:00 98.3 82 20 130/58 (82) 94 05/27/18 23:38 82 18 93 Nasal Cannula 4.0 36 05/27/18 23:38 82 18 93 Nasal Cannula 4.0 36 05/27/18 23:38 82 18 93 Intake and Output 05/27/18 05/28/18 19:00 07:00 Intake Total 2276.25 ml 375 ml Output Total 1250 ml 300 ml Balance 1026.25 ml 75 ml Intake Oral 760 ml IV Total 1516.25 ml 375 ml Output Urine Total 1250 ml 300 ml # Voids 1 Height (Feet): 5 Height (Inches): 9.00 Weight (Pounds): 290 Objective General Appearance: alert Lines, tubes and drains: peripheral HEENT: mmm Neck: supple Respiratory/Chest: , decreased breath sounds, other - tender on right with palpation on Nasal canula, Bipap as needed Cardiovascular/Chest: regular rhythm Abdomen: soft, no organomegaly, no mass Extremities: normal inspection Skin Exam: warm/dry Neurologic: alert, responsive Brian Escalera MD May 28, 2018 22:11
[2018-05-29] VITALS: BP 121/51
[2018-05-29] MEDS: Albuterol 90mcg Inhaler 8gm INH SCH ×6 (03:29→23:42)
[2018-05-29] MEDS: D5 1/2NS 1,000 ML IV SCH (03:47)
[2018-05-29 04:00] VITALS: BP 131/76
--- NOTE | 2018-05-29 04:11 | NUR ---
NURSE NOTES: Patient is awake lying semi-strauss's; resting comfortably. On 3L nasal cannula. No signs of acute distress noted; complains of pain. Percocet administered as needed. Will continue to monitor.
--- NOTE | 2018-05-29 07:00 | NUR ---
NURSE NOTES: Per Renard from Cardiology department, patient may have light breakfast before stress test procedure at 1300.
--- NOTE | 2018-05-29 07:28 | NUR ---
HAND-OFF: Report given to JASEN Christensen. Patient is awake lying semi-strauss's; resting comfortably. On 3L nasal cannula. In stable condition. Endorsed to oncoming RN regarding patient's stress test procedure later today; verbalized understanding.
--- NOTE | 2018-05-29 07:30 | NUR ---
NURSE NOTES: Pt in room in bed in low position, bed alarm on, call light within reach, pt had a light breakfast as per night nurse stated that the stress test will not be done until 1300hrs, Md Alexander is to get report regarding the results, HOB elevated to semi fowlers, pt reports pain level of 4 and is calm at this time, pt is currently getting blood draw, 2 rails up, walker in room for assistive ambulation, no s/s of distress or sob reported or noticed, Pt on 3L NC and sats at 95% without NC pt sats at 88-89%. Pt still has not had a bowel movement and was given miralax and lactulose last night/ yesterday. Addendum: 05/29/18 at 0746 by MAGNO HOANG RN contacted Cardiology dept regarding hx of asthma, Renard stated that he called Md Armando and stated that it was ok to use Lexiscan. Pt denies hx of asthma and last reported wheezing 2 days ago, on auscultation of lungs they appear to be clear and no wheezing or labored breathing was reported.
--- NOTE | 2018-05-29 07:38 | General Progress Note ---
Assessment/Plan Assessment/Plan # Adenopathy -- with enlarged peripancreatic lymph nodes, with a node or conglomerate of nodes measuring up to 5 x 1.5 cm diameter. --> imaging has been reviewed --> tumor markers have been ordered as well --> if tumor markers normal, consider reimage in [address] abd/pelvis with iv contrast --> ct a/p shows no evidence of malignancy, tumor markers negative # Leukocytosis -- general level 10-15k, potentially reactive process related --->15.6-->13.5-->15-->13.9-->10.8 --> smear has been reviewed and no schistocytes are noted --> no fevers or chills at this time, monitor --> trend as needed # Multiple fractures of ribs --> pain management --> surg recs appreciated # Nausea/vomiting -- eval with gi service as required --> ct Posterior basal atelectasis versus pneumonia right worse than left Greatly appreciate consultation! Subjective Constitutional: Denies: no symptoms, chills, diaphoresis, fever, malaise, weakness, other HEENT: Denies: no symptoms, eye pain, blurred vision, tearing, double vision, ear pain, ear discharge, nose pain, nose congestion, throat pain, throat swelling, mouth pain, mouth swelling, other Cardiovascular: Denies: no symptoms, chest pain, edema, irregular heart rate, lightheadedness, palpitations, syncope, other Respiratory: Denies: no symptoms, cough, orthopnea, shortness of breath, SOB with excertion, SOB at rest, sputum, stridor, wheezing, other Genitourinary: Denies: no symptoms, burning, discharge, frequency, flank pain, hematuria, incontinence, pain, urgency, other Neurologic/Psychiatric: Denies: no symptoms, anxiety, depressed, emotional problems, headache, numbness, paresthesia, pre-existing deficit, seizure, tingling, tremors, weakness, other Allergies: Coded Allergies: No Known Allergies (Unverified , 04/04/13) Subjective 05/26/18: Patient is resting in bed. Sleepy, fatigue, cbc reviewed. wbc 13.9 today 05/27: Pt is seen in the room, still has pain but improving. leukocytosis resolved , wbc 10.8 today 05/28/18: pt is seen in the room a,wake, sitting on the edge of the bed; resting comfortably. On 3L nasal cannula. BiPAP at bedside 05/29/18: imaging reviewed, on bipap overnight, no other major events Objective Last 24 Hour Vital Signs Date Time Temp Pulse Resp B/P (MAP) Pulse Ox O2 Delivery O2 Flow Rate FiO2 05/29/18 04:00 98.0 77 20 131/76 (94) 98 05/29/18 04:00 79 05/29/18 03:31 78 20 95 Nasal Cannula 4.0 36 05/29/18 03:29 77 20 95 Nasal Cannula 4.0 36 05/29/18 00:00 78 05/29/18 00:00 98.2 83 20 121/51 (74) 94 05/28/18 22:37 78 18 94 Nasal Cannula 4.0 36 05/28/18 22:37 78 16 96 Facial 36 05/28/18 22:35 78 18 94 Nasal Cannula 4.0 36 05/28/18 21:00 Nasal Cannula 3.0 05/28/18 20:00 80 05/28/18 20:00 98.2 79 20 107/51 (69) 90 05/28/18 19:24 69 18 93 Nasal Cannula 4.0 36 05/28/18 19:21 69 18 93 Nasal Cannula 4.0 36 05/28/18 16:06 97.5 05/28/18 16:00 97.5 83 23 143/73 (96) 95 05/28/18 15:37 91 05/28/18 14:38 74 18 95 Nasal Cannula 4.0 36 05/28/18 14:38 74 18 95 Nasal Cannula 4.0 36 05/28/18 11:50 97.7 77 15 132/62 (85) 94 05/28/18 11:44 75 05/28/18 11:28 98.0 05/28/18 10:09 76 18 95 Nasal Cannula 4.0 36 05/28/18 10:09 76 18 95 Nasal Cannula 4.0 36 05/28/18 08:10 Nasal Cannula 2.0 05/28/18 08:00 98.0 81 20 118/58 (78) 93 05/28/18 07:59 78 05/28/18 07:46 74 18 95 Nasal Cannula 4.0 36 05/28/18 07:46 78 18 95 Nasal Cannula 4.0 36 Intake and Output 05/28/18 05/29/18 18:59 06:59 Intake Total 500 ml 1685 ml Output Total 400 ml Balance 100 ml 1685 ml Intake Oral 500 ml 300 ml IV Total 1385 ml Output Urine Total 400 ml # Voids 2 Height (Feet): 5 Height (Inches): 9.00 Weight (Pounds): 290 General Appearance: no apparent distress EENT: TMs normal Neck: normal alignment Cardiovascular: regular rhythm Abdomen: no mass Edema: 1+ Leg (L), 1+ Leg (R) Edema: mild edema Neurologic: alert Objective General Appearance: alert Lines, tubes and drains: peripheral HEENT: mmm Neck: supple Respiratory/Chest: , decreased breath sounds, other - tender on right with palpation on Nasal canula, Bipap as needed Cardiovascular/Chest: regular rhythm Abdomen: soft, no organomegaly, no mass Extremities: normal inspection Skin Exam: warm/dry Neurologic: alert, responsive Brian Escalera MD May 29, 2018 07:38
--- NOTE | 2018-05-29 07:55 | NUR ---
NURSE NOTES: Patient noted to have cardiac stress test. Per assessment, patient denies history of asthma and having used inhalers. Noted. Will continue to monitor patient.
[2018-05-29 08:00] VITALS: BP 131/65
--- NOTE | 2018-05-29 08:32 | NUR ---
CASE MANAGEMENT:REVIEW 05/29/18 SI: MULTIPLE RIB FRACTURES ABDOMINAL DISTENTION (ILEUS). SVT 98.0 77 18 131/76 96% ON 4L/NC TROPONIN(-) IS: START CARDIZEM 240MG PO QD NEURONTIN PO TID IV DILAUDID Q4HRS PRN HEPARIN SQ Q12 IV ROCEPHIN Q24 IVF@125/HR IV PROTONIX QD ALBUTEROL HHN Q4HRS RTC BREO INH QD : TELEMETRY STATUS DCP: PATIENT IS FROM HOME Addendum: 05/29/18 at 0838 by ELENITA MELISSAN FLAKE M[employer]ER HELPER PLAN: STRESS TEST FOR TODAY
--- NOTE | 2018-05-29 08:40 | NUR ---
INSURANCE FAXED TO: [facility]: [place] P- [phone] [id number] F- [phone].. (.FAX REVIEW ONLY)
[2018-05-29] MEDS: Allopurinol 100mg Tab ORAL SCH (08:54)
[2018-05-29] MEDS: dilTIAZem HCl CD 240mg cap ORAL SCH (08:54)
[2018-05-29] MEDS: Heparin 5000 units/ml inj SUBQ SCH ×2 (08:57→21:00)
[2018-05-29] MEDS ORDERED: D5 1/2NS 1000ml IV ONE (09:14)
[2018-05-29] MEDS: Breo Ellipta 200/25mcg-14 dose INH SCH (09:57)
[2018-05-29] MEDS: Lactulose 20gm/30ml UDC ORAL PRN ×2 (10:01→14:16)
[2018-05-29] MEDS: cefTRIAXone 1 GM in D5W 55 ML IVPB SCH (10:01)
[2018-05-29 12:00] VITALS: BP 134/71
--- NOTE | 2018-05-29 13:16 | Pulmonology Progress Note ---
Assessment/Plan Problems: (1) Multiple fractures of ribs (2) COPD (chronic obstructive pulmonary disease) Assessment/Plan ASSESSMENT: The patient is a 62-year-old male former smoker with a history of obesity, chronic obstructive pulmonary disease, gout, hypothyroidism, hypertension, and hyperlipidemia, presenting with hypoxemia in the setting of recent fall and rib fractures with bibasilar dependent atelectasis. PROBLEM LIST: 1. Right fifth, sixth and seventh fractures. 2. Mechanical fall. 3. COPD without evidence of exacerbation. 4. Atelectasis. 5. Acute on chronic hypercapnic respiratory failure 6. Hypoxemia secondary to combination of above. 7. Constipation. 8. Peripancreatic lymphadenopathy noted on CT of the chest. 9. Hypertension, hyperlipidemia, hypothyroidism, and gout. 10. Obesity, with possible underlying VESTA. TREATMENT PLAN: 1. Optimize pulmonary hygiene/mobilize as tolerated. 2. Titrate FiO2 to keep saturations greater than 90%. 3. P.r.n. bronchodilators. 4. Continue Breo. 5. Incentive spirometer. 6. Pain control/supportive care. 7. Bowel regimen. 8. Follow up Oncology recommendations regarding workup of peripancreatic lymph node, it seems the plan is for outpatient imaging. 9. DVT prophylaxis, heparin subcutaneous. 10. BiPAP 12/5 qHS and PRN - ENCOURAGE COMPLIANCE 11. Needs formal PFT and PSG as an outpatient 12. Follow tumor markers as ordered by Oncology. 13. F/U cardiology recs, NM stress test, future ablation @ [facility] Subjective Allergies: Coded Allergies: No Known Allergies (Unverified , 04/04/13) Subjective AFVSS O2 needs stable pain better states he briefly used BiPAP though not documented Seen by cards, stress test pending using IS less SOB no FC Objective Last 24 Hour Vital Signs Date Time Temp Pulse Resp B/P (MAP) Pulse Ox O2 Delivery O2 Flow Rate FiO2 05/29/18 12:00 98.1 79 20 134/71 (92) 95 05/29/18 11:38 76 05/29/18 11:11 75 18 95 Nasal Cannula 4.0 36 05/29/18 11:10 74 18 95 Nasal Cannula 4.0 36 05/29/18 10:32 98.1 05/29/18 08:54 79 131/65 05/29/18 08:00 98.1 79 20 131/65 (87) 95 05/29/18 08:00 Nasal Cannula 3.0 Nasal Cannula 3.0 05/29/18 07:57 80 18 96 Nasal Cannula 4.0 36 05/29/18 07:54 72 18 97 Nasal Cannula 4.0 36 05/29/18 07:39 83 05/29/18 04:00 98.0 77 20 131/76 (94) 98 05/29/18 04:00 79 05/29/18 03:31 78 20 95 Nasal Cannula 4.0 36 05/29/18 03:29 77 20 95 Nasal Cannula 4.0 36 05/29/18 00:00 78 05/29/18 00:00 98.2 83 20 121/51 (74) 94 05/28/18 22:37 78 18 94 Nasal Cannula 4.0 36 05/28/18 22:37 78 16 96 Facial 36 05/28/18 22:35 78 18 94 Nasal Cannula 4.0 36 05/28/18 21:00 Nasal Cannula 3.0 05/28/18 20:00 80 05/28/18 20:00 98.2 79 20 107/51 (69) 90 05/28/18 19:24 69 18 93 Nasal Cannula 4.0 36 05/28/18 19:21 69 18 93 Nasal Cannula 4.0 36 05/28/18 16:00 97.5 83 23 143/73 (96) 95 05/28/18 15:37 91 05/28/18 14:38 74 18 95 Nasal Cannula 4.0 36 05/28/18 14:38 74 18 95 Nasal Cannula 4.0 36 Intake and Output 05/28/18 05/29/18 19:00 07:00 Intake Total 625 ml 1685 ml Output Total 400 ml Balance 225 ml 1685 ml Intake Oral 500 ml 300 ml IV Total 125 ml 1385 ml Output Urine Total 400 ml # Voids 2 General Appearance: no acute distress, other - obese HEENT: normocephalic, atraumatic, anicteric, mucous membranes moist, other - MP 4 Respiratory/Chest: chest wall non-tender, lungs clear, normal breath sounds, no respiratory distress, no accessory muscle use Cardiovascular: normal peripheral pulses, normal rate, regular rhythm Abdomen: normal bowel sounds, soft, non tender, no organomegaly, non distended , no mass Extremities: no cyanosis, no clubbing, no edema Laboratory Tests 05/29/18 07:30: Troponin I 0.033 Current Medications Medications (Trade) Dose Ordered Sig/Ryan Route PRN Reason Start Time Stop Time Status Last Admin Dose Admin Albuterol Sulfate (Proventil MDI) 1 puff Q4HRT INH 05/25/18 11:00 06/21/18 10:59 05/29/18 11:10 Albuterol/ Ipratropium (Albuterol/ Ipratropium) 3 ml Q4H PRN HHN Shortness of Breath 05/25/18 14:30 05/30/18 14:29 Allopurinol (Zyloprim) 100 mg DAILY ORAL 05/23/18 09:00 06/22/18 08:59 05/29/18 08:54 Atorvastatin Calcium (Lipitor) 20 mg BEDTIME ORAL 05/22/18 21:00 06/21/18 20:59 05/28/18 20:09 Ceftriaxone Sodium 1 gm/ Dextrose 55 ml @ 110 mls/hr DAILY IVPB 05/25/18 14:00 06/01/18 13:59 05/29/18 10:01 Diltiazem HCl (Cardizem CD) 240 mg DAILY ORAL 05/29/18 09:00 06/28/18 08:59 05/29/18 08:54 Fluticasone/ Vilanterol (Breo Ellipta 200/25) 1 puffs DAILY INH 05/23/18 09:00 06/22/18 08:59 05/29/18 09:57 Gabapentin (Neurontin) 300 mg THREE TIMES A DAY ORAL 05/26/18 10:30 06/25/18 10:29 05/29/18 08:54 Heparin Sodium (Porcine) (Heparin 5000 units/ml) 5,000 units EVERY 12 HOURS SUBQ 05/25/18 21:00 06/24/18 20:59 05/29/18 08:57 Lactulose (Cephulac) 30 gm Q4H PRN ORAL Constipation 05/25/18 10:00 06/24/18 09:59 05/29/18 10:01 Levothyroxine Sodium (Synthroid) 100 mcg DAILY@0630 ORAL 05/23/18 06:30 06/22/18 06:29 05/29/18 06:11 Lidocaine (Lidoderm 5% PATCH) 1 patch DAILY TDERMAL 05/23/18 09:00 06/22/18 08:59 05/29/18 08:54 Ondansetron HCl (Zofran) 4 mg Q6H PRN IVP Nausea & Vomiting 05/23/18 00:45 06/22/18 00:44 05/23/18 10:21 Oxycodone/ Acetaminophen (Percocet 10/325) 1 tab Q4H PRN ORAL severe pain 05/28/18 12:00 06/04/18 11:59 05/29/18 10:02 Pantoprazole (Protonix) 40 mg DAILY ORAL 05/29/18 09:00 06/28/18 08:59 05/29/18 08:54 Polyethylene Glycol (Miralax) 17 gm BEDTIME ORAL 05/26/18 21:00 06/25/18 20:59 05/28/18 20:08 Regadenoson (Lexiscan) 0.4 mg ONCE PRN IV STRESS TEST 05/28/18 16:00 05/30/18 15:59 Wade Rasheed MD May 29, 2018 13:16
--- NOTE | 2018-05-29 13:21 | Infectious Diseases Prog Note ---
Assessment/Plan Assessment/Plan A; Leukocytosis resolved Atelectasis/ pneumonia Multiple rib fracture Morbid obesity COPD HPN VESTA P: continue Rocephin Subjective ROS Limited/Unobtainable: No Constitutional: Reports: no symptoms HEENT: Reports: no symptoms Respiratory: Reports: productive cough, other - decreased Cardiovascular: Reports: no symptoms Gastrointestinal/Abdominal: Reports: no symptoms Genitourinary: Reports: no symptoms Allergies: Coded Allergies: No Known Allergies (Unverified , 04/04/13) Objective Vital Signs Last 24 Hour Vital Signs Date Time Temp Pulse Resp B/P (MAP) Pulse Ox O2 Delivery O2 Flow Rate FiO2 05/29/18 12:00 98.1 79 20 134/71 (92) 95 05/29/18 11:38 76 05/29/18 11:11 75 18 95 Nasal Cannula 4.0 36 05/29/18 11:10 74 18 95 Nasal Cannula 4.0 36 05/29/18 10:32 98.1 05/29/18 08:54 79 131/65 05/29/18 08:00 98.1 79 20 131/65 (87) 95 05/29/18 08:00 Nasal Cannula 3.0 Nasal Cannula 3.0 05/29/18 07:57 80 18 96 Nasal Cannula 4.0 36 05/29/18 07:54 72 18 97 Nasal Cannula 4.0 36 05/29/18 07:39 83 05/29/18 04:00 98.0 77 20 131/76 (94) 98 05/29/18 04:00 79 05/29/18 03:31 78 20 95 Nasal Cannula 4.0 36 05/29/18 03:29 77 20 95 Nasal Cannula 4.0 36 05/29/18 00:00 78 05/29/18 00:00 98.2 83 20 121/51 (74) 94 05/28/18 22:37 78 18 94 Nasal Cannula 4.0 36 05/28/18 22:37 78 16 96 Facial 36 05/28/18 22:35 78 18 94 Nasal Cannula 4.0 36 05/28/18 21:00 Nasal Cannula 3.0 05/28/18 20:00 80 05/28/18 20:00 98.2 79 20 107/51 (69) 90 05/28/18 19:24 69 18 93 Nasal Cannula 4.0 36 05/28/18 19:21 69 18 93 Nasal Cannula 4.0 36 05/28/18 16:00 97.5 83 23 143/73 (96) 95 05/28/18 15:37 91 05/28/18 14:38 74 18 95 Nasal Cannula 4.0 36 05/28/18 14:38 74 18 95 Nasal Cannula 4.0 36 Height (Feet): 5 Height (Inches): 9.00 Weight (Pounds): 290 General Appearance: no acute distress HEENT: mucous membranes moist Respiratory/Chest: lungs clear Cardiovascular: normal rate Abdomen: soft, non tender Extremities: no edema Neurologic/Psychiatric: alert, oriented x 3, responsive Laboratory Tests Test 05/29/18 07:30 Troponin I 0.033 ng/mL (0.000-0.056) Current Medications Medications (Trade) Dose Ordered Sig/Ryan Route PRN Reason Start Time Stop Time Status Last Admin Dose Admin Albuterol Sulfate (Proventil MDI) 1 puff Q4HRT INH 05/25/18 11:00 06/21/18 10:59 05/29/18 11:10 Albuterol/ Ipratropium (Albuterol/ Ipratropium) 3 ml Q4H PRN HHN Shortness of Breath 05/25/18 14:30 05/30/18 14:29 Allopurinol (Zyloprim) 100 mg DAILY ORAL 05/23/18 09:00 06/22/18 08:59 05/29/18 08:54 Atorvastatin Calcium (Lipitor) 20 mg BEDTIME ORAL 05/22/18 21:00 06/21/18 20:59 05/28/18 20:09 Ceftriaxone Sodium 1 gm/ Dextrose 55 ml @ 110 mls/hr DAILY IVPB 05/25/18 14:00 06/01/18 13:59 05/29/18 10:01 Diltiazem HCl (Cardizem CD) 240 mg DAILY ORAL 05/29/18 09:00 06/28/18 08:59 05/29/18 08:54 Fluticasone/ Vilanterol (Breo Ellipta 200/25) 1 puffs DAILY INH 05/23/18 09:00 06/22/18 08:59 05/29/18 09:57 Gabapentin (Neurontin) 300 mg THREE TIMES A DAY ORAL 05/26/18 10:30 06/25/18 10:29 05/29/18 08:54 Heparin Sodium (Porcine) (Heparin 5000 units/ml) 5,000 units EVERY 12 HOURS SUBQ 05/25/18 21:00 06/24/18 20:59 05/29/18 08:57 Lactulose (Cephulac) 30 gm Q4H PRN ORAL Constipation 05/25/18 10:00 06/24/18 09:59 05/29/18 10:01 Levothyroxine Sodium (Synthroid) 100 mcg DAILY@0630 ORAL 05/23/18 06:30 06/22/18 06:29 05/29/18 06:11 Lidocaine (Lidoderm 5% PATCH) 1 patch DAILY TDERMAL 05/23/18 09:00 06/22/18 08:59 05/29/18 08:54 Ondansetron HCl (Zofran) 4 mg Q6H PRN IVP Nausea & Vomiting 05/23/18 00:45 06/22/18 00:44 05/23/18 10:21 Oxycodone/ Acetaminophen (Percocet 10/325) 1 tab Q4H PRN ORAL severe pain 05/28/18 12:00 06/04/18 11:59 05/29/18 10:02 Pantoprazole (Protonix) 40 mg DAILY ORAL 05/29/18 09:00 06/28/18 08:59 05/29/18 08:54 Polyethylene Glycol (Miralax) 17 gm BEDTIME ORAL 05/26/18 21:00 06/25/18 20:59 05/28/18 20:08 Regadenoson (Lexiscan) 0.4 mg ONCE PRN IV STRESS TEST 05/28/18 16:00 05/30/18 15:59 Adam Jacobs MD May 29, 2018 13:21
--- NOTE | 2018-05-29 15:11 | Cardiac Electrophysiology PN ---
Assessment/Plan Assessment/Plan 1. Recurrent supraventricular tachycardia. On Cardizem CD 240 milligram daily. The patient will need EPS and ablation as an outpatient at [facility] if he gets insurance approval 2. Abnormal EKG with lateral ischemia. Was ruled out for [place]. Echocardiogram EF 55%. Results of nuclear stress test from today is pending 3. Hypothyroidism on Synthroid DW RN Subjective Subjective Just had stress test today. No CP or SOB Objective Last 24 Hour Vital Signs Date Time Temp Pulse Resp B/P (MAP) Pulse Ox O2 Delivery O2 Flow Rate FiO2 05/29/18 14:46 98.1 05/29/18 12:00 98.1 79 20 134/71 (92) 95 05/29/18 11:38 76 05/29/18 11:11 75 18 95 Nasal Cannula 4.0 36 05/29/18 11:10 74 18 95 Nasal Cannula 4.0 36 05/29/18 08:54 79 131/65 05/29/18 08:00 98.1 79 20 131/65 (87) 95 05/29/18 08:00 Nasal Cannula 3.0 Nasal Cannula 3.0 05/29/18 07:57 80 18 96 Nasal Cannula 4.0 36 05/29/18 07:54 72 18 97 Nasal Cannula 4.0 36 05/29/18 07:39 83 05/29/18 04:00 98.0 77 20 131/76 (94) 98 05/29/18 04:00 79 05/29/18 03:31 78 20 95 Nasal Cannula 4.0 36 05/29/18 03:29 77 20 95 Nasal Cannula 4.0 36 05/29/18 00:00 78 05/29/18 00:00 98.2 83 20 121/51 (74) 94 05/28/18 22:37 78 18 94 Nasal Cannula 4.0 36 05/28/18 22:37 78 16 96 Facial 36 05/28/18 22:35 78 18 94 Nasal Cannula 4.0 36 05/28/18 21:00 Nasal Cannula 3.0 05/28/18 20:00 80 05/28/18 20:00 98.2 79 20 107/51 (69) 90 05/28/18 19:24 69 18 93 Nasal Cannula 4.0 36 05/28/18 19:21 69 18 93 Nasal Cannula 4.0 36 05/28/18 16:00 97.5 83 23 143/73 (96) 95 05/28/18 15:37 91 Intake and Output 05/28/18 05/29/18 19:00 07:00 Intake Total 625 ml 1685 ml Output Total 400 ml Balance 225 ml 1685 ml Intake Oral 500 ml 300 ml IV Total 125 ml 1385 ml Output Urine Total 400 ml # Voids 2 Laboratory Tests Test 05/29/18 07:30 Troponin I 0.033 ng/mL (0.000-0.056) Objective HEAD AND NECK: No JVD. LUNGS: Clear. CARDIOVASCULAR: Regular S1 and S2 with no gallop or murmur. ABDOMEN: Soft. EXTREMITIES: No pitting edema. Erich Alexander MD May 29, 2018 15:11
--- NOTE | 2018-05-29 15:23 | Diagnostic Imaging Report ---
Indications: Chest pain Technique: Single day single isotope protocol utilized. Initially, resting images obtained using IV administration 10.9 millicuries 99M technetium Myoview. Subsequently, patient underwent Lexiscan stress testing. See cardiology report for details. During adenosine infusion, IV administration 32.5 mCi 99 M technetium Myoview. SPECT and planar images obtained. SPECT images gated to 8 phases of the cardiac cycle were also obtained, and reformatted into cine images for evaluation of ejection fraction. Comparison: none Findings: Per cardiology report, patient experienced shortness of breath during infusion. Per cardiology report, resting EKG demonstrates normal sinus rhythm. Presence or absence of ST changes during infusion is not described on the cardiology report. Imaging demonstrates fixed apparent decreased activity in the inferior wall. No definite reversible defect demonstrated. There is minimal left ventricular dilatation. Calculated post stress ejection fraction 56% Impression: Nonischemic clinical response to pharmacologic stress, per cardiology report Nonischemic electrocardiographic response to pharmacologic stress, per cardiology report Apparent fixed decreased activity in the inferior wall. Suspect that this is artifactual due to soft tissue attenuation given patient body habitus; absence of any inferior wall hypokinesis on the gated images also makes infarct unlikely. Inferior wall infarct not completely excludable, however Negative for ischemia, at level of stress achieved Calculated post stress ejection fraction 56%
[2018-05-29 16:00] VITALS: BP 118/71
--- NOTE | 2018-05-29 17:56 | General Surgery Progress Note ---
General Surgery-Progress Note Subjective Symptoms: improved, pain same, tolerating diet, passing flatus Objective Last 24 Hour Vital Signs Date Time Temp Pulse Resp B/P (MAP) Pulse Ox O2 Delivery O2 Flow Rate FiO2 05/29/18 16:00 97.9 77 20 118/71 (87) 93 05/29/18 15:40 77 18 95 Nasal Cannula 4.0 36 05/29/18 15:37 77 18 94 Nasal Cannula 05/29/18 14:46 98.1 05/29/18 12:00 98.1 79 20 134/71 (92) 95 05/29/18 11:38 76 05/29/18 11:11 75 18 95 Nasal Cannula 4.0 36 05/29/18 11:10 74 18 95 Nasal Cannula 4.0 36 05/29/18 08:54 79 131/65 05/29/18 08:00 98.1 79 20 131/65 (87) 95 05/29/18 08:00 Nasal Cannula 3.0 Nasal Cannula 3.0 05/29/18 07:57 80 18 96 Nasal Cannula 4.0 36 05/29/18 07:54 72 18 97 Nasal Cannula 4.0 36 05/29/18 07:39 83 05/29/18 04:00 98.0 77 20 131/76 (94) 98 05/29/18 04:00 79 05/29/18 03:31 78 20 95 Nasal Cannula 4.0 36 05/29/18 03:29 77 20 95 Nasal Cannula 4.0 36 05/29/18 00:00 78 05/29/18 00:00 98.2 83 20 121/51 (74) 94 05/28/18 22:37 78 18 94 Nasal Cannula 4.0 36 05/28/18 22:37 78 16 96 Facial 36 05/28/18 22:35 78 18 94 Nasal Cannula 4.0 36 05/28/18 21:00 Nasal Cannula 3.0 05/28/18 20:00 80 05/28/18 20:00 98.2 79 20 107/51 (69) 90 05/28/18 19:24 69 18 93 Nasal Cannula 4.0 36 05/28/18 19:21 69 18 93 Nasal Cannula 4.0 36 I&O Intake and Output 05/28/18 05/29/18 19:00 07:00 Intake Total 625 ml 1685 ml Output Total 400 ml Balance 225 ml 1685 ml Intake Oral 500 ml 300 ml IV Total 125 ml 1385 ml Output Urine Total 400 ml # Voids 2 Drains: none Cardiovascular: RSR Respiratory: clear Abdomen: soft, flat, distended, non-tender, present bowel sounds Extremities: no cyanosis Laboratory Tests Test 05/29/18 07:30 Troponin I 0.033 ng/mL (0.000-0.056) Plan Problems: (1) Multiple fractures of ribs Assessment & Plan: s/p fall with multiple rib fx respiratory stable for now labs noted cxr noted leukocytosis resolved pain better controlled. -needs aggressive pulmonary toilet -pain control appreciate pain management input -okay for diet -bowel regimen -activity as tolerated -d/c planning -incentive spirometry thank you . will follow with Juan Antonio Valencia May 29, 2018 17:56
--- NOTE | 2018-05-29 19:20 | NUR ---
NURSE NOTES: Received pt. and report from JASEN Christensen. Observe pt. in bedside chair watching TV. Pt. is A/O x4, IV site intact, asymptomatic, and patent, quality assurance monitor final is in placed, bed is in the lowest position and locked, call light within reach. No acute distress noted at this time. Will continue plan of care.
--- NOTE | 2018-05-29 19:28 | NUR ---
HAND-OFF: Report given to Fior Ma.
[2018-05-29 20:00] VITALS: BP 112/43
[2018-05-29] MEDS: Miralax 17gm pkt ORAL SCH (21:00)
[2018-05-29] MEDS: Atorvastatin 20mg tab ORAL SCH (21:03)
--- NOTE | 2018-05-29 21:23 | General Progress Note ---
Assessment/Plan Problem List: (1) COPD (chronic obstructive pulmonary disease) ICD Codes: J44.9 - Chronic obstructive pulmonary disease, unspecified SNOMED: 91455151 (2) Multiple fractures of ribs ICD Codes: S22.49XA - Multiple fractures of ribs, unspecified side, initial encounter for closed fracture SNOMED: 4516339 Qualifiers: Qualified Codes: S22.41XA - Multiple fractures of ribs, right side, initial encounter for closed fracture Status: progressing Assessment/Plan distended abdomin copd rib fracture sob nsvt chronic pain reviewed chart and labs r/o constipation Subjective ROS Limited/Unobtainable: Yes Allergies: Coded Allergies: No Known Allergies (Unverified , 04/04/13) Objective Last 24 Hour Vital Signs Date Time Temp Pulse Resp B/P (MAP) Pulse Ox O2 Delivery O2 Flow Rate FiO2 05/29/18 19:57 77 18 Room Air 21 05/29/18 19:57 77 18 90 Room Air 21 05/29/18 19:57 79 18 94 Nasal Cannula 4.0 36 05/29/18 16:00 97.9 77 20 118/71 (87) 93 05/29/18 15:40 77 18 95 Nasal Cannula 4.0 36 05/29/18 15:39 74 05/29/18 15:37 77 18 94 Nasal Cannula 05/29/18 14:46 98.1 05/29/18 12:00 98.1 79 20 134/71 (92) 95 05/29/18 11:38 76 05/29/18 11:11 75 18 95 Nasal Cannula 4.0 36 05/29/18 11:10 74 18 95 Nasal Cannula 4.0 36 05/29/18 08:54 79 131/65 05/29/18 08:00 98.1 79 20 131/65 (87) 95 05/29/18 08:00 Nasal Cannula 3.0 Nasal Cannula 3.0 05/29/18 07:57 80 18 96 Nasal Cannula 4.0 36 05/29/18 07:54 72 18 97 Nasal Cannula 4.0 36 05/29/18 07:39 83 05/29/18 04:00 98.0 77 20 131/76 (94) 98 05/29/18 04:00 79 05/29/18 03:31 78 20 95 Nasal Cannula 4.0 36 05/29/18 03:29 77 20 95 Nasal Cannula 4.0 36 05/29/18 00:00 78 05/29/18 00:00 98.2 83 20 121/51 (74) 94 05/28/18 22:37 78 18 94 Nasal Cannula 4.0 36 05/28/18 22:37 78 16 96 Facial 36 05/28/18 22:35 78 18 94 Nasal Cannula 4.0 36 Intake and Output 05/28/18 05/29/18 19:00 07:00 Intake Total 625 ml 1685 ml Output Total 400 ml Balance 225 ml 1685 ml Intake Oral 500 ml 300 ml IV Total 125 ml 1385 ml Output Urine Total 400 ml # Voids 2 Laboratory Tests 05/29/18 07:30: Troponin I 0.033 Height (Feet): 5 Height (Inches): 9.00 Weight (Pounds): 290 Respiratory/Chest: lungs clear Abdomen: soft Leonard Caballero MD May 29, 2018 21:23
--- NOTE | 2018-05-29 22:17 | General Progress Note ---
Assessment/Plan Assessment/Plan Assessment - Central obesity - likely component of constipation - no significant abd pathology per CT Recommendations - laxative trial - advance diet - OOB Subjective Allergies: Coded Allergies: No Known Allergies (Unverified , 04/04/13) Subjective above noted small BM no N/V Objective Last 24 Hour Vital Signs Date Time Temp Pulse Resp B/P (MAP) Pulse Ox O2 Delivery O2 Flow Rate FiO2 05/29/18 19:57 77 18 Room Air 21 05/29/18 19:57 77 18 90 Room Air 21 05/29/18 19:57 79 18 94 Nasal Cannula 4.0 36 05/29/18 16:00 97.9 77 20 118/71 (87) 93 05/29/18 15:40 77 18 95 Nasal Cannula 4.0 36 05/29/18 15:39 74 05/29/18 15:37 77 18 94 Nasal Cannula 05/29/18 14:46 98.1 05/29/18 12:00 98.1 79 20 134/71 (92) 95 05/29/18 11:38 76 05/29/18 11:11 75 18 95 Nasal Cannula 4.0 36 05/29/18 11:10 74 18 95 Nasal Cannula 4.0 36 05/29/18 08:54 79 131/65 05/29/18 08:00 98.1 79 20 131/65 (87) 95 05/29/18 08:00 Nasal Cannula 3.0 Nasal Cannula 3.0 05/29/18 07:57 80 18 96 Nasal Cannula 4.0 36 05/29/18 07:54 72 18 97 Nasal Cannula 4.0 36 05/29/18 07:39 83 05/29/18 04:00 98.0 77 20 131/76 (94) 98 05/29/18 04:00 79 05/29/18 03:31 78 20 95 Nasal Cannula 4.0 36 05/29/18 03:29 77 20 95 Nasal Cannula 4.0 36 05/29/18 00:00 78 05/29/18 00:00 98.2 83 20 121/51 (74) 94 05/28/18 22:37 78 18 94 Nasal Cannula 4.0 36 05/28/18 22:37 78 16 96 Facial 36 05/28/18 22:35 78 18 94 Nasal Cannula 4.0 36 Intake and Output 05/28/18 05/29/18 19:00 07:00 Intake Total 625 ml 1685 ml Output Total 400 ml Balance 225 ml 1685 ml Intake Oral 500 ml 300 ml IV Total 125 ml 1385 ml Output Urine Total 400 ml # Voids 2 Laboratory Tests 05/29/18 07:30: Troponin I 0.033 Height (Feet): 5 Height (Inches): 9.00 Weight (Pounds): 290 Objective WD obese WM NCAT supple CTA RRR abd distended, tympanitic no edema Giorgi Black MD May 29, 2018 22:17
[2018-05-29] MEDS ORDERED: Sorbitol Solution UD 30ml ORAL SCH (22:30)
[2018-05-30] VITALS: BP 127/41
[2018-05-30] MEDS: Albuterol 90mcg Inhaler 8gm INH SCH ×4 (03:22→15:05)
[2018-05-30 04:00] VITALS: BP 113/57
--- NOTE | 2018-05-30 07:35 | NUR ---
NURSE NOTES: Received report from JASEN Brown. Patient is resting in bed, in stable condition. No s/sx of SOB, breathing is even and unlabored. Denies any presence of pain or discomfort at this time. Bed is in lowest position, brakes engaged. Call light is kept within easy reach. Will continue to monitor patient.
--- NOTE | 2018-05-30 07:52 | NUR ---
HAND-OFF: Report given to JASEN Santos. Pt. is in stable condition. Plan of care endorsed.
[2018-05-30 08:00] VITALS: BP 145/56
[2018-05-30] MEDS: cefTRIAXone 1 GM in D5W 55 ML IVPB SCH (08:23)
[2018-05-30] MEDS: Allopurinol 100mg Tab ORAL SCH (08:24)
[2018-05-30] MEDS: dilTIAZem HCl CD 240mg cap ORAL SCH (08:24)
[2018-05-30] MEDS: Heparin 5000 units/ml inj SUBQ SCH (08:26)
--- NOTE | 2018-05-30 08:47 | Cardiology Report ---
APPROVED REPORT EXAM: Two-dimensional and M-mode echocardiogram with Doppler and color Doppler. INDICATION SUPRAVENTRIC TACHYCARDIA M-mode measurements of left ventricle not obtainable due to cardiac position (angle) Study quality precludes accurate assessment of regional wall motion. Normal left ventricular chamber size, systolic function and wall motion to extent visualized. Left ventricular ejection fraction estimated to be grossly normal . No evidence of left ventricular hypertrophy . Trivial pericardial effusion. Mild bi-atrila enlargement . Right ventricular chamber is not well visualized . Mildly focal aortic valve sclerosis with reduced cusp excursion. Thickened mitral valve leaflets with normal excursion. Mitral annulus and aortic root calcification. Normal pulmonic valve structure. Normal tricuspid valve structure. 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 A color flow and spectral Doppler study was performed and revealed: No aortic regurgitation. Trace mitral regurgitation. Normal left ventricular diastolic function. Trace tricuspid regurgitation. Tricuspid systolic velocities suggests peak right ventricular systolic pressure of 16 mmHg. No Pulmonic regurgitation present.
[2018-05-30] MEDS: Breo Ellipta 200/25mcg-14 dose INH SCH (08:48)
--- NOTE | 2018-05-30 10:38 | NUR ---
NURSE NOTES: Patient seen and examined by Dr. Alexander. Per Dr. Alexander cleared from cardiology perspective. Noted. Will continue to monitor patient.
--- NOTE | 2018-05-30 10:48 | Cardiac Electrophysiology PN ---
Assessment/Plan Assessment/Plan 1. Recurrent supraventricular tachycardia. On Cardizem CD 240 milligram daily. The patient will need EPS and ablation as an outpatient at [facility] if he gets insurance approval 2. Abnormal EKG with lateral ischemia. Was ruled out for [place]. Echocardiogram EF 55%. Results of nuclear stress test showed no ischemia 3. Hypothyroidism on Synthroid DW RN OK to DC Subjective Subjective No SVT. No CP or SOB Objective Last 24 Hour Vital Signs Date Time Temp Pulse Resp B/P (MAP) Pulse Ox O2 Delivery O2 Flow Rate FiO2 05/30/18 09:00 Nasal Cannula 3.0 Nasal Cannula 3.0 05/30/18 08:24 74 145/56 05/30/18 08:00 74 05/30/18 08:00 98.1 74 20 145/56 (85) 96 05/30/18 07:09 78 18 96 Nasal Cannula 4.0 36 05/30/18 07:08 78 18 96 Nasal Cannula 4.0 36 05/30/18 04:00 97.9 65 21 113/57 (75) 94 05/30/18 04:00 71 05/30/18 03:22 64 16 95 Facial 36 05/30/18 03:22 74 18 95 Nasal Cannula 4.0 36 05/30/18 03:22 74 18 95 Bi-pap 36 05/30/18 00:00 98.9 80 21 127/41 (69) 95 05/30/18 00:00 80 05/29/18 23:42 74 18 96 Nasal Cannula 4.0 36 05/29/18 23:42 74 18 96 Nasal Cannula 4.0 36 05/29/18 21:00 Nasal Cannula 3.0 Nasal Cannula 3.0 05/29/18 20:00 84 05/29/18 20:00 98.2 84 20 112/43 (66) 97 05/29/18 19:57 77 18 Room Air 21 05/29/18 19:57 77 18 90 Room Air 21 05/29/18 19:57 79 18 94 Nasal Cannula 4.0 36 05/29/18 16:00 97.9 77 20 118/71 (87) 93 05/29/18 15:40 77 18 95 Nasal Cannula 4.0 36 05/29/18 15:39 74 05/29/18 15:37 77 18 94 Nasal Cannula 05/29/18 14:46 98.1 1/7/19 12:00 98.1 79 20 134/71 (92) 95 05/29/18 11:38 76 05/29/18 11:11 75 18 95 Nasal Cannula 4.0 36 05/29/18 11:10 74 18 95 Nasal Cannula 4.0 36 Intake and Output 05/29/18 05/30/18 18:59 06:59 Intake Total 1085 ml 520 ml Output Total 600 ml 500 ml Balance 485 ml 20 ml Intake Oral 960 ml 520 ml IV Total 125 ml Output Urine Total 600 ml 500 ml # Voids 4 5 # Bowel Movements 1 Objective HEAD AND NECK: No JVD. LUNGS: Clear. CARDIOVASCULAR: Regular S1 and S2 with no gallop or murmur. ABDOMEN: Soft. EXTREMITIES: No pitting edema. Erich Alexander MD May 30, 2018 10:48
[2018-05-30 12:00] VITALS: BP 105/58
--- NOTE | 2018-05-30 13:12 | General Surgery Progress Note ---
General Surgery-Progress Note Subjective Symptoms: improved, pain same, tolerating diet, passing flatus Additional Comments no acute events Objective Last 24 Hour Vital Signs Date Time Temp Pulse Resp B/P (MAP) Pulse Ox O2 Delivery O2 Flow Rate FiO2 05/30/18 12:00 68 05/30/18 12:00 98.2 63 20 105/58 (74) 98 05/30/18 11:17 68 18 96 Nasal Cannula 4.0 36 05/30/18 11:15 67 18 96 Nasal Cannula 4.0 36 05/30/18 09:00 Nasal Cannula 3.0 Nasal Cannula 3.0 05/30/18 08:24 74 145/56 05/30/18 08:00 74 05/30/18 08:00 98.1 74 20 145/56 (85) 96 05/30/18 07:09 78 18 96 Nasal Cannula 4.0 36 05/30/18 07:08 78 18 96 Nasal Cannula 4.0 36 05/30/18 04:00 97.9 65 21 113/57 (75) 94 05/30/18 04:00 71 05/30/18 03:22 64 16 95 Facial 36 05/30/18 03:22 74 18 95 Nasal Cannula 4.0 36 05/30/18 03:22 74 18 95 Bi-pap 36 05/30/18 00:00 98.9 80 21 127/41 (69) 95 05/30/18 00:00 80 05/29/18 23:42 74 18 96 Nasal Cannula 4.0 36 05/29/18 23:42 74 18 96 Nasal Cannula 4.0 36 05/29/18 21:00 Nasal Cannula 3.0 Nasal Cannula 3.0 05/29/18 20:00 84 05/29/18 20:00 98.2 84 20 112/43 (66) 97 05/29/18 19:57 77 18 Room Air 21 05/29/18 19:57 77 18 90 Room Air 21 05/29/18 19:57 79 18 94 Nasal Cannula 4.0 36 05/29/18 16:00 97.9 77 20 118/71 (87) 93 05/29/18 15:40 77 18 95 Nasal Cannula 4.0 36 05/29/18 15:39 74 05/29/18 15:37 77 18 94 Nasal Cannula 05/29/18 14:46 98.1 I&O Intake and Output 05/29/18 05/30/18 19:00 07:00 Intake Total 960 ml 520 ml Output Total 600 ml 500 ml Balance 360 ml 20 ml Intake Oral 960 ml 520 ml Output Urine Total 600 ml 500 ml # Voids 4 5 # Bowel Movements 1 Drains: none Cardiovascular: RSR Respiratory: clear, decreased breath sounds Abdomen: soft, non-tender, present bowel sounds Extremities: no cyanosis Plan Problems: (1) Multiple fractures of ribs Assessment & Plan: s/p fall with multiple rib fx respiratory stable for now labs noted cxr noted leukocytosis resolved pain better controlled. -needs aggressive pulmonary toilet -pain control appreciate pain management input -okay for diet -bowel regimen -activity as tolerated -d/c planning -incentive spirometry thank you . will follow with Juan Antonio Valencia May 30, 2018 13:12
--- NOTE | 2018-05-30 13:42 | Infectious Diseases Prog Note ---
Assessment/Plan Assessment/Plan A; Leukocytosis resolved Atelectasis/ pneumonia Multiple rib fracture Morbid obesity COPD HPN VESTA P: continue Rocephin Subjective ROS Limited/Unobtainable: No Constitutional: Reports: no symptoms Cardiovascular: Reports: no symptoms Gastrointestinal/Abdominal: Reports: no symptoms Genitourinary: Reports: no symptoms Allergies: Coded Allergies: No Known Allergies (Unverified , 04/04/13) Objective Vital Signs Last 24 Hour Vital Signs Date Time Temp Pulse Resp B/P (MAP) Pulse Ox O2 Delivery O2 Flow Rate FiO2 05/30/18 12:00 68 05/30/18 12:00 98.2 63 20 105/58 (74) 98 05/30/18 11:17 68 18 96 Nasal Cannula 4.0 36 05/30/18 11:15 67 18 96 Nasal Cannula 4.0 36 05/30/18 09:00 Nasal Cannula 3.0 Nasal Cannula 3.0 05/30/18 08:24 74 145/56 05/30/18 08:00 74 05/30/18 08:00 98.1 74 20 145/56 (85) 96 05/30/18 07:09 78 18 96 Nasal Cannula 4.0 36 05/30/18 07:08 78 18 96 Nasal Cannula 4.0 36 05/30/18 04:00 97.9 65 21 113/57 (75) 94 05/30/18 04:00 71 05/30/18 03:22 64 16 95 Facial 36 05/30/18 03:22 74 18 95 Nasal Cannula 4.0 36 05/30/18 03:22 74 18 95 Bi-pap 36 05/30/18 00:00 98.9 80 21 127/41 (69) 95 05/30/18 00:00 80 05/29/18 23:42 74 18 96 Nasal Cannula 4.0 36 05/29/18 23:42 74 18 96 Nasal Cannula 4.0 36 05/29/18 21:00 Nasal Cannula 3.0 Nasal Cannula 3.0 05/29/18 20:00 84 05/29/18 20:00 98.2 84 20 112/43 (66) 97 05/29/18 19:57 77 18 Room Air 21 05/29/18 19:57 77 18 90 Room Air 21 05/29/18 19:57 79 18 94 Nasal Cannula 4.0 36 05/29/18 16:00 97.9 77 20 118/71 (87) 93 05/29/18 15:40 77 18 95 Nasal Cannula 4.0 36 05/29/18 15:39 74 05/29/18 15:37 77 18 94 Nasal Cannula 05/29/18 14:46 98.1 Height (Feet): 5 Height (Inches): 9.00 Weight (Pounds): 290 HEENT: mucous membranes moist Respiratory/Chest: lungs clear Cardiovascular: normal rate Abdomen: soft, non tender Extremities: no edema Neurologic/Psychiatric: alert, oriented x 3, responsive Current Medications Medications (Trade) Dose Ordered Sig/Ryan Route PRN Reason Start Time Stop Time Status Last Admin Dose Admin Albuterol Sulfate (Proventil MDI) 1 puff Q4HRT INH 05/25/18 11:00 06/21/18 10:59 05/30/18 11:15 Albuterol/ Ipratropium (Albuterol/ Ipratropium) 3 ml Q4H PRN HHN Shortness of Breath 05/25/18 14:30 05/30/18 14:29 Allopurinol (Zyloprim) 100 mg DAILY ORAL 05/23/18 09:00 06/22/18 08:59 05/30/18 08:24 Atorvastatin Calcium (Lipitor) 20 mg BEDTIME ORAL 05/22/18 21:00 06/21/18 20:59 05/29/18 21:03 Ceftriaxone Sodium 1 gm/ Dextrose 55 ml @ 110 mls/hr DAILY IVPB 05/25/18 14:00 06/01/18 13:59 05/30/18 08:23 Diltiazem HCl (Cardizem CD) 240 mg DAILY ORAL 05/29/18 09:00 06/28/18 08:59 05/30/18 08:24 Fluticasone/ Vilanterol (Breo Ellipta 200/25) 1 puffs DAILY INH 05/23/18 09:00 06/22/18 08:59 05/30/18 08:48 Gabapentin (Neurontin) 300 mg THREE TIMES A DAY ORAL 05/26/18 10:30 06/25/18 10:29 05/30/18 12:41 Heparin Sodium (Porcine) (Heparin 5000 units/ml) 5,000 units EVERY 12 HOURS SUBQ 05/25/18 21:00 2/2/19 20:59 05/30/18 08:26 Lactulose (Cephulac) 30 gm Q4H PRN ORAL Constipation 05/25/18 10:00 06/24/18 09:59 05/29/18 14:16 Levothyroxine Sodium (Synthroid) 100 mcg DAILY@0630 ORAL 05/23/18 06:30 06/22/18 06:29 05/30/18 06:22 Lidocaine (Lidoderm 5% PATCH) 1 patch DAILY TDERMAL 05/23/18 09:00 06/22/18 08:59 05/30/18 08:25 Ondansetron HCl (Zofran) 4 mg Q6H PRN IVP Nausea & Vomiting 05/23/18 00:45 06/22/18 00:44 05/23/18 10:21 Oxycodone/ Acetaminophen (Percocet 10/325) 1 tab Q4H PRN ORAL severe pain 05/28/18 12:00 06/04/18 11:59 05/30/18 08:24 Pantoprazole (Protonix) 40 mg DAILY ORAL 05/29/18 09:00 06/28/18 08:59 05/30/18 08:24 Polyethylene Glycol (Miralax) 17 gm BEDTIME ORAL 05/26/18 21:00 06/25/18 20:59 05/28/18 20:08 Regadenoson (Lexiscan) 0.4 mg ONCE PRN IV STRESS TEST 05/28/18 16:00 05/30/18 15:59 Adam Jacobs MD May 30, 2018 13:42
--- NOTE | 2018-05-30 14:43 | NUR ---
RD ASSESSMENT & RECOMMENDATIONS SEE CARE ACTIVITY FOR COMPLETE ASSESSMENT DAILY ESTIMATED NEEDS: Needs based on Obese, pulmonary 89kg adj 20-25 kcals/kg 1372-0171 total kcals 1-1.5 g protein/kg 89-134 g total protein 20-30 mL/kg 7789-4229 total fluid mLs NUTRITION DIAGNOSIS: Altered nutrition related lab values r/t clinical status as evidenced by elec CO2 36, BL LE edema. CURRENT DIET: Cardiac, low fiber- low residue PO DIET RECOMMENDATIONS: CARDIAC DIET ADDITIONAL RECOMMENDATIONS: 1) Prune juice TID w/ meals 2) Obtain a standing weight as able for accurate CBW 3) Avoid / limit binding foods (ie banana, white flour, rice)
--- NOTE | 2018-05-30 14:45 | Cardiology Report ---
APPROVED REPORT EKG Measurement Heart [id number] Normal sinus rhythm T wave abnormality, consider lateral ischemia Abnormal ECG
--- NOTE | 2018-05-30 15:06 | NUR ---
NURSE NOTES: Dr. Warren Jacobs at nurse station. Ordered to stop antibiotics, cleared from infectious disease perspective, and no antibiotics needed going home. Noted. Will continue to monitor patient.
--- NOTE | 2018-05-30 15:49 | Pulmonology Progress Note ---
Assessment/Plan Problems: (1) Multiple fractures of ribs (2) COPD (chronic obstructive pulmonary disease) Assessment/Plan ASSESSMENT: The patient is a 62-year-old male former smoker with a history of obesity, chronic obstructive pulmonary disease, gout, hypothyroidism, hypertension, and hyperlipidemia, presenting with hypoxemia in the setting of recent fall and rib fractures with bibasilar dependent atelectasis. PROBLEM LIST: 1. Right fifth, sixth and seventh fractures. 2. Mechanical fall. 3. COPD without evidence of exacerbation. 4. Atelectasis. 5. Acute on chronic hypercapnic respiratory failure 6. Hypoxemia secondary to combination of above. 7. Constipation. 8. Peripancreatic lymphadenopathy noted on CT of the chest. 9. Hypertension, hyperlipidemia, hypothyroidism, and gout. 10. Obesity, with possible underlying VESTA. TREATMENT PLAN: 1. Optimize pulmonary hygiene/mobilize as tolerated. 2. Titrate FiO2 to keep saturations greater than 90%. 3. P.r.n. bronchodilators. 4. Continue Breo. 5. Incentive spirometer. 6. Pain control/supportive care. 7. Bowel regimen. 8. Follow up Oncology recommendations regarding workup of peripancreatic lymph node, it seems the plan is for outpatient imaging. 9. DVT prophylaxis, heparin subcutaneous. 10. BiPAP 12/5 qHS and PRN - ENCOURAGE COMPLIANCE 11. Needs formal PFT and PSG as an outpatient 12. Follow tumor markers as ordered by Oncology. 13. F/U cardiology recs, future ablation @ [facility] 14. Stable from a pulmonary standpoint for D/C - NEEDS OUTPATIENT PULMONARY FOLLOW UP Subjective Allergies: Coded Allergies: No Known Allergies (Unverified , 04/04/13) Subjective AFVSS O2 needs stable pain better did not use BiPAP Stress test and TTE noted using IS less SOB no FC Objective Last 24 Hour Vital Signs Date Time Temp Pulse Resp B/P (MAP) Pulse Ox O2 Delivery O2 Flow Rate FiO2 05/30/18 15:06 69 18 96 Nasal Cannula 4.0 36 05/30/18 15:05 69 18 96 Nasal Cannula 4.0 36 05/30/18 12:00 68 05/30/18 12:00 98.2 63 20 105/58 (74) 98 05/30/18 11:17 68 18 96 Nasal Cannula 4.0 36 05/30/18 11:15 67 18 96 Nasal Cannula 4.0 36 05/30/18 09:00 Nasal Cannula 3.0 Nasal Cannula 3.0 05/30/18 08:24 74 145/56 05/30/18 08:00 74 05/30/18 08:00 98.1 74 20 145/56 (85) 96 05/30/18 07:09 78 18 96 Nasal Cannula 4.0 36 05/30/18 07:08 78 18 96 Nasal Cannula 4.0 36 05/30/18 04:00 97.9 65 21 113/57 (75) 94 05/30/18 04:00 71 05/30/18 03:22 64 16 95 Facial 36 05/30/18 03:22 74 18 95 Nasal Cannula 4.0 36 05/30/18 03:22 74 18 95 Bi-pap 36 05/30/18 00:00 98.9 80 21 127/41 (69) 95 05/30/18 00:00 80 05/29/18 23:42 74 18 96 Nasal Cannula 4.0 36 05/29/18 23:42 74 18 96 Nasal Cannula 4.0 36 05/29/18 21:00 Nasal Cannula 3.0 Nasal Cannula 3.0 05/29/18 20:00 84 05/29/18 20:00 98.2 84 20 112/43 (66) 97 05/29/18 19:57 77 18 Room Air 21 05/29/18 19:57 77 18 90 Room Air 21 05/29/18 19:57 79 18 94 Nasal Cannula 4.0 36 05/29/18 16:00 97.9 77 20 118/71 (87) 93 Intake and Output 05/29/18 05/30/18 19:00 07:00 Intake Total 960 ml 520 ml Output Total 600 ml 500 ml Balance 360 ml 20 ml Intake Oral 960 ml 520 ml Output Urine Total 600 ml 500 ml # Voids 4 5 # Bowel Movements 1 General Appearance: no acute distress, other - obese HEENT: normocephalic, atraumatic, anicteric, mucous membranes moist, other - MP 4 Respiratory/Chest: chest wall non-tender, lungs clear, normal breath sounds, no respiratory distress, no accessory muscle use Cardiovascular: normal peripheral pulses, normal rate, regular rhythm Abdomen: normal bowel sounds, soft, non tender, no organomegaly, non distended , no mass Extremities: no cyanosis, no clubbing, no edema Current Medications Medications (Trade) Dose Ordered Sig/Ryan Route PRN Reason Start Time Stop Time Status Last Admin Dose Admin Albuterol Sulfate (Proventil MDI) 1 puff Q4HRT INH 05/25/18 11:00 06/21/18 10:59 05/30/18 15:05 Allopurinol (Zyloprim) 100 mg DAILY ORAL 05/23/18 09:00 06/22/18 08:59 05/30/18 08:24 Atorvastatin Calcium (Lipitor) 20 mg BEDTIME ORAL 05/22/18 21:00 06/21/18 20:59 05/29/18 21:03 Diltiazem HCl (Cardizem CD) 240 mg DAILY ORAL 05/29/18 09:00 06/28/18 08:59 05/30/18 08:24 Fluticasone/ Vilanterol (Breo Ellipta 200/25) 1 puffs DAILY INH 05/23/18 09:00 06/22/18 08:59 05/30/18 08:48 Gabapentin (Neurontin) 300 mg THREE TIMES A DAY ORAL 05/26/18 10:30 06/25/18 10:29 05/30/18 12:41 Heparin Sodium (Porcine) (Heparin 5000 units/ml) 5,000 units EVERY 12 HOURS SUBQ 05/25/18 21:00 06/24/18 20:59 05/30/18 08:26 Lactulose (Cephulac) 30 gm Q4H PRN ORAL Constipation 05/25/18 10:00 06/24/18 09:59 05/29/18 14:16 Levothyroxine Sodium (Synthroid) 100 mcg DAILY@0630 ORAL 05/23/18 06:30 06/22/18 06:29 05/30/18 06:22 Lidocaine (Lidoderm 5% PATCH) 1 patch DAILY TDERMAL 05/23/18 09:00 06/22/18 08:59 05/30/18 08:25 Ondansetron HCl (Zofran) 4 mg Q6H PRN IVP Nausea & Vomiting 05/23/18 00:45 06/22/18 00:44 05/23/18 10:21 Oxycodone/ Acetaminophen (Percocet 10/325) 1 tab Q4H PRN ORAL severe pain 05/28/18 12:00 06/04/18 11:59 05/30/18 08:24 Pantoprazole (Protonix) 40 mg DAILY ORAL 05/29/18 09:00 06/28/18 08:59 05/30/18 08:24 Polyethylene Glycol (Miralax) 17 gm BEDTIME ORAL 05/26/18 21:00 06/25/18 20:59 05/28/18 20:08 Regadenoson (Lexiscan) 0.4 mg ONCE PRN IV STRESS TEST 05/28/18 16:00 05/30/18 15:59 Wade Rasheed MD May 30, 2018 15:49
--- NOTE | 2018-05-30 15:54 | NUR ---
NURSE NOTES: Called and informed Mr. Han of discharge and patient's request for pain prescription. Mr. Han acknowledged and stated will call [facility] for pain prescription. Noted. Will continue to monitor patient.
[2018-05-30 16:00] VITALS: BP 139/79
--- NOTE | 2018-05-30 16:07 | General Progress Note ---
Assessment/Plan Assessment/Plan # Adenopathy -- with enlarged peripancreatic lymph nodes, with a node or conglomerate of nodes measuring up to 5 x 1.5 cm diameter. --> imaging has been reviewed --> tumor markers have been ordered as well --> if tumor markers normal, consider reimage in [address] abd/pelvis with iv contrast --> ct a/p shows no evidence of malignancy, tumor markers negative # Leukocytosis -- general level 10-15k, potentially reactive process related --->15.6-->13.5-->15-->13.9-->10.8 --> smear has been reviewed and no schistocytes are noted --> no fevers or chills at this time, monitor --> trend as needed # Multiple fractures of ribs --> pain management --> surg recs appreciated # Nausea/vomiting -- eval with gi service as required --> ct Posterior basal atelectasis versus pneumonia right worse than left Greatly appreciate consultation! Subjective Constitutional: Denies: no symptoms, chills, diaphoresis, fever, malaise, weakness, other HEENT: Denies: no symptoms, eye pain, blurred vision, tearing, double vision, ear pain, ear discharge, nose pain, nose congestion, throat pain, throat swelling, mouth pain, mouth swelling, other Cardiovascular: Denies: no symptoms, chest pain, edema, irregular heart rate, lightheadedness, palpitations, syncope, other Respiratory: Denies: no symptoms, cough, orthopnea, shortness of breath, SOB with excertion, SOB at rest, sputum, stridor, wheezing, other Gastrointestinal/Abdominal: Denies: no symptoms, abdomen distended, abdominal pain, black stools, tarry stools, blood in stool, constipated, diarrhea, difficulty swallowing, nausea, poor appetite, poor fluid intake, rectal bleeding , vomiting, other Genitourinary: Denies: no symptoms, burning, discharge, frequency, flank pain, hematuria, incontinence, pain, urgency, other Neurologic/Psychiatric: Denies: no symptoms, anxiety, depressed, emotional problems, headache, numbness, paresthesia, pre-existing deficit, seizure, tingling, tremors, weakness, other Hematologic/Lymphatic: Denies: no symptoms, anemia, easy bleeding, easy bruising, other Allergies: Coded Allergies: No Known Allergies (Unverified , 04/04/13) Subjective 05/26/18: Patient is resting in bed. Sleepy, fatigue, cbc reviewed. wbc 13.9 today 05/27: Pt is seen in the room, still has pain but improving. leukocytosis resolved , wbc 10.8 today 05/28/18: pt is seen in the room a,wake, sitting on the edge of the bed; resting comfortably. On 3L nasal cannula. BiPAP at bedside 05/29/18: imaging reviewed, on bipap overnight, no other major events 05/30/18: Pt is seen by bedside, awake and alert, denies SOB or pain, no major events. Objective Last 24 Hour Vital Signs Date Time Temp Pulse Resp B/P (MAP) Pulse Ox O2 Delivery O2 Flow Rate FiO2 05/30/18 15:06 69 18 96 Nasal Cannula 4.0 36 05/30/18 15:05 69 18 96 Nasal Cannula 4.0 36 05/30/18 12:00 68 05/30/18 12:00 98.2 63 20 105/58 (74) 98 05/30/18 11:17 68 18 96 Nasal Cannula 4.0 36 05/30/18 11:15 67 18 96 Nasal Cannula 4.0 36 05/30/18 09:00 Nasal Cannula 3.0 Nasal Cannula 3.0 05/30/18 08:24 74 145/56 05/30/18 08:00 74 05/30/18 08:00 98.1 74 20 145/56 (85) 96 05/30/18 07:09 78 18 96 Nasal Cannula 4.0 36 05/30/18 07:08 78 18 96 Nasal Cannula 4.0 36 05/30/18 04:00 97.9 65 21 113/57 (75) 94 05/30/18 04:00 71 05/30/18 03:22 64 16 95 Facial 36 05/30/18 03:22 74 18 95 Nasal Cannula 4.0 36 05/30/18 03:22 74 18 95 Bi-pap 36 05/30/18 00:00 98.9 80 21 127/41 (69) 95 05/30/18 00:00 80 05/29/18 23:42 74 18 96 Nasal Cannula 4.0 36 05/29/18 23:42 74 18 96 Nasal Cannula 4.0 36 05/29/18 21:00 Nasal Cannula 3.0 Nasal Cannula 3.0 05/29/18 20:00 84 05/29/18 20:00 98.2 84 20 112/43 (66) 97 05/29/18 19:57 77 18 Room Air 21 05/29/18 19:57 77 18 90 Room Air 21 05/29/18 19:57 79 18 94 Nasal Cannula 4.0 36 Intake and Output 05/29/18 05/30/18 19:00 07:00 Intake Total 960 ml 520 ml Output Total 600 ml 500 ml Balance 360 ml 20 ml Intake Oral 960 ml 520 ml Output Urine Total 600 ml 500 ml # Voids 4 5 # Bowel Movements 1 Height (Feet): 5 Height (Inches): 9.00 Weight (Pounds): 290 Objective General Appearance: alert Lines, tubes and drains: peripheral HEENT: mmm Neck: supple Respiratory/Chest: , decreased breath sounds, other - tender on right with palpation on Nasal canula, Bipap as needed Cardiovascular/Chest: regular rhythm Abdomen: soft, no organomegaly, no mass Extremities: normal inspection Skin Exam: warm/dry Neurologic: alert, responsive Brian Escalera MD May 30, 2018 16:07
--- NOTE | 2018-05-30 16:57 | NUR ---
HYDROGEN BRAZE FURNACE OPERATORREGIONAL CRA SI: MULTIPLE RIB FRACTURES T. 97.2 HR 60 RR 20 B/P 139/79 4L NC IS: ROCEPHIN IV CARDIZEM PO HEPARIN SUBC TELE STATUS
--- NOTE | 2018-05-30 17:50 | NUR ---
NURSE NOTES: Patient discharged to home self-care per Dr. Caballero. Patient received all discharge instructions, verbalized understanding. Patient received prescription pain medications. IV access removed and placed in sharps container. heart monitor removed and returned to athletic monitor. ID band removed and placed in shredder. Patient left in private vehicle with all belongings in stable condition.
--- NOTE | 2018-06-01 09:36 | Discharge Summary ---
Discharge Summary Discharge Summary _ DATE OF ADMISSION: 05/22/2018 DATE OF DISCHARGE: 05/30/2018 DISCHARGED BY: Dr. Caballero REASON FOR ADMISSION: 62 years old male with past medical history of hypertension, asthma, hyperlipidemia, hypothyroidism, gout, morbid obesity, presented to emergency department complaining of 10 out of 10 severe localized pain in the right lateral chest and right shoulder, status post mechanical fall on the ground while playing with his grandson. Patient denied back pain or midline neck pain. Patient denied hitting his head. He denied loss of consciousness. Patient reported pain with deep breathing and any type of movement. Upon evaluation laboratory workup revealed leukocytosis WBC 15.6. Stable hemoglobin and hematocrit. . BUN 17, creatinine 1.1. Urinalysis revealed no evidence of UTI, +1 protein. Urine toxicology screen was positive opiates ( given in emergency department for pain), otherwise negative. Right shoulder x-ray revealed no acute process. CT of the chest revealed fractures of the right fifth, sixth and seventh ribs. No evidence of underlying pneumothorax or pulmonary contusion. Dependent atelectatic changes. No acute pulmonary process otherwise. Peripancreatic lymphadenopathy noted. Patient admitted for further management CONSULTANTS: building code inspector Dr. Mahmood pulmonary GI specialist Dr. Gibson global clinical leader/oncologist Dr. Escalera surgery [facility] COURSE: Patient admitted to telemetry floor. Telecommunication Lines Repairer and imaging system administrator closely followed. Supplemental oxygen provided as needed to keep pulse oximetry above 92%. Pulmonary toilet provided on as-needed basis. Incentive spirometry was encouraged every hour while in the bed. Inhaler Breo continued. Pain management was addressed as per pain specialist recommendations. DVT prophylaxis provided. ABG revealed evidence of hypercapnia and respiratory acidosis with pH 7.3, PCO2 67 and bicarb 33. Patient started on BiPAP at nighttime and as needed. Patient was encouraged compliance with BiPAP. Neuroscience Specialist recommended formal PFT and polysomnography as outpatient. Infectious disease specialist followed. Patient initially presented with leukocytosis , probably reactive due to multiple rib fracture, however pneumonia could not be ruled out. Imaging showed atelectasis in bilateral lung bases. Patient started on empiric ceftriaxone . Follow-up chest x-ray revealed segmental atelectasis versus infiltrate at the periphery of the right lung base . Antibiotic was continued. Patient completed course of empiric antibiotic for possible pneumonia. Leukocytosis resolved.No fevers. Telecommunication Lines Repairer closely followed. Serial troponin were negative. Echocardiogram revealed normal left ventricular ejection fraction. No evidence of left ventricular hypertrophy. No evidence of wall motion abnormality to the extent visualized. Right ventricular systolic pressure 16. Telemetry showed recurrent supraventricular tachycardia. Patient started on Cardizem. Per building code inspector , patient will need EP study and ablation as outpatient after insurance approval. EKG revealed lateral ischemia. Subsequently nuclear stress test was ordered, which revealed no evidence of ischemia at the level of stress achieved. Calculated ejection stress ejection fraction 56%. Oncologist followed. Patient had evidence of enlarged peripancreatic lymph nodes on the CT of the chest . Tumor markers CEA and CA-19-9 both were within normal limits . CT of the abdomen and pelvis revealed no evidence of malignancy. Peripheral blood smear was reviewed ,no evidence of schistocytes noted . GI specialist followed. GI prophylaxis provided. Bowel regimen instituted. Diet was advanced as tolerated; patient was able to tolerate diet. Ambulation was encouraged. Blood pressure was controlled with Cardizem. Statin, allopurinol and levothyroxine continued. Patient clinically stabilized and was ready fo discharge home. FINAL DIAGNOSES: Multiple rib fractures, right-sided fifth, sixth and seventh secondary to status post mechanical fall COPD Atelectasis Possible pneumonia Acute on chronic hypercapnic respiratory failure Hypoxemia Peripancreatic lymphadenopathy / noted on CT of the chest Recurrent supraventricular tachycardia Abnormal EKG with lateral ischemia Hypertension Hyperlipidemia Hypothyroidism Gout Morbid obesity Constipation Possible underlying obstructive sleep apnea Hypothyroidism DISCHARGE MEDICATIONS: See Medication Reconciliation list. DISCHARGE INSTRUCTIONS: Patient was discharged home Follow up with primary care provider in one week. Recommended outpatient PFT and sleep study. Follow up with EP studies and ablation after insurance approval. I have been assigned to dictate discharge summary for this account. I was not involved in the patient's management. Billie Tompkins NP Jun 01, 2018 09:36
== END 2018-05-30 17:50 | disposition home or self-care (01) | DRG 135 ==
LOC: EDBD 12:48 → EMR 13:35 → EDBEDREQSVC 15:27 → 2E 15:48 → EDBEDREQ 16:47
DX: S22.41XA Multiple fractures of ribs, right side, initial encounter for closed fracture (principal); J96.21 Acute and chronic respiratory failure with hypoxia; J18.9 Pneumonia, unspecified organism; W01.0XXA Fall on same level from slipping, tripping and stumbling without subsequent striking against object, initial encounter; Y92.017 Garden or yard in single-family (private) house as the place of occurrence of the external cause; J44.0 Chronic obstructive pulmonary disease with (acute) lower respiratory infection; I10 Essential (primary) hypertension; E03.9 Hypothyroidism, unspecified; F41.9 Anxiety disorder, unspecified; R59.9 Enlarged lymph nodes, unspecified; D72.829 Elevated white blood cell count, unspecified; R11.2 Nausea with vomiting, unspecified; J98.11 Atelectasis; K59.00 Constipation, unspecified; J96.22 Acute and chronic respiratory failure with hypercapnia; E66.01 Morbid (severe) obesity due to excess calories; Z68.41 Body mass index [BMI] 40.0-44.9, adult; G47.33 Obstructive sleep apnea (adult) (pediatric); I47.1 Supraventricular tachycardia
CPT/HCPCS: 36415; 36600; 71045; 71046; 71250; 74018; 74176; 78452; 80048; 80053; 80307; 81003; 81050; 82150; 82378; 82803; 83690; 84165; 84484; 85025; 85651; 86140; 93005; 93017; 93306; 94640; 94660; 94664; 96372; 96374; 96375; 99285; J2405; J2785

== ENCOUNTER 2018-06-30 13:24 | Emergency (ER) | payer MEDICAID ==
[~2018-06-30] VITALS: Ht 180.3 cm; Wt 122.5 kg
[2018-06-30 13:30] VITALS: BP 136/82
--- NOTE | 2018-06-30 13:55 | Emergency Room Report ---
History of Present Illness General Chief Complaint: Skin Rash/Abscess Source: Patient Present Illness HPI 62-year-old male patient presents the ER complaining of abscess on his right buttock near his perineum. Reports is been present for the past 4 days. Reports that while he was waiting in the waiting room of the ER it "popped" and began draining blood. Denies fever, chest pain, shortness of breath. Reports history of abscess in the same area one year ago,, states was drained at [place] at that time. Denies history of diabetes. Denies pain with defecation. Reports able to pass flatus. Denies blood in stool. Denies history of CHF. Allergies: Coded Allergies: No Known Allergies (Unverified , 04/04/13) Patient History Past Medical History: see triage record Reviewed Nursing Documentation: PMH: Agreed; PSxH: Agreed Nursing Documentation-PMH Past Medical History: No History, Except For Hx Cardiac Problems: Yes Hx Hypertension: Yes Hx Asthma: Yes Hx Cancer: No Hx Gastrointestinal Problems: Yes Hx Neurological Problems: Yes Hx Dizziness: Yes Review of Systems All Other Systems: negative except mentioned in HPI Physical Exam Vital Signs Date Time Temp Pulse Resp B/P (MAP) Pulse Ox O2 Delivery O2 Flow Rate FiO2 06/30/18 13:26 97.9 99 20 143/86 95 Room Air Sp02 EP Interpretation: reviewed, normal General Appearance: well appearing, no apparent distress, alert, GCS 15, non- toxic Head: normocephalic, atraumatic Eyes: bilateral eye normal inspection, bilateral eye PERRL ENT: hearing grossly normal, normal pharynx, no angioedema, normal voice, uvula midline, moist mucus membranes Neck: full range of motion Respiratory: lungs clear, normal breath sounds, no rhonchi, no respiratory distress, no accessory muscle use, no wheezing, speaking full sentences Cardiovascular #1: regular rate, rhythm, no edema Rectal: other - No rectal tenderness Musculoskeletal: back normal, digits/nails normal, gait/station normal, normal range of motion, non-tender Neurologic: alert, oriented x3, responsive, motor strength/tone normal, sensory intact Psychiatric: mood/affect normal Skin: other - Perirectal abscess in 5 o'clock position: No rectal tenderness, does not appear to extend to the perineum, 3 cm fluctuant/indurated, dried blood and some mild bleeding noted Medical Decision Making PA Attestation Dr. Arevalo is my supervising Physician whom patient management has been discussed with. Diagnostic Impression: Primary Impression: Abscess ER Course Pt. presents to the ED c/o abscess on right buttock near perineum. Ddx considered but are not limited to rash, cellulitis, abscess, sebaceous cyst , carbuncle, folliculitis. Denies blood in stool, denies pain with defecation, reports able to pass flatus , no rectal pain on exam, do not believe patient requires CT at this time. Seen and evaluated by Dr. Arevalo, agrees with assessment treatment plan. Does not require imaging at this time. Vital signs: are WNL, pt. is afebrile ED INTERVENTIONS: Toradol for pain. Provided with IV fluids. CBC shows elevation WBCs, likely due to infection, provide with Zosyn in the ER. CMP unremarkable. Patient seen and evaluated by Dr. Abbott the ER was kind enough to consult on this case. I&D of abscess performed by him in the ER. Patient home with antibiotics and pain medication. Instructed to follow-up with Dr. Abbott or in the ER for dressing change and wound check. Sterile dressing applied to wound following procedure. ER precautions given. Patient vital signs stable, okay for outpatient follow-up and treatment. DISCHARGE: -Rx provided for Augmentin -Rx provided for Bactrim -Rx provided for [place]. May cause drowsiness, do not take prior to drinking, driving, operating heavy machinery. At this time pt. is stable for d/c to home. Patient is resting comfortably, in no acute distress, nontoxic appearing. Will provide printed patient care instructions and any necessary prescriptions. Care plan and follow up instructions have been discussed with the patient prior to discharge. Patient instructed to follow-up with primary care provider in 2 - 3 days for wound recheck. Patient questions asked and answered. Patient reports understanding and agreement to treatment plan. ER precautions given. Patient instructed to return to ER immediately for any new or worsening of symptoms including but not limited to fever, worsening of pain symptoms, worsening of erythema, red streaking. - Please note that this Emergency Department Report was dictated using [employer] management coordinator technology software, occasionally this can lead to erroneous entry secondary to interpretation by the dictation equipment. Labs Test 06/30/18 13:55 White Blood Count 17.2 K/UL (4.8-10.8) Red Blood Count 4.40 M/UL (4.70-6.10) Hemoglobin 14.8 G/DL (14.2-18.0) Hematocrit 45.4 % (42.0-52.0) Mean Corpuscular Volume 103 FL (80-99) Mean Corpuscular Hemoglobin 33.6 PG (27.0-31.0) Mean Corpuscular Hemoglobin Concent 32.6 G/DL (32.0-36.0) Red Cell Distribution Width 13.6 % (11.6-14.8) Platelet Count 298 K/UL (150-450) Mean Platelet Volume 8.0 FL (6.5-10.1) Neutrophils (%) (Auto) 62.1 % (45.0-75.0) Lymphocytes (%) (Auto) 22.8 % (20.0-45.0) Monocytes (%) (Auto) 11.1 % (1.0-10.0) Eosinophils (%) (Auto) 3.1 % (0.0-3.0) Basophils (%) (Auto) 0.9 % (0.0-2.0) Sodium Level 138 MMOL/L (136-145) Potassium Level 4.1 MMOL/L (3.5-5.1) Chloride Level 102 MMOL/L (98-107) Carbon Dioxide Level 26 MMOL/L (21-32) Anion Gap 10 mmol/L (5-15) Blood Urea Nitrogen 18 mg/dL (7-18) Creatinine 1.0 MG/DL (0.55-1.30) Estimat Glomerular Filtration Rate > 60 mL/min (>60) Glucose Level 108 MG/DL (74-106) Calcium Level 9.2 MG/DL (8.5-10.1) Total Bilirubin 0.8 MG/DL (0.2-1.0) Aspartate Amino Transf (AST/SGOT) 42 U/L (15-37) Alanine Aminotransferase (ALT/SGPT) 56 U/L (12-78) Alkaline Phosphatase 94 U/L (46-116) Total Protein 7.9 G/DL (6.4-8.2) Albumin 4.0 G/DL (3.4-5.0) Globulin 3.9 g/dL Albumin/Globulin Ratio 1.0 (1.0-2.7) Last Vital Signs Date Time Temp Pulse Resp B/P (MAP) Pulse Ox O2 Delivery O2 Flow Rate FiO2 06/30/18 13:30 98.2 92 18 136/82 98 Room Air Status: improved Disposition: HOME, SELF-CARE Condition: Stable Scripts Hydrocodone Bit/Acetaminophen 5-325* (NORCO 5-325*) 1 Each Tablet 1 TAB ORAL Q6H PRN for For Pain, #10 TAB 0 Refills Prov: Manuel Mederos 06/30/18 Amoxicillin/Potassium Clav 875-125* (AUGMENTIN 875-125 TABLET*) 1 Each Tablet 1 TAB ORAL TWICE A DAY for 7 Days, #14 TAB Prov: Manuel Mederos 06/30/18 Trimethoprim/Sulfamethoxazole 160/800* (BACTRIM DS TABLET*) 1 Each Tablet 1 TAB ORAL TWICE A DAY for 7 Days, #14 TAB Prov: Manuel Mederos 06/30/18 Referrals: NON PHYSICIAN (PCP) Patient Instructions: Abscess Additional Instructions: Followup with Dr. Abbott or return to ER in 2 days for wound check and dressing change. Call Dr. Abbott to schedule followup appointment. Take medications as instructed. Medication may cause drowsiness, do not take prior to drinking, driving, operating heavy machinery. Patient questions asked and answered. Apply warm compresses to affected area. Keep wound clean and dry. ER precautions given. Return to ER for new or worsening of symptoms including but not limited to chest pain, SOB, red streaking, worsening of abscess, intractable vomiting. Manuel Mederos Jun 30, 2018 13:55
[2018-06-30] MEDS ORDERED: Lidocaine 1% 10mg/ml/Epi 0.005mg/ml 30ml vial INJ ONE (14:00)
[2018-06-30] MEDS ORDERED: Ketorolac 30mg Inj IM ONE (14:00)
[2018-06-30] MEDS ORDERED: Piperacillin/Tazobactam 3.375 GM in NS 110 ML IVPB ONE (14:00)
[2018-06-30 14:14] LABS: BASOPHILS % (AUTO) 0.9 % (0.0-2.0); EOSINOPHILS % (AUTO) 3.1 % (0.0-3.0); HEMATOCRIT 45.4 % (42.0-52.0); HEMOGLOBIN 14.8 G/DL (14.2-18.0); LYMPHOCYTES % (AUTO) 22.8 % (20.0-45.0); MEAN CORPUSCULAR VOLUME 103 FL (80-99); MONOCYTES % (AUTO) 11.1 % (1.0-10.0); NEUTROPHILS % (AUTO) 62.1 % (45.0-75.0); PLATELET COUNT 298 K/UL (150-450); RED CELL DISTRIBUTION WIDTH 13.6 % (11.6-14.8); WHITE BLOOD COUNT 17.2 K/UL (4.8-10.8)
[2018-06-30 15:19] LABS: ANION GAP 10 mmol/L (5-15); BLOOD UREA NITROGEN 18 mg/dL (7-18); CALCIUM 9.2 MG/DL (8.5-10.1); CARBON DIOXIDE 26 MMOL/L (21-32); CHLORIDE 102 MMOL/L (98-107); POTASSIUM 4.1 MMOL/L (3.5-5.1); SODIUM 138 MMOL/L (136-145)
[2018-06-30 15:24] LABS: ALANINE AMINOTRANSFERASE 56 U/L (12-78); ALKALINE PHOSPHATASE 94 U/L (46-116); ASPARTATE AMINO TRANSFERASE 42 U/L (15-37); BILIRUBIN,TOTAL 0.8 MG/DL (0.2-1.0)
[2018-06-30 15:30] VITALS: BP 138/84
[2018-06-30 17:21] VITALS: BP 132/82
[2018-06-30] MEDS ORDERED: AUGMENTIN 875-1 EAC1 ORAL (17:35)
[2018-06-30] MEDS ORDERED: BACTRIM DS TAB1 EAC1 ORAL (17:35)
[2018-06-30] MEDS ORDERED: NORCO 5-325 TA1 EACH ORAL (17:35)
[2018-06-30 17:48] VITALS: BP 134/80
--- NOTE | 2018-06-30 17:49 | Consultation ---
History of Present Illness General Date patient seen: Jun 30, 2018 Reason for Hospitalization: Skin Rash/Abscess Present Illness HPI 62M known to me from prior admission for unrelated issue presented with 3-4 days worsening perianal perineal pain. could not walk today because of pain. came to ED for evaluate. noted to have moderate sized abscess with pain and spontaneously draining bloody purulent fluid. surgery called to evaluate. patient seen, chart reviewed, patient examined. Allergies: Coded Allergies: No Known Allergies (Unverified , 04/04/13) Medication History Scheduled Albuterol Sulfate (Ventolin Hfa), 2 PUFFS INH Q4HR, (Reported) Allopurinol* (Allopurinol*), 100 MG ORAL DAILY, (Reported) Amoxicillin/Potassium Clav 875-125* (Augmentin 875-125 Tablet*), 1 TAB ORAL TWICE A DAY Atorvastatin Calcium* (Lipitor*), 20 MG ORAL BEDTIME Doxycycline Hyclate (Doxycycline Hyclate), 100 MG PO BID Fluticasone/Vilanterol (Breo Ellipta 200-25 Mcg INH), 1 PUFFS INH DAILY Levothyroxine Sodium* (Levothyroxine Sodium*), 100 MCG ORAL DAILY@0630 Trimethoprim/Sulfamethoxazole 160/800* (Bactrim Ds Tablet*), 1 TAB ORAL TWICE A DAY Scheduled PRN Hydrocodone Bit/Acetaminophen 5-325* ([place] 5-325*), 1 TAB ORAL Q6H PRN for For Pain Miscellaneous Medications Unable to Obtain Medications (Unable To Obtain Meds), (Reported) Patient History History Provided By: Patient, Medical Record, PMD Healthcare decision maker Resuscitation status Advanced Directive on File Review of Systems Review of Symptoms General ROS: no weight loss or fever Psychological ROS: no depression or mood changes, no memory loss Ophthalmic ROS: no visual changes or eye irritation ENT ROS: no nasal congestion, hearing loss, dizziness Allergy and Immunology ROS: no allergic symptoms or urticaria Hematological and Lymphatic ROS: no swollen glands, unusual bleeding or bruising Endocrine ROS: no polyuria, polydipsia, weight changes, temperature intolerance Respiratory ROS: no cough, shortness of breath, or wheezing Cardiovascular ROS: no chest pain or dyspnea on exertion Gastrointestinal ROS: denies abdominal pain, bright red blood in stool. Musculoskeletal ROS: no myalgias or arthralgias Neurological ROS: no TIA or stroke symptoms Dermatological ROS: no new or changing skin lesions, rashes or pruritis Physical Exam Physical Exam General appearance: alert, cooperative, no distress, appears stated age Head: Normocephalic, without obvious abnormality, atraumatic Eyes: conjunctivae/corneas clear. PERRL, EOM's intact. Fundi benign Throat: Lips, mucosa, and tongue normal. Teeth and gums normal Neck: supple, symmetrical, trachea midline, no adenopathy, thyroid: not enlarged, symmetric, no tenderness/mass/nodules, no carotid bruit and no JVD Lungs: clear to auscultation bilaterally Heart: regular rate and rhythm, S1, S2 normal, no murmur, click, rub or gallop Abdomen: soft, non-tender. Bowel sounds normal. No masses, no organomegaly Extremities: extremities normal, atraumatic, no cyanosis or edema Pulses: 2+ and symmetric Skin: Skin color, texture, turgor normal. No rashes or lesions Neurologic: Grossly normal Rectal: left marga-rectal / perineal 7cm x 4cm fluctuant abscess with small area of drainage intermittently Last 24 Hour Vital Signs Date Time Temp Pulse Resp B/P (MAP) Pulse Ox O2 Delivery O2 Flow Rate FiO2 06/30/18 17:21 98.2 86 18 132/82 98 Room Air 06/30/18 15:30 98.3 88 17 138/84 99 Room Air 06/30/18 13:30 98.2 92 18 136/82 98 Room Air 06/30/18 13:26 97.9 99 20 143/86 95 Room Air Laboratory Tests Test 06/30/18 13:55 White Blood Count 17.2 K/UL (4.8-10.8) H Red Blood Count 4.40 M/UL (4.70-6.10) L Hemoglobin 14.8 G/DL (14.2-18.0) Hematocrit 45.4 % (42.0-52.0) Mean Corpuscular Volume 103 FL (80-99) H Mean Corpuscular Hemoglobin 33.6 PG (27.0-31.0) H Mean Corpuscular Hemoglobin Concent 32.6 G/DL (32.0-36.0) Red Cell Distribution Width 13.6 % (11.6-14.8) Platelet Count 298 K/UL (150-450) Mean Platelet Volume 8.0 FL (6.5-10.1) Neutrophils (%) (Auto) 62.1 % (45.0-75.0) Lymphocytes (%) (Auto) 22.8 % (20.0-45.0) Monocytes (%) (Auto) 11.1 % (1.0-10.0) H Eosinophils (%) (Auto) 3.1 % (0.0-3.0) H Basophils (%) (Auto) 0.9 % (0.0-2.0) Sodium Level 138 MMOL/L (136-145) Potassium Level 4.1 MMOL/L (3.5-5.1) Chloride Level 102 MMOL/L (98-107) Carbon Dioxide Level 26 MMOL/L (21-32) Anion Gap 10 mmol/L (5-15) Blood Urea Nitrogen 18 mg/dL (7-18) Creatinine 1.0 MG/DL (0.55-1.30) Estimat Glomerular Filtration Rate > 60 mL/min (>60) Glucose Level 108 MG/DL (74-106) H Calcium Level 9.2 MG/DL (8.5-10.1) Total Bilirubin 0.8 MG/DL (0.2-1.0) Aspartate Amino Transf (AST/SGOT) 42 U/L (15-37) H Alanine Aminotransferase (ALT/SGPT) 56 U/L (12-78) Alkaline Phosphatase 94 U/L (46-116) Total Protein 7.9 G/DL (6.4-8.2) Albumin 4.0 G/DL (3.4-5.0) Globulin 3.9 g/dL Albumin/Globulin Ratio 1.0 (1.0-2.7) Height (Feet): 5 Height (Inches): 11.00 Weight (Pounds): 270 Assessment/Plan Problem List: (1) Abscess Assessment & Plan: 63M perianal / perineal abscess left marga-rectal / perineal 7cm x 4cm fluctuant abscess with small area of drainage intermittently needs I&D oral abx packing dressing d/c home after f/u with pcp and needs f/u with surgeon in his network ICD Codes: L02.91 - Cutaneous abscess, unspecified SNOMED: [id number] Juan Antonio Abbott Jun 30, 2018 17:49
--- NOTE | 2018-06-30 17:53 | Operative Note - PDOC ---
Operative Note Operative Note Date of Operation/Procedure: Jun 30, 2018 Pre-op Diagnosis: left perianal/perineal abscess Procedure: incision and drainage of left perianal/perineal abscess Post-op Diagnosis: same as pre-op Surgeon: kim Anesthesia: local Specimen: yes Complications: none Condition: stable Estimated Blood Loss: minimal Drains: none Packing: gauze Implant(s) used?: No Indications for Procedure 62M presented to ED with 3-4 days worsening perianal perineal abscess. unable to walk today because pain so bad. no n/v/f/c. leukocytosis. moderate sized area of fluctuance noted. incision and drainage indicated and recommended. consent obtained. Description of Procedure patient made comfortable at bedside in ED. area evaluated. left marga-rectal / perineal 7cm x 4cm fluctuant abscess with small area of drainage intermittently noted. site cleaned, prepped, and draped in standard surgical fashion. local 1%lido with epi infiltrated. using a #11 scalpel cruciate incision made over maximal fluctuance. pus and blood evacuated. cultures taken. wound explored and 5cm deep towards rectum. wound irrigated and cleaned. packing and dressings applied. patient to change TID with help of girlfriend. instructions given. abx ordered. f/u with pcp Juan Antonio Abbott Jun 30, 2018 17:53
== END 2018-06-30 17:50 | disposition home or self-care (01) ==
LOC: EMR 13:42
DX: K61.1 Rectal abscess (principal); I10 Essential (primary) hypertension; J45.909 Unspecified asthma, uncomplicated
CPT/HCPCS: 36415; 80053; 85025; 96361; 96365; 96372; 99284; J1885; J2543

== ENCOUNTER 2019-05-13 17:20 | Emergency (ER) | payer MEDICAID ==
[~2019-05-13] VITALS: Ht 180.3 cm; Wt 122.5 kg
[~2019-05-13 17:20] MED LIST changes: +AUGMENTIN 875-1 EAC1 ORAL; +BACTRIM DS TAB1 EAC1 ORAL; +NORCO 5-325 TA1 EACH ORAL
[2019-05-13 17:28] VITALS: BP 156/110
--- NOTE | 2019-05-13 17:38 | NUR ---
ED Nurse Note: PT FROM HOME CAME IN DUE TO LEFT LOWER EXTREMITY PAIN, ITCHING, SWELLING AND ERYTHEMA WHCIH STARTED YESTERDAY. PT STATES POSSIBLE SPIDER BITE AND THAT HE HAD CHILLS LAST NIGHT. AAO X 4, AMBULATORY, NOTED REDNESS AND SINGLE SITE WOUND WITH NO DRAINAGE.
[2019-05-13] MEDS ORDERED: BACTRIM DS TAB1 EAC1 ORAL (18:29)
[2019-05-13] MEDS ORDERED: NORCO 5-325 TA1 EACH ORAL (18:29)
[2019-05-13] MEDS ORDERED: CEPHALEXIN500 MG ORAL (18:29)
[2019-05-13] MEDS ORDERED: Cephalexin 500mg cap ORAL ONE (18:30)
[2019-05-13] MEDS ORDERED: Bactrim-DS 1 tab ORAL ONE (18:30)
[2019-05-13] MEDS ORDERED: HYDROcodone/Acetamin 5/325 tab ORAL ONE (18:30)
[2019-05-13 18:50] VITALS: BP 148/90
--- NOTE | 2019-05-13 18:50 | NUR ---
ER DISCHARGE NOTE: Patient is cleared to be discharged per ERMD, pt is aox4, on room air, with stable vital signs. pt was given dc and prescription instructions, pt was able to verbalize understanding, pt id band removed. pt is able to ambulate with steady gait. pt took all belongings.
--- NOTE | 2019-05-13 18:55 | Emergency Room Report ---
History of Present Illness General Chief Complaint: Skin Rash/Abscess Source: Patient, Medical Record Present Illness HPI Patient is a 63-year-old male presents after increased left foot and left leg pain. Patient reports having recent spider bite. Reports that he recently injured his left toe. Denies any fever. Noticed increased swelling and discoloration. Reports having increased discomfort. Denies any muscle cramping. A prior history of COPD and is currently a smoker. Allergies: Coded Allergies: No Known Allergies (Unverified , 04/04/13) Patient History Past Medical History: see triage record, COPD Reviewed Nursing Documentation: PMH: Agreed; PSxH: Agreed Nursing Documentation-PMH Past Medical History: No History, Except For Hx Cardiac Problems: Yes Hx Hypertension: Yes Hx Pacemaker: No Hx Asthma: Yes Hx COPD: No Hx Diabetes: No Hx Cancer: No Hx Gastrointestinal Problems: Yes Hx Dialysis: No History Of Psychiatric Problem: No Hx Neurological Problems: Yes Hx Cerebrovascular Accident: No Hx Seizures: No Hx Dizziness: Yes Review of Systems All Other Systems: negative except mentioned in HPI Physical Exam Vital Signs Date Time Temp Pulse Resp B/P (MAP) Pulse Ox O2 Delivery O2 Flow Rate FiO2 05/13/19 17:28 97.9 89 16 156/110 95 Room Air General Appearance: well appearing, no apparent distress, alert, GCS 15, non- toxic Head: normocephalic, atraumatic ENT: hearing grossly normal, normal voice Neck: full range of motion, supple Respiratory: no respiratory distress, speaking full sentences Cardiovascular #1: normal inspection, no edema Gastrointestinal: soft Musculoskeletal: no calf tenderness Neurologic: alert, motor strength/tone normal, dermatologist managing partner III-XII nml as tested, oriented x3, normal gait Psychiatric: mood/affect normal Skin: other - 1 cm area of erythema to the left anterior leg. Medical Decision Making Diagnostic Impression: Primary Impression: Left leg cellulitis ER Course Patient presented for left leg rash. Differential diagnosis include was not limited to cellulitis, abscess, insect bite among others. Patient was noted to have a small area to the foot which has a superficial ulcer with scant drainage. This does not appear to be significantly erythematous. There is also a small area approximate 1 cm to the left lateral leg. There is some erythema as well. There does not appear to be any evidence of abscess. Patient was given oral antibiotics in the emergency department. He is advised to follow-up with his primary care physician or in the emergency department for recheck in 1 to 2 days. He is advised to return if any worsening or if other concerns sooner. This medical record is generated with [employer] jack prizer software. There may be some jack prizer discrepancies related to use of this software Last Vital Signs Date Time Temp Pulse Resp B/P (MAP) Pulse Ox O2 Delivery O2 Flow Rate FiO2 05/13/19 17:28 97.9 89 16 156/110 (125) 95 Room Air Status: improved Disposition: HOME, SELF-CARE Condition: Stable Scripts Cephalexin* (KEFLEX*) 500 Mg Capsule 500 MG ORAL EVERY 6 HOURS, #28 CAP Prov: Ulises Farah MD 05/13/19 Hydrocodone Bit/Acetaminophen 5-325* ([place] 5-325*) 1 Each Tablet 1 TAB ORAL Q6H PRN for For Pain, #10 TAB 0 Refills Prov: Ulises Farah MD 05/13/19 Trimethoprim/Sulfamethoxazole 160/800* (BACTRIM DS TABLET*) 1 Each Tablet 1 TAB ORAL TWICE A DAY for 7 Days, #14 TAB Prov: Ulises Farah MD 05/13/19 Referrals: NON PHYSICIAN (PCP) Patient Instructions: Cellulitis Additional Instructions: Follow up with your doctor or in ED in 1-2 day for recheck. Return if worse. Ulises Farah MD May 13, 2019 18:55
== END 2019-05-13 18:50 | disposition home or self-care (01) ==
LOC: EMR 18:25
DX: L03.116 Cellulitis of left lower limb (principal); I10 Essential (primary) hypertension; J44.9 Chronic obstructive pulmonary disease, unspecified; F17.200 Nicotine dependence, unspecified, uncomplicated
CPT/HCPCS: 99282

== ENCOUNTER 2019-06-07 15:07 | Emergency (ER) | payer MEDICAID ==
[~2019-06-07] VITALS: Ht 177.8 cm; Wt 127.0 kg
[~2019-06-07 15:07] MED LIST changes: +CEPHALEXIN500 MG ORAL
[2019-06-07] MEDS ORDERED: Albuterol ud Inhalation HHN ONE (15:45)
[2019-06-07] MEDS ORDERED: Ipratropium 0.02% Inh Soln 2.5ml UD HHN ONE (15:45)
[2019-06-07 16:22] LABS: BASOPHILS % (AUTO) 1.9 % (0.0-2.0); EOSINOPHILS % (AUTO) 4.9 % (0.0-3.0); HEMATOCRIT 47.1 % (42.0-52.0); HEMOGLOBIN 15.6 G/DL (14.2-18.0); LYMPHOCYTES % (AUTO) 40.9 % (20.0-45.0); MEAN CORPUSCULAR VOLUME 107 FL (80-99); MONOCYTES % (AUTO) 9.2 % (1.0-10.0); NEUTROPHILS % (AUTO) 43.1 % (45.0-75.0); PLATELET COUNT 307 K/UL (150-450); RED CELL DISTRIBUTION WIDTH 14.8 % (11.6-14.8); WHITE BLOOD COUNT 11.1 K/UL (4.8-10.8)
[2019-06-07 16:33] LABS: ANION GAP 7 mmol/L (5-15); BLOOD UREA NITROGEN 14 mg/dL (7-18); CALCIUM 9.3 MG/DL (8.5-10.1); CARBON DIOXIDE 35 MMOL/L (21-32); CHLORIDE 102 MMOL/L (98-107); CREATININE 1.4 MG/DL (0.55-1.30); POTASSIUM 4.3 MMOL/L (3.5-5.1); SODIUM 144 MMOL/L (136-145)
--- NOTE | 2019-06-07 16:40 | NUR ---
ED Nurse Note: PT FROM HOME CAME IN DUE TO SOB X 3 DAYS. DENIES CP OR DIZZINESS. HX OF ASTHMA/COPD AND STATED THAT HE QUIT SMOKING CIGARETTES 3 WEEKS AGO. AAO X4, FOLLOWS COMMANDS WITH SOB AT REST. LUNG SOUND DIMINISHED UPON AUSCULTATION. PT ON HAND BOOKBINDER AND DR MEJIA AT THE BED SIDE.
[2019-06-07 16:44] VITALS: BP 148/58
[2019-06-07 16:47] LABS: ALANINE AMINOTRANSFERASE 352 U/L (12-78); ALBUMIN 4.1 G/DL (3.4-5.0); ALBUMIN/GLOBULIN RATIO 0.9 (1.0-2.7); ALKALINE PHOSPHATASE 104 U/L (46-116); ASPARTATE AMINO TRANSFERASE 211 U/L (15-37); BILIRUBIN,TOTAL 0.4 MG/DL (0.2-1.0)
--- NOTE | 2019-06-07 17:10 | Diagnostic Imaging Report ---
Indication: Increased TSH, low T3, low T4 Technique: Grayscale and duplex images of the thyroid Comparison: none Findings: Right thyroid lobe measures 4 cm length x 1.6 cm AP. Left thyroid lobe measures 2.8 cm length x 2 cm AP. Thyroid lobes demonstrate heterogeneous echogenicity. Possible calcifications are seen in the left thyroid lobe. No discrete nodules are demonstrated.. No focal abnormality. Impression: Somewhat atrophic heterogeneous thyroid, could indicate postinflammatory changes related to prior thyroiditis. No definite discrete nodule
--- NOTE | 2019-06-07 17:12 | Diagnostic Imaging Report ---
. Indication: Shortness of Technique: One view of the chest Comparison: 05/27/2018 Findings: There is atelectasis at the lung bases. The heart is borderline enlarged. No definite infiltrates, effusions, or congestion. No definite significant interim change Impression: No acute process
[2019-06-07 17:40] LABS: APPEARANCE,URINE CLEAR; BILIRUBIN, URINE NEGATIVE (NEGATIVE); GLUCOSE, URINE (UA) NEGATIVE (NEGATIVE); KETONES,URINE NEGATIVE (NEGATIVE); LEUKOCYTE ESTERASE ,URINE NEGATIVE (NEGATIVE); NITRITE,URINE NEGATIVE (NEGATIVE); PH,URINE 5 (4.5-8.0); PROTEIN,URINE NEGATIVE (NEGATIVE); UROBILINOGEN,URINE NORMAL MG/DL (0.0-1.0)
[2019-06-07 17:50] LABS: COLOR,URINE YELLOW
[2019-06-07 18:00] VITALS: BP 145/80
--- NOTE | 2019-06-07 18:18 | NUR ---
ED Nurse Note: CALLED PHARMACY FOR MEDICATION SYNTHROID 50MCG. THEY SAID THEY WILL HAVE TO MIX THE MEDICATION.
--- NOTE | 2019-06-07 18:27 | Emergency Room Report ---
History of Present Illness General Chief Complaint: Dyspnea/Respdistress Source: Patient Present Illness HPI This patient has a hx of COPD, Hypothyroid, Hypertension. He states that he quit smoking 4 months ago. He states he also stopped taking his medications because he was hoping that his breathing would improve after he quit smoking. He complains of shortness of breath and difficulty breathing. He also states that he has a history of hypothyroid but has not been taking the thyroid medications. He does have his medications with him. He has the bottles of the medications but states he thought that because he quit smoking possibly he would not have to take anymore medications. Allergies: Coded Allergies: No Known Allergies (Unverified , 04/04/13) Patient History Past Medical History: see triage record, HTN, CAD, asthma, COPD Social History: Reports: smoking - Quit 4 months ago; Denies: alcohol use, drug use Reviewed Nursing Documentation: PMH: Agreed; PSxH: Agreed Nursing Documentation-PMH Past Medical History: No History, Except For Hx Cardiac Problems: Yes Hx Hypertension: Yes Hx Pacemaker: No Hx Asthma: Yes Hx COPD: Yes Hx Diabetes: No Hx Cancer: No Hx Gastrointestinal Problems: Yes Hx Dialysis: No Hx Neurological Problems: Yes Hx Cerebrovascular Accident: No Hx Seizures: No Hx Dizziness: Yes Review of Systems All Other Systems: negative except mentioned in HPI Physical Exam Vital Signs Date Time Temp Pulse Resp B/P (MAP) Pulse Ox O2 Delivery O2 Flow Rate FiO2 06/07/19 15:59 78 13 93 Room Air 21 06/07/19 16:34 98.2 134/85 (101) Sp02 EP Interpretation: reviewed, normal General Appearance: no apparent distress, alert, GCS 15, non-toxic, obese Head: normocephalic, atraumatic Eyes: bilateral eye normal inspection, bilateral eye PERRL ENT: hearing grossly normal, normal pharynx, no angioedema, normal voice Neck: full range of motion, supple/symm/no masses Respiratory: chest non-tender, no respiratory distress, no retraction, no accessory muscle use, speaking full sentences, wheezing, expiration Cardiovascular #1: regular rate, rhythm, no edema Gastrointestinal: normal bowel sounds, non tender, soft, non-distended, no guarding, no rebound Rectal: deferred Musculoskeletal: back normal, normal range of motion, gait/station normal, non- tender Neurologic: alert, motor strength/tone normal, oriented x3, sensory intact, responsive, speech normal Psychiatric: judgement/insight normal, memory normal, mood/affect normal, no suicidal/homicidal ideation Skin: no rash, normal color Medical Decision Making Diagnostic Impression: Primary Impression: COPD exacerbation Additional Impressions: Hypothyroid JIA (acute kidney injury) Transaminitis ER Course This patient presents with COPD exacerbation profound hypothyroidism, acute kidney injury and a transaminitis. The patient was given albuterol and Atrovent nebulizer treatments, steroids and IV Synthroid. The patient was noncompliant with his medications as he was hoping that if he he stopped smoking all his medical problems would resolve spontaneously. Regardless, the patient is admitted for stabilization of his COPD, thyroid and monitoring of his renal function. He is admitted for further evaluation and treatment. Laboratory Tests Test 06/07/19 15:45 06/07/19 17:10 White Blood Count 11.1 K/UL (4.8-10.8) H Red Blood Count 4.40 M/UL (4.70-6.10) L Hemoglobin 15.6 G/DL (14.2-18.0) Hematocrit 47.1 % (42.0-52.0) Mean Corpuscular Volume 107 FL (80-99) H Mean Corpuscular Hemoglobin 35.4 PG (27.0-31.0) H Mean Corpuscular Hemoglobin Concent 33.1 G/DL (32.0-36.0) Red Cell Distribution Width 14.8 % (11.6-14.8) Platelet Count 307 K/UL (150-450) Mean Platelet Volume 8.4 FL (6.5-10.1) Neutrophils (%) (Auto) 43.1 % (45.0-75.0) L Lymphocytes (%) (Auto) 40.9 % (20.0-45.0) Monocytes (%) (Auto) 9.2 % (1.0-10.0) Eosinophils (%) (Auto) 4.9 % (0.0-3.0) H Basophils (%) (Auto) 1.9 % (0.0-2.0) Sodium Level 144 MMOL/L (136-145) Potassium Level 4.3 MMOL/L (3.5-5.1) Chloride Level 102 MMOL/L (98-107) Carbon Dioxide Level 35 MMOL/L (21-32) H Anion Gap 7 mmol/L (5-15) Blood Urea Nitrogen 14 mg/dL (7-18) Creatinine 1.4 MG/DL (0.55-1.30) H Estimate Glomerular Filtration Rate 51.2 mL/min (>60) Glucose Level 118 MG/DL (74-106) H Calcium Level 9.3 MG/DL (8.5-10.1) Total Bilirubin 0.4 MG/DL (0.2-1.0) Aspartate Amino Transferase (AST) 211 U/L (15-37) H Alanine Aminotransferase (ALT) 352 U/L (12-78) H Alkaline Phosphatase 104 U/L (46-116) Troponin I 0.004 ng/mL (0.000-0.056) Total Protein 8.7 G/DL (6.4-8.2) H Albumin 4.1 G/DL (3.4-5.0) Globulin 4.6 g/dL Albumin/Globulin Ratio 0.9 (1.0-2.7) L Thyroid Stimulating Hormone (TSH) 127.974 uiU/mL (0.358-3.740) Free Thyroxine 0.35 NG/DL (0.76-1.46) L Free Triiodothyronine 0.6 pg/mL (2.3-4.2) L Urine Color Yellow Urine Appearance Clear Urine pH 5 (4.5-8.0) Urine Specific [place] 1.015 (1.005-1.035) Urine Protein Negative (NEGATIVE) Urine Glucose (UA) Negative (NEGATIVE) Urine Ketones Negative (NEGATIVE) Urine Blood Negative (NEGATIVE) Urine Nitrite Negative (NEGATIVE) Urine Bilirubin Negative (NEGATIVE) Urine Urobilinogen Normal MG/DL (0.0-1.0) Urine Leukocyte Esterase Negative (NEGATIVE) EKG Diagnostic Results Rate: normal Rhythm: NSR ST Segments: no acute changes Rhythm Strip Diag. Results EP Interpretation: yes Rate: 80's Rhythm: NSR Other Impression NSST changes. Chest X-Ray Diagnostic Results Chest X-Ray Diagnostic Results : Chest X-Ray Ordered: Yes # of Views/Limited/Complete: 1 View Indication: Shortness of Breath EP Interpretation: Yes Interpretation: no consolidation, no effusion, no pneumothorax, no acute cardiopulmonary disease Impression: No acute disease Electronically Signed by: Linnea Gibson DO CT/MRI/US Diagnostic Results CT/MRI/US Diagnostic Results : Imaging Test Ordered: US Thyroid Impression Impression: Somewhat atrophic heterogeneous thyroid, could indicate postinflammatory changes related to prior thyroiditis. No definite discrete nodule Last Vital Signs Date Time Temp Pulse Resp B/P (MAP) Pulse Ox O2 Delivery O2 Flow Rate FiO2 06/07/19 16:34 98.2 102 18 134/85 (101) 91 Room Air 06/07/19 15:59 21 Status: improved Disposition: ADMITTED INPATIENT Condition: Stable Linnea Gibson DO Jun 07, 2019 18:27
--- NOTE | 2019-06-07 18:44 | NUR ---
ED Nurse Note: PT IS AWARE OF HOSPITAL ADMISSION. BLANKETS PROVIDED.
[2019-06-07 20:00] VITALS: BP 151/78
--- NOTE | 2019-06-07 20:10 | NUR ---
ED Nurse Note: DR MEJIA AT THE BED SIDE AND CLEARED PT FOR DISCHARGE AT THIS TIME. PT VERBALIZED UNDERSTANDING OF CONSISTENTLY TAKING HIS MEDICATIONS FOR THYROID.
[2019-06-07 20:30] VITALS: BP 153/72
[2019-06-07] MEDS ORDERED: Nitroglycerin Subl 0.4mg tab SL PRN (20:30)
[2019-06-07] MEDS ORDERED: LORazepam Inj 2mg/ml 1ml IV PRN (20:30)
[2019-06-07] MEDS ORDERED: Albuterol/Ipratropium 3ml neb HHN PRN (20:30)
[2019-06-07] MEDS ORDERED: Morphine Sulfate 2mg/ml Inj(IV/IM USE ONLY) IVP PRN (20:30)
[2019-06-07] MEDS ORDERED: Promethazine/Codeine 5ml UD ORAL PRN (20:30)
--- NOTE | 2019-06-07 20:30 | NUR ---
ER DISCHARGE NOTE: Patient is cleared to be discharged per ERMD, pt is aox4, on room air, with stable vital signs. pt was given dc and prescription instructions, pt was able to verbalize understanding, pt id band and iv site removed without complications. pt is able to ambulate with steady gait. pt took all belongings.
[2019-06-07] MEDS ORDERED: Heparin 5000 units/ml inj SUBQ SCH (21:00)
[2019-06-07] MEDS ORDERED: Theophylline ER 100mg ORAL SCH (21:00)
[2019-06-07] MEDS ORDERED: Piperacillin/Tazobactam 2.25 GM in D5W 55 ML IV SCH (22:00)
[2019-06-08] MEDS ORDERED: Solu-MEDROL 125mg Inj IV SCH
[2019-06-08] MEDS ORDERED: Allopurinol 100mg Tab ORAL SCH (09:00)
== END 2019-06-07 20:30 | disposition home or self-care (01) ==
LOC: EMR 16:15 → EDBEDREQ 20:04 → CANBEDREQ 20:17 → EMR 20:30
DX: J44.1 Chronic obstructive pulmonary disease with (acute) exacerbation (principal); E03.9 Hypothyroidism, unspecified; N17.9 Acute kidney failure, unspecified; R74.0 Nonspecific elevation of levels of transaminase and lactic acid dehydrogenase [LDH]; I10 Essential (primary) hypertension; I51.9 Heart disease, unspecified; Z87.891 Personal history of nicotine dependence
CPT/HCPCS: 36415; 71045; 76536; 80053; 81003; 84439; 84443; 84481; 84484; 85025; 93005; 96361; 96374; J7030; J7512; Z7502; 99284